=== PATIENT | male | born 1950 | race Caucasian/White ===

== ENCOUNTER 2016-12-26 19:09 | Emergency (ER) | payer MEDICARE, MEDICAID ==
[2016-12-26 19:59] LABS: ABSOLUTE BASOPHILS # (AUTO) 0.1 10^3/uL (0.0-0.2); ABSOLUTE EOSINOPHILS # (AUTO) 0.1 10^3/uL (0.0-0.6); ABSOLUTE LYMPHOCYTES (AUTO) 1.3 10^3/uL (0.5-4.7); ABSOLUTE MONOCYTES (AUTO) 1.1 10^3/uL (0.1-1.4); ABSOLUTE NEUT (AUTO) 14.9 10^3/uL (1.7-8.2); BASOPHILS % (AUTO) 0.5 % (0-2); EOSINOPHILS % (AUTO) 0.3 % (0-6); HEMATOCRIT 42.9 % (37.9-51.0); HGB HCT DIFFERENCE -0.9; LYMPHOCYTES % (AUTO) 7.4 % (13-45); MEAN CORPUSCULAR HEMOGLOBIN 29.1 pg (27.0-33.4); MEAN CORPUSCULAR HGB CONC 32.8 g/dL (32.0-36.0); MEAN CORPUSCULAR VOLUME 89 fl (80-97); MONOCYTES % (AUTO) 6.2 % (3-13); RED BLOOD COUNT 4.83 10^6/uL (4.35-5.55); RED CELL DISTRIBUTION WIDTH 13.3 % (11.5-14.0); SEGMENTED NEUTROPHILS % (AUTO) 85.6 % (42-78); WHITE BLOOD COUNT 17.4 10^3/uL (4.0-10.5)
[2016-12-26 20:03] LABS: VENOUS BLOOD BASE EXCESS 1.6 mmol/L; VENOUS BLOOD HCO3 24.6 mmol/L (20-32); VENOUS BLOOD PCO2 33.9 mmHg (35-63); VENOUS BLOOD PH 7.48 (7.30-7.42)
--- NOTE | 2016-12-26 20:05 | ER Document Report ---
ED Respiratory Problem - General Chief Complaint: Shortness Of Breath Stated Complaint: SHORTNESS OF BREATH Time Seen by Provider: 12/26/16 19:19 Notes: The patient is a 66-year-old male, past medical history COPD, current smoker, presents with 2 days of increasing shortness of breath and cough. He was also found to have a fever of 101.5 when EMS arrived. He was provided 1 DuoNeb, 975 mg Tylenol and 125 mg IV Solu-Medrol by EMS prior to arrival. He is feeling better and feels like his shortness of breath has improved. He denies nausea, vomiting, chest pain, leg swelling, fevers, abdominal pain, rash or back pain. TRAVEL OUTSIDE OF THE [place] IN LAST 30 DAYS: No - Related Data Allergies/Adverse Reactions: No Known Allergies Allergy (Verified 12/26/16 19:21) Past Medical History - General Information source: Patient - Social History Smoking Status: Current Every Day Smoker Chew tobacco use (# tins/day): No Frequency of alcohol use: Social Drug Abuse: None Family History: Reviewed & Not Pertinent Patient has suicidal ideation: No Patient has homicidal ideation: No - Past Medical History Cardiac Medical History: Reports: Hx Hypertension Denies: Hx Coronary Artery Disease, Hx Heart Attack Pulmonary Medical History: Reports: Hx Asthma, Hx COPD, Hx Pneumonia - 6 yrs ago Denies: Hx Bronchitis Neurological Medical History: Denies: Hx Cerebrovascular Accident, Hx Seizures Renal/ Medical History: Denies: Hx Peritoneal Dialysis Musculoskeltal Medical History: Reports Hx Arthritis - back and shoulder Psychiatric Medical History: Reports: Hx Depression Past Surgical History: Reports: Hx Orthopedic Surgery - 3 discectomy. plates and screws in back. Denies: Hx Pacemaker - Immunizations Hx Diphtheria, Pertussis, Tetanus Vaccination: No Hx Pneumococcal Vaccination: 05/17/12 Review of Systems - Review of Systems Notes: REVIEW OF SYSTEMS: CONSTITUTIONAL: +fevers, +chills EENT: -eye pain, -difficulty swallowing, -nasal congestion CARDIOVASCULAR:-chest pain, -syncope. RESPIRATORY: +cough, +SOB GASTROINTESTINAL: -abdominal pain, - nausea, -vomiting, -diarrhea GENITOURINARY: -dysuria, -hematuria MUSCULOSKELETAL: -back pain, -neck pain SKIN: -rash or skin lesions. HEMATOLOGIC: -easy bruising or bleeding. LYMPHATIC: -swollen, enlarged glands. NEUROLOGICAL: -altered mental status or loss of consciousness, -headache, - neurologic symptoms PSYCHIATRIC: -anxiety, -depression. ALL OTHER SYSTEMS REVIEWED AND NEGATIVE. Physical Exam - Vital signs Vitals: Temp Pulse Resp BP Pulse Ox 99.4 F 103 H 24 H 135/69 H 89 L 12/26/16 19:10 12/26/16 19:10 12/26/16 19:10 12/26/16 19:10 12/26/16 19:10 - Notes Notes: PHYSICAL EXAMINATION: GENERAL: Well-appearing, well-nourished and in no acute distress. HEAD: Atraumatic, normocephalic. EYES: Pupils equal round and reactive to light, extraocular movements intact, sclera anicteric, conjunctiva are normal. ENT: nares patent, oropharynx clear without exudates. Moist mucous membranes. NECK: Normal range of motion, supple without lymphadenopathy LUNGS: Crackles in right middle lung field. No wheezing. No respiratory distress. HEART: Tachycardia, regular rhythm ABDOMEN: Soft, nontender, normoactive bowel sounds. No guarding, no rebound. No masses appreciated. EXTREMITIES: Normal range of motion, no pitting or edema. No cyanosis. NEUROLOGICAL: Cranial nerves grossly intact. Normal speech, normal gait. Normal sensory and motor exams. PSYCH: Normal mood, normal affect. SKIN: Warm, Dry, normal turgor, no rashes or lesions noted. Course - Re-evaluation Re-evalutation: Patient has evidence of right middle lobe pneumonia on chest x-ray. He has not had any recent hospitalizations, so will begin antibiotics for CAP. After DuoNebs, steroids and antibiotics, he feels much better. His CURB-65 score is 1 , so he is safe for outpatient management with strict return precautions. Pt comfortable with plan. - Vital Signs Vital signs: Temp Pulse Resp BP Pulse Ox 99.4 F 103 H 38 H 123/71 91 L 12/26/16 19:25 12/26/16 19:10 12/26/16 19:33 12/26/16 19:33 12/26/16 19:33 - Laboratory Result Diagrams: 12/26/16 19:40 12/26/16 19:40 Laboratory results interpreted by me: 12/26/16 12/26/16 12/26/16 19:40 19:40 19:40 WBC 17.4 H Seg Neutrophils % 85.6 H Lymphocytes % 7.4 L Absolute Neutrophils 14.9 H VBG pH 7.48 H VBG pCO2 33.9 L Sodium 135.9 L Carbon Dioxide 21 L Glucose 175 H AST 16 L - Diagnostic Test Radiology reviewed: Image reviewed, Reports reviewed Radiology results interpreted by me: CXR: RML pneumonia - EKG Interpretation by Me EKG shows normal: Sinus rhythm, Morse, Intervals, QRS Complexes Rate: Tachycardia When compared to previous EKG there are: Changes noted Additional EKG results interpreted by me: ST Depressions in lateral leads, sinus tachycardia Discharge - Discharge Clinical Impression: COPD exacerbation Pneumonia Qualifiers: Pneumonia type: due to unspecified organism Laterality: right Lung location: middle lobe of lung Qualified Code(s): J18.1 - Lobar pneumonia, unspecified organism Condition: Stable Additional Instructions: PNEUMONIA: Your examination indicates that you have pneumonia. This is an infection of the lung tissue, usually caused by bacteria or a virus. Symptoms include cough, fever, shaking chills, chest pain, shortness of breath, and coughing up bloody sputum. Treatment for bacterial pneumonia includes rest, antibiotics for 10 to 14 days, increasing your clear liquid intake, a cool mist humidifier at your bedside, and fever medication. Often, a repeat chest X-ray is performed in a few weeks--even if you feel better--to ascertain whether the infection has completely resolved and no underlying lung problem is present. You should call the physician if you develop persistent vomiting, high fever that does not respond to fever medication, increasing shortness of breath , confusion, or lethargy. Also, failure to improve within two to three days is an indication for re-examination. ANTIBIOTIC INJECTION: You have been given an antibiotic injection. Sometimes the injection must be combined with antibiotic pills. For some infections, the shot provides all the antibiotic that's needed. Common side effects of antibiotics include nausea, intestinal cramping, or diarrhea. These are very unusual following a shot. Women may develop vaginal yeast infections, and babies can get yeast ( thrush) in the mouth following the use of antibiotics. Contact your physician if you develop significant side effects from this medication. Allergy to this antibiotic can result in hives, wheezing, faintness, or itching. If symptoms of allergy occur, call the doctor at once. ROCEPHIN: You have been given an injection of an antibiotic called Rocephin ( ceftriaxone). Sometimes the injection must be combined with antibiotic pills. For some infections, such as an uncomplicated ear infection, Rocephin provides all the antibiotic that's needed. The antibiotic will be in your body for about two days. For serious infections, we usually repeat doses of Rocephin daily. Side effects are very unusual following a shot. Women may develop vaginal yeast infections, and babies can get yeast (thrush) in the mouth following the use of antibiotics. Contact your physician if you have symptoms with this medication. Allergy to this antibiotic can result in hives, wheezing, faintness, or itching. If symptoms of allergy occur, call the doctor at once. ANTIBIOTIC THERAPY: You have been given an antibiotic prescription. It's important that you take all the medication, unless instructed otherwise by your physician. Failure to complete the entire course can result in relapse of your condition. Common side effects of antibiotics include nausea, intestinal cramping, or diarrhea. Women may develop vaginal yeast infections, and babies can get yeast (thrush) in the mouth following the use of antibiotics. Contact your physician if you develop significant side effects from this medication. Allergy to this antibiotic can result in hives, wheezing, faintness, or itching. If symptoms of allergy occur, stop the medication and call the doctor. DOXYCYCLINE: Doxycycline (Vibramycin, Doryx) is an antibiotic of the tetracycline family. This type of drug is useful for infections of the respiratory tract and genital tract, and is sometimes used for intestinal infections. Unlike most tetracyclines, doxycycline can be taken with food. It is longer acting, and (usually) less prone to side effects than regular tetracycline. Tetracycline antibiotics can stain immature teeth and SHOULD NOT BE TAKEN BY CHILDREN, NURSING MOTHERS, OR WOMEN. Tetracyclines can make you more prone to sunburn. Abdominal cramping, nausea, and diarrhea are occasional side effects. Women may experience vaginal yeast infections. Call the doctor at once if you develop hives, itching, shortness of breath , or lightheadedness. USE OF ACETAMINOPHEN (Tylenol): Acetaminophen may be taken for pain relief or fever control. It's much safer than aspirin, offering a wider range of "safe" dosages. It is safe during . Some brand names are Tylenol, Panadol, Datril, Anacin 3, Tempra, and Liquiprin. Acetaminophen can be repeated every four hours. The following are maximum recommended dosages: WEIGHT Dose Drops Elixir Chewable( 80mg) (LBS.) drprs=droppers tsp=teaspoon 6 40 mg 0.4 ml (1/2) 6-11 80 mg 0.8 ml (full) tsp 1 tab 12-16 120 mg 1 1/2 drprs 3/4 tsp 1 1/2 tabs 17-23 160 mg 2 drprs 1 tsp 2 tabs 24-30 240 mg 3 drprs 1 1/2 tsp 3 tabs 30-35 320 mg 2 tsp 4 tabs 36-41 360 mg 2 1/4 tsp 4 1/2 tabs 42-47 400 mg 2 1/2 tsp 5 tabs 48-53 480 mg 3 tsp 6 tabs 54-59 520 mg 3 1/4 tsp 6 1/2 tabs 60-64 560 mg 3 1/2 tsp 7 tabs 65-70 600 mg 3 3/4 tsp 7 1/2 tabs 71-76 640 mg 4 tsp 8 tabs 77-82 720 mg 4 1/2 tsp 9 tabs 83-88 800 mg 5 tsp 10 tabs >89 pounds or adults 650 mg to 900 mg Acetaminophen can be repeated every four hours. Maximum dose not to exceed 4000 mg a day. These maximum recommended dosages are slightly higher than the dosages written on the product container, but these dosages are very safe and below the toxic dosage for acetaminophen. FOLLOW-UP CARE: If you have been referred to a physician for follow-up care, call the physician s office for an appointment as you were instructed or within the next two days. If you experience worsening or a significant change in your symptoms, notify the physician immediately or return to the Emergency Department at any time for re-evaluation. BRONCHOSPASM: You have tightness in the bronchial tubes, called bronchospasm. This often occurs with bronchial infections. Allergies, inhaled chemicals, and polluted or cold air can also provoke bronchospasm. It's more likely in patients with asthma in the family. Emergency treatment of bronchospasm may include adrenaline shots or bronchodilator aerosol. You may feel lightheaded and have a rapid pulse for an hour or two. Rest and get plenty of fluids. At home, we'll treat you with a bronchodilator inhaler. Antibiotics and corticosteroids may be required for some patients. Until you recover, avoid chemical fumes, dusts, pollens, and exercising in very cold or dry air. If you smoke, stop now!! If you develop a fever, increased wheezing, chest pain, or severe shortness of breath, you should contact the doctor immediately. INHALED BRONCHODILATORS: You have received a treatment of and/or prescription for an inhaled bronchodilator -- a medication which stimulates the airways in the lung to dilate. This improves the flow of air in asthma, bronchitis, and emphysema. These medicines have some similarity to adrenaline, and can cause similar side effects: shakiness, racing heart, and a sense of nervousness. These side effects decrease with time. Contact your doctor if these side effects are severe. Do not over-use the medicine. Too-frequent use of the inhaler may make it ineffective. Call your doctor if the inhaler is not controlling your symptoms at the prescribed doses. STEROID MEDICATION: You have been given an injection of or oral medicine of the cortisone/ steroid class. This medication is used to control inflammation or allergy. Mike t is usually only given for a short period of time, until the acute process subsides. There are usually no side effects from short-term use of cortisone-like medications. Some persons feel an increased sense of well-being and are not sleepy at bedtime. Long-term use of cortisone medications is best avoided, unless required for a severe condition. If your condition does not remit, or relapses after the course of corticosteroid medication, you should consult your physician. SMOKING: If you smoke, you should stop smoking. The tar and chemicals in cigarette smoke are harmful. Smoking has been shown to cause: emphysema chronic bronchitis lung cancer mouth and throat cancer stomach and pancreas cancer premature aging defects In addition, smoking increases ear and lung infections in children of smokers. FOLLOW-UP CARE: If you have been referred to a physician for follow-up care, call the physician s office for an appointment as you were instructed or within the next two days. If you experience worsening or a significant change in your symptoms, notify the physician immediately or return to the Emergency Department at any time for re-evaluation. Prescriptions: Albuterol Sulfate [Proair HFA Inhalation Aerosol 8.5 gm MDI] 2 puff IH Q4H PRN # 1 mdi PRN Reason: Doxycycline Hyclate 100 mg PO BID #14 capsule Prednisone [Deltasone 20 mg Tablet] 3 tab PO DAILY 5 Days
[2016-12-26] MEDS ORDERED: CEFTRIAXONE 1 GM/D5W RTU 50 ML IV ONE (20:07)
--- NOTE | 2016-12-26 20:07 | RADIOLOGY REPORT (SQ) ---
EXAM DESCRIPTION: CHEST PA/LAT COMPLETED DATE/TIME: 12/26/2016 7:57 pm REASON FOR STUDY: SOB, fever COMPARISON: 02/11/2014 EXAM PARAMETERS: NUMBER OF VIEWS: two views TECHNIQUE: Digital Frontal and Lateral radiographic views of the chest acquired. RADIATION DOSE: NA LIMITATIONS: none FINDINGS: LUNGS AND PLEURA: Right middle lobe airspace opacities. No pleural effusion. No pneumoth orax. MEDIASTINUM AND HILAR STRUCTURES: No masses or contour abnormalities. HEART AND VASCULAR STRUCTURES: Heart normal size. No evidence for failure. BONES: No acute findings. HARDWARE: None in the chest. OTHER: No other significant finding. IMPRESSION: Right middle lobe pneumonia. TECHNICAL DOCUMENTATION: JOB ID: [id number] [employer]- All Rights Reserved
[2016-12-26] MEDS ORDERED: AZITHROMYCIN INJ 500 MG VIAL IV ONE (20:08)
[2016-12-26 20:17] LABS: ALANINE AMINOTRANSFERASE 23 U/L (21-72); ALBUMIN 3.6 g/dL (3.5-5.0); ALKALINE PHOSPHATASE 85 U/L (38-126); ANION GAP 12 (5-19); ASPARTATE AMINO TRANSFERASE 16 U/L (17-59); BILIRUBIN,DIRECT 0.4 mg/dL (0.0-0.4); BILIRUBIN,TOTAL 1.3 mg/dL (0.2-1.3); BLOOD UREA NITROGEN 14 mg/dL (7-20); CARBON DIOXIDE 21 mmol/L (22-30); CHLORIDE 103 mmol/L (98-107); CREATINE KINASE 57 U/L (55-170); CREATININE RESULT 0.71 mg/dL (0.52-1.25); GLUCOSE 175 mg/dL (75-110); POTASSIUM 3.8 mmol/L (3.6-5.0); SODIUM 135.9 mmol/L (137-145); TOTAL PROTEIN 6.4 g/dL (6.3-8.2)
[2016-12-26 20:30] LABS: TROPONIN I < 0.012 ng/mL
[2016-12-26 22:32] VITALS: BP 126/72
--- NOTE | 2016-12-26 23:54 | EKG REPORT ---
SEVERITY:- OTHERWISE NORMAL ECG - SINUS TACHYCARDIA MINIMAL ST DEPRESSION, ANTEROLATERAL LEADS : Confirmed by: Ree Guthrie 26-Dec-2016 23:54:00
== END 2016-12-26 22:35 | disposition home or self-care (01) ==
LOC: ER 19:09
DX: J44.1 Chronic obstructive pulmonary disease with (acute) exacerbation (principal); J18.1 Lobar pneumonia, unspecified organism; R50.9 Fever, unspecified; F17.200 Nicotine dependence, unspecified, uncomplicated; I10 Essential (primary) hypertension
CPT/HCPCS: 93005; 99285; 96375; 96365; 36415; 87040; 82550; 85025; 80053; 83605; 84484; 82803; 83880; 71020; 93010; J0456; J0696

== ENCOUNTER 2017-08-02 22:49 | Inpatient (IN) | payer MEDICARE, MEDICAID ==
[2017-08-02] MEDS ORDERED: IPRATROPIUM/ALBUTEROL 0.5-2.5 MG/3 ML AMPUL NEB ONE (23:26)
[2017-08-02] MEDS ORDERED: METHYLPREDNISOLONE INJ 125 MG/2 ML SDV IV ONE (23:26)
--- NOTE | 2017-08-02 23:29 | ER Document Report ---
ED Respiratory Problem - General Chief Complaint: Breathing Difficulty Stated Complaint: DIFFICULTY BREATHING Time Seen by Provider: 08/02/17 23:11 Notes: Patient is a 66-year-old male who presents emergency department with a chief complaint of shortness of breath. Patient states that he woke up this morning with shortness of breath and is been doing his home nebulizer treatments. Patient states that he was discharged from [facility] yesterday after approximately 3 day admission for same symptoms. He was sent home on prednisone , Levaquin as well as Flonase and Advair. 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 He denies any chest pain, nausea or vomiting. Denies any fevers or chills, productive cough. TRAVEL OUTSIDE OF THE [place] IN LAST 30 DAYS: No - Related Data Allergies/Adverse Reactions: No Known Allergies Allergy (Verified 12/26/16 19:21) Past Medical History - Social History Smoking Status: Unknown if Ever Smoked Chew tobacco use (# tins/day): No Frequency of alcohol use: None Drug Abuse: None Family History: Reviewed & Not Pertinent Patient has suicidal ideation: No Patient has homicidal ideation: No - Past Medical History Cardiac Medical History: Reports: Hx Hypertension Denies: Hx Coronary Artery Disease, Hx Heart Attack Pulmonary Medical History: Reports: Hx Asthma, Hx COPD, Hx Pneumonia - 6 yrs ago Denies: Hx Bronchitis Neurological Medical History: Denies: Hx Cerebrovascular Accident, Hx Seizures Renal/ Medical History: Denies: Hx Peritoneal Dialysis Musculoskeltal Medical History: Reports Hx Arthritis - back and shoulder Psychiatric Medical History: Reports: Hx Depression Past Surgical History: Reports: Hx Orthopedic Surgery - 3 discectomy. plates and screws in back. Denies: Hx Pacemaker - Immunizations Hx Diphtheria, Pertussis, Tetanus Vaccination: No Hx Pneumococcal Vaccination: 05/17/12 Review of Systems - Review of Systems Constitutional: No symptoms reported. denies: Chills, Fever, Weight gain, Weight loss EENT: No symptoms reported Cardiovascular: No symptoms reported. denies: Chest pain, Palpitations, Orthopnea, Syncope, Dizziness Respiratory: See HPI, Cough, Short of breath, Wheezing Gastrointestinal: No symptoms reported. denies: Abdominal pain, Nausea, Vomiting Neurological/Psychological: No symptoms reported, Confusion -: Yes All other systems reviewed and negative Physical Exam - Vital signs Vitals: Resp Pulse Ox 25 H 96 08/02/17 22:58 08/02/17 22:58 - Notes Notes: PHYSICAL EXAM GENERAL: Alert, interacts well. HEAD: Normocephalic, atraumatic. EYES: Pupils equal, round, and reactive to light. Extraocular movements intact. ENT: Oral mucosa moist, tongue midline. NECK: Full range of motion. Supple. Trachea midline. LUNGS: Coarse rhonchi noted throughout all lung pool it was so bad. No respiratory distress. HEART: chest nontender Regular rate and rhythm. No murmurs, gallops, or rubs. ABDOMEN: Soft, nondistended, nontender. No guarding, rebound, or rigidity.. Bowel sounds present in all 4 quadrants. EXTREMITIES: Moves all 4 extremities spontaneously. No edema, radial and dorsalis pedis pulses 2/4 bilaterally. No cyanosis. NEUROLOGICAL: Alert and oriented x4. Normal speech. PSYCH: Normal affect, normal mood. SKIN: Warm, dry, normal turgor. No rashes or lesions noted. Course - Re-evaluation Re-evalutation: Patient is a 66-year-old male who presents emergency department with symptoms consistent with acute on chronic COPD exacerbation. Patient does not wear nasal cannula at home but is requiring at least 2-4 L nasal cannula here to maintain his sats in the mid 90s. Patient received Solu-Medrol multiple breathing treatments via EMS and while in the department. Patient was ambulated and dropped down to 84% with tachypnea and tachycardia. Patient will be admitted for acute on chronic COPD exacerbation to Dr. Juárez under telemetry - Vital Signs Vital signs: Temp Pulse Resp BP Pulse Ox 98.0 F 79 18 151/80 H 94 08/03/17 07:54 08/03/17 08:17 08/03/17 08:17 08/03/17 07:54 08/03/17 08:17 - Laboratory Result Diagrams: 08/02/17 23:05 08/02/17 23:05 Laboratory results interpreted by me: 08/02/17 08/02/17 08/03/17 23:05 23:05 00:05 WBC 11.3 H Band Neutrophils % 2 L Metamyelocytes % 2 H Immature Leukocytes % 2 H ABG pH 7.47 H ABG pO2 60.3 L ABG Total CO2 27.1 H ABG O2 Saturation 92.6 L Total Protein 5.8 L - Diagnostic Test Radiology reviewed: Image reviewed, Reports reviewed - EKG Interpretation by Me EKG shows normal: Sinus rhythm Rate: Normal Rhythm: NSR When compared to previous EKG there are: No significant change Discharge - Discharge Clinical Impression: COPD exacerbation Condition: Stable Disposition: ADMITTED OBSERVATION Admitting Provider: Hospitalist Unit Admitted: Telemetry
--- NOTE | 2017-08-03 00:04 | RADIOLOGY REPORT (SQ) ---
EXAM DESCRIPTION: CHEST SINGLE VIEW COMPLETED DATE/TIME: 08/02/2017 11:40 pm REASON FOR STUDY: shortness of breath, pneumonia COMPARISON: 12/26/2016 EXAM PARAMETERS: NUMBER OF VIEWS: One view. TECHNIQUE: Single frontal radiographic view of the chest acquired. RADIATION DOSE: NA LIMITATIONS: None. FINDINGS: LUNGS AND PLEURA: No consolidation, masses or pneumothorax. No pleural effusion. MEDIASTINUM AND HILAR STRUCTURES: Stable. HEART AND VASCULAR STRUCTURES: Heart normal in size. Normal vasculature. BONES: No acute findings. HARDWARE: None in the chest. OTHER: No other significant finding. IMPRESSION: NO ACUTE RADIOGRAPHIC FINDING IN THE CHEST. TECHNICAL DOCUMENTATION: JOB ID: [id number] [employer]- All Rights Reserved Reading location - IP/workstation name: [email or web address]
[2017-08-03] MEDS: ALBUTEROL SULFATE 0.083% NEB 2.5 MG/3 ML AMPUL NEB SCH ×2 (00:10→00:14)
[2017-08-03 00:22] LABS: HEMATOCRIT 42.3 % (37.9-51.0); HEMOGLOBIN 13.9 g/dL (13.5-17.0); MEAN CORPUSCULAR HEMOGLOBIN 27.8 pg (27.0-33.4); MEAN CORPUSCULAR HGB CONC 32.8 g/dL (32.0-36.0); MEAN CORPUSCULAR VOLUME 85 fl (80-97); PLATELET COUNT 256 10^3/uL (150-450); RED BLOOD COUNT 5.01 10^6/uL (4.35-5.55); RED CELL DISTRIBUTION WIDTH 13.8 % (11.5-14.0); WHITE BLOOD COUNT 11.3 10^3/uL (4.0-10.5)
[2017-08-03 00:22] LABS: ARTERIAL BLOOD BASE EXCESS 2.5 mmol/L; ARTERIAL BLOOD H2CO3 1.11 mmol/L (1.05-1.35); ARTERIAL BLOOD O2 SATURATION 92.6 % (94-98); ARTERIAL BLOOD PCO2 36.9 mmHg (35-45); ARTERIAL BLOOD PH 7.47 (7.35-7.45); ARTERIAL BLOOD PO2 60.3 mmHg (80-100); ARTERIAL BLOOD TOTAL CO2 27.1 mmol/L (23-27)
[2017-08-03 00:31] LABS: ARTERIAL BLOOD FIO2 ROOM AIR
[2017-08-03 00:33] LABS: ALANINE AMINOTRANSFERASE 39 U/L (21-72); ALBUMIN 3.5 g/dL (3.5-5.0); ALKALINE PHOSPHATASE 65 U/L (38-126); ANION GAP 12 (5-19); ASPARTATE AMINO TRANSFERASE 27 U/L (17-59); BILIRUBIN,DIRECT 0.2 mg/dL (0.0-0.4); BILIRUBIN,TOTAL 0.5 mg/dL (0.2-1.3); BLOOD UREA NITROGEN 15 mg/dL (7-20); CALCIUM 9.1 mg/dL (8.4-10.2); CARBON DIOXIDE 27 mmol/L (22-30); CHLORIDE 102 mmol/L (98-107); CREATINE KINASE 74 U/L (55-170); GLUCOSE 98 mg/dL (75-110); POTASSIUM 4.2 mmol/L (3.6-5.0); SODIUM 140.6 mmol/L (137-145); TOTAL PROTEIN 5.8 g/dL (6.3-8.2)
[2017-08-03 00:42] LABS: ABSOLUTE LYMPHOCYTES# (MANUAL) 4.1 10^3/uL (0.5-4.7); ABSOLUTE MONOCYTES # (MANUAL) 0.5 10^3/uL (0.1-1.4); ABSOLUTE NEUTROPHILS# (MANUAL) 6.6 10^3/uL (1.7-8.2); BAND NEUTROPHILS % (MANUAL) 2 % (3-5); BASOPHILS % (MANUAL) 0 % (0-2); EOSINOPHILS % (MANUAL) 0 % (0-6); LYMPHOCYTES % (MANUAL) 29 % (13-45); METAMYELOCYTES % (MANUAL) 2 % (0); MONOCYTES % (MANUAL) 4 % (3-13); SEGMENTED NEUTROPHILS % (MAN) 54 % (42-78); TOTAL CELLS COUNTED 100
[2017-08-03 00:45] LABS: CREATINE KINASE MB 2.97 ng/mL (<4.55)
[2017-08-03 00:48] LABS: TROPONIN I 0.04 ng/mL
[2017-08-03 00:49] LABS: PLATELET LARGE PRESENT; RBC MORPHOLOGY COMMENT NORMO-CYTIC/CHROMIC
[2017-08-03 00:50] LABS: IMMATURE MONONUCLEAR% (MANUAL) 2 % (0); PLATELET COMMENT ADEQUATE
[2017-08-03] MEDS ORDERED: ACETAMINOPHEN 325 MG TABLET PO PRN (02:09)
[2017-08-03] MEDS ORDERED: IPRATROPIUM/ALBUTEROL 0.5-2.5 MG/3 ML AMPUL NEB PRN (02:09)
[2017-08-03] MEDS ORDERED: CHLORPHENIRAMINE MALEATE 4 MG TABLET PO ONE (02:09)
[2017-08-03] MEDS ORDERED: GUAIFENESIN SYRP 200 MG/10 ML UDC PO PRN (02:09)
[2017-08-03] MEDS ORDERED: HYDRALAZINE HCL INJ/PF 20 MG/1 ML SDV IV PRN (02:09)
[2017-08-03] MEDS: FLUTICASONE NASAL SPRAY 50 MCG/SPRY 120 SPRAY/16 GM NASL SCH ×3 (02:30→21:12)
[2017-08-03] MEDS ORDERED: FLUTICASONE NASAL SPRAY 50 MCG/SPRY 120 SPRAY/16 GM NASL ONE (02:30)
[2017-08-03] MEDS: HEPARIN SOD (PORCINE) 5,000 UNIT/ML 1 ML SYRINGE SUBCUT SCH ×3 (05:08→21:13)
[2017-08-03] MEDS ORDERED: NICOTINE 7 MG/24 HR PATCH.TD24 TD ONE (06:00)
--- NOTE | 2017-08-03 06:01 | PDOC H&P ---
History of Present Illness Admission Date/PCP: 08/03/17 02:30 Patient complains of: Shortness of breath and cough History of Present Illness: MEKA ATWOOD JR is a 66 year old male with a past medical history of COPD, chronic bronchitis, Tobacco Dependence and hypertension. He presents with 1 week of exceptional sinus congestion, postnasal drip and shortness of breath prompting him to seek evaluation at the emergency room at [facility] where he was observed and discharged on p.o. antibiotics but has subsequently had a return of symptoms. In the emergency room is found to be tachypneic with wheezing. He receives albuterol and Atrovent and referred to the hospitalist for evaluation. Patient denies chest pain nausea vomiting or diaphoresis Past Medical History Cardiac Medical History: Reports: Hypertension Denies: Coronary Artery Disease, Myocardial Infarction Pulmonary Medical History: Reports: Asthma, Chronic Obstructive Pulmonary Disease (COPD), Pneumonia - 6 yrs ago Denies: Bronchitis Neurological Medical History: Denies: Seizures Musculoskeltal Medical History: Reports: Arthritis - back and shoulder Psychiatric Medical History: Reports: Depression Hematology: Denies: Anemia Past Surgical History Past Surgical History: Reports: Orthopedic Surgery - 3 discectomy. plates and screws in back Denies: Pacemaker Social History Information Source: Patient Smoking Status: Current Every Day Smoker Frequency of Alcohol Use: Social Hx Recreational Drug Use: No Drugs: None Hx Prescription Drug Abuse: No - Advance Directive Resuscitation Status: Full Code Family History Family History: COPD, Malignancy - Throat cancer Parental Family History Reviewed: Yes Children Family History Reviewed: Yes Sibling(s) Family History Reviewed.: Yes Medication/Allergy Home Medications: Albuterol Sulfate [Proair Hfa Inhalation Aerosol 8.5 gm Mdi] 2 puff IH Q4 PRN Amlodipine Besylate 10 mg PO DAILY 08/03/17 Fluticasone Propionate [Flonase Nasal [place] 50 Mcg/[place] 16 gm] 1 spray NASL Q12 08/03/17 Fluticasone/Salmeterol [Advair 100-50 Diskus 28 Dose] 1 inh IH Q12H 08/03/17 Guaifenesin [Mucinex] 1,200 mg PO BID 08/03/17 Hydrocodone/Chlorphen P-Stirex [Tussionex Pennkinetic Susp] 5 ml PO QHS Levofloxacin [Levaquin 750 mg Tablet] 750 mg PO DAILY 08/03/17 Prednisone 20 mg PO DAILY 08/03/17 Tiotropium Adams [Spiriva Handihaler 18 mcg/dose (30 Dose)] 1 cap IH DAILY Allergies/Adverse Reactions: No Known Allergies Allergy (Verified 12/26/16 19:21) Review of Systems Constitutional: ABSENT: chills, fever(s), headache(s), weight gain, weight loss Eyes: ABSENT: visual disturbances Ears: ABSENT: hearing changes Cardiovascular: ABSENT: chest pain, dyspnea on exertion, edema, orthropnea, palpitations Respiratory: ABSENT: cough, hemoptysis Gastrointestinal: ABSENT: abdominal pain, constipation, diarrhea, hematemesis, hematochezia, nausea, vomiting Genitourinary: ABSENT: dysuria, hematuria Musculoskeletal: ABSENT: joint swelling Integumentary: ABSENT: rash, wounds Neurological: ABSENT: abnormal gait, abnormal speech, confusion, dizziness, focal weakness, syncope Psychiatric: ABSENT: anxiety, depression, homidical ideation, suicidal ideation Endocrine: ABSENT: cold intolerance, heat intolerance, polydipsia, polyuria Hematologic/Lymphatic: ABSENT: easy bleeding, easy bruising Physical Exam Vital Signs: Temp Pulse Resp BP Pulse Ox 97.7 F 78 24 H 182/84 H 95 08/03/17 03:52 08/03/17 04:17 08/03/17 03:52 08/03/17 03:52 08/03/17 04:00 Pulse Oximeter Continuous Start: 08/03/17 02: 09 Freq: RTQ4 Status: Active Document 08/03/17 04:00 CMI (Rec: 08/03/17 04:27 CMI [email or web address]) Pulse Oximetry Assessment Oxygen Saturation (92-100) 95 Oxygen Flow Rate (L/min) 3 Oxygen Delivery Method Nasal Cannula Fraction of Inspired Oxygen (FIO2) 32 Equipment Usage Initial Set Up Continuous Pulse Oximeter 24 Hour Charge Charge Now Continuous SpO2 Machine # 8 Intake & Output 08/01/17 08/02/17 08/03/17 11:59 11:59 11:59 Weight 71.5 kg General appearance: PRESENT: cooperative, mild distress. ABSENT: no acute distress, disheveled, hard of hearing, obese, severe distress Head exam: PRESENT: atraumatic, normocephalic Eye exam: PRESENT: conjunctiva pink, EOMI, PERRLA. ABSENT: scleral icterus Ear exam: PRESENT: normal external ear exam Mouth exam: PRESENT: moist, tongue midline Neck exam: ABSENT: carotid bruit, JVD, lymphadenopathy, thyromegaly Respiratory exam: PRESENT: accessory muscle use, rales, retraction, symmetrical , tachypnea, wheezes. ABSENT: chest wall tenderness, clear to auscultation uriel , rhonchi Cardiovascular exam: PRESENT: RRR. ABSENT: diastolic murmur, rubs, systolic murmur Pulses: PRESENT: normal dorsalis pedis pul Vascular exam: PRESENT: normal capillary refill GI/Abdominal exam: PRESENT: normal bowel sounds, soft. ABSENT: distended, guarding, mass, organolmegaly, rebound, tenderness Rectal exam: PRESENT: deferred Extremities exam: PRESENT: full ROM. ABSENT: calf tenderness, clubbing, pedal edema Neurological exam: PRESENT: alert, awake, oriented to person, oriented to place , oriented to time, oriented to situation, CN II-XII grossly intact. ABSENT: motor sensory deficit Psychiatric exam: PRESENT: appropriate affect, normal mood. ABSENT: homicidal ideation, suicidal ideation Skin exam: PRESENT: dry, intact, warm. ABSENT: cyanosis, rash Results Laboratory Results: 08/03/17 03:30 Troponin I 0.024 Impressions: Chest X-Ray 08/02/17 23:27 IMPRESSION: NO ACUTE RADIOGRAPHIC FINDING IN THE CHEST. Assessment & Plan - Diagnosis (1) Allergic sinusitis Is this a current diagnosis for this admission?: Yes Plan: Chlorpheniramine, Flonase. (2) COPD exacerbation Is this a current diagnosis for this admission?: Yes Plan: Albuterol and Atrovent, flutter valve incentive spirometry (3) HTN (hypertension) Is this a current diagnosis for this admission?: Yes Plan: Home regiment with as needed hydralazine (4) Tobacco abuse Is this a current diagnosis for this admission?: Yes Plan: Tobacco Dependence patient received tobacco cessation counseling and offered nicotine replacement options - Time Time Spent: 30 to 50 Minutes - Inpatient Certification Medical Necessity: Need Close Monitoring Due to Risk of Patient Decompensation
[2017-08-03] MEDS: IPRATROPIUM/ALBUTEROL 0.5-2.5 MG/3 ML AMPUL NEB SCH ×3 (08:14→20:06)
--- NOTE | 2017-08-03 09:33 | EKG REPORT ---
SEVERITY:- NORMAL ECG - SINUS RHYTHM : Confirmed by: Ree Guthrie 03-Aug-2017 09:32:08
--- NOTE | 2017-08-03 09:37 | Physician Advisory Note ---
Physician Advisor ProgressNote .: Pursuant to the plan for Clarisa Abraham, I have reviewed the medical record for this patient. Physician Advisor Statement: Please consider documenting, if you agree: 1. "Acute Hypoxemic Respiratory Failure" - H&P already documents tachypnea, accessory muscle use, etc - & both H&P and ED note document hypoxemia, need for O2. 2. "Suspect acute bronchitis" (or what is reason for abx, since COPD exacerbations don't always need abx) 3. Principal Dx: Please document as Dx #1 in each note the principal reason the patient needed to stay in hospital (whether it was the Acute Resp Failure or the COPD exacerbation). 4. Medical Necessity: if this Medicare pt cannot be safely d/c'd tonight, after 1 [place] hospital care beginning in ED, please document reason(s) & consider changing to Inpatient status. - Ex: "Pt still requiring O2 to maintain sats in 90s", "resp status not yet back to baseline - still using accessory muscles to breathe/...", "I AM CONCERNED about ..." Thanks! CK
[2017-08-03] MEDS ORDERED: PREDNISONE 20 MG TABLET PO SCH (10:00)
[2017-08-03] MEDS ORDERED: AZITHROMYCIN 500 MG in DEXTROSE 5%-WATER 250 ML IV SCH (10:00)
[2017-08-03] MEDS ORDERED: FLUTICASONE NASAL SPRAY 50 MCG/SPRY 120 SPRAY/16 GM NASL PRN (14:42)
--- NOTE | 2017-08-03 15:19 | PDOC PROGRESS REPORT ---
Subjective Progress Note for:: 08/03/17 Subjective:: Patient complains of feeling short of breath and his chest being tight Review of system All organ systems evaluated and negative except as in subjective All laboratories and significant diagnostics have been reviewed Reason For Visit: COPD EXACERBATION ACUTE ON CHRONIC BRONCHITIS Physical Exam Vital Signs: Temp Pulse Resp BP Pulse Ox 97.7 F 61 24 H 182/84 H 95 08/03/17 03:52 08/03/17 07:00 08/03/17 03:52 08/03/17 03:52 08/03/17 04:00 Pulse Oximeter Continuous Start: 08/03/17 02: 09 Freq: RTQ4 Status: Active Document 08/03/17 04:00 CMI (Rec: 08/03/17 04:27 CMI [email or web address]) Pulse Oximetry Assessment Oxygen Saturation (92-100) 95 Oxygen Flow Rate (L/min) 3 Oxygen Delivery Method Nasal Cannula Fraction of Inspired Oxygen (FIO2) 32 Equipment Usage Initial Set Up Continuous Pulse Oximeter 24 Hour Charge Charge Now Continuous SpO2 Machine # 8 Intake & Output 08/02/17 08/03/17 08/04/17 06:59 06:59 06:59 Intake Total 100 Balance 100 Weight 71.5 kg General appearance: PRESENT: cooperative, well-developed, well-nourished Head exam: PRESENT: atraumatic, normocephalic Eye exam: PRESENT: conjunctiva pink, EOMI, PERRLA Ear exam: PRESENT: normal external ear exam Mouth exam: PRESENT: moist Neck exam: PRESENT: full ROM. ABSENT: JVD, lymphadenopathy, tenderness Respiratory exam: PRESENT: crackles, decreased breath sounds, wheezes Cardiovascular exam: PRESENT: RRR. ABSENT: diastolic murmur, systolic murmur Vascular exam: PRESENT: normal capillary refill GI/Abdominal exam: PRESENT: normal bowel sounds, soft. ABSENT: tenderness Extremities exam: PRESENT: full ROM. ABSENT: tenderness Musculoskeletal exam: PRESENT: ambulatory Neurological exam: PRESENT: alert, awake, oriented to person, oriented to place , oriented to time, oriented to situation Skin exam: PRESENT: normal color Results Laboratory Results: 08/03/17 03:30 Troponin I 0.024 Impressions: Chest X-Ray 08/02/17 23:27 IMPRESSION: NO ACUTE RADIOGRAPHIC FINDING IN THE CHEST. Assessment & Plan - Diagnosis (1) CHF (congestive heart failure) Qualifiers: Heart failure type: unspecified Heart failure chronicity: acute Qualified Code(s): I50.9 - Heart failure, unspecified Is this a current diagnosis for this admission?: Yes Plan: To place patient on IV Lasix, control blood pressure and order echocardiogram (2) Acute respiratory failure with hypoxia Is this a current diagnosis for this admission?: Yes Plan: Continue oxygen supplementation and wean off as tolerated (3) COPD exacerbation Is this a current diagnosis for this admission?: Yes Plan: To place on IV steroids, continue duo nebs and change Zithromax IV to p.o. (4) HTN (hypertension) Qualifiers: Hypertension type: essential hypertension Qualified Code(s): I10 - Essential (primary) hypertension Is this a current diagnosis for this admission?: Yes Plan: Continue Norvasc as outpatient and add lisinopril. (5) Tobacco abuse Is this a current diagnosis for this admission?: Yes Plan: Continue nicotine patch - Time Time Spent with patient: 15-24 minutes Medications reviewed and adjusted accordingly: Yes Anticipated discharge: Home Within: within 48 hours - Inpatient Certification Based on my medical assessment, after consideration of the patient's comorbidities, presenting symptoms, or acuity I expect that the services needed warrant INPATIENT care.: Yes I certify that my determination is in accordance with my understanding of Medicare's requirements for reasonable and necessary INPATIENT services [42 CFR 412.3e].: Yes Medical Necessity: Need Close Monitoring Due to Risk of Patient Decompensation, Need for Nebulizer Therapy and Monitoring of Response
[2017-08-03] MEDS: AMLODIPINE BESYLATE 10 MG TABLET PO SCH (17:15)
[2017-08-03] MEDS: FUROSEMIDE INJ/PF 20 MG/2 ML SDV IV SCH (17:15)
[2017-08-03] MEDS: METHYLPREDNISOLONE INJ 40 MG/1 ML SDV IV SCH (21:11)
[2017-08-04] MEDS: IPRATROPIUM/ALBUTEROL 0.5-2.5 MG/3 ML AMPUL NEB PRN (03:37)
[2017-08-04] MEDS: METHYLPREDNISOLONE INJ 40 MG/1 ML SDV IV SCH ×3 (05:20→21:18)
[2017-08-04] MEDS: FUROSEMIDE INJ/PF 20 MG/2 ML SDV IV SCH ×2 (05:21→17:52)
[2017-08-04] MEDS: HEPARIN SOD (PORCINE) 5,000 UNIT/ML 1 ML SYRINGE SUBCUT SCH ×3 (05:22→21:18)
[2017-08-04 05:44] LABS: HEMATOCRIT 44.7 % (37.9-51.0); HEMOGLOBIN 14.7 g/dL (13.5-17.0); MEAN CORPUSCULAR HEMOGLOBIN 27.8 pg (27.0-33.4); MEAN CORPUSCULAR VOLUME 84 fl (80-97); PLATELET COUNT 287 10^3/uL (150-450); RED CELL DISTRIBUTION WIDTH 14.2 % (11.5-14.0); WHITE BLOOD COUNT 15.9 10^3/uL (4.0-10.5)
[2017-08-04 06:01] LABS: ANION GAP 14 (5-19); BLOOD UREA NITROGEN 21 mg/dL (7-20); CALCIUM 9.4 mg/dL (8.4-10.2); CARBON DIOXIDE 25 mmol/L (22-30); CHLORIDE 101 mmol/L (98-107); GLUCOSE 125 mg/dL (75-110); POTASSIUM 4.6 mmol/L (3.6-5.0); SODIUM 139.9 mmol/L (137-145)
[2017-08-04 06:33] LABS: ABSOLUTE LYMPHOCYTES# (MANUAL) 1.4 10^3/uL (0.5-4.7); ABSOLUTE MONOCYTES # (MANUAL) 0.2 10^3/uL (0.1-1.4); ABSOLUTE NEUTROPHILS# (MANUAL) 14.2 10^3/uL (1.7-8.2); BAND NEUTROPHILS % (MANUAL) 2 % (3-5); BASOPHILS % (MANUAL) 0 % (0-2); EOSINOPHILS % (MANUAL) 0 % (0-6); IMMATURE MONONUCLEAR% (MANUAL) 1 % (0); LYMPHOCYTES % (MANUAL) 9 % (13-45); MONOCYTES % (MANUAL) 1 % (3-13); SEGMENTED NEUTROPHILS % (MAN) 87 % (42-78); TOTAL CELLS COUNTED 100
[2017-08-04 06:36] LABS: OVALOCYTES SLIGHT; TOXIC GRANULATION SLIGHT
[2017-08-04 06:37] LABS: ANISOCYTOSIS SLIGHT; PLATELET COMMENT ADEQUATE; PLATELET LARGE PRESENT; POIKILOCYTOSIS SLIGHT
[2017-08-04] MEDS: NICOTINE 7 MG/24 HR PATCH.TD24 TD SCH (07:38)
[2017-08-04] MEDS: IPRATROPIUM/ALBUTEROL 0.5-2.5 MG/3 ML AMPUL NEB SCH ×3 (08:10→20:27)
[2017-08-04] MEDS: FLUTICASONE NASAL SPRAY 50 MCG/SPRY 120 SPRAY/16 GM NASL SCH ×2 (09:56→21:20)
[2017-08-04] MEDS: AZITHROMYCIN 250 MG TABLET PO SCH (09:56)
[2017-08-04] MEDS: LISINOPRIL 10 MG TABLET PO SCH (09:56)
--- NOTE | 2017-08-04 10:50 | PDOC PROGRESS REPORT ---
Subjective Progress Note for:: 08/04/17 Subjective:: Patient complains of feeling short of breath but admits that feels better when compared to admission Review of system All organ systems evaluated and negative except as in subjective All laboratories and significant diagnostics have been reviewed Reason For Visit: ACUTE RESPIRATORY FAILURE/CHF Physical Exam Vital Signs: Temp Pulse Resp BP Pulse Ox 97.7 F 90 17 130/77 H 94 08/04/17 03:17 08/04/17 03:37 08/04/17 03:37 08/04/17 03:17 08/04/17 03:37 Pulse Oximeter Continuous Start: 08/03/17 02: 09 Freq: RTQ4 Status: Active Document 08/04/17 03:37 EAL (Rec: 08/04/17 03:43 EAL [email or web address]) Pulse Oximetry Assessment Oxygen Saturation (92-100) 94 Oxygen Flow Rate (L/min) 3 Oxygen Delivery Method Nasal Cannula Fraction of Inspired Oxygen (FIO2) 32 Equipment Usage Equipment in Use Continuous SpO2 Machine # 8 Additional RT Notes Other PRN treatment given. Patient complaing of shortness of breath. Intake & Output 08/02/17 08/03/17 08/04/17 06:59 06:59 06:59 Intake Total 1643 Output Total 1200 Balance 443 Weight 73.1 kg General appearance: PRESENT: cooperative Head exam: PRESENT: atraumatic, normocephalic Eye exam: PRESENT: conjunctiva pink, EOMI, PERRLA Ear exam: PRESENT: normal external ear exam Mouth exam: PRESENT: moist Neck exam: PRESENT: full ROM. ABSENT: JVD, lymphadenopathy, tenderness Respiratory exam: PRESENT: other - Better movement of air with scattered wheezes Cardiovascular exam: PRESENT: RRR. ABSENT: diastolic murmur, systolic murmur Vascular exam: PRESENT: normal capillary refill GI/Abdominal exam: PRESENT: normal bowel sounds, soft. ABSENT: tenderness Extremities exam: PRESENT: full ROM. ABSENT: pedal edema Musculoskeletal exam: PRESENT: ambulatory Neurological exam: PRESENT: alert, awake, oriented to person, oriented to place , oriented to time, oriented to situation, CN II-XII grossly intact Psychiatric exam: PRESENT: appropriate affect, normal mood Skin exam: PRESENT: intact, normal color Results Laboratory Results: 08/04/17 04:55 08/04/17 04:55 08/04/17 08/04/17 04:55 04:55 WBC 15.9 H RBC 5.30 Hgb 14.7 Hct 44.7 MCV 84 MCH 27.8 MCHC 33.0 RDW 14.2 H Plt Count 287 Seg Neutrophils % Not Reportable Lymphocytes % Not Reportable Monocytes % Not Reportable Eosinophils % Not Reportable Basophils % Not Reportable Absolute Neutrophils Not Reportable Absolute Lymphocytes Not Reportable Absolute Monocytes Not Reportable Absolute Eosinophils Not Reportable Absolute Basophils Not Reportable Sodium 139.9 Potassium 4.6 Chloride 101 Carbon Dioxide 25 Anion Gap 14 BUN 21 H Creatinine 0.60 Est GFR ( Amer) > 60 Est GFR (Non-Af Amer) > 60 Glucose 125 H Calcium 9.4 Impressions: Chest X-Ray 08/02/17 23:27 IMPRESSION: NO ACUTE RADIOGRAPHIC FINDING IN THE CHEST. Assessment & Plan - Diagnosis (1) CHF (congestive heart failure) Qualifiers: Heart failure type: unspecified Heart failure chronicity: acute Qualified Code(s): I50.9 - Heart failure, unspecified Is this a current diagnosis for this admission?: Yes Plan: Continue Lasix IV and blood pressure control. Echocardiogram pending (2) Acute respiratory failure with hypoxia Is this a current diagnosis for this admission?: Yes Plan: Continue oxygen supplementation and wean off as tolerated. Respiratory therapy aware (3) COPD exacerbation Is this a current diagnosis for this admission?: Yes Plan: Continue IV steroids and nebulizer treatments. (4) HTN (hypertension) Qualifiers: Hypertension type: essential hypertension Qualified Code(s): I10 - Essential (primary) hypertension Is this a current diagnosis for this admission?: Yes Plan: Continue Norvasc as outpatient and lisinopril. (5) Tobacco abuse Is this a current diagnosis for this admission?: Yes Plan: Continue nicotine patch - Time Time Spent with patient: 15-24 minutes Medications reviewed and adjusted accordingly: Yes Anticipated discharge: Home Within: within 72 hours - Inpatient Certification Based on my medical assessment, after consideration of the patient's comorbidities, presenting symptoms, or acuity I expect that the services needed warrant INPATIENT care.: Yes I certify that my determination is in accordance with my understanding of Medicare's requirements for reasonable and necessary INPATIENT services [42 CFR 412.3e].: Yes Medical Necessity: Need Close Monitoring Due to Risk of Patient Decompensation, Need for Nebulizer Therapy and Monitoring of Response
[2017-08-04] MEDS: AMLODIPINE BESYLATE 10 MG TABLET PO SCH (17:52)
[2017-08-05] MEDS: METHYLPREDNISOLONE INJ 40 MG/1 ML SDV IV SCH ×3 (05:19→21:24)
[2017-08-05] MEDS: FUROSEMIDE INJ/PF 20 MG/2 ML SDV IV SCH ×2 (05:20→17:42)
[2017-08-05] MEDS: HEPARIN SOD (PORCINE) 5,000 UNIT/ML 1 ML SYRINGE SUBCUT SCH ×3 (05:21→21:25)
[2017-08-05] MEDS: IPRATROPIUM/ALBUTEROL 0.5-2.5 MG/3 ML AMPUL NEB SCH ×3 (08:11→20:15)
[2017-08-05] MEDS: NICOTINE 7 MG/24 HR PATCH.TD24 TD SCH (08:13)
[2017-08-05] MEDS: FLUTICASONE NASAL SPRAY 50 MCG/SPRY 120 SPRAY/16 GM NASL SCH ×2 (09:09→21:24)
[2017-08-05] MEDS: LISINOPRIL 10 MG TABLET PO SCH (09:09)
[2017-08-05] MEDS: AZITHROMYCIN 250 MG TABLET PO SCH (09:09)
--- NOTE | 2017-08-05 12:34 | Physician Advisory Note ---
Physician Advisor ProgressNote .: Pursuant to the plan for [facility], I have reviewed the medical record for this patient. Physician Advisor Statement: Nice documentation overall. I know you'll be stating type acute CHF once ECHO is back. Please don't forget to give dx for which abx are being given, since COPD exacerbations don't need abx unless a superimposed infxn such as Acute Bronchitis is suspected. Thanks, & hope the rest of your week goes well! CK
--- NOTE | 2017-08-05 12:51 | PDOC PROGRESS REPORT ---
Subjective Progress Note for:: 08/05/17 Subjective:: Patient refers that shortness of breath is worse today. He states that he has been passing urine quite freely. Review of system All organ systems evaluated and negative except as in subjective All laboratories and significant diagnostics have been reviewed Reason For Visit: ACUTE RESPIRATORY FAILURE/CHF Physical Exam Vital Signs: Temp Pulse Resp BP Pulse Ox 97.6 F 70 20 100/54 L 93 08/05/17 03:06 08/05/17 03:06 08/05/17 03:06 08/05/17 03:06 08/05/17 04:00 Pulse Oximeter Continuous Start: 08/03/17 02: 09 Freq: RTQ4 Status: Active Document 08/05/17 04:00 SFL (Rec: 08/05/17 05:46 SFL [email or web address]) Pulse Oximetry Assessment Oxygen Saturation (92-100) 93 Oxygen Flow Rate (L/min) 3 Oxygen Delivery Method Nasal Cannula Equipment Usage Equipment in Use Continuous SpO2 Machine # 8 Intake & Output 08/04/17 08/05/17 08/06/17 06:59 06:59 06:59 Intake Total 1643 1418 Output Total 1200 800 Balance 443 618 Weight 73.1 kg 72.6 kg General appearance: PRESENT: cooperative, mild distress, well-developed, well- nourished Head exam: PRESENT: atraumatic, normocephalic Eye exam: PRESENT: conjunctiva pink, EOMI, PERRLA Ear exam: PRESENT: normal external ear exam Mouth exam: PRESENT: moist Neck exam: PRESENT: full ROM. ABSENT: JVD, lymphadenopathy, tenderness Respiratory exam: PRESENT: decreased breath sounds, tachypnea, wheezes Cardiovascular exam: PRESENT: RRR. ABSENT: diastolic murmur, systolic murmur Vascular exam: PRESENT: normal capillary refill GI/Abdominal exam: PRESENT: normal bowel sounds, soft. ABSENT: tenderness Extremities exam: PRESENT: full ROM. ABSENT: pedal edema, tenderness Musculoskeletal exam: PRESENT: ambulatory Neurological exam: PRESENT: alert, awake, oriented to person, oriented to place , oriented to time, oriented to situation, CN II-XII grossly intact Psychiatric exam: PRESENT: appropriate affect, normal mood Skin exam: PRESENT: normal color Results Laboratory Results: 08/04/17 04:55 08/04/17 04:55 Impressions: Chest X-Ray 08/02/17 23:27 IMPRESSION: NO ACUTE RADIOGRAPHIC FINDING IN THE CHEST. Assessment & Plan - Diagnosis (1) CHF (congestive heart failure) Qualifiers: Heart failure type: unspecified Heart failure chronicity: acute Qualified Code(s): I50.9 - Heart failure, unspecified Is this a current diagnosis for this admission?: Yes Plan: Continue Lasix IV and blood pressure control. Echocardiogram pending. Will order nuclear stress test (2) Acute respiratory failure with hypoxia Is this a current diagnosis for this admission?: Yes Plan: Continue oxygen supplementation and wean off as tolerated. Patient still requiring oxygen supplementation. Patient states that gets short of breath when walking inside his room (3) COPD exacerbation Is this a current diagnosis for this admission?: Yes Plan: Continue IV steroids and nebulizer treatments.There is bronchitis component (4) HTN (hypertension) Qualifiers: Hypertension type: essential hypertension Qualified Code(s): I10 - Essential (primary) hypertension Is this a current diagnosis for this admission?: Yes Plan: Continue Norvasc as outpatient and lisinopril. (5) Tobacco abuse Is this a current diagnosis for this admission?: Yes Plan: Continue nicotine patch. Patient relates that he quit smoking however his smokes inside the house and he inhales (6) Acute bronchitis Qualifiers: Bronchitis organism: unspecified organism Qualified Code(s): J20.9 - Acute bronchitis, unspecified Is this a current diagnosis for this admission?: Yes Plan: And to order CT of the chest. For now continue Zithromax - Time Time Spent with patient: 15-24 minutes Medications reviewed and adjusted accordingly: Yes Anticipated discharge: Home Within: within 72 hours - Inpatient Certification Based on my medical assessment, after consideration of the patient's comorbidities, presenting symptoms, or acuity I expect that the services needed warrant INPATIENT care.: Yes I certify that my determination is in accordance with my understanding of Medicare's requirements for reasonable and necessary INPATIENT services [42 CFR 412.3e].: Yes Medical Necessity: Need Close Monitoring Due to Risk of Patient Decompensation, Need For Continuous Telemetry Monitoring, Need for Nebulizer Therapy and Monitoring of Response
--- NOTE | 2017-08-05 15:33 | RADIOLOGY REPORT (SQ) ---
EXAM DESCRIPTION: CTA CHEST COMPLETED DATE/TIME: 08/05/2017 3:05 pm REASON FOR STUDY: dyspnea COMPARISON: 03/11/2012 TECHNIQUE: CT scan of the chest performed using helical scanning technique with dynamic intravenous contrast injection. Images reviewed with lung, soft tissue and bone windows. Reconstructed coronal and sagittal MPR images reviewed. Additional 3 dimensional post-processing performed to develop Maximal Intensity Projection images (CT P). All images stored on PACS. All CT scanners at this facility use dose modulation, iterative reconstruction, and/or weight based d osing when appropriate to reduce radiation dose to as low as reasonably achievable (ALARA). [facility]: Dose Right [facility]: CareDose [facility]: Dose Right [facility]: Teradose 4D [facility]: Mortar Data CONTRAST TYPE AND DOSE: contrast/concentration: Isovue 370.00 mg/ml; Total Contrast Delivered: 63.0 ml; Total Saline Delivered: 108.0 ml Contrast bolus optimized for the pulmonary arteries. Not diagnostic for the aorta. RENAL FUNCTION: GFR > 60. RADIATION DOSE: CT Rad equipment meets quality standard of care and radiation dose reduction techniq ues were employed. CTDIvol: 10.4 - 13.2 mGy. DLP: 419 mGy-cm. . LIMITATIONS: None. FINDINGS: LUNGS AND PLEURA: COPD. No evidence of superimposed pneumonia or edema. Subsegmental par enchymal density dependent portion of the right lower lobe most consistent with atelectasis. AORTA AND GREAT VESSELS: No aneurysm. Contrast bolus not optimized for the aorta. HEART: No pericardial effusion. PULMONARY ARTERIES: No emboli visualized in the main pulmonary arteries or the segmental branches. HILAR AND MEDIASTINAL STRUCTURES: No identified masses or abnormal nodes. HARDWARE: None in the chest. UPPER ABDOMEN: No significant findings. Limited exam. THYROID AND OTHER SOFT TISSUES: No masses. No adenopathy. BONES: No acute or significant finding. 3D MIPS: Confirm above findings. OTHER: No other significant finding. IMPRESSION: No PE. COPD. No acute findings. COMMENT: Quality ID # [id number]: Final reports with documentation of one or more dose reduction techniques (e.g., Automated exposure control, adjustment of the mA and/or kV according to patient size, use of iterative reconstruction technique) TECHNICAL DOCUMENTATION: JOB ID: [id number] [employer]- All Rights Reserved Reading location - IP/workstation name: [email or web address]
[2017-08-05] MEDS: AMLODIPINE BESYLATE 10 MG TABLET PO SCH (17:39)
--- NOTE | 2017-08-05 19:49 | XCELERA REPORT ---
[address] [address] Transthoracic Echocardiogram Report Name: MEKA ATWOOD JR Age: 66 yrs Gender: Male : 1950 Patient Status: Inpatient Patient Location: [address] [place], [place] [address]A Study Date: 08/05/2017 02:25 PM Height: 68 in Weight: 160 lb BSA: 1.9 m2 Procedure: A complete two-dimensional transthoracic echocardiogram was performed (2D, M-mode, spectral and color flow Doppler). The study was technically difficult with many images being suboptimal in quality. Reason For Study: chf Ordering Physician: PERLA CARBAJAL Performed By: Denisa Funes Interpretation Summary The left ventricular ejection fraction is normal. There is mild concentric left ventricular hypertrophy. The left ventricle is grossly normal size. Doppler measurements suggest pseudonormalized left ventricular relaxation, which is associated with grade II/IV or mild to moderate diastolic dysfunction Not all wall segments were well visualized. There is normal right ventricular wall thickness. The right ventricular systolic function is normal. The left atrial size is normal. The right atrium is normal. There is a trace amount of mitral regurgitation There is no mitral valve stenosis. No aortic regurgitation is present. There is no aortic valve stenosis There is a mild amount of tricuspid regurgitation There is mild pulmonary hypertension by echo Right ventricular systolic pressure is estimated to be elevated at 30- 40mmHg. The aortic root is not well visualized but is probably normal size. The inferior vena cava was not visualized There is no pericardial effusion. MMode/2D Measurements & Calculations RVDd: 2.2 cm LVIDd: 4.7 cmFS: 31.8 % Ao root diam: 3.3 cm IVSd: 0.97 cm LVIDs: 3.2 cmEDV(Teich): 101.5 ml LVPWd: 1.0 cmESV(Teich): 40.7 ml Ao root area: 8.5 cm2 EF(Teich): 59.9 % LA dimension: 3.3 cm LVOT diam: 1.9 cm LVOT area: 2.9 cm2 Doppler Measurements & Calculations MV E max melvin: MV P1/2t max melvin: Ao V2 max: LV V1 max P.4 cm/sec 54.0 cm/sec 137.1 cm/sec 6.7 mmHg MV A max melvin: MV P1/2t: 68.1 msec Ao max PG: LV V1 max: 71.3 cm/sec MVA(P1/2t): 3.2 cm2 7.5 mmHg 129.3 cm/sec MV E/A: 0.74 MV dec slope: ASHLEY(V,D): 2.8 cm2 232.1 cm/sec2 PA V2 max: TR max melvin: 136.4 cm/sec 286.0 cm/sec PA max PG: TR max P.7 mmHg 7.4 mmHg Left Ventricle The left ventricle is grossly normal size. There is mild concentric left ventricular hypertrophy. The left ventricular ejection fraction is normal. Doppler measurements suggest pseudonormalized left ventricular relaxation, which is associated with grade II/IV or mild to moderate diastolic dysfunction. Not all wall segments were well visualized. Right Ventricle The right ventricle is grossly normal size. There is normal right ventricular wall thickness. The right ventricular systolic function is normal. Atria The right atrium is normal. The left atrial size is normal. Interarterial septum not well visualized and not well dopplered. Cannot comment on ASD/PFO presence. Mitral Valve The mitral valve is grossly normal. There is no mitral valve stenosis. There is a trace amount of mitral regurgitation. Aortic Valve The aortic valve is not well visualized secondary to technical limitations. There is no aortic valve stenosis. No aortic regurgitation is present. Tricuspid Valve The tricuspid valve is not well visualized, but is grossly normal. There is no tricuspid stenosis. There is a mild amount of tricuspid regurgitation. There is mild pulmonary hypertension by echo. Right ventricular systolic pressure is estimated to be elevated at 30-40mmHg. Pulmonic Valve The pulmonic valve is not well visualized. Great Vessels The aortic root is not well visualized but is probably normal size. The inferior vena cava was not visualized. Effusions There is no pericardial effusion. : PERLA CARBAJAL > Ree Guthrie
[2017-08-06] MEDS: IPRATROPIUM/ALBUTEROL 0.5-2.5 MG/3 ML AMPUL NEB PRN ×2 (03:23→18:27)
[2017-08-06] MEDS: METHYLPREDNISOLONE INJ 40 MG/1 ML SDV IV SCH ×3 (05:10→21:19)
[2017-08-06] MEDS: HEPARIN SOD (PORCINE) 5,000 UNIT/ML 1 ML SYRINGE SUBCUT SCH ×3 (05:10→21:18)
[2017-08-06] MEDS: FUROSEMIDE INJ/PF 20 MG/2 ML SDV IV SCH (05:11)
[2017-08-06] MEDS: NICOTINE 7 MG/24 HR PATCH.TD24 TD SCH (08:00)
[2017-08-06] MEDS: IPRATROPIUM/ALBUTEROL 0.5-2.5 MG/3 ML AMPUL NEB SCH ×3 (09:06→20:32)
[2017-08-06] MEDS: LISINOPRIL 10 MG TABLET PO SCH (09:54)
[2017-08-06] MEDS: AZITHROMYCIN 250 MG TABLET PO SCH (09:55)
[2017-08-06] MEDS: FLUTICASONE NASAL SPRAY 50 MCG/SPRY 120 SPRAY/16 GM NASL SCH ×2 (09:55→21:19)
[2017-08-06] MEDS: ALPRAZOLAM 0.5 MG TABLET PO PRN ×2 (10:46→18:20)
--- NOTE | 2017-08-06 15:24 | PDOC PROGRESS REPORT ---
Subjective Progress Note for:: 08/06/17 Subjective:: Patient states he had went to have the test done but got more short of breath. Review of system All organ systems evaluated and negative except as in subjective All laboratories and significant diagnostics have been reviewed Reason For Visit: ACUTE RESPIRATORY FAILURE/CHF Physical Exam Vital Signs: Temp Pulse Resp BP Pulse Ox 97.4 F 84 16 109/55 L 92 08/06/17 04:03 08/06/17 04:03 08/06/17 04:03 08/06/17 04:03 08/06/17 04:03 Pulse Oximeter Continuous Start: 08/03/17 02: 09 Freq: RTQ4 Status: Active Document 08/06/17 03:29 STI (Rec: 08/06/17 03:30 STI [id number]) Pulse Oximetry Assessment Oxygen Saturation (92-100) 87 Oxygen Flow Rate (L/min) 2.0 Oxygen Delivery Method Nasal Cannula Fraction of Inspired Oxygen (FIO2) 28 Equipment Usage Equipment in Use Continuous SpO2 Machine # [id number] Intake & Output 08/05/17 08/06/17 08/07/17 06:59 06:59 06:59 Intake Total 1418 2404 Output Total 800 1650 Balance 618 754 Weight 72.6 kg 71.5 kg General appearance: PRESENT: cooperative, mild distress Head exam: PRESENT: atraumatic, normocephalic Eye exam: PRESENT: conjunctiva pink, EOMI, PERRLA Ear exam: PRESENT: normal external ear exam Neck exam: PRESENT: JVD Respiratory exam: PRESENT: decreased breath sounds, wheezes Cardiovascular exam: PRESENT: RRR. ABSENT: diastolic murmur, systolic murmur GI/Abdominal exam: PRESENT: normal bowel sounds, soft. ABSENT: tenderness Extremities exam: PRESENT: full ROM. ABSENT: tenderness Musculoskeletal exam: PRESENT: ambulatory Neurological exam: PRESENT: alert, awake, oriented to person, oriented to place , oriented to time, oriented to situation, CN II-XII grossly intact Psychiatric exam: PRESENT: appropriate affect Skin exam: PRESENT: intact, normal color Results Laboratory Results: 08/04/17 04:55 08/04/17 04:55 08/05/17 08/05/17 08/06/17 12:19 18:35 00:11 Troponin I < 0.012 < 0.012 < 0.012 Impressions: Chest X-Ray 08/02/17 23:27 IMPRESSION: NO ACUTE RADIOGRAPHIC FINDING IN THE CHEST. Chest/Abdomen CTA 08/05/17 00:00 IMPRESSION: No PE. COPD. No acute findings. Assessment & Plan - Diagnosis (1) CHF (congestive heart failure) Qualifiers: Heart failure type: unspecified Heart failure chronicity: acute Qualified Code(s): I50.9 - Heart failure, unspecified Is this a current diagnosis for this admission?: Yes Plan: Diastolic. Discontinue IV Lasix. Continue antihypertensive therapy. Will then add Xanax as needed and hopefully he will be able to go for nuclear stress test in a.m. (2) Acute respiratory failure with hypoxia Is this a current diagnosis for this admission?: Yes Plan: Continue oxygen supplementation and wean off as tolerated. Patient still requiring oxygen supplementation. Patient states that gets short of breath when walking inside his room (3) COPD exacerbation Is this a current diagnosis for this admission?: Yes Plan: Continue IV steroids and nebulizer treatments.There is bronchitis component. Patient states that he would like to bring up the phlegm but unable. Will add Mucomyst (4) HTN (hypertension) Qualifiers: Hypertension type: essential hypertension Qualified Code(s): I10 - Essential (primary) hypertension Is this a current diagnosis for this admission?: Yes Plan: Continue Norvasc as outpatient and lisinopril. (5) Tobacco abuse Is this a current diagnosis for this admission?: Yes Plan: Continue nicotine patch. Patient relates that he quit smoking however his smokes inside the house and he inhales (6) Acute bronchitis Qualifiers: Bronchitis organism: unspecified organism Qualified Code(s): J20.9 - Acute bronchitis, unspecified Is this a current diagnosis for this admission?: Yes Plan: And to order CT of the chest. For now continue Zithromax - Time Time Spent with patient: 15-24 minutes Medications reviewed and adjusted accordingly: Yes Anticipated discharge: Home Within: within 48 hours - Inpatient Certification Based on my medical assessment, after consideration of the patient's comorbidities, presenting symptoms, or acuity I expect that the services needed warrant INPATIENT care.: Yes I certify that my determination is in accordance with my understanding of Medicare's requirements for reasonable and necessary INPATIENT services [42 CFR 412.3e].: Yes Medical Necessity: Need Close Monitoring Due to Risk of Patient Decompensation, Need For Continuous Telemetry Monitoring
[2017-08-06] MEDS: AMLODIPINE BESYLATE 10 MG TABLET PO SCH (18:13)
[2017-08-06] MEDS: MONTELUKAST SODIUM 10 MG TABLET PO SCH (21:19)
[2017-08-07] MEDS: IPRATROPIUM/ALBUTEROL 0.5-2.5 MG/3 ML AMPUL NEB PRN (03:39)
[2017-08-07] MEDS: HEPARIN SOD (PORCINE) 5,000 UNIT/ML 1 ML SYRINGE SUBCUT SCH ×3 (05:53→21:04)
[2017-08-07] MEDS: METHYLPREDNISOLONE INJ 40 MG/1 ML SDV IV SCH ×4 (05:53→21:04)
[2017-08-07] MEDS: IPRATROPIUM/ALBUTEROL 0.5-2.5 MG/3 ML AMPUL NEB SCH ×3 (08:17→20:01)
[2017-08-07] MEDS: AZITHROMYCIN 250 MG TABLET PO SCH (10:04)
[2017-08-07] MEDS: LISINOPRIL 10 MG TABLET PO SCH (10:04)
[2017-08-07] MEDS: NICOTINE 7 MG/24 HR PATCH.TD24 TD SCH (10:04)
[2017-08-07] MEDS: FLUTICASONE NASAL SPRAY 50 MCG/SPRY 120 SPRAY/16 GM NASL SCH ×2 (10:05→21:04)
[2017-08-07] MEDS: ALPRAZOLAM 0.5 MG TABLET PO PRN ×2 (13:40→21:52)
[2017-08-07 13:49] LABS: ARTERIAL BLOOD BASE EXCESS 3.3 mmol/L; ARTERIAL BLOOD HCO3 26.6 mmol/L (20-26); ARTERIAL BLOOD O2 SATURATION 94.6 % (94-98); ARTERIAL BLOOD PCO2 36.4 mmHg (35-45); ARTERIAL BLOOD PH 7.48 (7.35-7.45); ARTERIAL BLOOD PO2 66.7 mmHg (80-100); ARTERIAL BLOOD TOTAL CO2 27.7 mmol/L (23-27)
[2017-08-07 13:50] LABS: ARTERIAL BLOOD FIO2 6 L
--- NOTE | 2017-08-07 14:27 | PDOC PROGRESS REPORT ---
Subjective Progress Note for:: 08/07/17 Subjective:: Patient refers that he continues short of breath and can hardly walk to the bathroom without getting short of breath and wheezy. Review of system All organ systems evaluated and negative except as in subjective All laboratories and significant diagnostics have been reviewed Reason For Visit: ACUTE RESPIRATORY FAILURE/CHF Physical Exam Vital Signs: Temp Pulse Resp BP Pulse Ox 97.7 F 79 20 113/56 L 93 08/07/17 04:54 08/07/17 04:54 08/07/17 04:54 08/07/17 04:54 08/07/17 04:54 Pulse Oximeter Continuous Start: 08/03/17 02: 09 Freq: RTQ4 Status: Active Document 08/07/17 03:39 CMI (Rec: 08/07/17 04:15 CMI [email or web address]) Pulse Oximetry Assessment Oxygen Saturation (92-100) 92 Oxygen Flow Rate (L/min) 5 Oxygen Delivery Method Nasal Cannula Fraction of Inspired Oxygen (FIO2) 40 Equipment Usage Equipment in Use Continuous SpO2 Machine # 8 Intake & Output 08/06/17 08/07/17 08/08/17 06:59 06:59 06:59 Intake Total 2404 741 Output Total 1650 550 Balance 754 191 Weight 71.5 kg 70.8 kg General appearance: PRESENT: cooperative, mild distress Head exam: PRESENT: atraumatic, normocephalic Eye exam: PRESENT: conjunctiva pink, EOMI, PERRLA Ear exam: PRESENT: normal external ear exam Mouth exam: PRESENT: moist Neck exam: PRESENT: full ROM. ABSENT: JVD, lymphadenopathy, tenderness Respiratory exam: PRESENT: crackles, decreased breath sounds, wheezes Cardiovascular exam: PRESENT: RRR. ABSENT: diastolic murmur, systolic murmur GI/Abdominal exam: PRESENT: normal bowel sounds, soft. ABSENT: tenderness Extremities exam: PRESENT: full ROM. ABSENT: pedal edema Musculoskeletal exam: PRESENT: ambulatory Neurological exam: PRESENT: alert, awake, oriented to person, oriented to place , oriented to time, oriented to situation Psychiatric exam: PRESENT: appropriate affect, normal mood Skin exam: PRESENT: intact, normal color Results Laboratory Results: 08/04/17 04:55 08/04/17 04:55 08/05/17 08/05/17 08/06/17 12:19 18:35 00:11 Troponin I < 0.012 < 0.012 < 0.012 Impressions: Chest X-Ray 08/02/17 23:27 IMPRESSION: NO ACUTE RADIOGRAPHIC FINDING IN THE CHEST. Chest/Abdomen CTA 08/05/17 00:00 IMPRESSION: No PE. COPD. No acute findings. Assessment & Plan - Diagnosis (1) CHF (congestive heart failure) Qualifiers: Heart failure type: unspecified Heart failure chronicity: acute Qualified Code(s): I50.9 - Heart failure, unspecified Is this a current diagnosis for this admission?: Yes Plan: Diastolic. Of Lasix. Will continue blood pressure management. Patient continues bronchospastic (2) Acute respiratory failure with hypoxia Is this a current diagnosis for this admission?: Yes Plan: Continues needing oxygen supplementation. Will order and ABG. Will place patient on BiPAP to see if any improvement of his breathing. To consult Dr. Porter (3) COPD exacerbation Is this a current diagnosis for this admission?: Yes Plan: Increase IV steroids and nebulizer treatments.There is bronchitis component. Patient stated that he would like to bring up the phlegm but unable. Continue Mucomyst, zithromax and add rocephin. (4) HTN (hypertension) Qualifiers: Hypertension type: essential hypertension Qualified Code(s): I10 - Essential (primary) hypertension Is this a current diagnosis for this admission?: Yes Plan: Continue Norvasc as outpatient and lisinopril. (5) Tobacco abuse Is this a current diagnosis for this admission?: Yes Plan: Continue nicotine patch. Patient relates that he quit smoking however his smokes inside the house and he inhales (6) Acute bronchitis Qualifiers: Bronchitis organism: unspecified organism Qualified Code(s): J20.9 - Acute bronchitis, unspecified Is this a current diagnosis for this admission?: Yes Plan: And to order CT of the chest. Continue Zithromax and add rocephin - Time Time Spent with patient: 15-24 minutes Medications reviewed and adjusted accordingly: Yes Anticipated discharge: Home Within: within 72 hours - Inpatient Certification Based on my medical assessment, after consideration of the patient's comorbidities, presenting symptoms, or acuity I expect that the services needed warrant INPATIENT care.: Yes I certify that my determination is in accordance with my understanding of Medicare's requirements for reasonable and necessary INPATIENT services [42 CFR 412.3e].: Yes Medical Necessity: Need Close Monitoring Due to Risk of Patient Decompensation, Need For Continuous Telemetry Monitoring, Need for Nebulizer Therapy and Monitoring of Response, Need for IV Antibiotics
[2017-08-07] MEDS ORDERED: CEFTRIAXONE SODIUM 1,000 MG in NORMAL SALINE 100 ML IV SCH (16:00)
[2017-08-07] MEDS: AMLODIPINE BESYLATE 10 MG TABLET PO SCH (17:40)
[2017-08-07] MEDS: ROFLUMILAST 500 MCG TABLET PO SCH (17:41)
[2017-08-07] MEDS: MONTELUKAST SODIUM 10 MG TABLET PO SCH (21:04)
[2017-08-08] MEDS: METHYLPREDNISOLONE INJ 40 MG/1 ML SDV IV SCH ×4 (03:46→21:42)
[2017-08-08] MEDS: HEPARIN SOD (PORCINE) 5,000 UNIT/ML 1 ML SYRINGE SUBCUT SCH ×3 (05:53→21:42)
[2017-08-08 06:22] LABS: HEMATOCRIT 42.6 % (37.9-51.0); HEMOGLOBIN 13.9 g/dL (13.5-17.0); MEAN CORPUSCULAR HEMOGLOBIN 27.7 pg (27.0-33.4); MEAN CORPUSCULAR HGB CONC 32.7 g/dL (32.0-36.0); MEAN CORPUSCULAR VOLUME 85 fl (80-97); PLATELET COUNT 293 10^3/uL (150-450); RED BLOOD COUNT 5.04 10^6/uL (4.35-5.55); RED CELL DISTRIBUTION WIDTH 14.6 % (11.5-14.0); WHITE BLOOD COUNT 24.3 10^3/uL (4.0-10.5)
[2017-08-08 06:47] LABS: ANION GAP 6 (5-19); BLOOD UREA NITROGEN 49 mg/dL (7-20); CALCIUM 9.1 mg/dL (8.4-10.2); CARBON DIOXIDE 29 mmol/L (22-30); CHLORIDE 106 mmol/L (98-107); GLUCOSE 106 mg/dL (75-110); POTASSIUM 4.8 mmol/L (3.6-5.0); SODIUM 140.5 mmol/L (137-145)
[2017-08-08 07:02] LABS: ABSOLUTE LYMPHOCYTES# (MANUAL) 1.2 10^3/uL (0.5-4.7); ABSOLUTE NEUTROPHILS# (MANUAL) 22.1 10^3/uL (1.7-8.2); BASOPHILS % (MANUAL) 0 % (0-2); EOSINOPHILS % (MANUAL) 0 % (0-6); LYMPHOCYTES % (MANUAL) 3 % (13-45); METAMYELOCYTES % (MANUAL) 1 % (0); MONOCYTES % (MANUAL) 4 % (3-13); SEGMENTED NEUTROPHILS % (MAN) 90 % (42-78); TOTAL CELLS COUNTED 100
[2017-08-08 07:04] LABS: ANISOCYTOSIS SLIGHT; PLATELET COMMENT ADEQUATE; TOXIC GRANULATION 1+; TOXIC VACUOLATION PRESENT
[2017-08-08] MEDS: IPRATROPIUM/ALBUTEROL 0.5-2.5 MG/3 ML AMPUL NEB SCH ×3 (07:48→19:50)
[2017-08-08] MEDS ORDERED: CEFTRIAXONE 1 GM/D5W RTU 1 GM/50 ML RTUPB IV SCH (10:00)
[2017-08-08] MEDS: NICOTINE 7 MG/24 HR PATCH.TD24 TD SCH (10:21)
[2017-08-08] MEDS: CEFTRIAXONE SODIUM 1,000 MG in NORMAL SALINE 100 ML IV SCH (10:21)
[2017-08-08] MEDS: AZITHROMYCIN 250 MG TABLET PO SCH (10:21)
[2017-08-08] MEDS: LISINOPRIL 10 MG TABLET PO SCH (10:22)
[2017-08-08] MEDS: FLUTICASONE NASAL SPRAY 50 MCG/SPRY 120 SPRAY/16 GM NASL SCH ×2 (10:22→21:42)
[2017-08-08] MEDS: ALPRAZOLAM 0.5 MG TABLET PO PRN ×2 (14:22→22:35)
--- NOTE | 2017-08-08 16:23 | PDOC PROGRESS REPORT ---
Subjective Progress Note for:: 08/08/17 Subjective:: Patient reports that shortness of breath and wheezing the better after using BiPAP. Patient states that he still feeling short of breath going to the bathroom Review of system All organ systems evaluated and negative except as in subjective All laboratories and significant diagnostics have been reviewed Reason For Visit: ACUTE RESPIRATORY FAILURE/CHF Physical Exam Vital Signs: Temp Pulse Resp BP Pulse Ox 98.0 F 68 17 116/61 98 08/08/17 05:01 08/08/17 05:01 08/08/17 05:01 08/08/17 05:01 08/08/17 05:01 Pulse Oximeter Continuous Start: 08/03/17 02: 09 Freq: RTQ4 Status: Active Document 08/08/17 04:00 LRO (Rec: 08/08/17 06:04 LRO [email or web address]) Pulse Oximetry Assessment Oxygen Saturation (92-100) 94 Oxygen Delivery Method Bi-pap Fraction of Inspired Oxygen (FIO2) 40 Equipment Usage Equipment in Use Continuous SpO2 Machine # 8 Intake & Output 08/07/17 08/08/17 08/09/17 06:59 06:59 06:59 Intake Total 741 1792 Output Total 550 300 Balance 191 1492 Weight 70.8 kg 71.8 kg General appearance: PRESENT: cooperative, mild distress, well-developed, well- nourished Head exam: PRESENT: atraumatic, normocephalic Eye exam: PRESENT: conjunctiva pink, EOMI, PERRLA Mouth exam: PRESENT: moist Neck exam: PRESENT: full ROM. ABSENT: JVD, lymphadenopathy, tenderness Respiratory exam: PRESENT: wheezes, other - Better movement of air with scattered wheezes. ABSENT: tachypnea, unlabored Cardiovascular exam: PRESENT: RRR. ABSENT: diastolic murmur, systolic murmur Vascular exam: PRESENT: normal capillary refill GI/Abdominal exam: PRESENT: normal bowel sounds, soft. ABSENT: tenderness Extremities exam: PRESENT: full ROM. ABSENT: pedal edema Musculoskeletal exam: PRESENT: ambulatory Neurological exam: PRESENT: alert, awake, oriented to person, oriented to place , oriented to time, oriented to situation, CN II-XII grossly intact Psychiatric exam: PRESENT: appropriate affect, normal mood Skin exam: PRESENT: intact, normal color Results Laboratory Results: 08/08/17 05:24 08/08/17 05:24 08/07/17 08/08/17 08/08/17 13:30 05:24 05:24 WBC 24.3 H RBC 5.04 Hgb 13.9 Hct 42.6 MCV 85 MCH 27.7 MCHC 32.7 RDW 14.6 H Plt Count 293 Seg Neutrophils % Not Reportable Lymphocytes % Not Reportable Monocytes % Not Reportable Eosinophils % Not Reportable Basophils % Not Reportable Absolute Neutrophils Not Reportable Absolute Lymphocytes Not Reportable Absolute Monocytes Not Reportable Absolute Eosinophils Not Reportable Absolute Basophils Not Reportable Carbonic Acid 1.10 HCO3/H2CO3 Ratio 24:1 ABG pH 7.48 H ABG pCO2 36.4 ABG pO2 66.7 L ABG HCO3 26.6 H ABG O2 Saturation 94.6 ABG Base Excess 3.3 FiO2 6 L Sodium 140.5 Potassium 4.8 Chloride 106 Carbon Dioxide 29 Anion Gap 6 BUN 49 H Creatinine 0.84 Est GFR ( Amer) > 60 Est GFR (Non-Af Amer) > 60 Glucose 106 Calcium 9.1 08/05/17 08/05/17 08/06/17 12:19 18:35 00:11 Troponin I < 0.012 < 0.012 < 0.012 Impressions: Chest X-Ray 08/02/17 23:27 IMPRESSION: NO ACUTE RADIOGRAPHIC FINDING IN THE CHEST. Chest/Abdomen CTA 08/05/17 00:00 IMPRESSION: No PE. COPD. No acute findings. Assessment & Plan - Diagnosis (1) CHF (congestive heart failure) Qualifiers: Heart failure type: unspecified Heart failure chronicity: acute Qualified Code(s): I50.9 - Heart failure, unspecified Is this a current diagnosis for this admission?: Yes Plan: Diastolic. Of Lasix. Resolved. Will continue blood pressure management. (2) Acute respiratory failure with hypoxia Is this a current diagnosis for this admission?: Yes Plan: Continues needing oxygen supplementation. ABG noted. Continue BiPAP since reports improvement. To consult Dr. Porter (3) COPD exacerbation Is this a current diagnosis for this admission?: Yes Plan: Continue present management (4) HTN (hypertension) Qualifiers: Hypertension type: essential hypertension Qualified Code(s): I10 - Essential (primary) hypertension Is this a current diagnosis for this admission?: Yes Plan: Continue Norvasc as outpatient and lisinopril. (5) Tobacco abuse Is this a current diagnosis for this admission?: Yes Plan: Continue nicotine patch. Patient relates that he quit smoking however his smokes inside the house and he inhales (6) Acute bronchitis Qualifiers: Bronchitis organism: unspecified organism Qualified Code(s): J20.9 - Acute bronchitis, unspecified Is this a current diagnosis for this admission?: Yes Plan: Continue present management - Time Time Spent with patient: 15-24 minutes Medications reviewed and adjusted accordingly: Yes Anticipated discharge: Home Within: within 48 hours - Inpatient Certification Based on my medical assessment, after consideration of the patient's comorbidities, presenting symptoms, or acuity I expect that the services needed warrant INPATIENT care.: Yes I certify that my determination is in accordance with my understanding of Medicare's requirements for reasonable and necessary INPATIENT services [42 CFR 412.3e].: Yes Medical Necessity: Need Close Monitoring Due to Risk of Patient Decompensation, Need For Continuous Telemetry Monitoring, Need for Nebulizer Therapy and Monitoring of Response, Need for IV Antibiotics
[2017-08-08] MEDS: ROFLUMILAST 500 MCG TABLET PO SCH (17:44)
[2017-08-08] MEDS: AMLODIPINE BESYLATE 10 MG TABLET PO SCH (17:45)
[2017-08-08] MEDS: MONTELUKAST SODIUM 10 MG TABLET PO SCH (21:42)
[2017-08-09] MEDS: METHYLPREDNISOLONE INJ 40 MG/1 ML SDV IV SCH ×4 (03:14→21:06)
[2017-08-09] MEDS: HEPARIN SOD (PORCINE) 5,000 UNIT/ML 1 ML SYRINGE SUBCUT SCH ×3 (05:31→21:04)
[2017-08-09] MEDS: IPRATROPIUM/ALBUTEROL 0.5-2.5 MG/3 ML AMPUL NEB SCH ×3 (08:13→20:29)
[2017-08-09] MEDS: NICOTINE 7 MG/24 HR PATCH.TD24 TD SCH (09:09)
[2017-08-09] MEDS: CEFTRIAXONE SODIUM 1,000 MG in NORMAL SALINE 100 ML IV SCH (09:10)
[2017-08-09] MEDS: LISINOPRIL 10 MG TABLET PO SCH (09:10)
[2017-08-09] MEDS: AZITHROMYCIN 250 MG TABLET PO SCH (09:10)
[2017-08-09] MEDS: FLUTICASONE NASAL SPRAY 50 MCG/SPRY 120 SPRAY/16 GM NASL SCH ×2 (09:11→21:10)
[2017-08-09] MEDS ORDERED: BENZONATATE 100 MG CAPSULE PO PRN (12:49)
[2017-08-09] MEDS ORDERED: GUAIFENESIN 600 MG TABLET.SA PO ONE (14:00)
--- NOTE | 2017-08-09 15:19 | RADIOLOGY REPORT (SQ) ---
EXAM DESCRIPTION: CHEST PA/LAT COMPLETED DATE/TIME: 08/09/2017 3:09 pm REASON FOR STUDY: Dyspnea, Recent CHF COMPARISON: 12/26/2016 NUMBER OF VIEWS: Two view. TECHNIQUE: Frontal and lateral radiographic views of the chest acquired. LIMITATIONS: None. FINDINGS: LUNGS AND PLEURA: Stable areas of scarring in the left base. No pleural effusion. Attenuat ed blood vessels and flattened kathleen-diaphragms. MEDIASTINUM AND HILAR STRUCTURES: No masses. No contour abnormalities. HEART AND VASCULAR STRUCTURES: Heart normal in size and contour. No evidence for failure. BONES: No acute findings. HARDWARE: None in the chest. OTHER: No other significant finding. IMPRESSION: COPD. NO ACUTE RADIOGRAPHIC FINDING IN THE CHEST. TECHNICAL DOCUMENTATION: JOB ID: [id number] [email or web address]- All Rights Reserved Reading location - IP/workstation name: [email or web address]
--- NOTE | 2017-08-09 16:29 | PROGRESS NOTE E ---
Progress Note NAME: MEKA ATWOOD : 1950 AGE: 66Y DATE: 08/09/2017 ROOM: 319 SUBJECTIVE: The patient is currently sitting up in bed. He is eating his lunch. The patient states he feels better than when he came in but is still quite short of breath. The patient has had difficulty completing sentences but has been able to eat. The patient states that he becomes extremely dyspneic even with ambulation to the bathroom. The patient denies any nausea, vomiting, diarrhea. He admits to a strong cough but has been unable to produce any sputum. The patient feels like he is congested but just cannot cough it up, and the patient does not voice any other concerns at this time. REVIEW OF SYSTEMS: Rest of the review of systems negative. MEDICATIONS: Medications have been reviewed. OBJECTIVE: GENERAL: The patient is a 66-year-old male who is awake and alert. He is oriented to person, place, time, and situation. He has verbal conversations and does not appear to be in any acute distress. VITAL SIGNS: Temperature 97.5, pulse 81, respirations 17, blood pressure 160/58, oxygen saturation is 93% on 3 L nasal cannula. HEENT: Pupils equal, round, reactive to light and accommodation. Conjunctivae are pink. There is no evidence of JVP. CARDIOVASCULAR: Heart is regular. No rub. CHEST: Diminished with some expiratory wheezes noted throughout. Lung pool symmetrical, mildly labored. ABDOMEN: Soft, nontender, nondistended. BACK: There is no sacral edema. EXTREMITIES: No clubbing or cyanosis or edema. PSYCHIATRIC: Appropriate affect, pleasant mood. DIAGNOSTICS: Lab values are as follows: Hematology obtained on 08/08/2017: WBC are 24.3, hemoglobin 13.9, hematocrit 32.6, platelet count is 293,000. Chemistries done on 08/08/2017, sodium is 140, potassium 4.8, chloride 106, carbon dioxide 29, BUN 49, creatinine is 0.84. Glucose 106. Calcium is 9.1. IMPRESSION AND PLAN: 1. ACUTE ASTHMATIC BRONCHITIS. The patient feels he would benefit from an expectorant. We will add full-dose Mucinex as well as continue to encourage flutter valve. We will transition all antibiotics to p.o. and follow. Had elevation in WBCs but symptoms have improved will repeat in am. 2. CHRONIC OBSTRUCTIVE PULMONARY DISEASE EXACERBATION. We will resume the patient's home inhalers as well as nebulizers. Will obtain a magnesium level. 3. ACUTE ON CHRONIC DIASTOLIC CONGESTIVE HEART FAILURE. Patient is currently off of Lasix. Will continue to monitor the patient's blood pressures. However, we will repeat chest x-ray as he is not had one done in a couple of days to ensure stability. 4. HYPOTENSION. The patient typically is hypertensive; however, the patient feels quite well. Reluctant to hydrate the patient given that he has been over-resuscitated and required diuresis. We will obtain a chest x-ray and hold blood pressure medications for now. DISPOSITION: THE PATIENT IS A FULL CODE. Pending patient's symptomatology and diagnostic findings, we will reevaluate in the a.m. Time spent on this followup including assessment, plan, physical examination, patient education, and review of records is 25 minutes. DICTATING PHYSICIAN: BEBE SANTIAGO NP [id number] PHY#: [id number] ID: [id number] JOB#: [id number] ACCT: [id number] cc: > MTDD
[2017-08-09] MEDS: ROFLUMILAST 500 MCG TABLET PO SCH (17:02)
[2017-08-09] MEDS: GUAIFENESIN 600 MG TABLET.SA PO SCH (21:04)
[2017-08-09] MEDS: MONTELUKAST SODIUM 10 MG TABLET PO SCH (21:04)
[2017-08-09] MEDS: FLUTICASONE/SALMETEROL DISKUS 500-50 MCG/DOSE IH SCH (21:05)
[2017-08-10] MEDS: METHYLPREDNISOLONE INJ 40 MG/1 ML SDV IV SCH ×4 (03:37→20:39)
[2017-08-10] MEDS: HEPARIN SOD (PORCINE) 5,000 UNIT/ML 1 ML SYRINGE SUBCUT SCH ×3 (05:01→21:11)
[2017-08-10 05:35] LABS: HEMOGLOBIN 14.4 g/dL (13.5-17.0); MEAN CORPUSCULAR HEMOGLOBIN 27.9 pg (27.0-33.4); MEAN CORPUSCULAR HGB CONC 32.8 g/dL (32.0-36.0); MEAN CORPUSCULAR VOLUME 85 fl (80-97); PLATELET COUNT 280 10^3/uL (150-450); RED BLOOD COUNT 5.18 10^6/uL (4.35-5.55); RED CELL DISTRIBUTION WIDTH 14.3 % (11.5-14.0)
[2017-08-10 06:27] LABS: ANION GAP 7 (5-19); BLOOD UREA NITROGEN 40 mg/dL (7-20); CARBON DIOXIDE 25 mmol/L (22-30); CHLORIDE 103 mmol/L (98-107); GLUCOSE 107 mg/dL (75-110); SODIUM 135.2 mmol/L (137-145)
[2017-08-10 06:28] LABS: POTASSIUM 5.2 mmol/L (3.6-5.0)
[2017-08-10] MEDS: IPRATROPIUM/ALBUTEROL 0.5-2.5 MG/3 ML AMPUL NEB SCH ×3 (08:22→19:52)
[2017-08-10] MEDS: GUAIFENESIN 600 MG TABLET.SA PO SCH ×2 (09:20→21:11)
[2017-08-10] MEDS: CEFUROXIME 500 MG TABLET PO SCH ×2 (09:20→18:03)
[2017-08-10] MEDS: AZITHROMYCIN 250 MG TABLET PO SCH (09:20)
[2017-08-10] MEDS: FLUTICASONE/SALMETEROL DISKUS 500-50 MCG/DOSE IH SCH ×2 (09:20→21:08)
[2017-08-10] MEDS: TIOTROPIUM BROMIDE DPI 5 CAP/KIT (18 MCG/CAP) IH SCH (09:21)
[2017-08-10] MEDS: NICOTINE 7 MG/24 HR PATCH.TD24 TD SCH (09:21)
[2017-08-10] MEDS: FLUTICASONE NASAL SPRAY 50 MCG/SPRY 120 SPRAY/16 GM NASL SCH ×2 (09:21→21:07)
--- NOTE | 2017-08-10 16:38 | PDOC PROGRESS REPORT ---
Subjective Progress Note for:: 08/10/17 Subjective:: 66 yo Male presenting with acute on chronic respiratory failure with a hx of COPD/Asthma, diastolic HF exacerbation, and possible bronchitis picture. Slow recovery. Very SHARIF with little exertion. Continue aggressive Duoneb schedule, continue IV steroids. Resting on BIPAP overnight. Appreciate PT evaluating his mobility. Reason For Visit: ACUTE RESPIRATORY FAILURE/CHF Physical Exam Vital Signs: Temp Pulse Resp BP Pulse Ox 97.5 F 80 20 141/67 H 92 08/10/17 07:54 08/10/17 07:54 08/10/17 07:54 08/10/17 07:54 08/10/17 07:54 Pulse Oximeter Continuous Start: 08/03/17 02: 09 Freq: RTQ4 Status: Active Document 08/10/17 04:00 LRO (Rec: 08/10/17 06:25 LRO [email or web address]) Pulse Oximetry Assessment Oxygen Saturation (92-100) 94 Oxygen Flow Rate (L/min) 5 Oxygen Delivery Method Nasal Cannula Equipment Usage Equipment in Use Continuous SpO2 Machine # 8 Intake & Output 08/09/17 08/10/17 08/11/17 06:59 06:59 06:59 Intake Total 1679 1385 Output Total 600 2350 Balance 1079 -965 Weight 72.4 kg 73.1 kg General appearance: PRESENT: no acute distress, cooperative Head exam: PRESENT: atraumatic, normocephalic Eye exam: PRESENT: EOMI, PERRLA. ABSENT: periorbital swelling Ear exam: PRESENT: normal external ear exam. ABSENT: bleeding Mouth exam: PRESENT: moist, neck supple Neck exam: ABSENT: lymphadenopathy, tenderness Respiratory exam: PRESENT: wheezes - mild wheezing present. ABSENT: accessory muscle use, crackles, rales, rhonchi Cardiovascular exam: PRESENT: RRR, +S1, +S2 Vascular exam: PRESENT: normal capillary refill. ABSENT: pallor GI/Abdominal exam: PRESENT: normal bowel sounds, soft. ABSENT: firm, rebound, rigid Extremities exam: ABSENT: joint swelling, pedal edema Musculoskeletal exam: PRESENT: full ROM Neurological exam: PRESENT: awake, oriented to person, oriented to place, oriented to time, CN II-XII grossly intact Psychiatric exam: ABSENT: agitated, anxious, manic Focused psych exam: ABSENT: delusional, flight of ideas, paranoid Skin exam: PRESENT: normal color. ABSENT: abrasion Results Laboratory Results: 08/10/17 05:13 08/10/17 05:13 08/09/17 08/10/17 08/10/17 14:04 05:13 05:13 WBC 24.0 H RBC 5.18 Hgb 14.4 Hct 44.0 MCV 85 MCH 27.9 MCHC 32.8 RDW 14.3 H Plt Count 280 Sodium 135.2 L Potassium 5.2 H Chloride 103 Carbon Dioxide 25 Anion Gap 7 BUN 40 H Creatinine 0.76 Est GFR ( Amer) > 60 Est GFR (Non-Af Amer) > 60 Glucose 107 Calcium 9.0 Magnesium 2.7 H 2.9 H 08/05/17 08/05/17 08/06/17 12:19 18:35 00:11 Troponin I < 0.012 < 0.012 < 0.012 Impressions: Chest/Abdomen CTA 08/05/17 00:00 IMPRESSION: No PE. COPD. No acute findings. Chest X-Ray 08/09/17 00:00 IMPRESSION: COPD. NO ACUTE RADIOGRAPHIC FINDING IN THE CHEST. Assessment & Plan - Time Time Spent with patient: 15-24 minutes - Inpatient Certification I certify that my determination is in accordance with my understanding of Medicare's requirements for reasonable and necessary INPATIENT services [42 CFR 412.3e].: Yes Medical Necessity: Need Close Monitoring Due to Risk of Patient Decompensation, Need for Nebulizer Therapy and Monitoring of Response - Plan Summary Plan Summary: (1) CHF (congestive heart failure) Compensated Diastolic HF Off Lasix at present, Will continue blood pressure management. close monitoring. (2) Acute respiratory failure with hypoxia Continue BiPAP when resting continue aggressive duoneb schedule, IV steroids. Pulmonary medicine was consulted (3) COPD exacerbation describes a history of asthma in his youth continue present nebulized medications and IV steroids for asthma/copd exacerbation (4) HTN (hypertension) Continue Norvasc and lisinopril. (5) Tobacco abuse has a nicotine patch. describes 2nd hand smoke exposure (6) Acute bronchitis possible bronchitis component currently on Cefuroxime, Azithromycin clinically improving, continue current antibiotics leukocytosis likely secondary to IV steroids
[2017-08-10] MEDS: ROFLUMILAST 500 MCG TABLET PO SCH (18:03)
[2017-08-10] MEDS: MONTELUKAST SODIUM 10 MG TABLET PO SCH (21:10)
[2017-08-11] MEDS: METHYLPREDNISOLONE INJ 40 MG/1 ML SDV IV SCH ×4 (03:35→20:40)
[2017-08-11] MEDS: HEPARIN SOD (PORCINE) 5,000 UNIT/ML 1 ML SYRINGE SUBCUT SCH ×3 (05:03→21:22)
[2017-08-11 05:05] LABS: HEMATOCRIT 44.2 % (37.9-51.0); HEMOGLOBIN 14.4 g/dL (13.5-17.0); MEAN CORPUSCULAR HEMOGLOBIN 27.6 pg (27.0-33.4); MEAN CORPUSCULAR HGB CONC 32.7 g/dL (32.0-36.0); MEAN CORPUSCULAR VOLUME 85 fl (80-97); PLATELET COUNT 284 10^3/uL (150-450); RED BLOOD COUNT 5.23 10^6/uL (4.35-5.55); RED CELL DISTRIBUTION WIDTH 14.3 % (11.5-14.0); WHITE BLOOD COUNT 19.6 10^3/uL (4.0-10.5)
[2017-08-11 05:25] LABS: ALBUMIN 3.3 g/dL (3.5-5.0); ANION GAP 5 (5-19); BLOOD UREA NITROGEN 35 mg/dL (7-20); CALCIUM 9.1 mg/dL (8.4-10.2); CARBON DIOXIDE 26 mmol/L (22-30); CHLORIDE 104 mmol/L (98-107); GLUCOSE 104 mg/dL (75-110); PHOSPHORUS 3.6 mg/dL (2.5-4.5); POTASSIUM 5.3 mmol/L (3.6-5.0); SODIUM 135.2 mmol/L (137-145)
[2017-08-11] MEDS: IPRATROPIUM/ALBUTEROL 0.5-2.5 MG/3 ML AMPUL NEB SCH ×3 (07:44→19:55)
[2017-08-11] MEDS: NICOTINE 7 MG/24 HR PATCH.TD24 TD SCH (09:30)
[2017-08-11] MEDS: CEFUROXIME 500 MG TABLET PO SCH ×2 (09:30→17:31)
[2017-08-11] MEDS: GUAIFENESIN 600 MG TABLET.SA PO SCH ×2 (09:31→21:22)
[2017-08-11] MEDS: FLUTICASONE NASAL SPRAY 50 MCG/SPRY 120 SPRAY/16 GM NASL SCH ×2 (09:31→21:20)
[2017-08-11] MEDS: AZITHROMYCIN 250 MG TABLET PO SCH (09:31)
[2017-08-11] MEDS: FLUTICASONE/SALMETEROL DISKUS 500-50 MCG/DOSE IH SCH ×2 (09:31→21:23)
[2017-08-11] MEDS: TIOTROPIUM BROMIDE DPI 5 CAP/KIT (18 MCG/CAP) IH SCH (09:31)
[2017-08-11] MEDS ORDERED: FUROSEMIDE INJ/PF 20 MG/2 ML SDV IV ONE (14:00)
[2017-08-11] MEDS ORDERED: LIDOCAINE 5% (700 MG) TRANSDERMAL ADH..PATCH TP ONE (14:00)
[2017-08-11] MEDS: ROFLUMILAST 500 MCG TABLET PO SCH (17:31)
[2017-08-11] MEDS: FUROSEMIDE INJ/PF 20 MG/2 ML SDV IV SCH (18:28)
--- NOTE | 2017-08-11 21:16 | PDOC PROGRESS REPORT ---
Subjective Subjective:: Patient did well ambulating in the [place]itten with PT. Still significant dyspnea, likely secondary to diastolic HF and Pulmonary HTN. Restarting Lasix therapy, continue to wean down O2 supplement. Reason For Visit: ACUTE RESPIRATORY FAILURE/CHF Physical Exam Vital Signs: Temp Pulse Resp BP Pulse Ox 97.3 F 96 20 129/68 H 91 L 08/11/17 16:22 08/11/17 19:54 08/11/17 19:54 08/11/17 16:22 08/11/17 19:54 Pulse Oximeter Continuous Start: 08/03/17 02: 09 Freq: RTQ4 Status: Active Document 08/11/17 19:54 CMI (Rec: 08/11/17 19:58 CMI [email or web address]) Pulse Oximetry Assessment Oxygen Saturation (92-100) 91 Oxygen Flow Rate (L/min) 5 Oxygen Delivery Method Nasal Cannula Fraction of Inspired Oxygen (FIO2) 40 Equipment Usage Equipment in Use Continuous SpO2 Machine # 8 Intake & Output 08/10/17 08/11/17 08/12/17 06:59 06:59 06:59 Intake Total 1385 1880 715 Output Total 2350 1725 1650 Balance -965 155 -935 Weight 73.1 kg 74.2 kg General appearance: PRESENT: mild distress Head exam: PRESENT: atraumatic, normocephalic Eye exam: PRESENT: EOMI, PERRLA Ear exam: PRESENT: normal external ear exam. ABSENT: bleeding Mouth exam: PRESENT: moist, neck supple Neck exam: PRESENT: full ROM. ABSENT: carotid bruit, JVD Respiratory exam: ABSENT: accessory muscle use, crackles, rales, stridor, wheezes Cardiovascular exam: PRESENT: RRR, +S1, +S2 Pulses: PRESENT: normal radial pulses, normal dorsalis pedis pul Vascular exam: PRESENT: normal capillary refill. ABSENT: pallor GI/Abdominal exam: PRESENT: normal bowel sounds, soft. ABSENT: distended, rigid Extremities exam: ABSENT: calf tenderness, joint swelling Musculoskeletal exam: PRESENT: ambulatory, full ROM Neurological exam: PRESENT: alert, oriented to person, oriented to place, oriented to time, CN II-XII grossly intact Psychiatric exam: ABSENT: agitated, anxious Focused psych exam: ABSENT: delusional, paranoid Skin exam: ABSENT: abrasion, cyanosis, mottled Results Laboratory Results: 08/11/17 04:48 08/11/17 04:48 08/11/17 08/11/17 04:48 04:48 WBC 19.6 H RBC 5.23 Hgb 14.4 Hct 44.2 MCV 85 MCH 27.6 MCHC 32.7 RDW 14.3 H Plt Count 284 Sodium 135.2 L Potassium 5.3 H Chloride 104 Carbon Dioxide 26 Anion Gap 5 BUN 35 H Creatinine 0.74 Est GFR ( Amer) > 60 Est GFR (Non-Af Amer) > 60 Glucose 104 Calcium 9.1 Phosphorus 3.6 Albumin 3.3 L 08/05/17 08/05/17 08/06/17 12:19 18:35 00:11 Troponin I < 0.012 < 0.012 < 0.012 Impressions: Chest/Abdomen CTA 08/05/17 00:00 IMPRESSION: No PE. COPD. No acute findings. Chest X-Ray 08/09/17 00:00 IMPRESSION: COPD. NO ACUTE RADIOGRAPHIC FINDING IN THE CHEST. Assessment & Plan - Plan Summary Plan Summary: (1) CHF (congestive heart failure) Diastolic HF and Pulmonary HTN continued dyspnea on exertion. restarting Lasix 20mg IV q12h, continue to wean off O2 as tolerated. (2) Acute respiratory failure with hypoxia Continue BiPAP when resting continue aggressive duoneb schedule, IV steroids. Pulmonary medicine was consulted no significant wheezing on exam. (3) COPD exacerbation describes a history of asthma in his youth continue present nebulized medications and IV steroids for asthma/copd exacerbation (4) HTN (hypertension) Continue Norvasc and lisinopril. (5) Tobacco abuse has a nicotine patch. describes 2nd hand smoke exposure (6) Acute bronchitis possible bronchitis component currently on Cefuroxime, Azithromycin clinically improving, continue current antibiotics leukocytosis likely secondary to IV steroids
[2017-08-11] MEDS: MONTELUKAST SODIUM 10 MG TABLET PO SCH (21:22)
[2017-08-11] MEDS ORDERED: FUROSEMIDE INJ/PF 20 MG/2 ML SDV IV SCH (22:00)
[2017-08-12] MEDS: METHYLPREDNISOLONE INJ 40 MG/1 ML SDV IV SCH ×4 (02:55→21:26)
[2017-08-12] MEDS: HEPARIN SOD (PORCINE) 5,000 UNIT/ML 1 ML SYRINGE SUBCUT SCH ×3 (05:04→21:27)
[2017-08-12] MEDS: FUROSEMIDE INJ/PF 20 MG/2 ML SDV IV SCH ×2 (05:06→17:41)
[2017-08-12 05:13] LABS: HEMATOCRIT 47.1 % (37.9-51.0); HEMOGLOBIN 15.5 g/dL (13.5-17.0); MEAN CORPUSCULAR HEMOGLOBIN 27.8 pg (27.0-33.4); MEAN CORPUSCULAR HGB CONC 32.9 g/dL (32.0-36.0); MEAN CORPUSCULAR VOLUME 85 fl (80-97); PLATELET COUNT 244 10^3/uL (150-450); RED BLOOD COUNT 5.57 10^6/uL (4.35-5.55); RED CELL DISTRIBUTION WIDTH 14.3 % (11.5-14.0); WHITE BLOOD COUNT 19.5 10^3/uL (4.0-10.5)
[2017-08-12 05:41] LABS: ALBUMIN 3.7 g/dL (3.5-5.0); ANION GAP 10 (5-19); BLOOD UREA NITROGEN 41 mg/dL (7-20); CARBON DIOXIDE 22 mmol/L (22-30); CHLORIDE 103 mmol/L (98-107); GLUCOSE 145 mg/dL (75-110); PHOSPHORUS 3.9 mg/dL (2.5-4.5); POTASSIUM 4.5 mmol/L (3.6-5.0); SODIUM 134.6 mmol/L (137-145)
[2017-08-12] MEDS: IPRATROPIUM/ALBUTEROL 0.5-2.5 MG/3 ML AMPUL NEB SCH ×3 (07:51→20:02)
[2017-08-12] MEDS: GUAIFENESIN 600 MG TABLET.SA PO SCH ×2 (10:11→21:26)
[2017-08-12] MEDS: AZITHROMYCIN 250 MG TABLET PO SCH (10:11)
[2017-08-12] MEDS: NICOTINE 7 MG/24 HR PATCH.TD24 TD SCH (10:11)
[2017-08-12] MEDS: FLUTICASONE/SALMETEROL DISKUS 500-50 MCG/DOSE IH SCH ×2 (10:12→21:27)
[2017-08-12] MEDS: CEFUROXIME 500 MG TABLET PO SCH ×2 (10:12→17:41)
[2017-08-12] MEDS: FLUTICASONE NASAL SPRAY 50 MCG/SPRY 120 SPRAY/16 GM NASL SCH ×2 (10:12→21:24)
[2017-08-12] MEDS: LIDOCAINE 5% (700 MG) TRANSDERMAL ADH..PATCH TP SCH (10:12)
[2017-08-12] MEDS: TIOTROPIUM BROMIDE DPI 5 CAP/KIT (18 MCG/CAP) IH SCH (10:13)
[2017-08-12] MEDS: ROFLUMILAST 500 MCG TABLET PO SCH (17:41)
[2017-08-12] MEDS: FAMOTIDINE 20 MG TABLET PO SCH (18:22)
[2017-08-12] MEDS ORDERED: METOCLOPRAMIDE HCL ORAL SOLN 10 MG/10 ML UDCUP PO ONE (19:00)
[2017-08-12] MEDS ORDERED: LIDOCAINE 2% VISCOUS SOLN 20 ML UDCUP PO ONE (19:00)
[2017-08-12] MEDS ORDERED: MAG HYDROX/AL HYDROX/SIMETH SUSP 30 ML UDCUP PO ONE (19:00)
--- NOTE | 2017-08-12 20:25 | PDOC PROGRESS REPORT ---
Subjective Progress Note for:: 08/12/17 Subjective:: patient remains on 5L O2 NC support, and at home he typically dose not wear O2. Discussed case with pulmonary doctor. Patient has diastolic HF and moderate pulmonary HTN. He is being treated with lasix to optimize his volume status, and may benefit from a right heart cath in the future. Bedside spirometry will be performed today. Continue antibiotics for possible bronchitis. Good air movement on exam today. Will continue to wean his IV steroids to q8h. Reason For Visit: ACUTE RESPIRATORY FAILURE/CHF Physical Exam Vital Signs: Temp Pulse Resp BP Pulse Ox 97.5 F 104 H 18 139/75 H 92 08/12/17 15:18 08/12/17 19:28 08/12/17 15:18 08/12/17 15:18 08/12/17 15:18 Pulse Oximeter Continuous Start: 08/03/17 02: 09 Freq: RTQ4 Status: Active Document 08/12/17 11:59 TPO (Rec: 08/12/17 12:00 TPO [email or web address]) Pulse Oximetry Assessment Oxygen Saturation (92-100) 94 Oxygen Flow Rate (L/min) 5 Oxygen Delivery Method Nasal Cannula Fraction of Inspired Oxygen (FIO2) 40 Equipment Usage Equipment in Use Continuous SpO2 Machine # 8 Intake & Output 08/11/17 08/12/17 08/13/17 06:59 06:59 06:59 Intake Total 1880 1331 483 Output Total 1725 2700 600 Balance 155 -1369 -117 Weight 74.2 kg 74.3 kg General appearance: PRESENT: no acute distress, cooperative Head exam: PRESENT: atraumatic, normocephalic Eye exam: PRESENT: EOMI, PERRLA Ear exam: PRESENT: normal external ear exam. ABSENT: bleeding Mouth exam: PRESENT: moist, neck supple Neck exam: PRESENT: full ROM. ABSENT: JVD, tenderness, thyromegaly Respiratory exam: PRESENT: other. ABSENT: accessory muscle use, rales, rhonchi , wheezes Cardiovascular exam: PRESENT: RRR, +S1 Vascular exam: PRESENT: normal capillary refill. ABSENT: pallor GI/Abdominal exam: ABSENT: ascites, distended, rigid, tenderness Extremities exam: ABSENT: calf tenderness, joint swelling Musculoskeletal exam: PRESENT: ambulatory, full ROM Neurological exam: PRESENT: awake, oriented to person, oriented to place, oriented to time, oriented to situation, CN II-XII grossly intact Psychiatric exam: PRESENT: appropriate affect. ABSENT: anxious, manic Focused psych exam: ABSENT: delusional, paranoid Skin exam: ABSENT: abrasion, dry, rash Results Laboratory Results: 08/12/17 04:50 08/12/17 04:50 08/12/17 08/12/17 04:50 04:50 WBC 19.5 H RBC 5.57 H Hgb 15.5 Hct 47.1 MCV 85 MCH 27.8 MCHC 32.9 RDW 14.3 H Plt Count 244 Sodium 134.6 L Potassium 4.5 Chloride 103 Carbon Dioxide 22 Anion Gap 10 BUN 41 H Creatinine 0.77 Est GFR ( Amer) > 60 Est GFR (Non-Af Amer) > 60 Glucose 145 H Calcium 9.0 Phosphorus 3.9 Albumin 3.7 08/05/17 08/05/17 08/06/17 12:19 18:35 00:11 Troponin I < 0.012 < 0.012 < 0.012 Impressions: Chest/Abdomen CTA 08/05/17 00:00 IMPRESSION: No PE. COPD. No acute findings. Chest X-Ray 08/09/17 00:00 IMPRESSION: COPD. NO ACUTE RADIOGRAPHIC FINDING IN THE CHEST. Assessment & Plan - Plan Summary Plan Summary: (1) Acute on Chronic Diastolic HF (congestive heart failure) Diastolic HF and Moderate Pulmonary HTN continued dyspnea on exertion, but improving continue Lasix 20mg IV q12h, continue to wean off O2 as tolerated. may benefit from right heart catheterization (2) Moderate Pulmonary HTN may benefit from right heart cath after d/c (3) Acute respiratory failure with hypoxia Continue BiPAP when resting continue aggressive duoneb schedule, IV steroids: weaning steroids. Pulmonary medicine following no significant wheezing on exam. discussed case with Pulmonary Doctor, will have bedside spirometry today. (3) COPD exacerbation describes a history of asthma in his youth continue present nebulized medications for asthma/copd exacerbation weaning IV steroids. (4) HTN (hypertension) Continue Norvasc and lisinopril. (5) Tobacco abuse has a nicotine patch. describes 2nd hand smoke exposure (6) Acute bronchitis possible bronchitis component currently on Cefuroxime, Azithromycin clinically improving, continue current antibiotics leukocytosis likely secondary to IV steroids
[2017-08-12] MEDS: MONTELUKAST SODIUM 10 MG TABLET PO SCH (21:26)
[2017-08-13] MEDS: HEPARIN SOD (PORCINE) 5,000 UNIT/ML 1 ML SYRINGE SUBCUT SCH ×3 (05:15→21:00)
[2017-08-13] MEDS: FAMOTIDINE 20 MG TABLET PO SCH ×2 (05:16→17:37)
[2017-08-13] MEDS: METHYLPREDNISOLONE INJ 40 MG/1 ML SDV IV SCH ×3 (05:16→21:01)
[2017-08-13] MEDS: FUROSEMIDE INJ/PF 20 MG/2 ML SDV IV SCH ×2 (05:17→17:38)
[2017-08-13 05:37] LABS: HEMATOCRIT 47.3 % (37.9-51.0); HEMOGLOBIN 15.7 g/dL (13.5-17.0); MEAN CORPUSCULAR HEMOGLOBIN 27.9 pg (27.0-33.4); MEAN CORPUSCULAR HGB CONC 33.1 g/dL (32.0-36.0); MEAN CORPUSCULAR VOLUME 84 fl (80-97); PLATELET COUNT 266 10^3/uL (150-450); RED BLOOD COUNT 5.63 10^6/uL (4.35-5.55); RED CELL DISTRIBUTION WIDTH 14.2 % (11.5-14.0); WHITE BLOOD COUNT 16.4 10^3/uL (4.0-10.5)
[2017-08-13 06:05] LABS: ALBUMIN 3.7 g/dL (3.5-5.0); ANION GAP 10 (5-19); BLOOD UREA NITROGEN 44 mg/dL (7-20); CALCIUM 9.2 mg/dL (8.4-10.2); CARBON DIOXIDE 26 mmol/L (22-30); CHLORIDE 99 mmol/L (98-107); GLUCOSE 132 mg/dL (75-110); PHOSPHORUS 3.9 mg/dL (2.5-4.5); POTASSIUM 4.5 mmol/L (3.6-5.0); SODIUM 134.7 mmol/L (137-145)
[2017-08-13] MEDS: IPRATROPIUM/ALBUTEROL 0.5-2.5 MG/3 ML AMPUL NEB SCH ×3 (07:54→20:56)
[2017-08-13] MEDS: NICOTINE 7 MG/24 HR PATCH.TD24 TD SCH (09:12)
[2017-08-13] MEDS: LIDOCAINE 5% (700 MG) TRANSDERMAL ADH..PATCH TP SCH (09:13)
[2017-08-13] MEDS: FLUTICASONE/SALMETEROL DISKUS 500-50 MCG/DOSE IH SCH ×2 (09:14→21:01)
[2017-08-13] MEDS: TIOTROPIUM BROMIDE DPI 5 CAP/KIT (18 MCG/CAP) IH SCH (09:14)
[2017-08-13] MEDS: GUAIFENESIN 600 MG TABLET.SA PO SCH ×2 (09:14→21:01)
[2017-08-13] MEDS: AZITHROMYCIN 250 MG TABLET PO SCH (09:15)
[2017-08-13] MEDS: CEFUROXIME 500 MG TABLET PO SCH ×2 (09:15→17:36)
[2017-08-13] MEDS: FLUTICASONE NASAL SPRAY 50 MCG/SPRY 120 SPRAY/16 GM NASL SCH ×2 (09:15→21:04)
[2017-08-13] MEDS: ROFLUMILAST 500 MCG TABLET PO SCH (17:36)
[2017-08-13] MEDS: MONTELUKAST SODIUM 10 MG TABLET PO SCH (21:01)
[2017-08-14] MEDS: HEPARIN SOD (PORCINE) 5,000 UNIT/ML 1 ML SYRINGE SUBCUT SCH ×3 (05:00→23:36)
[2017-08-14] MEDS: FAMOTIDINE 20 MG TABLET PO SCH ×2 (05:00→17:11)
[2017-08-14] MEDS: FUROSEMIDE INJ/PF 20 MG/2 ML SDV IV SCH ×2 (05:01→17:11)
[2017-08-14 05:17] LABS: HEMOGLOBIN 15.3 g/dL (13.5-17.0); MEAN CORPUSCULAR HEMOGLOBIN 27.8 pg (27.0-33.4); MEAN CORPUSCULAR HGB CONC 33.2 g/dL (32.0-36.0); MEAN CORPUSCULAR VOLUME 84 fl (80-97); PLATELET COUNT 246 10^3/uL (150-450); RED BLOOD COUNT 5.48 10^6/uL (4.35-5.55); RED CELL DISTRIBUTION WIDTH 14.1 % (11.5-14.0); WHITE BLOOD COUNT 20.2 10^3/uL (4.0-10.5)
[2017-08-14 05:35] LABS: ALBUMIN 3.7 g/dL (3.5-5.0); ANION GAP 8 (5-19); BLOOD UREA NITROGEN 44 mg/dL (7-20); CALCIUM 9.1 mg/dL (8.4-10.2); CARBON DIOXIDE 26 mmol/L (22-30); CHLORIDE 98 mmol/L (98-107); GLUCOSE 124 mg/dL (75-110); PHOSPHORUS 4.2 mg/dL (2.5-4.5); POTASSIUM 4.9 mmol/L (3.6-5.0); SODIUM 131.9 mmol/L (137-145)
[2017-08-14] MEDS: IPRATROPIUM/ALBUTEROL 0.5-2.5 MG/3 ML AMPUL NEB SCH ×3 (08:16→20:14)
[2017-08-14] MEDS: AZITHROMYCIN 250 MG TABLET PO SCH (09:02)
[2017-08-14] MEDS: GUAIFENESIN 600 MG TABLET.SA PO SCH ×2 (09:02→23:38)
[2017-08-14] MEDS: TIOTROPIUM BROMIDE DPI 5 CAP/KIT (18 MCG/CAP) IH SCH (09:02)
[2017-08-14] MEDS: CEFUROXIME 500 MG TABLET PO SCH ×2 (09:02→17:11)
[2017-08-14] MEDS: NICOTINE 7 MG/24 HR PATCH.TD24 TD SCH (09:03)
[2017-08-14] MEDS: METHYLPREDNISOLONE INJ 40 MG/1 ML SDV IV SCH ×2 (09:03→22:10)
[2017-08-14] MEDS: LIDOCAINE 5% (700 MG) TRANSDERMAL ADH..PATCH TP SCH (09:03)
[2017-08-14] MEDS: FLUTICASONE/SALMETEROL DISKUS 500-50 MCG/DOSE IH SCH ×2 (09:04→23:37)
[2017-08-14] MEDS: FLUTICASONE NASAL SPRAY 50 MCG/SPRY 120 SPRAY/16 GM NASL SCH ×2 (09:42→23:38)
[2017-08-14] MEDS: ALBUTEROL SULFATE 0.083% NEB 2.5 MG/3 ML AMPUL NEB PRN ×2 (12:06→23:21)
--- NOTE | 2017-08-14 12:20 | PDOC PROGRESS REPORT ---
Subjective Progress Note for:: 08/13/17 Subjective:: Gradual weaning of patient's O2 supplemental support. Patient was transiently weaned down to approximately 2 L per nursing, now is back up to 4 L. Patient clinically appears to be improving and states that he feels better. Patient still gets dyspneic on exertion. Concerned the patient may have pulmonary hypertension that needs to be better characterized with a right heart cath after his discharge. Will make sure patient gets bedside spirometry today. Reason For Visit: ACUTE RESPIRATORY FAILURE/CHF Physical Exam Vital Signs: Temp Pulse Resp BP Pulse Ox 97.8 F 88 16 122/62 96 08/13/17 19:33 08/13/17 19:35 08/13/17 19:33 08/13/17 21:00 08/13/17 19:33 Pulse Oximeter Continuous Start: 08/03/17 02: 09 Freq: RTQ4 Status: Active Document 08/13/17 16:00 LDA (Rec: 08/13/17 17:17 LDA [email or web address]) Pulse Oximetry Assessment Oxygen Saturation (92-100) 93 Oxygen Flow Rate (L/min) 3 Oxygen Delivery Method Nasal Cannula Fraction of Inspired Oxygen (FIO2) 32 Equipment Usage Equipment in Use Continuous SpO2 Machine # n-8 Intake & Output 08/12/17 08/13/17 08/14/17 06:59 06:59 06:59 Intake Total 1331 1021 853 Output Total 2700 1400 775 Balance -7229 -379 78 Weight 74.3 kg 75.6 kg General appearance: PRESENT: no acute distress, well-developed, well-nourished Head exam: PRESENT: atraumatic, normocephalic Eye exam: PRESENT: conjunctiva pink, EOMI, PERRLA. ABSENT: scleral icterus Ear exam: PRESENT: normal external ear exam Mouth exam: PRESENT: moist, tongue midline Neck exam: ABSENT: carotid bruit, lymphadenopathy, thyromegaly Respiratory exam: ABSENT: rales, rhonchi, wheezes Cardiovascular exam: PRESENT: RRR. ABSENT: diastolic murmur, rubs, systolic murmur Pulses: PRESENT: normal radial pulses, normal dorsalis pedis pul Vascular exam: PRESENT: normal capillary refill. ABSENT: pallor GI/Abdominal exam: PRESENT: normal bowel sounds, soft. ABSENT: distended, guarding, mass, organolmegaly, rebound, tenderness Rectal exam: PRESENT: deferred Extremities exam: PRESENT: full ROM. ABSENT: calf tenderness, clubbing, pedal edema Neurological exam: PRESENT: alert, awake, oriented to person, oriented to place , oriented to time, oriented to situation, CN II-XII grossly intact. ABSENT: motor sensory deficit Psychiatric exam: PRESENT: appropriate affect, normal mood. ABSENT: homicidal ideation, suicidal ideation Skin exam: PRESENT: dry, intact, warm. ABSENT: cyanosis, rash Results Laboratory Results: 08/13/17 05:01 08/13/17 05:01 08/13/17 08/13/17 05:01 05:01 WBC 16.4 H RBC 5.63 H Hgb 15.7 Hct 47.3 MCV 84 MCH 27.9 MCHC 33.1 RDW 14.2 H Plt Count 266 Sodium 134.7 L Potassium 4.5 Chloride 99 Carbon Dioxide 26 Anion Gap 10 BUN 44 H Creatinine 0.81 Est GFR ( Amer) > 60 Est GFR (Non-Af Amer) > 60 Glucose 132 H Calcium 9.2 Phosphorus 3.9 Albumin 3.7 08/05/17 08/05/17 08/06/17 12:19 18:35 00:11 Troponin I < 0.012 < 0.012 < 0.012 Impressions: Chest/Abdomen CTA 08/05/17 00:00 IMPRESSION: No PE. COPD. No acute findings. Chest X-Ray 08/09/17 00:00 IMPRESSION: COPD. NO ACUTE RADIOGRAPHIC FINDING IN THE CHEST. Assessment & Plan - Plan Summary Plan Summary: (1) Acute on Chronic Diastolic HF (congestive heart failure) Diastolic HF and Moderate Pulmonary HTN continued dyspnea on exertion, but improving continue Lasix 20mg IV q12h, continue to wean off O2 as tolerated. may benefit from right heart catheterization after discharge (2) Moderate Pulmonary HTN may benefit from right heart cath after d/c (3) Acute respiratory failure with hypoxia Continue BiPAP when resting continue aggressive duoneb schedule, IV steroids: weaning steroids. Pulmonary medicine following no significant wheezing on exam. discussed case with Pulmonary Doctor, will have bedside spirometry (3) COPD exacerbation describes a history of asthma in his youth continue present nebulized medications for asthma/copd exacerbation weaning IV steroids. (4) HTN (hypertension) Continue Norvasc and lisinopril. (5) Tobacco abuse has a nicotine patch. describes 2nd hand smoke exposure (6) Acute bronchitis possible bronchitis component currently on Cefuroxime, Azithromycin clinically improving, continue current antibiotics
--- NOTE | 2017-08-14 12:59 | RADIOLOGY REPORT (SQ) ---
EXAM DESCRIPTION: CHEST SINGLE VIEW COMPLETED DATE/TIME: 08/14/2017 12:46 pm REASON FOR STUDY: pneumonia COMPARISON: 08/09/2017. EXAM PARAMETERS: NUMBER OF VIEWS: One view. TECHNIQUE: Single frontal radiographic view of the chest acquired. RADIATION DOSE: NA LIMITATIONS: None. FINDINGS: LUNGS AND PLEURA: There is marked hyperinflation the lungs consistent with COPD. Bibasila r pleural thickening. MEDIASTINUM AND HILAR STRUCTURES: No masses. Contour normal. HEART AND VASCULAR STRUCTURES: The heart is normal with normal pulmonary vasculature. BONES: Dorsal spondylosis noted. HARDWARE: None in the chest. OTHER: No other significant finding. IMPRESSION: COPD. Chronic bibasilar pleural thickening . TECHNICAL DOCUMENTATION: JOB ID: [id number] [employer]- All Rights Reserved Reading location - IP/workstation name: [email or web address]
[2017-08-14] MEDS ORDERED: QUETIAPINE FUMARATE 25 MG TABLET PO ONE (13:00)
[2017-08-14] MEDS: ROFLUMILAST 500 MCG TABLET PO SCH (17:11)
[2017-08-14] MEDS ORDERED: LEVOFLOXACIN 750 MG/D5W RTU 750 MG/150 ML RTUPB IV ONE (20:16)
--- NOTE | 2017-08-14 20:16 | PDOC CONSULTATION ---
Consultation Consult Date: 08/09/17 Attending physician:: PERLA CARBAJAL History of Present Illness Admission Date/PCP: 08/03/17 15:09 History of Present Illness: MEKA ATWOOD JR is a 66 year old male with a past medical history of COPD, chronic bronchitis, Tobacco Dependence and hypertension. He presents with 1 week of exceptional sinus congestion, postnasal drip and shortness of breath prompting him to seek evaluation at the emergency room at [facility] where he was observed and discharged on p.o. antibiotics but has subsequently had a return of symptoms. In the emergency room is found to be tachypneic with wheezing. He receives albuterol and Atrovent and referred to the hospitalist for evaluation. Patient denies chest pain nausea vomiting or diaphoresis Past Medical History Cardiac Medical History: Reports: Hypertension Denies: Coronary Artery Disease, Myocardial Infarction Pulmonary Medical History: Reports: Asthma, Chronic Obstructive Pulmonary Disease (COPD), Pneumonia - 6 yrs ago Denies: Bronchitis Neurological Medical History: Denies: Seizures Musculoskeltal Medical History: Reports: Arthritis - back and shoulder Psychiatric Medical History: Reports: Depression Hematology: Denies: Anemia Past Surgical History Past Surgical History: Reports: Orthopedic Surgery - 3 discectomy. plates and screws in back Denies: Pacemaker Social History Information Source: [facility] Records Smoking Status: Former Smoker Last Time Smoked: 07/16/17 Frequency of Alcohol Use: Occasional Hx Recreational Drug Use: No Drugs: None Hx Prescription Drug Abuse: No - Advance Directive Resuscitation Status: Full Code Family History Parental Family History Reviewed: No Children Family History Reviewed: No Sibling(s) Family History Reviewed.: No Medication/Allergy Home Medications: Albuterol Sulfate [Proair HFA Inhalation Aerosol 8.5 gm MDI] 1 puff IH Q4HP PRN 08/03/17 Amlodipine Besylate [Norvasc 10 mg Tablet] 10 mg PO DAILY 08/03/17 Fluticasone Propionate [Flonase Nasal Monon 50 Mcg/Monon 16 gm] 2 sprays NASL Q12HP PRN 08/03/17 Fluticasone/Salmeterol [Advair 500-50 Diskus 14 Dose/Diskus] 1 puff IH Q12 08/03 Tiotropium Lodi [Spiriva Handihaler 5 Cap/Kit (18 Mcg/Cap)] 1 puff IH DAILY 08/03/17 Allergies/Adverse Reactions: No Known Allergies Allergy (Verified 12/26/16 19:21) Review of Systems Constitutional: PRESENT: anorexia, chills, fatigue, fever(s), night sweats. ABSENT: headache(s), weakness Eyes: ABSENT: visual disturbances Ears: ABSENT: hearing changes Nose, Mouth, and Throat: ABSENT: sore throat Cardiovascular: ABSENT: palpitations Respiratory: PRESENT: hemoptysis Gastrointestinal: ABSENT: abdominal pain, bloating, coffee ground emesis, dysphagia, hematemesis, hematochezia, melena Genitourinary: ABSENT: dysuria, hematuria Musculoskeletal: ABSENT: deformity, joint swelling Integumentary: ABSENT: pruritus, rash Neurological: ABSENT: abnormal movements, abnormal speech, confusion, focal weakness, frequent falls, lack of coordination, memory loss Psychiatric: ABSENT: hallucinations, homidical ideation, suicidal ideation Endocrine: ABSENT: cold intolerance, heat intolerance, polydipsia, polyuria Hematologic/Lymphatic: PRESENT: easy bruising Physical Exam Vital Signs: Temp Pulse Resp BP Pulse Ox 97.4 F 89 22 H 135/81 H 94 08/14/17 15:13 08/14/17 19:00 08/14/17 15:13 08/14/17 15:13 08/14/17 16:06 Pulse Oximeter Continuous Start: 08/03/17 02: 09 Freq: RTQ4 Status: Active Document 08/14/17 16:06 [facility] (Rec: 08/14/17 16:08 TPO [email or web address]) Pulse Oximetry Assessment Oxygen Saturation (92-100) 94 Oxygen Flow Rate (L/min) 3 Oxygen Delivery Method Bi-pap Fraction of Inspired Oxygen (FIO2) 40 Equipment Usage Equipment in Use Continuous SpO2 Machine # 8 Intake & Output 08/13/17 08/14/17 08/15/17 06:59 06:59 06:59 Intake Total 1021 1337 889 Output Total 8300 301 9095 Balance -379 362 -311 Weight 75.6 kg 69.5 kg General appearance: PRESENT: no acute distress, cooperative, disheveled, thin Head exam: PRESENT: atraumatic, normocephalic Eye exam: PRESENT: conjunctiva pale, EOMI. ABSENT: nystagmus, periorbital swelling, scleral icterus Mouth exam: PRESENT: dry mucosa, neck supple, tongue midline Neck exam: ABSENT: carotid bruit, JVD, lymphadenopathy, thyromegaly, tracheal deviation, tracheostomy Respiratory exam: PRESENT: decreased breath sounds, prolonged expiratory phas, rales, rhonchi, symmetrical, unlabored, wheezes. ABSENT: retraction, stridor, tachypnea Cardiovascular exam: PRESENT: RRR, rubs, +S2, tachycardia Pulses: PRESENT: normal radial pulses GI/Abdominal exam: PRESENT: diminished bowel sounds, soft Extremities exam: ABSENT: calf tenderness, clubbing, joint swelling Musculoskeletal exam: ABSENT: deformity, dislocation Neurological exam: PRESENT: awake Skin exam: PRESENT: dry, warm Results Laboratory Results: 08/14/17 04:53 08/14/17 04:53 08/14/17 08/14/17 04:53 04:53 WBC 20.2 H RBC 5.48 Hgb 15.3 Hct 46.0 MCV 84 MCH 27.8 MCHC 33.2 RDW 14.1 H Plt Count 246 Sodium 131.9 L Potassium 4.9 Chloride 98 Carbon Dioxide 26 Anion Gap 8 BUN 44 H Creatinine 0.80 Est GFR ( Amer) > 60 Est GFR (Non-Af Amer) > 60 Glucose 124 H Calcium 9.1 Phosphorus 4.2 Albumin 3.7 08/05/17 08/05/17 08/06/17 12:19 18:35 00:11 Troponin I < 0.012 < 0.012 < 0.012 Impressions: Chest/Abdomen CTA 08/05/17 00:00 IMPRESSION: No PE. COPD. No acute findings. Chest X-Ray 08/14/17 00:00 IMPRESSION: COPD. Chronic bibasilar pleural thickening . Assessment & Plan - Diagnosis (1) Acute respiratory failure with hypoxia Is this a current diagnosis for this admission?: Yes Plan: multifactorial copd+chf+pna (2) CHF (congestive heart failure) Qualifiers: Heart failure type: unspecified Heart failure chronicity: acute Qualified Code(s): I50.9 - Heart failure, unspecified Is this a current diagnosis for this admission?: Yes Plan: gentle diuresis (3) COPD exacerbation Is this a current diagnosis for this admission?: Yes Plan: Generic Name Dose Route Start Last Admin Trade Name Freq PRN Reason Stop Dose Admin Albuterol 2.5 mg 08/09/17 12:42 08/14/17 12:06 Ventolin 0.083% Neb 2.5 Mg/3 Ml Ampul NEB 09/08/17 12:41 2.5 mg RTQ4HP PRN SHORTNESS OF BREATH Montelukast Sodium 10 mg 08/06/17 22:00 08/13/17 21:01 Singulair 10 Mg Tablet PO 09/05/17 21:59 10 mg QHS FELY Methylprednisolone Sodium Succinate 40 mg 08/14/17 08:00 08/14/17 09:03 Solu-Medrol Inj/Pf 40 Mg/1 Ml Sdv IV 09/13/17 07:59 40 mg Q12H FELY Tiotropium Lodi 1 cap 08/10/17 10:00 08/14/17 09:02 Spiriva Handihaler 5 Cap/Kit (18 Mcg/Cap) IH 09/09/17 09:59 1 cap DAILY FELY Benzonatate 100 mg 08/09/17 12:49 Tessalon Perles 100 Mg Capsule PO 09/08/17 12:48 Q8HP PRN COUGH Nicotine 1 each 08/04/17 08:00 08/14/17 09:03 Nicoderm 7 Mg/24 Hr Transdermal Patch TD 09/03/17 07:59 1 each QAM FELY Albuterol/Ipratropium 3 ml 08/03/17 20:00 08/14/17 13:42 Duoneb 3 Ml Ampul NEB 09/02/17 19:59 3 ml [id number] FELY Roflumilast 500 mcg 08/07/17 18:00 08/14/17 17:11 Daliresp 500 Mcg Tablet PO 09/06/17 17:59 500 mcg QPM FELY use 1 LAMA(ie stop Spireva) suggest dc singular (4) Tobacco abuse Is this a current diagnosis for this admission?: Yes Plan: trandermal nicotine as you have initiated
[2017-08-14] MEDS ORDERED: PIPERACILLIN/TAZOBACTAM 3.375 GM VIAL IV SCH (20:30)
--- NOTE | 2017-08-14 20:42 | PDOC PROGRESS REPORT ---
Subjective Progress Note for:: 08/14/17 Subjective:: 66 yo Male presenting with acute on chronic respiratory failure with a hx of COPD/Asthma, diastolic HF exacerbation, and possible bronchitis picture. Patient was subjectively short of breath today. O2 sat was 91%. Air movement on pulmonary exam was good. No significant wheezing. Continue to wean his IV steroids. Given his persistent leukocytosis despite weaning steroids, will change antibiotics to Levaquin and Zosyn. Checking blood cultures before antibiotic change. Bedside spirometry ordered. Remittent BiPAP support continued. Reason For Visit: ACUTE RESPIRATORY FAILURE/CHF Physical Exam Vital Signs: Temp Pulse Resp BP Pulse Ox 97.4 F 89 22 H 135/81 H 94 08/14/17 15:13 08/14/17 19:00 08/14/17 15:13 08/14/17 15:13 08/14/17 16:06 Pulse Oximeter Continuous Start: 08/03/17 02: 09 Freq: RTQ4 Status: Active Document 08/14/17 16:06 TPO (Rec: 08/14/17 16:08 TPO [email or web address]) Pulse Oximetry Assessment Oxygen Saturation (92-100) 94 Oxygen Flow Rate (L/min) 3 Oxygen Delivery Method Bi-pap Fraction of Inspired Oxygen (FIO2) 40 Equipment Usage Equipment in Use Continuous SpO2 Machine # 8 Intake & Output 08/13/17 08/14/17 08/15/17 06:59 06:59 06:59 Intake Total 1021 1337 889 Output Total 2961 069 7098 Balance -379 362 -311 Weight 75.6 kg 69.5 kg General appearance: PRESENT: no acute distress, well-developed, well-nourished Head exam: PRESENT: atraumatic, normocephalic Eye exam: PRESENT: conjunctiva pink, EOMI, PERRLA. ABSENT: scleral icterus Ear exam: PRESENT: normal external ear exam Mouth exam: PRESENT: moist, tongue midline Neck exam: ABSENT: carotid bruit, lymphadenopathy, thyromegaly Respiratory exam: ABSENT: rales, rhonchi, wheezes, appears SOB on exam but O2 sat is 91% Cardiovascular exam: PRESENT: RRR. ABSENT: diastolic murmur, rubs, systolic murmur Pulses: PRESENT: normal radial pulses, normal dorsalis pedis pul Vascular exam: PRESENT: normal capillary refill. ABSENT: pallor GI/Abdominal exam: PRESENT: normal bowel sounds, soft. ABSENT: distended, guarding, mass, organolmegaly, rebound, tenderness Rectal exam: PRESENT: deferred Extremities exam: PRESENT: full ROM. ABSENT: calf tenderness, clubbing, pedal edema Neurological exam: PRESENT: alert, awake, oriented to person, oriented to place , oriented to time, oriented to situation, CN II-XII grossly intact. ABSENT: motor sensory deficit Psychiatric exam: PRESENT: appropriate affect, normal mood. ABSENT: homicidal ideation, suicidal ideation Skin exam: PRESENT: dry, intact, warm. ABSENT: cyanosis, rash Results Laboratory Results: 08/14/17 04:53 08/14/17 04:53 08/14/17 08/14/17 04:53 04:53 WBC 20.2 H RBC 5.48 Hgb 15.3 Hct 46.0 MCV 84 MCH 27.8 MCHC 33.2 RDW 14.1 H Plt Count 246 Sodium 131.9 L Potassium 4.9 Chloride 98 Carbon Dioxide 26 Anion Gap 8 BUN 44 H Creatinine 0.80 Est GFR ( Amer) > 60 Est GFR (Non-Af Amer) > 60 Glucose 124 H Calcium 9.1 Phosphorus 4.2 Albumin 3.7 08/05/17 08/05/17 08/06/17 12:19 18:35 00:11 Troponin I < 0.012 < 0.012 < 0.012 Impressions: Chest/Abdomen CTA 08/05/17 00:00 IMPRESSION: No PE. COPD. No acute findings. Chest X-Ray 08/14/17 00:00 IMPRESSION: COPD. Chronic bibasilar pleural thickening . Assessment & Plan - Plan Summary Plan Summary: (1) Acute on Chronic Diastolic HF (congestive heart failure) Diastolic HF and Moderate Pulmonary HTN on TTE continued dyspnea on exertion, was dyspnic in bed today, with some anxiety: starting Seroquel Good O2 sat, to 91% today. continue Lasix 20mg IV q12h, continue to wean off O2 as tolerated. may benefit from right heart catheterization after discharge CXR today without new process. continue intermittant Bipap (2) Moderate Pulmonary HTN may benefit from right heart cath after d/c (3) Acute respiratory failure with hypoxia Continue BiPAP when resting continue aggressive duoneb schedule, IV steroids: weaning steroids. Pulmonary medicine following no significant wheezing on exam. ordered bedside spirometry (4) COPD exacerbation describes a history of asthma in his youth continue present nebulized medications for asthma/copd exacerbation weaning IV steroids gradually, currently solumedrol 40mg IV q12h (5) Leukocytosis persistent, weaning steroids CXR without PNA today. blood cultures x2 taken d/c current antibiotics, start levaquin/zosyn coverage (6) HTN (hypertension) Continue Norvasc and lisinopril. (7) Tobacco abuse has a nicotine patch. describes 2nd hand smoke exposure (8) Acute bronchitis possible bronchitis component blood culture x2, and antibiotic change as stated above
[2017-08-14] MEDS ORDERED: PIPERACILLIN/TAZOBACTAM 3.375 GM VIAL IV PRN (20:44)
[2017-08-14] MEDS ORDERED: PIPERACILLIN/TAZOBACTAM 3.375 GM VIAL IV ONE (22:09)
[2017-08-14] MEDS: PIPERACILLIN SODIUM/TAZOBACTAM 3.375 GM in NORMAL SALINE 100 ML IV SCH (23:37)
[2017-08-14] MEDS: QUETIAPINE FUMARATE 25 MG TABLET PO SCH (23:38)
[2017-08-14] MEDS: MONTELUKAST SODIUM 10 MG TABLET PO SCH (23:38)
[2017-08-15] MEDS ORDERED: PIPERACILLIN/TAZOBACTAM 3.375 GM VIAL IV ONE (05:15)
[2017-08-15] MEDS: PIPERACILLIN SODIUM/TAZOBACTAM 3.375 GM in NORMAL SALINE 100 ML IV SCH ×2 (05:38→09:16)
[2017-08-15] MEDS: HEPARIN SOD (PORCINE) 5,000 UNIT/ML 1 ML SYRINGE SUBCUT SCH ×3 (06:31→21:48)
[2017-08-15] MEDS: FAMOTIDINE 20 MG TABLET PO SCH ×2 (06:31→17:33)
[2017-08-15] MEDS: FUROSEMIDE INJ/PF 20 MG/2 ML SDV IV SCH (06:31)
[2017-08-15 07:31] LABS: HEMOGLOBIN 16.1 g/dL (13.5-17.0)
[2017-08-15 07:49] LABS: HEMATOCRIT 48.9 % (37.9-51.0); MEAN CORPUSCULAR HEMOGLOBIN 27.9 pg (27.0-33.4); MEAN CORPUSCULAR VOLUME 85 fl (80-97); PLATELET COUNT 236 10^3/uL (150-450); RED BLOOD COUNT 5.78 10^6/uL (4.35-5.55); RED CELL DISTRIBUTION WIDTH 14.1 % (11.5-14.0); WHITE BLOOD COUNT 18.2 10^3/uL (4.0-10.5)
[2017-08-15 08:19] LABS: ALBUMIN 4.2 g/dL (3.5-5.0); ANION GAP 11 (5-19); BLOOD UREA NITROGEN 42 mg/dL (7-20); CALCIUM 9.5 mg/dL (8.4-10.2); CARBON DIOXIDE 29 mmol/L (22-30); CHLORIDE 94 mmol/L (98-107); GLUCOSE 122 mg/dL (75-110); PHOSPHORUS 5.2 mg/dL (2.5-4.5); POTASSIUM 5.6 mmol/L (3.6-5.0); SODIUM 134.2 mmol/L (137-145)
[2017-08-15 08:27] LABS: ABSOLUTE LYMPHOCYTES# (MANUAL) 0.9 10^3/uL (0.5-4.7); ABSOLUTE MONOCYTES # (MANUAL) 1.3 10^3/uL (0.1-1.4); BASOPHILS % (MANUAL) 0 % (0-2); EOSINOPHILS % (MANUAL) 0 % (0-6); LYMPHOCYTES % (MANUAL) 5 % (13-45); MONOCYTES % (MANUAL) 7 % (3-13); SEGMENTED NEUTROPHILS % (MAN) 88 % (42-78); TOTAL CELLS COUNTED 100
[2017-08-15 08:28] LABS: PLATELET COMMENT ADEQUATE
[2017-08-15 08:29] LABS: BURR CELLS SLIGHT; OVALOCYTES SLIGHT; POIKILOCYTOSIS SLIGHT; TEAR DROP CELLS SLIGHT
[2017-08-15] MEDS: IPRATROPIUM/ALBUTEROL 0.5-2.5 MG/3 ML AMPUL NEB SCH ×3 (08:34→19:55)
[2017-08-15] MEDS: QUETIAPINE FUMARATE 25 MG TABLET PO SCH ×2 (09:15→22:13)
[2017-08-15] MEDS: FLUTICASONE/SALMETEROL DISKUS 500-50 MCG/DOSE IH SCH ×2 (09:15→22:11)
[2017-08-15] MEDS: NICOTINE 7 MG/24 HR PATCH.TD24 TD SCH (09:15)
[2017-08-15] MEDS: FLUTICASONE NASAL SPRAY 50 MCG/SPRY 120 SPRAY/16 GM NASL SCH ×2 (09:15→22:10)
[2017-08-15] MEDS: METHYLPREDNISOLONE INJ 40 MG/1 ML SDV IV SCH (09:15)
[2017-08-15] MEDS: LIDOCAINE 5% (700 MG) TRANSDERMAL ADH..PATCH TP SCH (09:15)
[2017-08-15] MEDS: GUAIFENESIN 600 MG TABLET.SA PO SCH ×2 (09:15→22:04)
--- NOTE | 2017-08-15 14:02 | PDOC PROGRESS REPORT ---
Subjective Progress Note for:: 08/15/17 Subjective:: Feeling better today. O2 requirement decreased from 4L to 1L at time of exam. Patient is committed to not smoking. However smokes at home. States that he worked with Physical therapy and was able to ambulate the halls with support. Denies fevers, chills, CP, abdominal pain, NV. Reason For Visit: ACUTE RESPIRATORY FAILURE/CHF Physical Exam Vital Signs: Temp Pulse Resp BP Pulse Ox 97.5 F 86 17 123/70 94 08/15/17 11:40 08/15/17 11:40 08/15/17 11:40 08/15/17 11:40 08/15/17 11:40 Pulse Oximeter Continuous Start: 08/03/17 02: 09 Freq: RTQ4 Status: Active Document 08/15/17 08:36 TPO (Rec: 08/15/17 09:04 TPO [email or web address]) Pulse Oximetry Assessment Oxygen Saturation (92-100) 95 Oxygen Flow Rate (L/min) 3 Oxygen Delivery Method Nasal Cannula Fraction of Inspired Oxygen (FIO2) 32 Equipment Usage Equipment in Use Continuous SpO2 Machine # N-[id number] Intake & Output 08/14/17 08/15/17 08/16/17 06:59 06:59 06:59 Intake Total 1337 1611 237 Output Total 975 1500 600 Balance 362 111 -363 Weight 69.5 kg 69.6 kg General appearance: PRESENT: no acute distress, well-developed, well-nourished Mouth exam: PRESENT: moist Respiratory exam: PRESENT: decreased breath sounds, unlabored, wheezes - Occassional expiratory wheeze Cardiovascular exam: PRESENT: RRR GI/Abdominal exam: PRESENT: soft. ABSENT: tenderness Musculoskeletal exam: PRESENT: full ROM Neurological exam: PRESENT: alert, awake, CN II-XII grossly intact Psychiatric exam: PRESENT: normal mood Results Laboratory Results: 08/15/17 07:14 08/15/17 07:14 08/15/17 08/15/17 07:14 07:14 WBC 18.2 H RBC 5.78 H Hgb 16.1 Hct 48.9 MCV 85 MCH 27.9 MCHC 33.0 RDW 14.1 H Plt Count 236 Seg Neutrophils % Not Reportable Lymphocytes % Not Reportable Monocytes % Not Reportable Eosinophils % Not Reportable Basophils % Not Reportable Absolute Neutrophils Not Reportable Absolute Lymphocytes Not Reportable Absolute Monocytes Not Reportable Absolute Eosinophils Not Reportable Absolute Basophils Not Reportable Sodium 134.2 L Potassium 5.6 H Chloride 94 L Carbon Dioxide 29 Anion Gap 11 BUN 42 H Creatinine 0.92 Est GFR ( Amer) > 60 Est GFR (Non-Af Amer) > 60 Glucose 122 H Calcium 9.5 Phosphorus 5.2 H Albumin 4.2 08/05/17 08/05/17 08/06/17 12:19 18:35 00:11 Troponin I < 0.012 < 0.012 < 0.012 Impressions: Chest/Abdomen CTA 08/05/17 00:00 IMPRESSION: No PE. COPD. No acute findings. Chest X-Ray 08/14/17 00:00 IMPRESSION: COPD. Chronic bibasilar pleural thickening . Assessment & Plan - Diagnosis (1) CHF (congestive heart failure) Qualifiers: Heart failure type: diastolic Heart failure chronicity: acute on chronic Qualified Code(s): I50.33 - Acute on chronic diastolic (congestive) heart failure Is this a current diagnosis for this admission?: Yes Plan: TTE consistent with HFpEF and moderate Pulmonary HTN - Decreased SHARIF and O2 requirement - Changed Lasix 20mg IV BID to Lasix 40mg daily in anticipation of upcoming d/c - O2 goals: sats >88%, continue BiPAP at night - Would benefit from outpatient right heart catheterization (2) COPD exacerbation Is this a current diagnosis for this admission?: Yes Plan: Long standing smoking history, now with exacerbation - Improving, has been in IV steroids since admission, will transition to PO Prednisone 40mg daily * 3 additional days - Reviewed home COPD regimen and appropriate (3) HTN (hypertension) Qualifiers: Hypertension type: essential hypertension Qualified Code(s): I10 - Essential (primary) hypertension Is this a current diagnosis for this admission?: Yes (4) Tobacco abuse Is this a current diagnosis for this admission?: Yes Plan: Recently quit, currently on nicotene patch, motivated to not re-start - Smoking counseling provided (5) Leukocytosis Is this a current diagnosis for this admission?: Yes Plan: Likely secondary to steroids - Currently on antibiotics (Zosyn) however does not appear to have active infection - Blood culture from 08/14 pending - Will discontinue Zosyn; if new fevers or c/f infection, would be OK to re- start - Time Time Spent with patient: 15-24 minutes Smoking Cessation Education: 3 to 10 minutes Medications reviewed and adjusted accordingly: Yes Anticipated discharge: Home, Home with Homehealth Within: within 24 hours
[2017-08-15] MEDS: ROFLUMILAST 500 MCG TABLET PO SCH (17:33)
[2017-08-15] MEDS: MONTELUKAST SODIUM 10 MG TABLET PO SCH (22:04)
[2017-08-16] MEDS: HEPARIN SOD (PORCINE) 5,000 UNIT/ML 1 ML SYRINGE SUBCUT SCH (05:14)
[2017-08-16] MEDS: FAMOTIDINE 20 MG TABLET PO SCH (05:14)
[2017-08-16 05:17] LABS: HEMATOCRIT 42.6 % (37.9-51.0); HEMOGLOBIN 14.3 g/dL (13.5-17.0); MEAN CORPUSCULAR HEMOGLOBIN 28.2 pg (27.0-33.4); MEAN CORPUSCULAR HGB CONC 33.6 g/dL (32.0-36.0); MEAN CORPUSCULAR VOLUME 84 fl (80-97); PLATELET COUNT 191 10^3/uL (150-450); RED BLOOD COUNT 5.08 10^6/uL (4.35-5.55); WHITE BLOOD COUNT 19.7 10^3/uL (4.0-10.5)
[2017-08-16 05:54] LABS: ANION GAP 6 (5-19); BLOOD UREA NITROGEN 43 mg/dL (7-20); CALCIUM 9.2 mg/dL (8.4-10.2); CARBON DIOXIDE 26 mmol/L (22-30); CHLORIDE 99 mmol/L (98-107); GLUCOSE 82 mg/dL (75-110); POTASSIUM 4.7 mmol/L (3.6-5.0); SODIUM 130.6 mmol/L (137-145)
[2017-08-16] MEDS: IPRATROPIUM/ALBUTEROL 0.5-2.5 MG/3 ML AMPUL NEB SCH (08:33)
[2017-08-16] MEDS: QUETIAPINE FUMARATE 25 MG TABLET PO SCH (09:24)
[2017-08-16] MEDS: NICOTINE 7 MG/24 HR PATCH.TD24 TD SCH (09:24)
[2017-08-16] MEDS: GUAIFENESIN 600 MG TABLET.SA PO SCH (09:25)
[2017-08-16] MEDS: LIDOCAINE 5% (700 MG) TRANSDERMAL ADH..PATCH TP SCH (09:25)
[2017-08-16] MEDS: FLUTICASONE NASAL SPRAY 50 MCG/SPRY 120 SPRAY/16 GM NASL SCH (09:26)
[2017-08-16] MEDS: FLUTICASONE/SALMETEROL DISKUS 500-50 MCG/DOSE IH SCH (09:26)
[2017-08-16] MEDS ORDERED: FUROSEMIDE 40 MG TABLET PO SCH (10:00)
[2017-08-16] MEDS ORDERED: PREDNISONE 20 MG TABLET PO SCH (10:00)
[2017-08-16 11:40] VITALS: BP 182/84
[2017-08-17] MEDS ORDERED: PREDNISONE 20 MG TABLET PO SCH (10:00)
--- NOTE | 2017-08-17 15:32 | Pulmonary Function Test ---
Pulmonary Function Test Date of Procedure:: 08/13/17 INDICATION:: Dyspnea Referring Provider: Dr. Tenzin Juárez - Report Spirometry: FVC 2.17 L 58% FEV1 1.14 L 38% FEV1/FVC % 53 predicted 80 FEF 25-75% 0.82 L 27% Impression: Severe obstructive ventilatory defect if clinically indicated further evaluation by way of complete pulmonary function test would be useful
--- NOTE | 2017-08-17 15:45 | PDOC PROGRESS REPORT ---
Subjective Progress Note for:: 08/10/17 Subjective:: Unchanged Reason For Visit: ACUTE RESPIRATORY FAILURE/CHF Physical Exam Vital Signs: Temp Pulse Resp BP Pulse Ox 97.4 F 89 22 H 135/81 H 94 08/14/17 15:13 08/14/17 19:00 08/14/17 15:13 08/14/17 15:13 08/14/17 16:06 Pulse Oximeter Continuous Start: 08/03/17 02: 09 Freq: RTQ4 Status: Active Document 08/14/17 16:06 TPO (Rec: 08/14/17 16:08 TPO [email or web address]) Pulse Oximetry Assessment Oxygen Saturation (92-100) 94 Oxygen Flow Rate (L/min) 3 Oxygen Delivery Method Bi-pap Fraction of Inspired Oxygen (FIO2) 40 Equipment Usage Equipment in Use Continuous SpO2 Machine # 8 Intake & Output 08/13/17 08/14/17 08/15/17 06:59 06:59 06:59 Intake Total 1021 1337 889 Output Total 6306 396 0683 Balance -379 362 -311 Weight 75.6 kg 69.5 kg General appearance: PRESENT: cooperative, disheveled, mild distress Head exam: PRESENT: atraumatic, normocephalic Eye exam: PRESENT: conjunctiva pale, EOMI. ABSENT: nystagmus, periorbital swelling, scleral icterus Mouth exam: PRESENT: dry mucosa, neck supple, tongue midline Neck exam: ABSENT: carotid bruit, JVD, lymphadenopathy, thyromegaly, tracheal deviation, tracheostomy Respiratory exam: PRESENT: decreased breath sounds, prolonged expiratory phas, rales, rhonchi, symmetrical, unlabored. ABSENT: retraction, stridor, tachypnea Cardiovascular exam: PRESENT: RRR, +S1, +S2 Pulses: PRESENT: normal radial pulses GI/Abdominal exam: PRESENT: diminished bowel sounds, soft Extremities exam: ABSENT: clubbing, joint swelling, pedal edema Musculoskeletal exam: PRESENT: deformity, dislocation. ABSENT: ambulatory Neurological exam: PRESENT: alert, awake Psychiatric exam: PRESENT: flat affect Skin exam: PRESENT: dry, warm Results Laboratory Results: 08/14/17 04:53 08/14/17 04:53 08/14/17 08/14/17 04:53 04:53 WBC 20.2 H RBC 5.48 Hgb 15.3 Hct 46.0 MCV 84 MCH 27.8 MCHC 33.2 RDW 14.1 H Plt Count 246 Sodium 131.9 L Potassium 4.9 Chloride 98 Carbon Dioxide 26 Anion Gap 8 BUN 44 H Creatinine 0.80 Est GFR ( Amer) > 60 Est GFR (Non-Af Amer) > 60 Glucose 124 H Calcium 9.1 Phosphorus 4.2 Albumin 3.7 08/05/17 08/05/17 08/06/17 12:19 18:35 00:11 Troponin I < 0.012 < 0.012 < 0.012 Impressions: Chest/Abdomen CTA 08/05/17 00:00 IMPRESSION: No PE. COPD. No acute findings. Chest X-Ray 08/14/17 00:00 IMPRESSION: COPD. Chronic bibasilar pleural thickening . Assessment & Plan - Diagnosis (1) Acute respiratory failure with hypoxia Is this a current diagnosis for this admission?: Yes Plan: multifactorial copd+chf+pna Little to no improvement (2) CHF (congestive heart failure) Qualifiers: Heart failure type: diastolic Heart failure chronicity: acute on chronic Qualified Code(s): I50.33 - Acute on chronic diastolic (congestive) heart failure Is this a current diagnosis for this admission?: Yes Plan: gentle diuresis (3) COPD exacerbation Is this a current diagnosis for this admission?: Yes Plan: Generic Name Dose Route Start Last Admin Trade Name Freq PRN Reason Stop Dose Admin Albuterol 2.5 mg 08/09/17 12:42 08/14/17 12:06 Ventolin 0.083% Neb 2.5 Mg/3 Ml Ampul NEB 09/08/17 12:41 2.5 mg RTQ4HP PRN SHORTNESS OF BREATH Montelukast Sodium 10 mg 08/06/17 22:00 08/13/17 21:01 Singulair 10 Mg Tablet PO 09/05/17 21:59 10 mg QHS FELY Methylprednisolone Sodium Succinate 40 mg 08/14/17 08:00 08/14/17 09:03 Solu-Medrol Inj/Pf 40 Mg/1 Ml Sdv IV 09/13/17 07:59 40 mg Q12H FELY Tiotropium [place] 1 cap 08/10/17 10:00 08/14/17 09:02 Spiriva Handihaler 5 Cap/Kit (18 Mcg/Cap) IH 09/09/17 09:59 1 cap DAILY FELY Benzonatate 100 mg 08/09/17 12:49 Tessalon Perles 100 Mg Capsule PO 09/08/17 12:48 Q8HP PRN COUGH Nicotine 1 each 08/04/17 08:00 08/14/17 09:03 Nicoderm 7 Mg/24 Hr Transdermal Patch TD 09/03/17 07:59 1 each QAM FELY Albuterol/Ipratropium 3 ml 08/03/17 20:00 08/14/17 13:42 Duoneb 3 Ml Ampul NEB 09/02/17 19:59 3 ml [id number] FELY Roflumilast 500 mcg 08/07/17 18:00 08/14/17 17:11 Daliresp 500 Mcg Tablet PO 09/06/17 17:59 500 mcg QPM FELY use 1 LAMA(ie stop Spireva) suggest dc singular (4) Tobacco abuse Is this a current diagnosis for this admission?: Yes Plan: trandermal nicotine as you have initiated
--- NOTE | 2017-08-17 15:46 | PDOC PROGRESS REPORT ---
Subjective Progress Note for:: 08/11/17 Subjective:: Unchanged Reason For Visit: ACUTE RESPIRATORY FAILURE/CHF Physical Exam Vital Signs: Temp Pulse Resp BP Pulse Ox 97.4 F 89 22 H 135/81 H 94 08/14/17 15:13 08/14/17 19:00 08/14/17 15:13 08/14/17 15:13 08/14/17 16:06 Pulse Oximeter Continuous Start: 08/03/17 02: 09 Freq: RTQ4 Status: Active Document 08/14/17 16:06 TPO (Rec: 08/14/17 16:08 TPO [email or web address]) Pulse Oximetry Assessment Oxygen Saturation (92-100) 94 Oxygen Flow Rate (L/min) 3 Oxygen Delivery Method Bi-pap Fraction of Inspired Oxygen (FIO2) 40 Equipment Usage Equipment in Use Continuous SpO2 Machine # 8 Intake & Output 08/13/17 08/14/17 08/15/17 06:59 06:59 06:59 Intake Total 1021 1337 889 Output Total 8222 583 7971 Balance -379 362 -311 Weight 75.6 kg 69.5 kg General appearance: PRESENT: no acute distress, cooperative, disheveled Head exam: PRESENT: atraumatic, normocephalic Eye exam: PRESENT: conjunctiva pale, EOMI. ABSENT: nystagmus, periorbital swelling, scleral icterus Mouth exam: PRESENT: dry mucosa, neck supple, tongue midline Neck exam: ABSENT: carotid bruit, JVD, lymphadenopathy, thyromegaly, tracheal deviation, tracheostomy Respiratory exam: PRESENT: crackles, decreased breath sounds, prolonged expiratory phas, rhonchi, symmetrical, unlabored, wheezes. ABSENT: rales, retraction, stridor, tachypnea Cardiovascular exam: PRESENT: RRR, +S1, +S2, tachycardia Pulses: PRESENT: normal radial pulses GI/Abdominal exam: PRESENT: diminished bowel sounds, soft Extremities exam: ABSENT: calf tenderness, clubbing, full ROM, joint swelling Musculoskeletal exam: ABSENT: deformity, dislocation Neurological exam: PRESENT: alert, awake Psychiatric exam: PRESENT: flat affect Skin exam: PRESENT: dry, warm Results Laboratory Results: 08/14/17 04:53 08/14/17 04:53 08/14/17 08/14/17 04:53 04:53 WBC 20.2 H RBC 5.48 Hgb 15.3 Hct 46.0 MCV 84 MCH 27.8 MCHC 33.2 RDW 14.1 H Plt Count 246 Sodium 131.9 L Potassium 4.9 Chloride 98 Carbon Dioxide 26 Anion Gap 8 BUN 44 H Creatinine 0.80 Est GFR ( Amer) > 60 Est GFR (Non-Af Amer) > 60 Glucose 124 H Calcium 9.1 Phosphorus 4.2 Albumin 3.7 08/05/17 08/05/17 08/06/17 12:19 18:35 00:11 Troponin I < 0.012 < 0.012 < 0.012 Impressions: Chest/Abdomen CTA 08/05/17 00:00 IMPRESSION: No PE. COPD. No acute findings. Chest X-Ray 08/14/17 00:00 IMPRESSION: COPD. Chronic bibasilar pleural thickening . Assessment & Plan - Diagnosis (1) Acute respiratory failure with hypoxia Is this a current diagnosis for this admission?: Yes Plan: multifactorial copd+chf+pna Little to no improvement (2) CHF (congestive heart failure) Qualifiers: Heart failure type: diastolic Heart failure chronicity: acute on chronic Qualified Code(s): I50.33 - Acute on chronic diastolic (congestive) heart failure Is this a current diagnosis for this admission?: Yes Plan: gentle diuresis (3) COPD exacerbation Is this a current diagnosis for this admission?: Yes Plan: Generic Name Dose Route Start Last Admin Trade Name Freq PRN Reason Stop Dose Admin Albuterol 2.5 mg 08/09/17 12:42 08/14/17 12:06 Ventolin 0.083% Neb 2.5 Mg/3 Ml Ampul NEB 09/08/17 12:41 2.5 mg RTQ4HP PRN SHORTNESS OF BREATH Montelukast Sodium 10 mg 08/06/17 22:00 08/13/17 21:01 Singulair 10 Mg Tablet PO 09/05/17 21:59 10 mg QHS FELY Methylprednisolone Sodium Succinate 40 mg 08/14/17 08:00 08/14/17 09:03 Solu-Medrol Inj/Pf 40 Mg/1 Ml Sdv IV 09/13/17 07:59 40 mg Q12H FELY Tiotropium [place] 1 cap 08/10/17 10:00 08/14/17 09:02 Spiriva Handihaler 5 Cap/Kit (18 Mcg/Cap) IH 09/09/17 09:59 1 cap DAILY FELY Benzonatate 100 mg 08/09/17 12:49 Tessalon Perles 100 Mg Capsule PO 09/08/17 12:48 Q8HP PRN COUGH Nicotine 1 each 08/04/17 08:00 08/14/17 09:03 Nicoderm 7 Mg/24 Hr Transdermal Patch TD 09/03/17 07:59 1 each QAM FELY Albuterol/Ipratropium 3 ml 08/03/17 20:00 08/14/17 13:42 Duoneb 3 Ml Ampul NEB 09/02/17 19:59 3 ml [id number] FELY Roflumilast 500 mcg 08/07/17 18:00 08/14/17 17:11 Daliresp 500 Mcg Tablet PO 09/06/17 17:59 500 mcg QPM FELY use 1 LAMA(ie stop Spireva) suggest dc singular (4) Tobacco abuse Is this a current diagnosis for this admission?: Yes Plan: trandermal nicotine as you have initiated
--- NOTE | 2017-08-17 15:48 | PDOC PROGRESS REPORT ---
Subjective Progress Note for:: 08/12/17 Subjective:: Unchanged Reason For Visit: ACUTE RESPIRATORY FAILURE/CHF Physical Exam Vital Signs: Temp Pulse Resp BP Pulse Ox 97.4 F 89 22 H 135/81 H 94 08/14/17 15:13 08/14/17 19:00 08/14/17 15:13 08/14/17 15:13 08/14/17 16:06 Pulse Oximeter Continuous Start: 08/03/17 02: 09 Freq: RTQ4 Status: Active Document 08/14/17 16:06 TPO (Rec: 08/14/17 16:08 TPO [email or web address]) Pulse Oximetry Assessment Oxygen Saturation (92-100) 94 Oxygen Flow Rate (L/min) 3 Oxygen Delivery Method Bi-pap Fraction of Inspired Oxygen (FIO2) 40 Equipment Usage Equipment in Use Continuous SpO2 Machine # 8 Intake & Output 08/13/17 08/14/17 08/15/17 06:59 06:59 06:59 Intake Total 1021 1337 889 Output Total 2024 029 8824 Balance -379 362 -311 Weight 75.6 kg 69.5 kg General appearance: PRESENT: no acute distress, cooperative, disheveled Head exam: PRESENT: atraumatic, normocephalic Eye exam: PRESENT: conjunctiva pale, EOMI. ABSENT: nystagmus, periorbital swelling, scleral icterus Mouth exam: PRESENT: dry mucosa, neck supple, tongue midline Neck exam: ABSENT: carotid bruit, JVD, lymphadenopathy, thyromegaly, tracheal deviation, tracheostomy Respiratory exam: PRESENT: crackles, decreased breath sounds, prolonged expiratory phas, rhonchi, symmetrical, unlabored, wheezes. ABSENT: rales, retraction, stridor, tachypnea Cardiovascular exam: PRESENT: RRR, +S1, +S2 Pulses: PRESENT: normal radial pulses GI/Abdominal exam: PRESENT: diminished bowel sounds, soft Extremities exam: ABSENT: clubbing, joint swelling Musculoskeletal exam: ABSENT: deformity, dislocation Neurological exam: PRESENT: alert, awake Psychiatric exam: PRESENT: normal mood Skin exam: PRESENT: dry, warm Results Laboratory Results: 08/14/17 04:53 08/14/17 04:53 08/14/17 08/14/17 04:53 04:53 WBC 20.2 H RBC 5.48 Hgb 15.3 Hct 46.0 MCV 84 MCH 27.8 MCHC 33.2 RDW 14.1 H Plt Count 246 Sodium 131.9 L Potassium 4.9 Chloride 98 Carbon Dioxide 26 Anion Gap 8 BUN 44 H Creatinine 0.80 Est GFR ( Amer) > 60 Est GFR (Non-Af Amer) > 60 Glucose 124 H Calcium 9.1 Phosphorus 4.2 Albumin 3.7 08/05/17 08/05/17 08/06/17 12:19 18:35 00:11 Troponin I < 0.012 < 0.012 < 0.012 Impressions: Chest/Abdomen CTA 08/05/17 00:00 IMPRESSION: No PE. COPD. No acute findings. Chest X-Ray 08/14/17 00:00 IMPRESSION: COPD. Chronic bibasilar pleural thickening . Assessment & Plan - Diagnosis (1) Acute respiratory failure with hypoxia Is this a current diagnosis for this admission?: Yes Plan: multifactorial copd+chf+pna Little to no improvement (2) CHF (congestive heart failure) Qualifiers: Heart failure type: diastolic Heart failure chronicity: acute on chronic Qualified Code(s): I50.33 - Acute on chronic diastolic (congestive) heart failure Is this a current diagnosis for this admission?: Yes Plan: gentle diuresis (3) COPD exacerbation Is this a current diagnosis for this admission?: Yes Plan: Generic Name Dose Route Start Last Admin Trade Name Freq PRN Reason Stop Dose Admin Albuterol 2.5 mg 08/09/17 12:42 08/14/17 12:06 Ventolin 0.083% Neb 2.5 Mg/3 Ml Ampul NEB 09/08/17 12:41 2.5 mg RTQ4HP PRN SHORTNESS OF BREATH Montelukast Sodium 10 mg 08/06/17 22:00 08/13/17 21:01 Singulair 10 Mg Tablet PO 09/05/17 21:59 10 mg QHS FELY Methylprednisolone Sodium Succinate 40 mg 08/14/17 08:00 08/14/17 09:03 Solu-Medrol Inj/Pf 40 Mg/1 Ml Sdv IV 09/13/17 07:59 40 mg Q12H FELY Tiotropium [place] 1 cap 08/10/17 10:00 08/14/17 09:02 Spiriva Handihaler 5 Cap/Kit (18 Mcg/Cap) IH 09/09/17 09:59 1 cap DAILY FELY Benzonatate 100 mg 08/09/17 12:49 Tessalon Perles 100 Mg Capsule PO 09/08/17 12:48 Q8HP PRN COUGH Nicotine 1 each 08/04/17 08:00 08/14/17 09:03 Nicoderm 7 Mg/24 Hr Transdermal Patch TD 09/03/17 07:59 1 each QAM FELY Albuterol/Ipratropium 3 ml 08/03/17 20:00 08/14/17 13:42 Duoneb 3 Ml Ampul NEB 09/02/17 19:59 3 ml [id number] FELY Roflumilast 500 mcg 08/07/17 18:00 08/14/17 17:11 Daliresp 500 Mcg Tablet PO 09/06/17 17:59 500 mcg QPM FELY use 1 LAMA(ie stop Spireva) suggest dc singular (4) Tobacco abuse Is this a current diagnosis for this admission?: Yes Plan: trandermal nicotine as you have initiated
--- NOTE | 2017-08-17 15:51 | PDOC PROGRESS REPORT ---
Subjective Progress Note for:: 08/13/17 Subjective:: improved Reason For Visit: ACUTE RESPIRATORY FAILURE/CHF Physical Exam Vital Signs: Temp Pulse Resp BP Pulse Ox 97.4 F 89 22 H 135/81 H 94 08/14/17 15:13 08/14/17 19:00 08/14/17 15:13 08/14/17 15:13 08/14/17 16:06 Pulse Oximeter Continuous Start: 08/03/17 02: 09 Freq: RTQ4 Status: Active Document 08/14/17 16:06 TPO (Rec: 08/14/17 16:08 TPO [email or web address]) Pulse Oximetry Assessment Oxygen Saturation (92-100) 94 Oxygen Flow Rate (L/min) 3 Oxygen Delivery Method Bi-pap Fraction of Inspired Oxygen (FIO2) 40 Equipment Usage Equipment in Use Continuous SpO2 Machine # 8 Intake & Output 08/13/17 08/14/17 08/15/17 06:59 06:59 06:59 Intake Total 1021 1337 889 Output Total 7081 797 1837 Balance -379 362 -311 Weight 75.6 kg 69.5 kg General appearance: PRESENT: no acute distress, cooperative, disheveled Head exam: PRESENT: atraumatic, normocephalic Eye exam: PRESENT: conjunctiva pale, EOMI. ABSENT: nystagmus, periorbital swelling, scleral icterus Mouth exam: PRESENT: dry mucosa, neck supple, tongue midline Neck exam: ABSENT: carotid bruit, JVD, lymphadenopathy, thyromegaly, tracheal deviation, tracheostomy Respiratory exam: PRESENT: decreased breath sounds, prolonged expiratory phas, rhonchi, symmetrical, unlabored. ABSENT: rales, retraction, stridor, tachypnea Cardiovascular exam: PRESENT: RRR, +S1, +S2 Pulses: PRESENT: normal radial pulses GI/Abdominal exam: PRESENT: diminished bowel sounds, soft Extremities exam: ABSENT: calf tenderness, clubbing, joint swelling Musculoskeletal exam: ABSENT: deformity, dislocation Neurological exam: PRESENT: alert, awake Psychiatric exam: PRESENT: normal mood Skin exam: PRESENT: dry, warm Results Laboratory Results: 08/14/17 04:53 08/14/17 04:53 08/14/17 08/14/17 04:53 04:53 WBC 20.2 H RBC 5.48 Hgb 15.3 Hct 46.0 MCV 84 MCH 27.8 MCHC 33.2 RDW 14.1 H Plt Count 246 Sodium 131.9 L Potassium 4.9 Chloride 98 Carbon Dioxide 26 Anion Gap 8 BUN 44 H Creatinine 0.80 Est GFR ( Amer) > 60 Est GFR (Non-Af Amer) > 60 Glucose 124 H Calcium 9.1 Phosphorus 4.2 Albumin 3.7 08/05/17 08/05/17 08/06/17 12:19 18:35 00:11 Troponin I < 0.012 < 0.012 < 0.012 Impressions: Chest/Abdomen CTA 08/05/17 00:00 IMPRESSION: No PE. COPD. No acute findings. Chest X-Ray 08/14/17 00:00 IMPRESSION: COPD. Chronic bibasilar pleural thickening . Assessment & Plan - Diagnosis (1) Acute respiratory failure with hypoxia Is this a current diagnosis for this admission?: Yes Plan: multifactorial copd+chf+pna Little to no improvement (2) CHF (congestive heart failure) Qualifiers: Heart failure type: diastolic Heart failure chronicity: acute on chronic Qualified Code(s): I50.33 - Acute on chronic diastolic (congestive) heart failure Is this a current diagnosis for this admission?: Yes Plan: gentle diuresis (3) COPD exacerbation Is this a current diagnosis for this admission?: Yes Plan: Generic Name Dose Route Start Last Admin Trade Name Freq PRN Reason Stop Dose Admin Albuterol 2.5 mg 08/09/17 12:42 08/14/17 12:06 Ventolin 0.083% Neb 2.5 Mg/3 Ml Ampul NEB 09/08/17 12:41 2.5 mg RTQ4HP PRN SHORTNESS OF BREATH Montelukast Sodium 10 mg 08/06/17 22:00 08/13/17 21:01 Singulair 10 Mg Tablet PO 09/05/17 21:59 10 mg QHS FELY Methylprednisolone Sodium Succinate 40 mg 08/14/17 08:00 08/14/17 09:03 Solu-Medrol Inj/Pf 40 Mg/1 Ml Sdv IV 09/13/17 07:59 40 mg Q12H FELY Tiotropium [place] 1 cap 08/10/17 10:00 08/14/17 09:02 Spiriva Handihaler 5 Cap/Kit (18 Mcg/Cap) IH 09/09/17 09:59 1 cap DAILY FELY Benzonatate 100 mg 08/09/17 12:49 Tessalon Perles 100 Mg Capsule PO 09/08/17 12:48 Q8HP PRN COUGH Nicotine 1 each 08/04/17 08:00 08/14/17 09:03 Nicoderm 7 Mg/24 Hr Transdermal Patch TD 09/03/17 07:59 1 each QAM FELY Albuterol/Ipratropium 3 ml 08/03/17 20:00 08/14/17 13:42 Duoneb 3 Ml Ampul NEB 09/02/17 19:59 3 ml [id number] FEYL Roflumilast 500 mcg 08/07/17 18:00 08/14/17 17:11 Daliresp 500 Mcg Tablet PO 09/06/17 17:59 500 mcg QPM FELY use 1 LAMA(ie stop Spireva) suggest dc singular (4) Tobacco abuse Is this a current diagnosis for this admission?: Yes Plan: trandermal nicotine as you have initiated
--- NOTE | 2017-08-17 15:53 | PDOC PROGRESS REPORT ---
Subjective Progress Note for:: 08/12/17 Subjective:: improved Reason For Visit: ACUTE RESPIRATORY FAILURE/CHF Physical Exam Vital Signs: Temp Pulse Resp BP Pulse Ox 97.4 F 89 22 H 135/81 H 94 08/14/17 15:13 08/14/17 19:00 08/14/17 15:13 08/14/17 15:13 08/14/17 16:06 Pulse Oximeter Continuous Start: 08/03/17 02: 09 Freq: RTQ4 Status: Active Document 08/14/17 16:06 TPO (Rec: 08/14/17 16:08 TPO [email or web address]) Pulse Oximetry Assessment Oxygen Saturation (92-100) 94 Oxygen Flow Rate (L/min) 3 Oxygen Delivery Method Bi-pap Fraction of Inspired Oxygen (FIO2) 40 Equipment Usage Equipment in Use Continuous SpO2 Machine # 8 Intake & Output 08/13/17 08/14/17 08/15/17 06:59 06:59 06:59 Intake Total 1021 1337 889 Output Total 0827 608 2985 Balance -379 362 -311 Weight 75.6 kg 69.5 kg General appearance: PRESENT: no acute distress, cooperative, disheveled Head exam: PRESENT: atraumatic, normocephalic Eye exam: PRESENT: conjunctiva pale, EOMI. ABSENT: nystagmus, periorbital swelling, scleral icterus Mouth exam: PRESENT: dry mucosa, neck supple, tongue midline Neck exam: ABSENT: carotid bruit, JVD, lymphadenopathy, thyromegaly, tracheal deviation, tracheostomy Respiratory exam: PRESENT: decreased breath sounds, prolonged expiratory phas, rales, rhonchi, symmetrical, wheezes. ABSENT: retraction, stridor, tachypnea Cardiovascular exam: PRESENT: RRR, +S1, +S2, tachycardia Pulses: PRESENT: normal radial pulses GI/Abdominal exam: PRESENT: diminished bowel sounds, soft Extremities exam: ABSENT: calf tenderness, clubbing, joint swelling Musculoskeletal exam: PRESENT: deformity, dislocation Neurological exam: PRESENT: alert, awake Psychiatric exam: PRESENT: normal mood Skin exam: PRESENT: dry, warm Results Laboratory Results: 08/14/17 04:53 08/14/17 04:53 08/14/17 08/14/17 04:53 04:53 WBC 20.2 H RBC 5.48 Hgb 15.3 Hct 46.0 MCV 84 MCH 27.8 MCHC 33.2 RDW 14.1 H Plt Count 246 Sodium 131.9 L Potassium 4.9 Chloride 98 Carbon Dioxide 26 Anion Gap 8 BUN 44 H Creatinine 0.80 Est GFR ( Amer) > 60 Est GFR (Non-Af Amer) > 60 Glucose 124 H Calcium 9.1 Phosphorus 4.2 Albumin 3.7 08/05/17 08/05/17 08/06/17 12:19 18:35 00:11 Troponin I < 0.012 < 0.012 < 0.012 Impressions: Chest/Abdomen CTA 08/05/17 00:00 IMPRESSION: No PE. COPD. No acute findings. Chest X-Ray 08/14/17 00:00 IMPRESSION: COPD. Chronic bibasilar pleural thickening . Assessment & Plan - Diagnosis (1) Acute respiratory failure with hypoxia Is this a current diagnosis for this admission?: Yes Plan: multifactorial copd+chf+pna Little to no improvement (2) CHF (congestive heart failure) Qualifiers: Heart failure type: diastolic Heart failure chronicity: acute on chronic Qualified Code(s): I50.33 - Acute on chronic diastolic (congestive) heart failure Is this a current diagnosis for this admission?: Yes Plan: gentle diuresis (3) COPD exacerbation Is this a current diagnosis for this admission?: Yes Plan: Generic Name Dose Route Start Last Admin Trade Name Freq PRN Reason Stop Dose Admin Albuterol 2.5 mg 08/09/17 12:42 08/14/17 12:06 Ventolin 0.083% Neb 2.5 Mg/3 Ml Ampul NEB 09/08/17 12:41 2.5 mg RTQ4HP PRN SHORTNESS OF BREATH Montelukast Sodium 10 mg 08/06/17 22:00 08/13/17 21:01 Singulair 10 Mg Tablet PO 09/05/17 21:59 10 mg QHS FELY Methylprednisolone Sodium Succinate 40 mg 08/14/17 08:00 08/14/17 09:03 Solu-Medrol Inj/Pf 40 Mg/1 Ml Sdv IV 09/13/17 07:59 40 mg Q12H FELY Tiotropium [place] 1 cap 08/10/17 10:00 08/14/17 09:02 Spiriva Handihaler 5 Cap/Kit (18 Mcg/Cap) IH 04/26/18 09:59 1 cap DAILY FELY Benzonatate 100 mg 08/09/17 12:49 Tessalon Perles 100 Mg Capsule PO 09/08/17 12:48 Q8HP PRN COUGH Nicotine 1 each 08/04/17 08:00 08/14/17 09:03 Nicoderm 7 Mg/24 Hr Transdermal Patch TD 09/03/17 07:59 1 each QAM FELY Albuterol/Ipratropium 3 ml 08/03/17 20:00 08/14/17 13:42 Duoneb 3 Ml Ampul NEB 09/02/17 19:59 3 ml [id number] FELY Roflumilast 500 mcg 08/07/17 18:00 08/14/17 17:11 Daliresp 500 Mcg Tablet PO 09/06/17 17:59 500 mcg QPM FELY use 1 LAMA(ie stop Spireva) suggest dc singular (4) Tobacco abuse Is this a current diagnosis for this admission?: Yes Plan: trandermal nicotine as you have initiated
--- NOTE | 2017-08-19 05:48 | PDOC DISCHARGE SUMMARY ---
General - Admit/Disc Date/PCP Admission Date/Primary Care Provider: 08/03/17 15:09 Discharge Date: 08/16/17 - Discharge Diagnosis (1) CHF (congestive heart failure) Is this a current diagnosis for this admission?: Yes (2) Acute respiratory failure with hypoxia Is this a current diagnosis for this admission?: Yes (3) COPD exacerbation Is this a current diagnosis for this admission?: Yes (4) HTN (hypertension) Is this a current diagnosis for this admission?: Yes (5) Tobacco abuse Is this a current diagnosis for this admission?: Yes (6) Acute bronchitis Is this a current diagnosis for this admission?: Yes - Additional Information Resuscitation Status: Full Code Discharge Diet: Cardiac Discharge Activity: Activity As Tolerated Prescriptions: Furosemide [Lasix 40 mg Tablet] 40 mg PO DAILY #30 tablet Lisinopril [Prinivil 10 mg Tablet] 10 mg PO DAILY #30 tablet Montelukast Sodium [Singulair 10 mg Tablet] 10 mg PO QHS #30 tablet Prednisone [Deltasone 20 mg Tablet] 20 mg PO DAILY #5 tablet Quetiapine Fumarate [Seroquel 25 mg Tablet] 25 mg PO Q12 #60 tablet Home Medications: Albuterol Sulfate [Proair HFA Inhalation Aerosol 8.5 gm MDI] 1 puff IH Q4HP PRN 08/03/17 Fluticasone Propionate [Flonase Nasal [place] 50 Mcg/[place] 16 gm] 2 sprays NASL Q12HP PRN 08/03/17 Fluticasone/Salmeterol [Advair 500-50 Diskus 14 Dose/Diskus] 1 puff IH Q12 08/03 Tiotropium [place] [Spiriva Handihaler 5 Cap/Kit (18 Mcg/Cap)] 1 puff IH DAILY 08/03/17 Amlodipine Besylate [Norvasc 10 mg Tablet] 5 mg PO DAILY #30 08/16/17 Furosemide [Lasix 40 mg Tablet] 40 mg PO DAILY #30 tablet 08/16/17 Lisinopril [Prinivil 10 mg Tablet] 10 mg PO DAILY #30 tablet 08/16/17 Montelukast Sodium [Singulair 10 mg Tablet] 10 mg PO QHS #30 tablet 08/16/17 Prednisone [Deltasone 20 mg Tablet] 20 mg PO DAILY #5 tablet 08/16/17 Quetiapine Fumarate [Seroquel 25 mg Tablet] 25 mg PO Q12 #60 tablet 08/16/17 History of Present Illness History of Present Illness: MEKA ATWOOD JR is a 66 year old male with a past medical history of COPD, chronic bronchitis, tobacco Dependence and hypertension. He presented with 1 week of exceptional sinus congestion, postnasal drip and shortness of breath prompting him to seek evaluation at the emergency room at [facility] where he was observed and discharged on p.o. antibiotics but has subsequently had a return of symptoms. In the emergency room is found to be tachypneic with wheezing. He receives albuterol and Atrovent and referred to the hospitalist for evaluation. Patient also was hypoxic. Patient denied chest pain nausea vomiting or diaphoresis. Patient was admitted under the hospitalist service Hospital Course Hospital Course: Patient presented with acute hypoxic respiratory failure which required oxygen supplementation. Patient reported that it was basically difficult for him to ambulate without getting shortness of breath. He remained with significant wheezing and tachypnea towards the earlier part of his hospitalization. Patient required assistance with BiPAP. Echocardiogram demonstrated diastolic dysfunction and patient was treated for an acute bout of diastolic congestive heart failure. Patient was diuresis and blood pressure was controlled. Despite this intervention there was not much improvement. Patient was placed on IV steroids, Mucinex, IV antibiotic and BiPaP. As his condition improved, patient was weaned off oxygen and at the time of discharge he was oxygenated laying 96% on room air. He did not require a prescription for BiPAP on discharge. Of concern is that patient had quitted smoking however his continues smoking inside the house. We also observed that patient does have a significant anxiety component and he required to be placed on Seroquel and was discharged on this medication. We consulted Dr. Porter due to his slow recovery and assisted managing his medical condition. A pulmonary function test was done which demonstrated significant obstructive pattern and he will have to evaluated further as outpatient. Since patient he was able to ambulate without the need of oxygen and was basically back to baseline patient was then discharged with a strong encouragement not to return back to smoking and to follow-up with his primary care provider and Dr. Porter Physical Exam Vital Signs: Temp Pulse Resp BP Pulse Ox 97.4 F 92 22 H 141/83 H 95 08/16/17 08:01 08/16/17 08:33 08/16/17 08:33 08/16/17 08:01 08/16/17 08:33 Pulse Oximeter Continuous Start: 08/03/17 02: 09 Freq: RTQ4 Status: Active Document 08/16/17 08:33 TPO (Rec: 08/16/17 08:41 TPO [email or web address]) Pulse Oximetry Assessment Oxygen Saturation (92-100) 95 Oxygen Delivery Method Room Air Fraction of Inspired Oxygen (FIO2) 21 Equipment Usage Equipment in Use Continuous SpO2 Machine # [id number] Intake & Output 08/15/17 08/16/17 08/17/17 06:59 06:59 06:59 Intake Total 1611 1364 Output Total 1500 2200 Balance 111 -836 Weight 69.6 kg 69.9 kg General appearance: PRESENT: no acute distress, cooperative, well-developed, well-nourished Head exam: PRESENT: atraumatic, normocephalic Eye exam: PRESENT: conjunctiva pink, EOMI, PERRLA Ear exam: PRESENT: normal external ear exam Mouth exam: PRESENT: moist Neck exam: PRESENT: full ROM. ABSENT: JVD, lymphadenopathy, tenderness Respiratory exam: PRESENT: clear to auscultation uriel Cardiovascular exam: PRESENT: RRR. ABSENT: diastolic murmur, systolic murmur Vascular exam: PRESENT: normal capillary refill GI/Abdominal exam: PRESENT: normal bowel sounds, soft. ABSENT: tenderness Extremities exam: PRESENT: full ROM. ABSENT: pedal edema Musculoskeletal exam: PRESENT: ambulatory Neurological exam: PRESENT: alert, awake, oriented to person, oriented to place , oriented to time, oriented to situation, CN II-XII grossly intact Psychiatric exam: PRESENT: appropriate affect, normal mood Skin exam: PRESENT: intact, normal color Results Laboratory Results: 08/16/17 04:51 08/16/17 04:51 08/16/17 08/16/17 04:51 04:51 WBC 19.7 H RBC 5.08 Hgb 14.3 Hct 42.6 MCV 84 MCH 28.2 MCHC 33.6 RDW 14.0 Plt Count 191 Sodium 130.6 L Potassium 4.7 Chloride 99 Carbon Dioxide 26 Anion Gap 6 BUN 43 H Creatinine 0.85 Est GFR ( Amer) > 60 Est GFR (Non-Af Amer) > 60 Glucose 82 Calcium 9.2 08/05/17 08/05/17 08/06/17 12:19 18:35 00:11 Troponin I < 0.012 < 0.012 < 0.012 Impressions: Chest/Abdomen CTA 08/05/17 00:00 IMPRESSION: No PE. COPD. No acute findings. Chest X-Ray 08/14/17 00:00 IMPRESSION: COPD. Chronic bibasilar pleural thickening . Qualifiers - * PATEINT BEING DISCHARGED WITH ANY OF THE FOLLOWING DIAGNOSIS?: No Plan Discharge Plan: Discharge home with follow up with PCP Time Spent: Less than 30 Minutes
--- NOTE | 2017-08-20 10:59 | DRAGON STRESS TEST REPORT ---
REST ONLY SINGLE PHOTON EMMISION COMPUTERIZED TOMOGRAPHIC. DATE OF PROCEDURE: August 06, 2017, INDICATION : Shortness of breath PROCEDURE: Patient had rest only imaging performed after being injected with rest dose of technetium sestamibi compound. Patient was noted to be short of breath therefore could not have stress imaging performed because of active wheezing. Rest imaging was performed along with EKG gated imaging. 1. No definitive areas of rest perfusion defect noted. 2. EKG gated imaging shows left ventricular ejection fraction of approx. 67 %. IMPRESSION: No rest perfusion defect noted which means no definitive areas of prior myocardial infarction noted. Stress imaging was not performed. RECOMMENDATIONS: Schedule stress imaging at a later date when patient is more stable. MTDD
== END 2017-08-16 13:21 | disposition home or self-care (01) | DRG 189 ==
LOC: ER 22:49 → EH 08-03 02:30 → 3W 08-03 03:48 → OBSVTOIN 08-03 15:09
PROVIDERS: ADMIT Internal Medicine; ATTEND Internal Medicine
PROC: 3E0F73Z Introduction of Anti-inflammatory into Respiratory Tract, Via Natural or Artificial Opening (ICD-10-PCS; principal; 2017-08-03)
PROC: 5A09557 Assistance with Respiratory Ventilation, Greater than 96 Consecutive Hours, Continuous Positive Airway Pressure (ICD-10-PCS; 2017-08-07)
DX: J96.01 Acute respiratory failure with hypoxia (principal); I50.33 Acute on chronic diastolic (congestive) heart failure; J44.0 Chronic obstructive pulmonary disease with (acute) lower respiratory infection; J44.1 Chronic obstructive pulmonary disease with (acute) exacerbation; J20.9 Acute bronchitis, unspecified; J30.9 Allergic rhinitis, unspecified; I11.0 Hypertensive heart disease with heart failure; I27.20 Pulmonary hypertension, unspecified; D72.819 Decreased white blood cell count, unspecified; Z87.891 Personal history of nicotine dependence
CPT/HCPCS: 36415; 36600; 71045; 71046; 71275; 78451; 80048; 80053; 80069; 82550; 82553; 82803; 83735; 83880; 84484; 85025; 85027; 87040; 93005; 93010; 93306; 94010; 94640; 94660; 94667; 94668; 94762; 94799; 96374; 99285; A9500; G0378; G8978-GP; G8979-GP; J0456; J0696; J1644; J1940; J1956; J2543; J2920; J2930; J3490; J7060; J7512; J7620; Q9969

== ENCOUNTER 2018-04-01 10:26 | Inpatient (IN) | payer MEDICARE, MEDICAID ==
[2018-04-01] MEDS ORDERED: IPRATROPIUM/ALBUTEROL 0.5-2.5 MG/3 ML AMPUL NEB ONE (10:35)
--- NOTE | 2018-04-01 10:44 | ER Document Report ---
ED Respiratory Problem - General Stated Complaint: SHORTNESS OF BREATH Time Seen by Provider: 04/01/18 10:30 Mode of Arrival: Ambulatory Information source: Patient Notes: Chief complaint: Shortness of breath History of complain: 67 years old male with a history of COPD, still smoking, on albuterol and Advair. Presents today with 3-day history of progressive increasing shortness of breath, to the point today could not tolerated therefore present to the ED. Coughing up white sputum. Denies any chest pain, palpitation or diaphoresis. Onset: As above gradual Duration: Last 3 days Severity: Moderate to severe Quality: Shortness of breath Context: COPD, smoking Exacerbating factor and relieving factors: Exertion REVIEW OF SYSTEMS: CONSTITUTIONAL : Denies fever, chills, or sweats. Denies recent illness. EENT: Denies eye, ear, throat, or mouth pain or symptoms. Denies nasal or sinus congestion or discharge. Denies throat, tongue, or mouth swelling or difficulty swallowing. CARDIOVASCULAR: Denies chest pain. Denies palpitations or racing or irregular heart beat. Denies ankle edema. RESPIRATORY: GASTROINTESTINAL: Denies abdominal pain or distention. Denies nausea, vomiting , or diarrhea. Denies blood in vomitus, stools, or per rectum. Denies black, tarry stools. Denies constipation. GENITOURINARY: Denies difficulty urinating, painful urination, burning, frequency, blood in urine, or discharge. MUSCULOSKELETAL: Denies back or neck pain or stiffness. Denies joint pain or swelling. SKIN: Denies rash, lesions or sores. HEMATOLOGIC : Denies easy bruising or bleeding. LYMPHATIC: Denies swollen, enlarged glands. NEUROLOGICAL: Denies confusion or altered mental status. Denies passing out or loss of consciousness. Denies dizziness or lightheadedness. Denies headache. Denies weakness or paralysis or loss of use of either side. Denies problems with gait or speech. Denies sensory loss, numbness, or tingling. Denies seizures. PSYCHIATRIC: Denies anxiety or stress. Denies depression, suicidal ideation, or homicidal ideation. ALL OTHER SYSTEMS REVIEWED AND NEGATIVE. Dictation was performed using [employer] voice recognition software PHYSICAL EXAMINATION: GENERAL: well-nourished and in moderate respiratory acute distress. HEAD: Atraumatic, normocephalic. EYES: Pupils equal round and reactive to light, extraocular movements intact, sclera anicteric, conjunctiva are normal. ENT: Nares patent, oropharynx clear without exudates. Moist mucous membranes. NECK: Normal range of motion, supple without lymphadenopathy LUNGS: Breath sounds .... Bilaterally decreased breath sounds with diffuse expiratory wheezing throughout the lung field HEART: Regular rate and rhythm without murmurs ABDOMEN: Soft, nontender, nondistended abdomen. No guarding, no rebound. No masses appreciated. Musculoskeletal: Normal range of motion, no pitting or edema. No cyanosis. NEUROLOGICAL: Cranial nerves grossly intact. Normal speech, normal gait. Normal sensory, motor exams PSYCH: Normal mood, normal affect. SKIN: Warm, Dry, normal turgor, no rashes or lesions noted. TRAVEL OUTSIDE OF THE [place] IN LAST 30 DAYS: No - HPI Notes: Dictated - Related Data Allergies/Adverse Reactions: No Known Allergies Allergy (Verified 12/26/16 19:21) Past Medical History - Social History Smoking Status: Current Every Day Smoker Frequency of alcohol use: Rare Drug Abuse: None Lives with: Family Family History: Reviewed & Not Pertinent - Past Medical History Cardiac Medical History: Reports: Hx Hypertension Denies: Hx Coronary Artery Disease, Hx Heart Attack Pulmonary Medical History: Reports: Hx Asthma, Hx COPD, Hx Pneumonia - 6 yrs ago Denies: Hx Bronchitis Neurological Medical History: Denies: Hx Cerebrovascular Accident, Hx Seizures Renal/ Medical History: Denies: Hx Peritoneal Dialysis Musculoskeletal Medical History: Reports Hx Arthritis - back and shoulder Psychiatric Medical History: Reports: Hx Depression Past Surgical History: Reports: Hx Orthopedic Surgery - 3 discectomy. plates and screws in back. Denies: Hx Pacemaker - Immunizations Hx Diphtheria, Pertussis, Tetanus Vaccination: No Hx Pneumococcal Vaccination: 05/17/12 Review of Systems - Review of Systems Notes: Dictated Physical Exam - Vital signs Vitals: Resp Pulse Ox 23 H 97 04/01/18 10:44 04/01/18 10:44 Course - Vital Signs Vital signs: Temp Pulse Resp BP Pulse Ox 98 21 H 139/76 H 95 04/01/18 10:50 04/01/18 13:01 04/01/18 13:01 04/01/18 13:01 Case was discussed with hospitalist service and currently being admitted - Laboratory Result Diagrams: 04/01/18 10:45 04/01/18 10:45 Laboratory results interpreted by me: 04/01/18 04/01/18 10:45 10:45 MCH 26.6 L RDW 18.2 H Direct Bilirubin 0.5 H ALT 19 L - Diagnostic Test Radiology reviewed: Reports reviewed - X-ray reported by radiologist as COPD with emphysematous pattern. - EKG Interpretation by Me EKG shows normal: Sinus rhythm - EKG shows sinus rhythm at the rate of 87 bpm normal axis no acute ST elevation ST depression T wave inversion. Discharge - Discharge Clinical Impression: COPD with acute exacerbation Condition: Stable Disposition: ADMITTED INPATIENT Admitting Provider: Hospitalist Unit Admitted: Telemetry
--- NOTE | 2018-04-01 11:08 | RADIOLOGY REPORT (SQ) ---
EXAM DESCRIPTION: CHEST SINGLE VIEW COMPLETED DATE/TIME: 04/01/2018 10:55 am REASON FOR STUDY: copd/sob COMPARISON: 08/09/2017 EXAM PARAMETERS: NUMBER OF VIEWS: One view. TECHNIQUE: Single frontal radiographic view of the chest acquired. RADIATION DOSE: NA LIMITATIONS: None. FINDINGS: LUNGS AND PLEURA: No opacities, masses or pneumothorax. No pleural effusion. Pulmonary hy perinflation and emphysema. MEDIASTINUM AND HILAR STRUCTURES: No masses. Contour normal. HEART AND VASCULAR STRUCTURES: Heart normal in size. Normal vasculature. BONES: No acute findings. HARDWARE: None in the chest. OTHER: No other significant finding. IMPRESSION: Pulmonary hyperinflation and emphysema without acute abnormality of the lungs in frontal projection. No focal airspace opacity. TECHNICAL DOCUMENTATION: JOB ID: [id number] [employer]- All Rights Reserved Reading location - IP/workstation name: [email or web address]
[2018-04-01] MEDS: MAGNESIUM SULFATE/D5W 1 GM/100 ML RTUPB IV SCH ×2 (11:20→12:33)
[2018-04-01 11:41] LABS: CREATINE KINASE MB 1.61 ng/mL (<4.55)
[2018-04-01 11:43] LABS: TROPONIN I < 0.012 ng/mL
[2018-04-01] MEDS: ALBUTEROL SULFATE 0.083% NEB 2.5 MG/3 ML AMPUL NEB SCH ×2 (11:46→12:34)
[2018-04-01 13:26] LABS: ABSOLUTE BASOPHILS # (AUTO) 0.1 10^3/uL (0.0-0.2); ABSOLUTE LYMPHOCYTES (AUTO) 1.4 10^3/uL (0.5-4.7); ABSOLUTE MONOCYTES (AUTO) 1.2 10^3/uL (0.1-1.4); ABSOLUTE NEUT (AUTO) 7.2 10^3/uL (1.7-8.2); BASOPHILS % (AUTO) 0.8 % (0-2); EOSINOPHILS % (AUTO) 0.5 % (0-6); HEMATOCRIT 43.8 % (37.9-51.0); HEMOGLOBIN 14.5 g/dL (13.5-17.0); LYMPHOCYTES % (AUTO) 13.8 % (13-45); MEAN CORPUSCULAR HEMOGLOBIN 26.6 pg (27.0-33.4); MEAN CORPUSCULAR HGB CONC 33.1 g/dL (32.0-36.0); MEAN CORPUSCULAR VOLUME 80 fl (80-97); MONOCYTES % (AUTO) 11.8 % (3-13); PLATELET COUNT 229 10^3/uL (150-450); RED BLOOD COUNT 5.44 10^6/uL (4.35-5.55); RED CELL DISTRIBUTION WIDTH 18.2 % (11.5-14.0); SEGMENTED NEUTROPHILS % (AUTO) 73.1 % (42-78); TOTAL CELLS COUNTED % (AUTO) 100 %; WHITE BLOOD COUNT 9.9 10^3/uL (4.0-10.5)
[2018-04-01 13:34] LABS: ALANINE AMINOTRANSFERASE 19 U/L (21-72); ALBUMIN 3.9 g/dL (3.5-5.0); ALKALINE PHOSPHATASE 90 U/L (38-126); ANION GAP 13 (5-19); ASPARTATE AMINO TRANSFERASE 20 U/L (17-59); BILIRUBIN,DIRECT 0.5 mg/dL (0.0-0.4); BLOOD UREA NITROGEN 12 mg/dL (7-20); CALCIUM 9.3 mg/dL (8.4-10.2); CARBON DIOXIDE 26 mmol/L (22-30); CHLORIDE 103 mmol/L (98-107); GLUCOSE 108 mg/dL (75-110); POTASSIUM 4.5 mmol/L (3.6-5.0); SODIUM 141.5 mmol/L (137-145); TOTAL PROTEIN 7.2 g/dL (6.3-8.2)
[2018-04-01] MEDS ORDERED: ACETAMINOPHEN 325 MG TABLET PO PRN (15:47)
[2018-04-01] MEDS ORDERED: METHYLPREDNISOLONE INJ 40 MG/1 ML SDV IV SCH (16:00)
--- NOTE | 2018-04-01 16:01 | PDOC H&P ---
History of Present Illness Admission Date/PCP: 04/01/18 15:08 Patient complains of: Shortness of breath History of Present Illness: MEKA ATWOOD JR is a 67 year old male who is current everyday smoker and has history of COPD not on home oxygen. Patient presents emergency room due to acute onset shortness of breath as he was wheezing and dry cough started about 3 days ago and has been progressive in nature. X-ray did not show any infiltrates in the emergency room. Past Medical History Cardiac Medical History: Reports: Hypertension Denies: Coronary Artery Disease, Myocardial Infarction Pulmonary Medical History: Reports: Asthma, Chronic Obstructive Pulmonary Disease (COPD), Pneumonia - 6 yrs ago Denies: Bronchitis Neurological Medical History: Denies: Seizures Musculoskeltal Medical History: Reports: Arthritis - back and shoulder Psychiatric Medical History: Reports: Depression Hematology: Denies: Anemia Past Surgical History Past Surgical History: Reports: Orthopedic Surgery - 3 discectomy. plates and screws in back Denies: Pacemaker Social History Lives with: Family Smoking Status: Current Every Day Smoker Frequency of Alcohol Use: Occasional Hx Recreational Drug Use: No Drugs: None Hx Prescription Drug Abuse: No Family History Family History: Reviewed & Not Pertinent Parental Family History Reviewed: Yes Children Family History Reviewed: Yes Sibling(s) Family History Reviewed.: Yes Medication/Allergy Home Medications: Albuterol Sulfate [Proair HFA Inhalation Aerosol 8.5 gm MDI] 1 puff IH Q4HP PRN 08/03/17 Fluticasone Propionate [Flonase Nasal [place] 50 Mcg/[place] 16 gm] 2 sprays NASL Q12HP PRN 08/03/17 Fluticasone/Salmeterol [Advair 500-50 Diskus 14 Dose/Diskus] 1 puff IH Q12 08/03 Tiotropium [place] [Spiriva Handihaler 5 Cap/Kit (18 Mcg/Cap)] 1 puff IH DAILY 08/03/17 Amlodipine Besylate [Norvasc 10 mg Tablet] 5 mg PO DAILY #30 08/16/17 Furosemide [Lasix 40 mg Tablet] 40 mg PO DAILY #30 tablet 08/16/17 Lisinopril [Prinivil 10 mg Tablet] 10 mg PO DAILY #30 tablet 08/16/17 Montelukast Sodium [Singulair 10 mg Tablet] 10 mg PO QHS #30 tablet 08/16/17 Prednisone [Deltasone 20 mg Tablet] 20 mg PO DAILY #5 tablet 08/16/17 Quetiapine Fumarate [Seroquel 25 mg Tablet] 25 mg PO Q12 #60 tablet 08/16/17 Allergies/Adverse Reactions: No Known Allergies Allergy (Verified 12/26/16 19:21) Review of Systems All systems: reviewed and no additional remarkable complaints except as stated Physical Exam Vital Signs: Temp Pulse Resp BP Pulse Ox 98 21 H 139/76 H 95 04/01/18 10:50 04/01/18 13:01 04/01/18 13:01 04/01/18 13:01 General appearance: PRESENT: cooperative, mild distress Head exam: PRESENT: atraumatic, normocephalic Eye exam: PRESENT: EOMI, PERRLA. ABSENT: conjunctival injection Ear exam: ABSENT: bleeding, drainage Mouth exam: PRESENT: neck supple, tongue midline Neck exam: ABSENT: meningismus, tenderness, tracheostomy Respiratory exam: PRESENT: prolonged expiratory phas, wheezes. ABSENT: accessory muscle use Cardiovascular exam: PRESENT: RRR. ABSENT: diastolic murmur, systolic murmur Pulses: PRESENT: normal radial pulses GI/Abdominal exam: PRESENT: normal bowel sounds, soft. ABSENT: ascites, tenderness Rectal exam: PRESENT: deferred Extremities exam: ABSENT: joint swelling, pedal edema Musculoskeletal exam: PRESENT: normal inspection. ABSENT: tenderness Neurological exam: PRESENT: alert, altered, awake, oriented to person, oriented to place, oriented to time, oriented to situation. ABSENT: aphasic Psychiatric exam: PRESENT: appropriate affect. ABSENT: agitated, anxious, homicidal ideation, suicidal ideation Skin exam: PRESENT: dry, normal color Results Impressions: Chest X-Ray 04/01/18 10:35 IMPRESSION: Pulmonary hyperinflation and emphysema without acute abnormality of the lungs in frontal projection. No focal airspace opacity. Assessment & Plan - Diagnosis (1) COPD with acute exacerbation Is this a current diagnosis for this admission?: Yes Plan: Admit the patient to the medical floor Provide oxygen as needed and wean as tolerated start IV Solu-Medrol 60 mg every 8 hours Start DuoNeb scheduled every 6 hours and albuterol as needed Start oral empiric azithromycin Check ABG (2) HTN (hypertension) Qualifiers: Hypertension type: essential hypertension Is this a current diagnosis for this admission?: Yes Plan: Continue home medications and monitor blood pressure (3) Tobacco abuse Is this a current diagnosis for this admission?: Yes Plan: Patient was counseled about smoking cessation and offered nicotine patch
[2018-04-01] MEDS ORDERED: AZITHROMYCIN 250 MG TABLET PO ONE (16:30)
[2018-04-01] MEDS: FAMOTIDINE 20 MG TABLET PO SCH ×2 (16:51→21:07)
[2018-04-01] MEDS: METHYLPREDNISOLONE INJ 125 MG/2 ML SDV IV SCH ×2 (16:51→21:06)
[2018-04-01] MEDS ORDERED: LEVALBUTEROL HCL NEB 0.63 MG/3 ML AMPUL NEB SCH (17:00)
[2018-04-01 17:26] LABS: ARTERIAL BLOOD H2CO3 1.15 mmol/L (1.05-1.35); ARTERIAL BLOOD HCO3 24.2 mmol/L (20-24); ARTERIAL BLOOD PCO2 38.2 mmHg (35-45); ARTERIAL BLOOD PH 7.42 (7.35-7.45); ARTERIAL BLOOD TOTAL CO2 25.4 mmol/L (23-27)
[2018-04-01 17:27] LABS: ARTERIAL BLOOD FIO2 2L; ARTERIAL BLOOD O2 SATURATION 95.4 % (94-98)
[2018-04-01] MEDS: IPRATROPIUM/ALBUTEROL 0.5-2.5 MG/3 ML AMPUL NEB SCH (19:51)
[2018-04-01] MEDS: NICOTINE 21 MG/24 HR PATCH.TD24 TD SCH (21:06)
--- NOTE | 2018-04-02 00:15 | EKG REPORT ---
SEVERITY:- NORMAL ECG - SINUS RHYTHM : Confirmed by: Ree Guthrie 02-Apr-2018 00:15:00
[2018-04-02] MEDS: METHYLPREDNISOLONE INJ 125 MG/2 ML SDV IV SCH ×3 (05:12→21:17)
[2018-04-02 06:44] LABS: HEMATOCRIT 42.8 % (37.9-51.0); HEMOGLOBIN 14.1 g/dL (13.5-17.0); MEAN CORPUSCULAR HEMOGLOBIN 26.3 pg (27.0-33.4); MEAN CORPUSCULAR HGB CONC 32.9 g/dL (32.0-36.0); MEAN CORPUSCULAR VOLUME 80 fl (80-97); PLATELET COUNT 236 10^3/uL (150-450); RED BLOOD COUNT 5.36 10^6/uL (4.35-5.55); RED CELL DISTRIBUTION WIDTH 18.1 % (11.5-14.0); WHITE BLOOD COUNT 11.4 10^3/uL (4.0-10.5)
[2018-04-02 07:07] LABS: ANION GAP 12 (5-19); BLOOD UREA NITROGEN 18 mg/dL (7-20); CALCIUM 9.5 mg/dL (8.4-10.2); CARBON DIOXIDE 26 mmol/L (22-30); CHLORIDE 104 mmol/L (98-107); GLUCOSE 127 mg/dL (75-110); SODIUM 141.8 mmol/L (137-145)
[2018-04-02] MEDS: IPRATROPIUM/ALBUTEROL 0.5-2.5 MG/3 ML AMPUL NEB SCH ×4 (08:30→20:09)
--- NOTE | 2018-04-02 08:56 | PDOC PROGRESS REPORT ---
Subjective Progress Note for:: 04/02/18 Subjective:: Patient still receiving oxygen via nasal cannula. He is requiring inhaled treatment more often than every 6 hours. He is doing well at rest but complains of significant dyspnea with minimal exercise. He still wheezing. Reason For Visit: COPD Physical Exam Vital Signs: Temp Pulse Resp BP Pulse Ox 97.7 F 79 16 123/63 95 04/01/18 23:19 04/01/18 23:19 04/01/18 23:19 04/01/18 23:19 04/02/18 02:44 Intake & Output 04/01/18 04/02/18 04/03/18 06:59 06:59 06:59 Intake Total 666 Output Total 450 Balance 216 Weight 165 lb 5.547 oz General appearance: PRESENT: no acute distress, cooperative, thin Head exam: PRESENT: atraumatic Eye exam: PRESENT: EOMI, PERRLA Mouth exam: PRESENT: neck supple, tongue midline Neck exam: ABSENT: meningismus, tenderness, tracheostomy Respiratory exam: PRESENT: prolonged expiratory phas, wheezes. ABSENT: accessory muscle use Cardiovascular exam: PRESENT: RRR. ABSENT: diastolic murmur, systolic murmur Pulses: PRESENT: normal radial pulses GI/Abdominal exam: PRESENT: normal bowel sounds, soft. ABSENT: ascites, tenderness Rectal exam: PRESENT: deferred Extremities exam: ABSENT: pedal edema Neurological exam: PRESENT: alert, altered, awake, oriented to person, oriented to place, oriented to time, oriented to situation Psychiatric exam: ABSENT: agitated, anxious, homicidal ideation, suicidal ideation Results Laboratory Results: 04/02/18 05:09 04/02/18 05:09 04/01/18 04/02/18 04/02/18 16:48 05:09 05:09 WBC 11.4 H RBC 5.36 Hgb 14.1 Hct 42.8 MCV 80 MCH 26.3 L MCHC 32.9 RDW 18.1 H Plt Count 236 Carbonic Acid 1.15 HCO3/H2CO3 Ratio 21:1 ABG pH 7.42 ABG pCO2 38.2 ABG pO2 75.0 L ABG HCO3 24.2 H ABG O2 Saturation 95.4 ABG Base Excess 0.0 FiO2 2L Sodium 141.8 Potassium 5.0 Chloride 104 Carbon Dioxide 26 Anion Gap 12 BUN 18 Creatinine 0.70 Est GFR ( Amer) > 60 Est GFR (Non-Af Amer) > 60 Glucose 127 H Calcium 9.5 Impressions: Chest X-Ray 04/01/18 10:35 IMPRESSION: Pulmonary hyperinflation and emphysema without acute abnormality of the lungs in frontal projection. No focal airspace opacity. Assessment & Plan - Diagnosis (1) COPD with acute exacerbation Is this a current diagnosis for this admission?: Yes Plan: Continue oxygen as needed and wean as tolerated Continue IV Solu-Medrol 60 mg every 8 hours Increase DuoNeb scheduled every 4 hours and albuterol as needed Continue oral empiric azithromycin Reviewed ABG (2) HTN (hypertension) Qualifiers: Hypertension type: essential hypertension Is this a current diagnosis for this admission?: Yes Plan: Continue home medications and monitor blood pressure (3) Tobacco abuse Is this a current diagnosis for this admission?: Yes Plan: Patient was counseled about smoking cessation and offered nicotine patch
[2018-04-02] MEDS: ASPIRIN 81 MG TABLET, ENT COATED PO SCH (09:53)
[2018-04-02] MEDS: LISINOPRIL 10 MG TABLET PO SCH (09:53)
[2018-04-02] MEDS: FAMOTIDINE 20 MG TABLET PO SCH ×2 (09:53→21:17)
[2018-04-02] MEDS: AZITHROMYCIN 250 MG TABLET PO SCH (09:53)
[2018-04-02] MEDS: FUROSEMIDE 40 MG TABLET PO SCH (09:53)
[2018-04-02] MEDS: ENOXAPARIN SODIUM INJ 40 MG/0.4 ML DISP.SYRIN SUBCUT SCH (09:54)
[2018-04-02] MEDS: AMLODIPINE BESYLATE 5 MG TABLET PO SCH (09:54)
[2018-04-02] MEDS: NICOTINE 21 MG/24 HR PATCH.TD24 TD SCH (09:54)
[2018-04-02] MEDS ORDERED: AMLODIPINE BESYLATE 10 MG TABLET PO SCH (10:00)
[2018-04-02] MEDS: FLUTICASONE/SALMETEROL DISKUS 500-50 MCG/DOSE IH SCH ×2 (12:44→21:16)
[2018-04-02] MEDS: FLUTICASONE NASAL SPRAY 50 MCG/SPRY 120 SPRAY/16 GM NASL SCH (12:44)
[2018-04-02] MEDS: HYDROCODONE/ACETAMINOPHEN 7.5-325 MG TABLET PO SCH ×2 (13:51→21:17)
[2018-04-02] MEDS: MONTELUKAST SODIUM 10 MG TABLET PO SCH (21:17)
[2018-04-02] MEDS: QUETIAPINE FUMARATE 25 MG TABLET PO SCH (21:17)
[2018-04-03] MEDS: ALBUTEROL SULFATE 0.083% NEB 2.5 MG/3 ML AMPUL NEB PRN (05:01)
[2018-04-03] MEDS: HYDROCODONE/ACETAMINOPHEN 7.5-325 MG TABLET PO SCH ×2 (05:17→13:44)
[2018-04-03] MEDS: METHYLPREDNISOLONE INJ 125 MG/2 ML SDV IV SCH (05:17)
[2018-04-03] MEDS: IPRATROPIUM/ALBUTEROL 0.5-2.5 MG/3 ML AMPUL NEB SCH ×4 (08:14→19:50)
[2018-04-03] MEDS: FLUTICASONE NASAL SPRAY 50 MCG/SPRY 120 SPRAY/16 GM NASL SCH (10:11)
[2018-04-03] MEDS: FLUTICASONE/SALMETEROL DISKUS 500-50 MCG/DOSE IH SCH ×2 (10:11→21:18)
[2018-04-03] MEDS: NICOTINE 21 MG/24 HR PATCH.TD24 TD SCH (10:11)
[2018-04-03] MEDS: ASPIRIN 81 MG TABLET, ENT COATED PO SCH (10:12)
[2018-04-03] MEDS: FAMOTIDINE 20 MG TABLET PO SCH ×2 (10:12→21:18)
[2018-04-03] MEDS: ENOXAPARIN SODIUM INJ 40 MG/0.4 ML DISP.SYRIN SUBCUT SCH (10:12)
[2018-04-03] MEDS: FUROSEMIDE 40 MG TABLET PO SCH ×2 (10:12→10:28)
[2018-04-03 10:13] LABS: HEMATOCRIT 40.4 % (37.9-51.0); HEMOGLOBIN 13.2 g/dL (13.5-17.0); MEAN CORPUSCULAR HEMOGLOBIN 26.3 pg (27.0-33.4); MEAN CORPUSCULAR HGB CONC 32.7 g/dL (32.0-36.0); MEAN CORPUSCULAR VOLUME 81 fl (80-97); PLATELET COUNT 267 10^3/uL (150-450); RED BLOOD COUNT 5.01 10^6/uL (4.35-5.55); RED CELL DISTRIBUTION WIDTH 18.2 % (11.5-14.0); WHITE BLOOD COUNT 19.5 10^3/uL (4.0-10.5)
[2018-04-03] MEDS: LISINOPRIL 10 MG TABLET PO SCH ×2 (10:13→10:27)
[2018-04-03] MEDS: AZITHROMYCIN 250 MG TABLET PO SCH (10:13)
[2018-04-03] MEDS: AMLODIPINE BESYLATE 5 MG TABLET PO SCH ×2 (10:13→10:26)
[2018-04-03 10:26] LABS: ANION GAP 12 (5-19); BLOOD UREA NITROGEN 34 mg/dL (7-20); CALCIUM 9.5 mg/dL (8.4-10.2); CARBON DIOXIDE 28 mmol/L (22-30); CHLORIDE 101 mmol/L (98-107); GLUCOSE 162 mg/dL (75-110); POTASSIUM 4.3 mmol/L (3.6-5.0); SODIUM 141.4 mmol/L (137-145)
[2018-04-03] MEDS ORDERED: AMPICILLIN SOD/SULBACTAM 1.5 GM VIAL IV SCH (11:15)
--- NOTE | 2018-04-03 11:21 | PDOC PROGRESS REPORT ---
Subjective Progress Note for:: 04/03/18 Subjective:: Patient still receiving oxygen via nasal cannula. He is doing well at rest but still complains of significant dyspnea with minimal exercise. He still wheezing. Reason For Visit: COPD Physical Exam Vital Signs: Temp Pulse Resp BP Pulse Ox 97.5 F 58 L 18 111/58 L 98 04/03/18 07:37 04/03/18 07:37 04/03/18 07:37 04/03/18 07:37 04/03/18 07:37 Intake & Output 04/02/18 04/03/18 04/04/18 06:59 06:59 06:59 Intake Total 666 1450 Output Total 450 1425 Balance 216 25 Weight 165 lb 5.547 oz 170 lb 10.205 oz General appearance: PRESENT: no acute distress, cooperative Head exam: PRESENT: atraumatic, normocephalic Eye exam: PRESENT: EOMI, PERRLA Mouth exam: PRESENT: neck supple, tongue midline Neck exam: ABSENT: meningismus, tracheostomy Respiratory exam: PRESENT: prolonged expiratory phas, wheezes. ABSENT: accessory muscle use Cardiovascular exam: PRESENT: RRR. ABSENT: diastolic murmur, systolic murmur Pulses: PRESENT: normal radial pulses GI/Abdominal exam: PRESENT: normal bowel sounds, soft. ABSENT: ascites, mass, tenderness Rectal exam: PRESENT: deferred Neurological exam: PRESENT: alert, altered, awake, oriented to person, oriented to place, oriented to time, oriented to situation Results Laboratory Results: 04/03/18 09:56 04/03/18 09:56 04/03/18 04/03/18 09:56 09:56 WBC 19.5 H RBC 5.01 Hgb 13.2 L Hct 40.4 MCV 81 MCH 26.3 L MCHC 32.7 RDW 18.2 H Plt Count 267 Sodium 141.4 Potassium 4.3 Chloride 101 Carbon Dioxide 28 Anion Gap 12 BUN 34 H Creatinine 0.74 Est GFR ( Amer) > 60 Est GFR (Non-Af Amer) > 60 Glucose 162 H Calcium 9.5 Impressions: Chest X-Ray 04/01/18 10:35 IMPRESSION: Pulmonary hyperinflation and emphysema without acute abnormality of the lungs in frontal projection. No focal airspace opacity. Assessment & Plan - Diagnosis (1) COPD with acute exacerbation Is this a current diagnosis for this admission?: Yes Plan: Continue oxygen as needed and wean as tolerated Decrease IV Solu-Medrol to 40 mg every 8 hours Continue DuoNeb scheduled every 4 hours and albuterol as needed Continue oral empiric azithromycin Consult physical therapy May benefit from pulmonary rehabilitation Not at baseline yet (2) HTN (hypertension) Qualifiers: Hypertension type: essential hypertension Is this a current diagnosis for this admission?: Yes Plan: Continue home medications and monitor blood pressure (3) Tobacco abuse Is this a current diagnosis for this admission?: Yes Plan: Patient was counseled about smoking cessation and offered nicotine patch
[2018-04-03] MEDS ORDERED: METHYLPREDNISOLONE INJ 125 MG/2 ML SDV IV SCH (11:30)
[2018-04-03] MEDS: METHYLPREDNISOLONE INJ 40 MG/1 ML SDV IV SCH ×2 (13:43→21:18)
[2018-04-03] MEDS ORDERED: HYDROCODONE/ACETAMINOPHEN 7.5-325 MG TABLET PO PRN (19:57)
[2018-04-03] MEDS ORDERED: ACETAMINOPHEN 325 MG TABLET PO PRN (20:00)
[2018-04-03] MEDS: MONTELUKAST SODIUM 10 MG TABLET PO SCH (21:18)
[2018-04-03] MEDS: QUETIAPINE FUMARATE 25 MG TABLET PO SCH (21:18)
[2018-04-03] MEDS: HYDROCODONE/ACETAMINOPHEN 7.5-325 MG TABLET PO PRN (21:19)
[2018-04-04] MEDS: METHYLPREDNISOLONE INJ 40 MG/1 ML SDV IV SCH ×3 (05:26→22:53)
[2018-04-04] MEDS: IPRATROPIUM/ALBUTEROL 0.5-2.5 MG/3 ML AMPUL NEB SCH ×4 (08:07→19:42)
--- NOTE | 2018-04-04 09:22 | PDOC PROGRESS REPORT ---
Subjective Progress Note for:: 04/04/18 Subjective:: She tells me that when he woke up this morning, he is nasal cannula was not on and he was in distress and short of breath. He also tells me that he was admitted for COPD exacerbation last year and stayed in hospital for several month. Patient still receiving oxygen via nasal cannula. He is doing well at rest but still complains of significant dyspnea with minimal exercise. He still wheezing. Reason For Visit: COPD Physical Exam Vital Signs: Temp Pulse Resp BP Pulse Ox 97.8 F 77 17 146/69 H 93 04/04/18 07:31 04/04/18 08:07 04/04/18 08:07 04/04/18 07:31 04/04/18 08:07 Intake & Output 04/03/18 04/04/18 04/05/18 06:59 06:59 06:59 Intake Total 1450 1401 Output Total 1425 1300 Balance 25 101 Weight 170 lb 10.205 oz 170 lb 10.205 oz General appearance: PRESENT: no acute distress, cooperative Head exam: PRESENT: atraumatic, normocephalic Eye exam: PRESENT: EOMI, PERRLA Ear exam: ABSENT: bleeding, drainage Mouth exam: PRESENT: neck supple, tongue midline Neck exam: ABSENT: meningismus, tracheostomy Respiratory exam: PRESENT: prolonged expiratory phas, wheezes. ABSENT: accessory muscle use Cardiovascular exam: PRESENT: RRR. ABSENT: diastolic murmur, systolic murmur Pulses: PRESENT: normal radial pulses GI/Abdominal exam: PRESENT: normal bowel sounds, soft. ABSENT: ascites, tenderness Rectal exam: PRESENT: deferred Neurological exam: PRESENT: alert, altered, awake, oriented to person, oriented to place, oriented to time, oriented to situation Psychiatric exam: ABSENT: agitated, anxious, homicidal ideation, suicidal ideation Results Laboratory Results: 04/03/18 09:56 04/03/18 09:56 04/03/18 04/03/18 09:56 09:56 WBC 19.5 H RBC 5.01 Hgb 13.2 L Hct 40.4 MCV 81 MCH 26.3 L MCHC 32.7 RDW 18.2 H Plt Count 267 Sodium 141.4 Potassium 4.3 Chloride 101 Carbon Dioxide 28 Anion Gap 12 BUN 34 H Creatinine 0.74 Est GFR ( Amer) > 60 Est GFR (Non-Af Amer) > 60 Glucose 162 H Calcium 9.5 Impressions: Chest X-Ray 04/01/18 10:35 IMPRESSION: Pulmonary hyperinflation and emphysema without acute abnormality of the lungs in frontal projection. No focal airspace opacity. Assessment & Plan - Diagnosis (1) COPD with acute exacerbation Is this a current diagnosis for this admission?: Yes Plan: Continue oxygen as needed and wean as tolerated Continue IV Solu-Medrol to 40 mg every 8 hours Continue DuoNeb scheduled every 4 hours and albuterol as needed Continue azithromycin, add Mucinex Ambulate physical therapy May benefit from pulmonary rehabilitation Not at baseline yet We will consult pulmonology (2) HTN (hypertension) Qualifiers: Hypertension type: essential hypertension Is this a current diagnosis for this admission?: Yes Plan: Continue home medications and monitor blood pressure (3) Tobacco abuse Is this a current diagnosis for this admission?: Yes Plan: Patient was counseled about smoking cessation and offered nicotine patch
[2018-04-04] MEDS: FLUTICASONE/SALMETEROL DISKUS 500-50 MCG/DOSE IH SCH ×2 (10:38→22:54)
[2018-04-04] MEDS: ASPIRIN 81 MG TABLET, ENT COATED PO SCH (10:39)
[2018-04-04] MEDS: FUROSEMIDE 40 MG TABLET PO SCH (10:39)
[2018-04-04] MEDS: ENOXAPARIN SODIUM INJ 40 MG/0.4 ML DISP.SYRIN SUBCUT SCH (10:39)
[2018-04-04] MEDS: FLUTICASONE NASAL SPRAY 50 MCG/SPRY 120 SPRAY/16 GM NASL SCH (10:39)
[2018-04-04] MEDS: NICOTINE 21 MG/24 HR PATCH.TD24 TD SCH (10:40)
[2018-04-04] MEDS: AMLODIPINE BESYLATE 5 MG TABLET PO SCH (10:40)
[2018-04-04] MEDS: LISINOPRIL 10 MG TABLET PO SCH (10:40)
[2018-04-04] MEDS: FAMOTIDINE 20 MG TABLET PO SCH ×2 (10:40→23:00)
[2018-04-04] MEDS: GUAIFENESIN 600 MG TABLET.SA PO SCH ×2 (10:40→22:54)
[2018-04-04] MEDS: AZITHROMYCIN 250 MG TABLET PO SCH (10:41)
[2018-04-04] MEDS: HYDROCODONE/ACETAMINOPHEN 7.5-325 MG TABLET PO PRN (11:08)
[2018-04-04] MEDS: QUETIAPINE FUMARATE 25 MG TABLET PO SCH (22:53)
[2018-04-04] MEDS: PREGABALIN 50 MG CAPSULE PO SCH (22:54)
[2018-04-04] MEDS: MONTELUKAST SODIUM 10 MG TABLET PO SCH (22:54)
[2018-04-05] MEDS: METHYLPREDNISOLONE INJ 40 MG/1 ML SDV IV SCH ×3 (05:47→21:58)
[2018-04-05 06:40] LABS: HEMATOCRIT 40.9 % (37.9-51.0); HEMOGLOBIN 13.3 g/dL (13.5-17.0); MEAN CORPUSCULAR HEMOGLOBIN 26.3 pg (27.0-33.4); MEAN CORPUSCULAR HGB CONC 32.6 g/dL (32.0-36.0); MEAN CORPUSCULAR VOLUME 81 fl (80-97); PLATELET COUNT 240 10^3/uL (150-450); RED BLOOD COUNT 5.06 10^6/uL (4.35-5.55); RED CELL DISTRIBUTION WIDTH 18.1 % (11.5-14.0); WHITE BLOOD COUNT 13.5 10^3/uL (4.0-10.5)
[2018-04-05 07:05] LABS: ANION GAP 10 (5-19); BLOOD UREA NITROGEN 26 mg/dL (7-20); CALCIUM 9.3 mg/dL (8.4-10.2); CARBON DIOXIDE 29 mmol/L (22-30); CHLORIDE 104 mmol/L (98-107); GLUCOSE 101 mg/dL (75-110); POTASSIUM 5.3 mmol/L (3.6-5.0); SODIUM 143.1 mmol/L (137-145)
[2018-04-05] MEDS: IPRATROPIUM/ALBUTEROL 0.5-2.5 MG/3 ML AMPUL NEB SCH ×4 (07:58→19:59)
[2018-04-05] MEDS ORDERED: LACTULOSE SYRUP 20 GM/30 ML UDCUP PO ONE ×2 (09:00→11:45)
[2018-04-05] MEDS: NICOTINE 21 MG/24 HR PATCH.TD24 TD SCH (11:16)
[2018-04-05] MEDS: GUAIFENESIN 600 MG TABLET.SA PO SCH ×2 (11:16→21:58)
[2018-04-05] MEDS: ASPIRIN 81 MG TABLET, ENT COATED PO SCH (11:17)
[2018-04-05] MEDS: FLUTICASONE/SALMETEROL DISKUS 500-50 MCG/DOSE IH SCH ×2 (11:17→21:58)
[2018-04-05] MEDS: ENOXAPARIN SODIUM INJ 40 MG/0.4 ML DISP.SYRIN SUBCUT SCH (11:18)
[2018-04-05] MEDS: FLUTICASONE NASAL SPRAY 50 MCG/SPRY 120 SPRAY/16 GM NASL SCH (11:18)
[2018-04-05] MEDS: AMLODIPINE BESYLATE 5 MG TABLET PO SCH (11:20)
[2018-04-05] MEDS: FUROSEMIDE 40 MG TABLET PO SCH (11:20)
[2018-04-05] MEDS: LISINOPRIL 10 MG TABLET PO SCH (11:20)
[2018-04-05] MEDS: AZITHROMYCIN 250 MG TABLET PO SCH (11:20)
[2018-04-05] MEDS: FAMOTIDINE 20 MG TABLET PO SCH ×2 (11:21→21:58)
--- NOTE | 2018-04-05 16:44 | PDOC PROGRESS REPORT ---
Subjective Progress Note for:: 04/05/18 Subjective:: The patient is a 67-year-old male with a past medical history of COPD, asthma, hypertension, arthritis, depression, tobacco dependence with continuous use who was admitted on 04/01/2018 for COPD exacerbation. The patient was seen on morning rounds. He was found resting in bed comfortably on room air; his nasal cannula was just discontinued by respiratory therapy following a treatment and attempts to wean oxygen. Patient reports that he feels overall improvement as compared to his time of admission, however , does continue to have shortness of breath with minimal activity. At his baseline he is fully ambulatory and conversational; capable of completing his own grocery shopping without difficulty. Currently, he becomes short of breath after returning from the restroom. He denies fever, chills, headache, chest pain, palpitations, orthopnea, abdominal pain, nausea and vomiting. He has no questions or concerns at this time. No concerns per nursing. Reason For Visit: COPD Physical Exam Vital Signs: Temp Pulse Resp BP Pulse Ox 97.8 F 89 18 130/64 H 91 L 04/05/18 15:14 04/05/18 15:14 04/05/18 15:14 04/05/18 15:14 04/05/18 15:14 Intake & Output 04/04/18 04/05/18 04/06/18 06:59 06:59 06:59 Intake Total 1401 1175 1087 Output Total 1300 600 Balance 888 245 9010 Weight 77.4 kg 77.4 kg General appearance: PRESENT: no acute distress, well-developed, well-nourished Head exam: PRESENT: atraumatic, normocephalic Eye exam: PRESENT: conjunctiva pink, EOMI, PERRLA. ABSENT: scleral icterus Ear exam: PRESENT: normal external ear exam Mouth exam: PRESENT: moist, tongue midline Neck exam: ABSENT: carotid bruit, JVD, lymphadenopathy, thyromegaly Respiratory exam: PRESENT: prolonged expiratory phas, rhonchi, symmetrical, unlabored, wheezes - Occasional expiratory wheezing. ABSENT: rales Cardiovascular exam: PRESENT: RRR. ABSENT: diastolic murmur, rubs, systolic murmur Pulses: PRESENT: normal dorsalis pedis pul Vascular exam: PRESENT: normal capillary refill GI/Abdominal exam: PRESENT: normal bowel sounds, soft. ABSENT: distended, guarding, mass, organolmegaly, rebound, tenderness Rectal exam: PRESENT: deferred Extremities exam: PRESENT: full ROM. ABSENT: calf tenderness, clubbing, pedal edema Neurological exam: PRESENT: alert, awake, oriented to person, oriented to place , oriented to time, oriented to situation, CN II-XII grossly intact. ABSENT: motor sensory deficit Psychiatric exam: PRESENT: appropriate affect, normal mood. ABSENT: homicidal ideation, suicidal ideation Skin exam: PRESENT: dry, intact, warm. ABSENT: cyanosis, rash Results Laboratory Results: 04/05/18 05:20 04/05/18 05:20 04/05/18 04/05/18 05:20 05:20 WBC 13.5 H RBC 5.06 Hgb 13.3 L Hct 40.9 MCV 81 MCH 26.3 L MCHC 32.6 RDW 18.1 H Plt Count 240 Sodium 143.1 Potassium 5.3 H Chloride 104 Carbon Dioxide 29 Anion Gap 10 BUN 26 H Creatinine 0.65 Est GFR ( Amer) > 60 Est GFR (Non-Af Amer) > 60 Glucose 101 Calcium 9.3 Impressions: Chest X-Ray 04/01/18 10:35 IMPRESSION: Pulmonary hyperinflation and emphysema without acute abnormality of the lungs in frontal projection. No focal airspace opacity. Assessment & Plan - Diagnosis (1) COPD with acute exacerbation Is this a current diagnosis for this admission?: Yes Plan: The patient is admitted to the medical floor. He is provided supplemental oxygen as needed to maintain oxygen saturations greater than 89%; nursing and respiratory therapy are currently attempting to wean oxygen and the patient appears to be stable on room air while awake and at rest. We will begin weaning IV Solu-Medrol. Continue scheduled and as needed nebulizer treatments. Patient has been empirically placed on azithromycin for bronchitis secondary to productive cough; day #4 of therapy. Anticipate discontinuing following his dose tomorrow. Continue Flonase and Singulair daily. Continue Mucinex twice daily. Incentive spirometer and flutter valve to bedside. Encourage ambulation. Pulmonology has been consulted; appreciate Dr. Porter's recommendations. (2) HTN (hypertension) Qualifiers: Hypertension type: essential hypertension Is this a current diagnosis for this admission?: Yes Plan: Cardiac diet. The patient's home dose amlodipine, lisinopril, furosemide are continued. Daily aspirin therapy. (3) Tobacco abuse Is this a current diagnosis for this admission?: Yes Plan: Smoking cessation is encouraged; nicotine replacement therapies are provided. (4) CHF (congestive heart failure) Qualifiers: Heart failure type: diastolic Heart failure chronicity: chronic Qualified Code(s): I50.32 - Chronic diastolic (congestive) heart failure Is this a current diagnosis for this admission?: Yes Plan: Stable and without exacerbation at this time. Patient is placed on a cardiac diet with daily weights. His home medication medication regiment of amlodipine, lisinopril, furosemide, and daily aspirin therapy is continued. (5) Chronic pain Is this a current diagnosis for this admission?: Yes Plan: The patient's home dose [place] 7.5/325 3 times daily as needed is continued. Continue Lyrica 50 mg nightly. Tylenol as needed. Encourage nonpharmacological interventions. - Time Time Spent with patient: 15-24 minutes Smoking Cessation Education: 3 to 10 minutes Medications reviewed and adjusted accordingly: Yes Anticipated discharge: Home Within: within 48 hours
[2018-04-05] MEDS: PREGABALIN 50 MG CAPSULE PO SCH (21:58)
[2018-04-05] MEDS: QUETIAPINE FUMARATE 25 MG TABLET PO SCH (21:58)
[2018-04-05] MEDS: MONTELUKAST SODIUM 10 MG TABLET PO SCH (21:58)
[2018-04-06] MEDS: METHYLPREDNISOLONE INJ 40 MG/1 ML SDV IV SCH ×3 (05:49→19:05)
[2018-04-06 07:13] LABS: HEMATOCRIT 41.9 % (37.9-51.0); HEMOGLOBIN 13.6 g/dL (13.5-17.0); MEAN CORPUSCULAR HEMOGLOBIN 25.9 pg (27.0-33.4); MEAN CORPUSCULAR HGB CONC 32.4 g/dL (32.0-36.0); MEAN CORPUSCULAR VOLUME 80 fl (80-97); PLATELET COUNT 255 10^3/uL (150-450); RED BLOOD COUNT 5.25 10^6/uL (4.35-5.55); RED CELL DISTRIBUTION WIDTH 18.2 % (11.5-14.0); WHITE BLOOD COUNT 12.9 10^3/uL (4.0-10.5)
[2018-04-06 07:35] LABS: ANION GAP 12 (5-19); BLOOD UREA NITROGEN 29 mg/dL (7-20); CALCIUM 9.4 mg/dL (8.4-10.2); CARBON DIOXIDE 27 mmol/L (22-30); CHLORIDE 103 mmol/L (98-107); GLUCOSE 106 mg/dL (75-110); SODIUM 142.2 mmol/L (137-145)
[2018-04-06 07:39] LABS: POTASSIUM 5.1 mmol/L (3.6-5.0)
[2018-04-06] MEDS: IPRATROPIUM/ALBUTEROL 0.5-2.5 MG/3 ML AMPUL NEB SCH ×5 (08:04→23:57)
[2018-04-06] MEDS: FAMOTIDINE 20 MG TABLET PO SCH ×2 (09:23→22:58)
[2018-04-06] MEDS: AMLODIPINE BESYLATE 5 MG TABLET PO SCH (09:23)
[2018-04-06] MEDS: ENOXAPARIN SODIUM INJ 40 MG/0.4 ML DISP.SYRIN SUBCUT SCH (09:24)
[2018-04-06] MEDS: AZITHROMYCIN 250 MG TABLET PO SCH (09:24)
[2018-04-06] MEDS: FUROSEMIDE 40 MG TABLET PO SCH (09:24)
[2018-04-06] MEDS: ASPIRIN 81 MG TABLET, ENT COATED PO SCH (09:24)
[2018-04-06] MEDS: LISINOPRIL 10 MG TABLET PO SCH (09:24)
[2018-04-06] MEDS: FLUTICASONE NASAL SPRAY 50 MCG/SPRY 120 SPRAY/16 GM NASL SCH (09:26)
[2018-04-06] MEDS: FLUTICASONE/SALMETEROL DISKUS 500-50 MCG/DOSE IH SCH ×2 (09:26→22:58)
[2018-04-06] MEDS: NICOTINE 21 MG/24 HR PATCH.TD24 TD SCH (09:27)
[2018-04-06] MEDS: GUAIFENESIN 600 MG TABLET.SA PO SCH ×2 (09:41→22:58)
--- NOTE | 2018-04-06 17:50 | PDOC PROGRESS REPORT ---
Subjective Progress Note for:: 04/06/18 Subjective:: The patient is a 67-year-old male with a past medical history of COPD, asthma, hypertension, arthritis, depression, tobacco dependence with continuous use who was admitted on 04/01/2018 for COPD exacerbation. The patient was seen on morning rounds. He was found resting in bed comfortably on room air. Patient reports that he is gradually imnproving, though continues to have dyspnea and wheezing with exertion. He denies fever, chills, headache, chest pain, palpitations, orthopnea, abdominal pain, nausea and vomiting. He has no questions or concerns at this time. No concerns per nursing. Reason For Visit: COPD Physical Exam Vital Signs: Temp Pulse Resp BP Pulse Ox 98.0 F 90 16 121/64 95 04/06/18 16:08 04/06/18 16:19 04/06/18 16:19 04/06/18 16:08 04/06/18 16:19 Intake & Output 04/05/18 04/06/18 04/07/18 06:59 06:59 06:59 Intake Total 1175 1353 860 Output Total 600 Balance 575 1353 860 Weight 77.4 kg 78.3 kg General appearance: PRESENT: no acute distress, cooperative, well-developed, well-nourished Head exam: PRESENT: atraumatic, normocephalic Eye exam: PRESENT: conjunctiva pink, EOMI, PERRLA. ABSENT: scleral icterus Ear exam: PRESENT: normal external ear exam Mouth exam: PRESENT: moist, tongue midline Neck exam: ABSENT: carotid bruit, JVD, lymphadenopathy, thyromegaly Respiratory exam: PRESENT: prolonged expiratory phas, symmetrical, unlabored, wheezes. ABSENT: rales, rhonchi Cardiovascular exam: PRESENT: RRR, +S1, +S2. ABSENT: diastolic murmur, rubs, systolic murmur Pulses: PRESENT: normal dorsalis pedis pul Vascular exam: PRESENT: normal capillary refill GI/Abdominal exam: PRESENT: normal bowel sounds, soft. ABSENT: distended, guarding, mass, organolmegaly, rebound, tenderness Rectal exam: PRESENT: deferred Extremities exam: PRESENT: full ROM. ABSENT: calf tenderness, clubbing, pedal edema Neurological exam: PRESENT: alert, awake, oriented to person, oriented to place , oriented to time, oriented to situation, CN II-XII grossly intact. ABSENT: motor sensory deficit Psychiatric exam: PRESENT: appropriate affect, normal mood. ABSENT: homicidal ideation, suicidal ideation Skin exam: PRESENT: dry, intact, warm. ABSENT: cyanosis, rash Results Laboratory Results: 04/06/18 06:41 04/06/18 06:41 04/06/18 04/06/18 06:41 06:41 WBC 12.9 H RBC 5.25 Hgb 13.6 Hct 41.9 MCV 80 MCH 25.9 L MCHC 32.4 RDW 18.2 H Plt Count 255 Sodium 142.2 Potassium 5.1 H Chloride 103 Carbon Dioxide 27 Anion Gap 12 BUN 29 H Creatinine 0.74 Est GFR ( Amer) > 60 Est GFR (Non-Af Amer) > 60 Glucose 106 Calcium 9.4 Impressions: Chest X-Ray 04/01/18 10:35 IMPRESSION: Pulmonary hyperinflation and emphysema without acute abnormality of the lungs in frontal projection. No focal airspace opacity. Assessment & Plan - Diagnosis (1) COPD with acute exacerbation Is this a current diagnosis for this admission?: Yes Plan: Continues to improve. The patient is admitted to the medical floor. He is provided supplemental oxygen as needed to maintain oxygen saturations greater than 89%; now maintaining oxygen saturations on room air. Continue weaning IV Solu-Medrol. Continue scheduled and as needed nebulizer treatments; begin weaning scheduled nebulizer treatments. Patient has been empirically placed on azithromycin for bronchitis secondary to productive cough; received a complete 5-day course of therapy. Continue Flonase and Singulair daily. Continue Mucinex twice daily. Incentive spirometer and flutter valve to bedside. Encourage ambulation. Pulmonology has been consulted; appreciate Dr. Porter's recommendations. (2) HTN (hypertension) Qualifiers: Hypertension type: essential hypertension Is this a current diagnosis for this admission?: Yes Plan: Cardiac diet. The patient's home dose amlodipine, lisinopril, furosemide are continued. Daily aspirin therapy. (3) Tobacco abuse Is this a current diagnosis for this admission?: Yes Plan: Smoking cessation is encouraged; nicotine replacement therapies are provided. (4) CHF (congestive heart failure) Qualifiers: Heart failure type: diastolic Heart failure chronicity: chronic Qualified Code(s): I50.32 - Chronic diastolic (congestive) heart failure Is this a current diagnosis for this admission?: Yes Plan: Stable and without exacerbation at this time. Patient is placed on a cardiac diet with daily weights. His home medication medication regiment of amlodipine, lisinopril, furosemide, and daily aspirin therapy is continued. (5) Chronic pain Is this a current diagnosis for this admission?: Yes Plan: The patient's home dose [place] 7.5/325 3 times daily as needed is continued. Continue Lyrica 50 mg nightly. Tylenol as needed. Encourage nonpharmacological interventions. - Time Time Spent with patient: 15-24 minutes Medications reviewed and adjusted accordingly: Yes Anticipated discharge: Home Within: within 24 hours
[2018-04-06] MEDS: ALBUTEROL SULFATE 0.083% NEB 2.5 MG/3 ML AMPUL NEB PRN (20:12)
[2018-04-06] MEDS: MONTELUKAST SODIUM 10 MG TABLET PO SCH (22:58)
[2018-04-06] MEDS: PREGABALIN 50 MG CAPSULE PO SCH (22:58)
[2018-04-06] MEDS: QUETIAPINE FUMARATE 25 MG TABLET PO SCH (22:58)
[2018-04-07] MEDS: METHYLPREDNISOLONE INJ 40 MG/1 ML SDV IV SCH (05:09)
[2018-04-07 05:40] LABS: ANION GAP 7 (5-19); BLOOD UREA NITROGEN 33 mg/dL (7-20); CARBON DIOXIDE 29 mmol/L (22-30); CHLORIDE 103 mmol/L (98-107); GLUCOSE 109 mg/dL (75-110); POTASSIUM 4.5 mmol/L (3.6-5.0)
[2018-04-07] MEDS: IPRATROPIUM/ALBUTEROL 0.5-2.5 MG/3 ML AMPUL NEB SCH (07:56)
[2018-04-07 08:19] VITALS: BP 129/67
[2018-04-07] MEDS: NICOTINE 21 MG/24 HR PATCH.TD24 TD SCH (10:23)
[2018-04-07] MEDS: AMLODIPINE BESYLATE 5 MG TABLET PO SCH (10:24)
[2018-04-07] MEDS: FAMOTIDINE 20 MG TABLET PO SCH (10:24)
[2018-04-07] MEDS: LISINOPRIL 10 MG TABLET PO SCH (10:24)
[2018-04-07] MEDS: FUROSEMIDE 40 MG TABLET PO SCH (10:24)
[2018-04-07] MEDS: GUAIFENESIN 600 MG TABLET.SA PO SCH (10:25)
[2018-04-07] MEDS: ENOXAPARIN SODIUM INJ 40 MG/0.4 ML DISP.SYRIN SUBCUT SCH (10:25)
[2018-04-07] MEDS: FLUTICASONE/SALMETEROL DISKUS 500-50 MCG/DOSE IH SCH (10:26)
[2018-04-07] MEDS: ASPIRIN 81 MG TABLET, ENT COATED PO SCH (10:27)
[2018-04-07] MEDS: FLUTICASONE NASAL SPRAY 50 MCG/SPRY 120 SPRAY/16 GM NASL SCH (10:27)
--- NOTE | 2018-04-08 16:46 | PDOC DISCHARGE SUMMARY ---
General - Admit/Disc Date/PCP Admission Date/Primary Care Provider: 04/01/18 15:08 Discharge Date: 04/07/18 - Discharge Diagnosis (1) COPD with acute exacerbation Is this a current diagnosis for this admission?: Yes Summary: Acute exacerbation has now resolved. The patient was admitted to the medical floor. He was provided supplemental oxygen as needed to maintain oxygen saturations greater than 89%; now maintaining oxygen saturations on room air while ambulatory. He was supported with IV Solu-Medrol., scheduled scheduled and as needed nebulizer treatments, Flonase and Singulair daily, and Mucinex twice daily. He recieved a full course of azithromycin for treatment of bronchitis. The patient is discharged home in stable condition, maintaining oxygen saturations on room air while ambulatory, and asymptomatic. He is encouraged to follow-up with his primary care provider within 1 week. He is advised of the importance of smoking cessation and provided prescriptions for Nicoderm patches. (2) HTN (hypertension) Is this a current diagnosis for this admission?: Yes Summary: Acceptable blood pressures on patient's home medication regimen. He is encouraged to continue a cardiac diet daily aspirin at discharge. (3) Tobacco abuse Is this a current diagnosis for this admission?: Yes Summary: Smoking cessation is encouraged; nicotine replacement therapies were provided while inpatient. At discharge, he is provided a prescription for NicoDerm patches. (4) CHF (congestive heart failure) Is this a current diagnosis for this admission?: Yes Summary: Stable and without exacerbation. His home medication regiment was continued. (5) Chronic pain Is this a current diagnosis for this admission?: Yes Summary: The patient's home medication regiment was continued with adequate pain relief. - Additional Information Resuscitation Status: Full Code Discharge Diet: As Tolerated Discharge Activity: Activity As Tolerated, Balance Activity w/Rest, Slowly Increase Activity Prescriptions: Guaifenesin [Mucinex Sr 600 mg Tablet.sa] 600 mg PO Q12 #28 tablet.sa Ipratropium/Albuterol Sulfate [Duoneb 3 ml Ampul] 3 ml NEB RTQ8HP PRN #90 vial.neb PRN Reason: Shortness Of Breath Nicotine [Nicoderm 21 mg/24 Hr Transderm Patch] 1 each TD DAILY #30 patch.td24 Pregabalin [Lyrica 50 mg Capsule] 50 mg PO QHS #7 capsule Home Medications: Albuterol Sulfate [Proair HFA Inhalation Aerosol 8.5 gm MDI] 2 puff IH Q4HP PRN 08/03/17 Fluticasone Propionate [Flonase Nasal [place] 50 Mcg/[place] 16 gm] 2 sprays NASL DAILY 08/03/17 Fluticasone/Salmeterol [Advair 500-50 Diskus 14 Dose/Diskus] 1 puff IH Q12 08/03 Tiotropium Pace [Spiriva Handihaler 5 Cap/Kit (18 Mcg/Cap)] 1 puff IH DAILY 08/03/17 Amlodipine Besylate [Norvasc 10 mg Tablet] 5 mg PO DAILY #30 08/16/17 Furosemide [Lasix 40 mg Tablet] 40 mg PO DAILY #30 tablet 08/16/17 Lisinopril [Prinivil 10 mg Tablet] 10 mg PO DAILY #30 tablet 08/16/17 Montelukast Sodium [Singulair 10 mg Tablet] 10 mg PO QHS #30 tablet 08/16/17 Aspirin [Ecotrin] 81 mg PO DAILY 04/01/18 Hydrocodone/Acetaminophen [[place] 7.5-325 mg Tablet] 1 tab PO TID 04/01/18 Quetiapine Fumarate [Seroquel 25 mg Tablet] 25 mg PO QHS 04/01/18 Acetaminophen [Tylenol 325 mg Tablet] 650 mg PO Q4HP PRN tablet 04/07/18 Guaifenesin [Mucinex Sr 600 mg Tablet.sa] 600 mg PO Q12 #28 tablet.sa 04/07/18 Ipratropium/Albuterol Sulfate [Duoneb 3 ml Ampul] 3 ml NEB RTQ8HP PRN #90 vial.neb 04/07/18 Nicotine [Nicoderm 21 mg/24 Hr Transderm Patch] 1 each TD DAILY #30 patch.td24 04/07/18 Pregabalin [Lyrica 50 mg Capsule] 50 mg PO QHS #7 capsule 04/07/18 History of Present Illness History of Present Illness: Per H&P by Dr. Richardson: MEKA ATWOOD JR is a 67 year old male who is current everyday smoker and has history of COPD not on home oxygen. Patient presents emergency room due to acute onset shortness of breath as he was wheezing and dry cough started about 3 days ago and has been progressive in nature. X-ray did not show any infiltrates in the emergency room. Physical Exam Vital Signs: Temp Pulse Resp BP Pulse Ox 97.9 F 86 17 129/67 H 96 04/07/18 07:54 04/07/18 07:56 04/07/18 07:56 04/07/18 07:54 04/07/18 07:54 Intake & Output 04/07/18 04/08/18 04/09/18 06:59 06:59 06:59 Intake Total 1496 Balance 1496 Weight 80.1 kg General appearance: PRESENT: no acute distress, well-developed, well-nourished Head exam: PRESENT: atraumatic, normocephalic Eye exam: PRESENT: conjunctiva pink, EOMI, PERRLA. ABSENT: scleral icterus Ear exam: PRESENT: normal external ear exam Mouth exam: PRESENT: moist, tongue midline Neck exam: ABSENT: carotid bruit, JVD, lymphadenopathy, thyromegaly Respiratory exam: PRESENT: clear to auscultation uriel, prolonged expiratory phas , symmetrical, unlabored. ABSENT: rales, rhonchi, wheezes Cardiovascular exam: PRESENT: RRR. ABSENT: diastolic murmur, rubs, systolic murmur Pulses: PRESENT: normal dorsalis pedis pul Vascular exam: PRESENT: normal capillary refill GI/Abdominal exam: PRESENT: normal bowel sounds, soft. ABSENT: distended, guarding, mass, organolmegaly, rebound, tenderness Rectal exam: PRESENT: deferred Extremities exam: PRESENT: full ROM. ABSENT: calf tenderness, clubbing, pedal edema Neurological exam: PRESENT: alert, awake, oriented to person, oriented to place , oriented to time, oriented to situation, CN II-XII grossly intact. ABSENT: motor sensory deficit Psychiatric exam: PRESENT: appropriate affect, normal mood. ABSENT: homicidal ideation, suicidal ideation Skin exam: PRESENT: dry, intact, warm. ABSENT: cyanosis, rash Results Laboratory Results: 04/06/18 06:41 04/07/18 04:15 Impressions: Chest X-Ray 04/01/18 10:35 IMPRESSION: Pulmonary hyperinflation and emphysema without acute abnormality of the lungs in frontal projection. No focal airspace opacity. Qualifiers - * PATIENT BEING DISCHARGED WITH ANY OF THE FOLLOWING DIAGNOSIS: No Plan Discharge Plan: Follow up with primary care provider within 1 week. Time Spent: Less than 30 Minutes
--- NOTE | 2018-04-11 14:07 | PDOC CONSULTATION ---
Consultation Consult Date: 04/04/18 Attending physician:: ABIGAIL LOO Consult reason:: Dyspnea History of Present Illness Admission Date/PCP: 04/01/18 15:08 History of Present Illness: MEKA ATWOOD JR is a 67 year old male, seen at the ED increasing shortness of breath and a cough that is nonproductive he denies hemoptysis PPD status is unknown no history of chronic lung disease as a child or adolescent. He admits to exposure to large amounts of passive smoke as a child as well as an adult he himself is smoke pack per day for 47 years and continues to smoke at this time. 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 Chest pain sleeps on 2 pillows no PND no nocturnal cough no edema. Admits to snoring restless sleep nocturia to 3 times per night unestful sleep and excessive daytime somnolence Past Medical History Cardiac Medical History: Reports: Hypertension Denies: Coronary Artery Disease, Myocardial Infarction Pulmonary Medical History: Reports: Asthma, Chronic Obstructive Pulmonary Disease (COPD), Pneumonia - 6 yrs ago Denies: Bronchitis EENT Medical History: Denies: Ears, Throat Neurological Medical History: Denies: Multiple Sclerosis, Seizures Endocrine Medical History: Denies: Obesity GI Medical History: Denies: Cirrhosis, Crohn's Disease, Ulcerative Colitis Musculoskeltal Medical History: Reports: Arthritis - back and shoulder Denies: Fibromyalgia Skin Medical History: Denies: Psoriasis Psychiatric Medical History: Reports: Depression, Tobacco Dependency Traumatic Medical History: Denies: Traumatic Brain Injury Hematology: Denies: Anemia, Sickle Cell Disease Infectious Medical History: Denies: Hepatitis B, Hepatitis C, HIV, Methicillin-Resistant Staph Aureus Past Surgical History Past Surgical History: Reports: Orthopedic Surgery - 3 discectomy. 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 Lives with: Family Smoking Status: Current Every Day Smoker Cigarettes Packs Per Day: 1 Number of Years Smokin Last Time Smoked: 03/29/2018 Frequency of Alcohol Use: None Hx Recreational Drug Use: No Drugs: None Hx Prescription Drug Abuse: No Do you have pets?: Yes Have you had any respiratory illnesses as a child?: No Have you been exposed to any sick contacts recently?: No Have you had any recent respiratory illnesses?: No Have you travelled outside of [place] in the past 12 months?: No - Advance Directive Resuscitation Status: Full Code Family History Family History: Hypertension Parental Family History Reviewed: Yes Children Family History Reviewed: Yes Sibling(s) Family History Reviewed.: Yes Medication/Allergy Home Medications: Albuterol Sulfate [Proair HFA Inhalation Aerosol 8.5 gm MDI] 2 puff IH Q4HP PRN 08/03/17 Fluticasone Propionate [Flonase Nasal [place] 50 Mcg/[place] 16 gm] 2 sprays NASL DAILY 08/03/17 Fluticasone/Salmeterol [Advair 500-50 Diskus 14 Dose/Diskus] 1 puff IH Q12 08/03 Tiotropium [place] [Spiriva Handihaler 5 Cap/Kit (18 Mcg/Cap)] 1 puff IH DAILY 08/03/17 Amlodipine Besylate [Norvasc 10 mg Tablet] 5 mg PO DAILY #30 08/16/17 Furosemide [Lasix 40 mg Tablet] 40 mg PO DAILY #30 tablet 08/16/17 Lisinopril [Prinivil 10 mg Tablet] 10 mg PO DAILY #30 tablet 08/16/17 Montelukast Sodium [Singulair 10 mg Tablet] 10 mg PO QHS #30 tablet 08/16/17 Aspirin [Ecotrin] 81 mg PO DAILY 04/01/18 Hydrocodone/Acetaminophen [[place] 7.5-325 mg Tablet] 1 tab PO TID 04/01/18 Quetiapine Fumarate [Seroquel 25 mg Tablet] 25 mg PO QHS 04/01/18 Acetaminophen [Tylenol 325 mg Tablet] 650 mg PO Q4HP PRN tablet 04/07/18 Guaifenesin [Mucinex Sr 600 mg Tablet.sa] 600 mg PO Q12 #28 tablet.sa 04/07/18 Ipratropium/Albuterol Sulfate [Duoneb 3 ml Ampul] 3 ml NEB RTQ8HP PRN #90 vial.neb 04/07/18 Nicotine [Nicoderm 21 mg/24 Hr Transderm Patch] 1 each TD DAILY #30 patch.td24 04/07/18 Pregabalin [Lyrica 50 mg Capsule] 50 mg PO QHS #7 capsule 04/07/18 Allergies/Adverse Reactions: No Known Allergies Allergy (Verified 12/26/16 19:21) Review of Systems Constitutional: PRESENT: chills, fatigue. ABSENT: headache(s), night sweats Eyes: ABSENT: visual disturbances Ears: ABSENT: hearing changes Nose, Mouth, and Throat: ABSENT: sore throat Cardiovascular: PRESENT: dyspnea on exertion. ABSENT: palpitations Respiratory: PRESENT: cough, dyspnea, sputum. ABSENT: hemoptysis Gastrointestinal: ABSENT: abdominal pain, coffee ground emesis, dysphagia, hematemesis, hematochezia, melena Genitourinary: ABSENT: dysuria, hematuria Musculoskeletal: ABSENT: deformity, joint swelling Integumentary: ABSENT: lesions, pruritus, rash Neurological: ABSENT: abnormal gait, abnormal movements, abnormal speech, focal weakness, lack of coordination, memory loss Psychiatric: ABSENT: hallucinations, homidical ideation, suicidal ideation Endocrine: ABSENT: cold intolerance, heat intolerance, polydipsia, polyphagia Hematologic/Lymphatic: ABSENT: easy bleeding Allergic/Immunologic: ABSENT: seasonal rhinorrhea Physical Exam Vital Signs: Temp Pulse Resp BP Pulse Ox 98.3 F 79 18 134/68 H 95 04/06/18 07:13 04/06/18 07:13 04/06/18 07:13 04/06/18 07:13 04/06/18 07:13 Intake & Output 04/05/18 04/06/18 04/07/18 06:59 06:59 06:59 Intake Total 1175 1353 Output Total 600 Balance 575 1353 Weight 77.4 kg 78.3 kg General appearance: PRESENT: no acute distress, cooperative, disheveled, well- developed, well-nourished Head exam: PRESENT: atraumatic, normocephalic Eye exam: PRESENT: conjunctiva pale, EOMI. ABSENT: nystagmus, periorbital swelling, scleral icterus Mouth exam: PRESENT: dry mucosa, neck supple, tongue midline Neck exam: ABSENT: carotid bruit, JVD, lymphadenopathy, thyromegaly, tracheal deviation, tracheostomy Respiratory exam: PRESENT: decreased breath sounds, prolonged expiratory phas, rales, rhonchi, symmetrical, unlabored, wheezes. ABSENT: retraction, stridor, tachypnea Cardiovascular exam: PRESENT: RRR, +S1, +S2 Pulses: PRESENT: normal radial pulses GI/Abdominal exam: PRESENT: soft. ABSENT: tenderness Extremities exam: ABSENT: calf tenderness, clubbing, joint swelling, pedal edema Musculoskeletal exam: ABSENT: deformity, dislocation Neurological exam: PRESENT: alert, awake Skin exam: PRESENT: dry, warm Results Laboratory Results: 04/06/18 06:41 04/06/18 06:41 04/06/18 04/06/18 06:41 06:41 WBC 12.9 H RBC 5.25 Hgb 13.6 Hct 41.9 MCV 80 MCH 25.9 L MCHC 32.4 RDW 18.2 H Plt Count 255 Sodium 142.2 Potassium 5.1 H Chloride 103 Carbon Dioxide 27 Anion Gap 12 BUN 29 H Creatinine 0.74 Est GFR ( Amer) > 60 Est GFR (Non-Af Amer) > 60 Glucose 106 Calcium 9.4 Impressions: Chest X-Ray 04/01/18 10:35 IMPRESSION: Pulmonary hyperinflation and emphysema without acute abnormality of the lungs in frontal projection. No focal airspace opacity. Assessment & Plan - Diagnosis (1) Acute respiratory failure with hypoxia Is this a current diagnosis for this admission?: Yes Plan: Acute on chronic respiratory failure continue BiPAP with supplemental oxygen judiciously to prevent any hypercapnia (2) COPD exacerbation Is this a current diagnosis for this admission?: Yes Plan: Continue current bronchodilator therapy (3) Tobacco abuse Is this a current diagnosis for this admission?: Yes Plan: Stop smoking we discussed at length risk and dangers associated with continued tobacco use - Plan Summary Plan Summary: Thank you very much for allowing me to see Mr. Lyons and help participate in his care.
--- NOTE | 2018-04-11 14:10 | PDOC PROGRESS REPORT ---
Subjective Progress Note for:: 04/05/18 Subjective:: Slightly improved Reason For Visit: COPD Physical Exam Vital Signs: Temp Pulse Resp BP Pulse Ox 98.3 F 79 18 134/68 H 95 04/06/18 07:13 04/06/18 07:13 04/06/18 07:13 04/06/18 07:13 04/06/18 07:13 Intake & Output 04/05/18 04/06/18 04/07/18 06:59 06:59 06:59 Intake Total 1175 1353 Output Total 600 Balance 575 1353 Weight 77.4 kg 78.3 kg General appearance: PRESENT: no acute distress, cooperative, disheveled, well- developed, well-nourished Head exam: PRESENT: atraumatic, normocephalic Eye exam: PRESENT: conjunctiva pale, EOMI. ABSENT: nystagmus, periorbital swelling, scleral icterus Mouth exam: PRESENT: dry mucosa, neck supple, tongue midline Neck exam: ABSENT: carotid bruit, JVD, lymphadenopathy, thyromegaly, tracheal deviation, tracheostomy Respiratory exam: PRESENT: decreased breath sounds, prolonged expiratory phas, rales, rhonchi, symmetrical, unlabored. ABSENT: stridor, tachypnea Cardiovascular exam: PRESENT: RRR, +S1, +S2 Pulses: PRESENT: normal radial pulses GI/Abdominal exam: PRESENT: soft. ABSENT: tenderness Gentrourinary exam: PRESENT: indwelling catheter Extremities exam: ABSENT: calf tenderness, clubbing, joint swelling, pedal edema Musculoskeletal exam: ABSENT: deformity, dislocation Neurological exam: PRESENT: alert, awake Psychiatric exam: PRESENT: normal mood Skin exam: PRESENT: dry, warm Results Laboratory Results: 04/06/18 06:41 04/06/18 06:41 04/06/18 04/06/18 06:41 06:41 WBC 12.9 H RBC 5.25 Hgb 13.6 Hct 41.9 MCV 80 MCH 25.9 L MCHC 32.4 RDW 18.2 H Plt Count 255 Sodium 142.2 Potassium 5.1 H Chloride 103 Carbon Dioxide 27 Anion Gap 12 BUN 29 H Creatinine 0.74 Est GFR ( Amer) > 60 Est GFR (Non-Af Amer) > 60 Glucose 106 Calcium 9.4 Impressions: Chest X-Ray 04/01/18 10:35 IMPRESSION: Pulmonary hyperinflation and emphysema without acute abnormality of the lungs in frontal projection. No focal airspace opacity. Assessment & Plan - Diagnosis (1) Acute respiratory failure with hypoxia Is this a current diagnosis for this admission?: Yes Plan: Acute on chronic respiratory failure continue BiPAP with supplemental oxygen judiciously to prevent any hypercapnia (2) COPD exacerbation Is this a current diagnosis for this admission?: Yes Plan: Continue current bronchodilator therapy (3) Tobacco abuse Is this a current diagnosis for this admission?: Yes Plan: Stop smoking we discussed at length risk and dangers associated with continued tobacco use
--- NOTE | 2018-04-11 14:13 | PDOC PROGRESS REPORT ---
Subjective Progress Note for:: 04/06/18 Subjective:: improved Reason For Visit: COPD Physical Exam Vital Signs: Temp Pulse Resp BP Pulse Ox 98.3 F 79 18 134/68 H 95 04/06/18 07:13 04/06/18 07:13 04/06/18 07:13 04/06/18 07:13 04/06/18 07:13 Intake & Output 04/05/18 04/06/18 04/07/18 06:59 06:59 06:59 Intake Total 1175 1353 Output Total 600 Balance 575 1353 Weight 77.4 kg 78.3 kg General appearance: PRESENT: no acute distress, cooperative, disheveled, well- developed, well-nourished Head exam: PRESENT: atraumatic, normocephalic Eye exam: PRESENT: conjunctiva pale, EOMI. ABSENT: nystagmus, periorbital swelling, scleral icterus Mouth exam: PRESENT: dry mucosa, neck supple, tongue midline Neck exam: ABSENT: carotid bruit, JVD, lymphadenopathy, thyromegaly, tracheal deviation, tracheostomy Respiratory exam: PRESENT: decreased breath sounds, prolonged expiratory phas, rhonchi, unlabored. ABSENT: retraction, stridor, tachypnea Cardiovascular exam: PRESENT: RRR, +S1, +S2 Pulses: PRESENT: normal radial pulses GI/Abdominal exam: PRESENT: soft. ABSENT: tenderness Gentrourinary exam: PRESENT: indwelling catheter Extremities exam: ABSENT: calf tenderness, clubbing, joint swelling, pedal edema Musculoskeletal exam: ABSENT: deformity, dislocation Neurological exam: PRESENT: alert, awake Psychiatric exam: PRESENT: normal mood Skin exam: PRESENT: dry, warm Results Laboratory Results: 04/06/18 06:41 04/06/18 06:41 04/06/18 04/06/18 06:41 06:41 WBC 12.9 H RBC 5.25 Hgb 13.6 Hct 41.9 MCV 80 MCH 25.9 L MCHC 32.4 RDW 18.2 H Plt Count 255 Sodium 142.2 Potassium 5.1 H Chloride 103 Carbon Dioxide 27 Anion Gap 12 BUN 29 H Creatinine 0.74 Est GFR ( Amer) > 60 Est GFR (Non-Af Amer) > 60 Glucose 106 Calcium 9.4 Impressions: Chest X-Ray 04/01/18 10:35 IMPRESSION: Pulmonary hyperinflation and emphysema without acute abnormality of the lungs in frontal projection. No focal airspace opacity. Assessment & Plan - Diagnosis (1) Acute respiratory failure with hypoxia Is this a current diagnosis for this admission?: Yes Plan: Acute on chronic respiratory failure continue BiPAP with supplemental oxygen judiciously to prevent any hypercapnia (2) Tobacco abuse Is this a current diagnosis for this admission?: Yes Plan: Stop smoking we discussed at length risk and dangers associated with continued tobacco use
== END 2018-04-07 12:28 | disposition home or self-care (01) | DRG 191 ==
LOC: ER 10:26 → UNDOADMIN 15:08 → EH 15:08 → 4S 16:18 → 4N 04-02 22:17
PROVIDERS: ADMIT Hospitalist; ATTEND Hospitalist
PROC: 3E0F73Z Introduction of Anti-inflammatory into Respiratory Tract, Via Natural or Artificial Opening (ICD-10-PCS; principal; 2018-04-01)
DX: J44.1 Chronic obstructive pulmonary disease with (acute) exacerbation (principal); I50.32 Chronic diastolic (congestive) heart failure; I11.0 Hypertensive heart disease with heart failure; F17.210 Nicotine dependence, cigarettes, uncomplicated; M19.90 Unspecified osteoarthritis, unspecified site; F32.9 Major depressive disorder, single episode, unspecified; G89.29 Other chronic pain; Z79.899 Other long term (current) drug therapy; Z82.49 Family history of ischemic heart disease and other diseases of the circulatory system
CPT/HCPCS: 36415; 36600; 71045; 80048; 80053; 82550; 82553; 82803; 83880; 84484; 85025; 85027; 93005; 93010; 94640; 94667; 94761; 94799; 96365; 96366; 99285; G8978-GP; G8979-GP; J1650; J2920; J2930; J3475; J3490; J7620

== ENCOUNTER → 2018-07-05 | Day surgery (SDC) | payer MEDICARE, MEDICAID ==
[~2018-07-05] MED LIST: BUPIVACAINE HCL 0.5 % INJ/PF 30 ML SDV ONE; LIDOCAINE 1% INJ-PF (10 MG/ML) 30 ML SDV ONE; LIDOCAINE 2% INJ (20 MG/ML) 20 ML MDV ONE; METHYLPREDNISOLONE ACETATE INJ 40 MG/1 ML ML ONE
--- NOTE | 2018-07-05 15:23 | Operative Report ---
PREOPERATIVE DIAGNOSIS: Lumbar Spondylosis POSTOPERATIVE DIAGNOSIS: Lumbar Spondylosis PROCEDURE: Radiofrequency Ablation of medial branches - RT L3 L4 dorsal primary ramus of L5. LT L3 L4 Dorsal primary ramus of L5. DATE OF PROCEDURE: July 05, 2018 ANESTHESIA: Local COMPLICATIONS: None CONSENT: A full description of the procedure was provided including benefits as well as possible complications. All questions were answered and informed consent was given and signed. ASA guidelines for fasting were verified prior to sedation. PROCEDURE IN DETAIL The patient was brought into the fluoroscopy suite and positioned into the prone position on the fluoroscopy table and allowed to adjust to a position of comfort. A grounding pad was placed on the right thigh. The lumbar region was widely prepped with a chloraprep solution, allowed to air dry and draped in standard sterile surgical fashion. Local anesthesia was provided by 1 mL of 1 % lidocaine delivered with a 25 g needle. A 17g 100mm radiofrequency introducer needle was placed to the planned anatomic targets guided with intermittent fluoroscopy with a perpendicular approach to terminally place at the junction of the superior articular process and the transverse process of the right L4 L5 and the base of the sacral ala on the right for the L5 medial branch nerve. The stylets were removed and radiofrequency probes with a 4mm active tip were then inserted. Needle tip position of the probes was verified in the AP, oblique, and lateral views. At each site, the medial branch nerve was stimulated at 2 Hz to a maximum 1-2 volts determined to finalize safe needle and electrode placement. The patient was awake and responsive during this portion of the procedure. Each target was anesthetized with 1-2 mL of 2 % lidocaine for anesthesia for lesioning and then each target was lesioned at 80 degrees Celsius for 2 minutes and 30 seconds. Tissue impedences were noted to be between 250 and 500 Ohms. Electrodes were rem dennis and each site was infiltrated with 1mL of a mixture of 0.25% bupivacaine with 40mg depomedrol. Then, needles were removed. Attention was then turned to the opposite side where the procedure was performed in identical fashion. A total of 40mg depomedrol was infiltrated. Bureau were removed and bandages placed over the needle placement sites, the patient then returned to the supine position on a stretcher and transported to the recovery room without hemodynamic, neurologic, or allergic reactions. Fluoroscopic images were printed for hard copy recording and digitally archived. POST PROCEDURE EVALUATION: The patient was comfortable in the recovery room. The patient is aware that pain may worsen before remitting and 4 - 6 weeks may be required prior to the onset of pain relief. IMPRESSION: 1. Technically successful bilateral L3 L4 L5 medial branch radiofrequency neurotomy without complication. 2. RTC in 2 weeks. 3. Estimated Blood Loss: minimal
== END ==
LOC: RAD 14:06
PROVIDERS: ATTEND Pain Medicine Interventional Pain Medicine
DX: M47.817 Spondylosis without myelopathy or radiculopathy, lumbosacral region (principal)
CPT/HCPCS: 64635; 64636; J3490 ×3; J1020

== ENCOUNTER 2018-10-04 06:05 | Day surgery (SDC) | payer MEDICARE, MEDICAID ==
[2018-09-28 09:11] LABS: INTERNATIONAL RATION (INR) 0.92; PROTHROMBIN TIME 12.8 SEC (11.4-15.4)
[2018-09-28 09:11] LABS: APPEARANCE,URINE CLEAR; BILIRUBIN,URINE NEGATIVE (NEGATIVE); COLOR,URINE YELLOW; GLUCOSE, URINE NEGATIVE (NEGATIVE); KETONES,URINE NEGATIVE (NEGATIVE); LEUKOCYTE ESTERASE,URINE NEGATIVE (NEGATIVE); NITRITE,URINE NEGATIVE (NEGATIVE); PROTEIN,URINE NEGATIVE (NEGATIVE); URINE SPECIFIC GRAVITY 1.004; UROBILINOGEN,URINE NEGATIVE mg/dL (<2.0)
[2018-09-28 09:12] LABS: PARTIAL THROMBOPLASTIN TIME 32.9 SEC (23.5-35.8)
[2018-09-28 09:25] LABS: ABSOLUTE BASOPHILS # (AUTO) 0.1 10^3/uL (0.0-0.2); ABSOLUTE EOSINOPHILS # (AUTO) 0.4 10^3/uL (0.0-0.6); ABSOLUTE LYMPHOCYTES (AUTO) 2.4 10^3/uL (0.5-4.7); ABSOLUTE MONOCYTES (AUTO) 0.9 10^3/uL (0.1-1.4); ABSOLUTE NEUT (AUTO) 6.6 10^3/uL (1.7-8.2); BASOPHILS % (AUTO) 0.7 % (0-2); EOSINOPHILS % (AUTO) 3.7 % (0-6); HEMATOCRIT 46.2 % (37.9-51.0); HEMOGLOBIN 15.6 g/dL (13.5-17.0); MEAN CORPUSCULAR HEMOGLOBIN 27.7 pg (27.0-33.4); MEAN CORPUSCULAR HGB CONC 33.7 g/dL (32.0-36.0); MEAN CORPUSCULAR VOLUME 82 fl (80-97); MONOCYTES % (AUTO) 8.7 % (3-13); PLATELET COUNT 256 10^3/uL (150-450); RED BLOOD COUNT 5.63 10^6/uL (4.35-5.55); RED CELL DISTRIBUTION WIDTH 14.7 % (11.5-14.0); SEGMENTED NEUTROPHILS % (AUTO) 63.9 % (42-78); TOTAL CELLS COUNTED % (AUTO) 100 %; WHITE BLOOD COUNT 10.3 10^3/uL (4.0-10.5)
[~2018-10-04 06:05] MED LIST changes: -BUPIVACAINE HCL 0.5 % INJ/PF 30 ML SDV ONE; +CEFAZOLIN 1 GM/D5W RTU 1 GM/50 ML RTUPB IV ONE; +CEFAZOLIN 1 GM/D5W RTU 1 GM/50 ML RTUPB IV PRN; +LACTATED RINGERS 1000 ML IV PRN; +LIDOCAINE 0.5% INJ-PF (5 MG/ML) 50 ML SDV SUBCUT PRN; -LIDOCAINE 1% INJ-PF (10 MG/ML) 30 ML SDV ONE; -LIDOCAINE 2% INJ (20 MG/ML) 20 ML MDV ONE; -METHYLPREDNISOLONE ACETATE INJ 40 MG/1 ML ML ONE
[2018-10-04] MEDS ORDERED: MIDAZOLAM 2 MG/2 ML INJ ONE (06:37)
[2018-10-04] MEDS ORDERED: ONDANSETRON HCL INJ/PF 4 MG/2 ML SDV ONE (06:37)
[2018-10-04] MEDS ORDERED: FENTANYL CITRATE INJ/PF 100 MCG/2 ML AMPUL ONE (06:37)
[2018-10-04] MEDS ORDERED: LIDOCAINE 2% INJ-PF (20 MG/ML) 10 ML AMPUL ONE (06:37)
[2018-10-04] MEDS ORDERED: PROPOFOL INJ 200 MG/20 ML VIAL IV ONE ×2 (06:38→07:06)
[2018-10-04] MEDS ORDERED: KETAMINE HCL INJ 500 MG/10 ML VIAL ONE (07:06)
[2018-10-04] MEDS ORDERED: ALBUTEROL SULFATE 0.083% NEB 2.5 MG/3 ML AMPUL NEB ONE (07:14)
[2018-10-04] MEDS ORDERED: LIDOCAINE 1% INJ-PF (10 MG/ML) 30 ML SDV ONE (07:38)
[2018-10-04] MEDS ORDERED: TRIAMCINOLONE ACETONIDE INJ 40 MG/1 ML VIAL ONE (07:38)
[2018-10-04] MEDS ORDERED: PROMETHAZINE HCL INJ 25 MG/1 ML VIAL IV PRN ×2 (08:24)
[2018-10-04] MEDS ORDERED: DIPHENHYDRAMINE HCL 50 MG/ML VIAL IV PRN (08:24)
[2018-10-04] MEDS ORDERED: FENTANYL CITRATE INJ/PF 100 MCG/2 ML AMPUL IV PRN ×3 (08:24)
[2018-10-04] MEDS ORDERED: MEPERIDINE HCL/PF INJ 25 MG/1 ML DISP.SYRIN IV PRN (08:24)
[2018-10-04 10:26] VITALS: BP 101/56
--- NOTE | 2018-10-04 13:19 | RADIOLOGY REPORT (SQ) ---
EXAM DESCRIPTION: NO CHG FLUORO; L SPINE 2 VIEWS COMPLETED DATE/TIME: 10/04/2018 11:26 am REASON FOR STUDY: MINIMALLY INVASIVE LUMBAR DISKECTOMY ASST WITH FLUORO IN [place] M48.062 SPINAL STENOS IS, LUMBAR REGION WITH NEUROGENIC PHILLY Z00.6 ENCNTR FOR EXAM FOR NRML CMPRSN AND CTRL IN CLNCL [facility] Z79.01 SKILLED NURSING (CURRENT) USE OF ANTICOAGULANTS COMPARISON: None. FLUOROSCOPY TIME: 5.5 minutes. 9 images saved to PACS. TECHNIQUE: Intra-operative images acquired during surgical procedure to evaluate progress. NUMBER OF IMAGES: 9 images. LIMITATIONS: None. FINDINGS: Images of the spine acquired during procedure. IMPRESSION: IMAGE(S) OBTAINED DURING PROCEDURE. COMMENT: Quality ID [id number]: Final reports for procedures using fluoroscopy that document radiation exp osure indices, or exposure time and number of fluorographic images (if radiation exposure indices are not available) Please consult full operative report of the attending physician for description of the procedure. TECHNICAL DOCUMENTATION: JOB ID: [id number] [employer]- All Rights Reserved Reading location - IP/workstation name: [email or web address]
--- NOTE | 2018-10-04 13:19 | RADIOLOGY REPORT (SQ) ---
EXAM DESCRIPTION: NO CHG FLUORO; L SPINE 2 VIEWS COMPLETED DATE/TIME: 10/04/2018 11:26 am REASON FOR STUDY: MINIMALLY INVASIVE LUMBAR DISKECTOMY ASST WITH FLUORO IN [place] M48.062 SPINAL STENOS IS, LUMBAR REGION WITH NEUROGENIC PHILLY Z00.6 ENCNTR FOR EXAM FOR NRML CMPRSN AND CTRL IN CLNCL [facility] Z79.01 [facility] (CURRENT) USE OF ANTICOAGULANTS COMPARISON: None. FLUOROSCOPY TIME: 5.5 minutes. 9 images saved to PACS. TECHNIQUE: Intra-operative images acquired during surgical procedure to evaluate progress. NUMBER OF IMAGES: 9 images. LIMITATIONS: None. FINDINGS: Images of the spine acquired during procedure. IMPRESSION: IMAGE(S) OBTAINED DURING PROCEDURE. COMMENT: Quality ID [id number]: Final reports for procedures using fluoroscopy that document radiation exp osure indices, or exposure time and number of fluorographic images (if radiation exposure indices are not available) Please consult full operative report of the attending physician for description of the procedure. TECHNICAL DOCUMENTATION: JOB ID: [id number] [employer]- All Rights Reserved Reading location - IP/workstation name: [email or web address]
--- NOTE | 2018-10-04 13:50 | [facility] OPERATIVE REPORT E ---
[facility] Operative Report NAME: MEKA ATWOOD JR AGE: 68Y DATE OF SURGERY: 10/04/2018 ROOM: PREOPERATIVE DIAGNOSIS: Lumbar spinal stenosis and neurogenic claudication. POSTOPERATIVE DIAGNOSIS: Lumbar spinal stenosis and neurogenic claudication. SURGEON: OH OSPINA M.D. PROCEDURE PERFORMED: Minimally invasive lumbar decompression at L3-L4. ANESTHESIA: Local with monitored anesthesia care and sedation. ANTIBIOTICS: Ancef 1 g given perioperatively. INTRAVENOUS (IV) FLUIDS: Balanced crystalloid solution 500 mL. ESTIMATED BLOOD LOSS: Minimal. SPECIMEN REMOVED: Small fragments of ligamentum flavum were removed and discarded. OPERATIVE INDICATIONS: The patient is a 68-year-old male with lumbar spinal stenosis, moderately severe at L3-4, and symptoms of neurogenic claudication. The risks and benefits of procedure were discussed with him in detail including but not limited to bleeding, bruising, infection, injury nerves or veins, loss of bowel or bladder function, paralysis, potentially even . The patient agreed to proceed. OPERATION IN DETAIL: The patient was accompanied by Anesthesia Staff to the operative suite where he was placed in prone position. All pressure points were checked and padded. The patient was prepped and draped in sterile fashion using chlorhexidine gluconate solution and draped with an Ioban drape. Fluoroscopy was also draped into the field and AP and oblique angle fluoroscopy were utilized to identify target for injection and minimally invasive lumbar decompression. The L3-L4 interspace was marked. After an appropriate timeout protocol as per [facility] standards the skin was anesthetized with 1% lidocaine using a 25 gauge 1-1/2 inch needle. A 17 gauge Tuohy was advanced under intermittent AP and oblique fluoroscopic guidance to the L3-L4 interspace and loss of resistance was obtained in the epidural space to normal saline. At this juncture Omnipaque 180 contrast was injected through the epidural needle, demonstrating a posterior epidurogram. The skin was marked in an additional site in the medial border of the L5 pedicle and the skin was anesthetized using 1% lidocaine and a 25 gauge 1 inch needle. Deeper tissues were infiltrated using a 3-1/2 inch 25 gauge spinal needle. Incision was made using a 15 blade scalpel. The trocar provided by the [employer] kit was advanced under intermittent AP and oblique angle fluoroscopic guidance to the L3-L4 interspace just posterior to the lamina. Once this was confirmed to be appropriate in medial, lateral positioning by AP fluoroscopic views a deep 45 contralateral oblique fluoroscopic view was obtained. The trocar was stabilized using the kit stabilizer and a depth gauge was placed at 15 mm. A bone rongeur was advanced through the trocar and portions of the superior lamina of L4 and inferior lamina of L3 were scraped and removed. After this a tissue sculptor was inserted through the trocar and further portions of ligamentum flavum were removed. Great care was taken to maintain the instrumentation posterior to the epidurogram. Following this, additional 2 mL of Omnipaque 180 contrast was injected showing improved flow of contrast in the posterior epidural space. Attention was then turned to the opposite pedicle where the procedure was performed in identical fashion. Once this was completed instrumentation was removed from the back. Kenalog 80 mg was injected through the Tuohy needle in the epidural space to complete the procedure and the Tuohy needle was removed. The skin was cleansed. Steri-Strips and bandages were applied. The patient was accompanied to the posterior anesthesia recovery unit in stable condition. He will be discharged to home and will have followup within 24 hours. DICTATING PHYSICIAN: OH OSPINA M.D. [id number] PHY#: [id number] ID: [id number] JOB#: [id number] ACCT: [id number] cc:OH OSPINA M.D. > MTDD
--- NOTE | 2018-10-05 10:32 | EKG REPORT ---
SEVERITY:- NORMAL ECG - SINUS RHYTHM : Confirmed by: Ree Guthrie 05-Oct-2018 10:32:05
== END 2018-10-04 10:20 | disposition home or self-care (01) ==
LOC: OROUT 06:05
PROVIDERS: ATTEND Pain Medicine Interventional Pain Medicine
DX: M48.062 Spinal stenosis, lumbar region with neurogenic claudication (principal); Z00.6 Encounter for examination for normal comparison and control in clinical research program; M47.816 Spondylosis without myelopathy or radiculopathy, lumbar region; M96.1 Postlaminectomy syndrome, not elsewhere classified; M54.5 Low back pain; M54.16 Radiculopathy, lumbar region; G89.4 Chronic pain syndrome; M47.896 Other spondylosis, lumbar region; M48.07 Spinal stenosis, lumbosacral region; J43.9 Emphysema, unspecified; J45.909 Unspecified asthma, uncomplicated; I10 Essential (primary) hypertension; Z79.01 Long term (current) use of anticoagulants; Z79.51 Long term (current) use of inhaled steroids; Z79.899 Other long term (current) drug therapy; Z87.891 Personal history of nicotine dependence; Z79.891 Long term (current) use of opiate analgesic
CPT/HCPCS: 36415 ×2; 84132; 85025; 85610; 85730; 81001; 72100; 93005; 93010; 0275T; C1889; Q9966; J2250; J0690; J3010; J3490 ×3; J2405; J3301; J2704; A9270

== ENCOUNTER 2019-03-30 09:31 | Inpatient (IN) | payer MEDICARE, MEDICAID ==
[2019-03-30 10:15] LABS: HEMATOCRIT 44.5 % (37.9-51.0); HEMOGLOBIN 14.7 g/dL (13.5-17.0); MEAN CORPUSCULAR HEMOGLOBIN 28.7 pg (27.0-33.4); MEAN CORPUSCULAR VOLUME 87 fl (80-97); PLATELET COUNT 217 10^3/uL (150-450); RED CELL DISTRIBUTION WIDTH 14.2 % (11.5-14.0); WHITE BLOOD COUNT 17.8 10^3/uL (4.0-10.5)
[2019-03-30 10:18] LABS: ALBUMIN 4.4 g/dL (3.5-5.0); ALKALINE PHOSPHATASE 80 U/L (38-126); ANION GAP 11 (5-19); ASPARTATE AMINO TRANSFERASE 38 U/L (17-59); BILIRUBIN,DIRECT 0.3 mg/dL (0.0-0.4); BILIRUBIN,TOTAL 0.9 mg/dL (0.2-1.3); BLOOD UREA NITROGEN 15 mg/dL (7-20); CALCIUM 9.5 mg/dL (8.4-10.2); CARBON DIOXIDE 27 mmol/L (22-30); CHLORIDE 106 mmol/L (98-107); GLUCOSE 131 mg/dL (75-110); POTASSIUM 4.8 mmol/L (3.6-5.0); TOTAL PROTEIN 7.4 g/dL (6.3-8.2)
--- NOTE | 2019-03-30 10:25 | RADIOLOGY REPORT (SQ) ---
EXAM DESCRIPTION: CHEST SINGLE VIEW COMPLETED DATE/TIME: 03/30/2019 10:13 am REASON FOR STUDY: sob COMPARISON: CT chest 08/05/2017 Two-view chest 08/09/2017, 04/01/2018 EXAM PARAMETERS: NUMBER OF VIEWS: One view. TECHNIQUE: Single frontal radiographic view of the chest acquired. RADIATION DOSE: NA LIMITATIONS: None. FINDINGS: LUNGS AND PLEURA: No opacities, masses or pneumothorax. No pleural effusion. MEDIASTINUM AND HILAR STRUCTURES: No masses. Contour normal. HEART AND VASCULAR STRUCTURES: Heart normal in size. Normal vasculature. BONES: No acute findings. HARDWARE: None in the chest. OTHER: No other significant finding. IMPRESSION: NO ACUTE RADIOGRAPHIC FINDING IN THE CHEST. TECHNICAL DOCUMENTATION: JOB ID: [id number] [employer]- All Rights Reserved Reading location - IP/workstation name: [email or web address]
[2019-03-30] MEDS ORDERED: IPRATROPIUM/ALBUTEROL 0.5-2.5 MG/3 ML AMPUL NEB ONE (10:34)
[2019-03-30] MEDS ORDERED: ALBUTEROL SULFATE 0.083% NEB 2.5 MG/3 ML AMPUL NEB ONE ×2 (10:34→11:58)
[2019-03-30 10:41] LABS: VENOUS BLOOD BASE EXCESS 1.1 mmol/L; VENOUS BLOOD HCO3 25.3 mmol/L (20-32); VENOUS BLOOD PCO2 38.9 mmHg (35-63); VENOUS BLOOD PH 7.43 (7.30-7.42)
[2019-03-30 10:43] LABS: ABSOLUTE LYMPHOCYTES# (MANUAL) 2.1 10^3/uL (0.5-4.7); ABSOLUTE MONOCYTES # (MANUAL) 1.1 10^3/uL (0.1-1.4); ANISOCYTOSIS SLIGHT; BAND NEUTROPHILS % (MANUAL) 1 % (3-5); BASOPHILS % (MANUAL) 0 % (0-2); EOSINOPHILS % (MANUAL) 0 % (0-6); LYMPHOCYTES % (MANUAL) 9 % (13-45); MONOCYTES % (MANUAL) 6 % (3-13); PLATELET COMMENT ADEQUATE; SEGMENTED NEUTROPHILS % (MAN) 81 % (42-78); TOTAL CELLS COUNTED 100
[2019-03-30] MEDS: MAGNESIUM SULFATE/D5W 1 GM/100 ML RTUPB IV SCH ×2 (10:45→11:46)
[2019-03-30 10:53] LABS: APPEARANCE,URINE CLEAR; BILIRUBIN,URINE NEGATIVE (NEGATIVE); COLOR,URINE YELLOW; GLUCOSE, URINE NEGATIVE (NEGATIVE); KETONES,URINE NEGATIVE (NEGATIVE); LEUKOCYTE ESTERASE,URINE NEGATIVE (NEGATIVE); NITRITE,URINE NEGATIVE (NEGATIVE); PROTEIN,URINE 100 mg/dL (NEGATIVE); URINE SPECIFIC GRAVITY 1.012; UROBILINOGEN,URINE NEGATIVE mg/dL (<2.0)
[2019-03-30] MEDS ORDERED: LEVOFLOXACIN 750 MG/D5W RTU 750 MG/150 ML RTUPB IV ONE (13:43)
[2019-03-30] MEDS ORDERED: ACETAMINOPHEN 325 MG TABLET PO PRN (14:45)
[2019-03-30] MEDS ORDERED: OXYCODONE-ACETAMINOPHEN 5-325 MG TABLET PO PRN (14:45)
[2019-03-30] MEDS ORDERED: PROMETHAZINE HCL INJ 25 MG/1 ML VIAL IV PRN (14:45)
[2019-03-30] MEDS ORDERED: MAG HYDROX/AL HYDROX/SIMETH SUSP 30 ML UDCUP PO PRN (14:45)
--- NOTE | 2019-03-30 14:58 | ER Document Report ---
Entered by BEBE VELAZQUEZ SCRIBE 03/30/19 1026 Acting as scribe for:HATTIE GUEVARA MD ED General - General Chief Complaint: Breathing Difficulty Stated Complaint: TROUBLE BREATHING Time Seen by Provider: 03/30/19 10:22 Information source: Patient Notes: Patient is a 68 year old male with a history of COPD who continues to smoke 1 ppd that presents today via EMS complaining of shortness of breath. EMS gave the patient 2 Duoneb treatments, 125 mg of Solumedrol, and 0.3mg of Epinephrine. EMS reported his Oxygen saturation at 90% initially while getting a breathing treatment. Patient denies having any recent fever. Patient denies being on home oxygen. TRAVEL OUTSIDE OF THE [place] IN LAST 30 DAYS: No - Related Data Allergies/Adverse Reactions: No Known Allergies Allergy (Verified 03/30/19 15:41) Home Medications: Pregabalin Cap. Quetiapine Fumarate. Prednisone. Meloxicam. Lisinopril. Furosemide. Montelukast SOD Past Medical History - General Information source: Patient - Social History Smoking Status: Current Every Day Smoker Cigarette use (# per day): Yes Chew tobacco use (# tins/day): No Frequency of alcohol use: Occasional Drug Abuse: None Family History: Hypertension Patient has suicidal ideation: No Patient has homicidal ideation: No - Past Medical History Cardiac Medical History: Reports: Hx Hypertension Pulmonary Medical History: Reports: Hx Asthma, Hx Bronchitis, Hx COPD, Hx Pneumonia - 08/01 Musculoskeletal Medical History: Reports Hx Arthritis - back and shoulder Psychiatric Medical History: Reports: Hx Depression Past Surgical History: Reports: Hx Orthopedic Surgery - 3 discectomy. plates and screws in back - Immunizations Hx Diphtheria, Pertussis, Tetanus Vaccination: No Hx Pneumococcal Vaccination: 05/17/12 Review of Systems - Review of Systems Constitutional: No symptoms reported. denies: Fever EENT: No symptoms reported Cardiovascular: No symptoms reported Respiratory: See HPI, Cough, Short of breath Gastrointestinal: No symptoms reported Genitourinary: No symptoms reported Male Genitourinary: No symptoms reported Musculoskeletal: No symptoms reported Skin: No symptoms reported Hematologic/Lymphatic: No symptoms reported Neurological/Psychological: No symptoms reported -: Yes All other systems reviewed and negative Physical Exam - Vital signs Vitals: Resp Pulse Ox 24 H 100 03/30/19 09:36 03/30/19 09:36 - Notes Notes: Physical Exam: General: Alert. HEENT: Normocephalic. Atraumatic. PERRL. Extraocular movements intact. Oropharynx clear. Neck: Supple. Non-tender. Respiratory: Mild respiratory distress. Diffuse wheezing bilaterally. Rhonchi with forced cough. Prolonged expiratory phase. Retractions. Speaking in 2-3 word sentences. Cardiovascular: Regular rate and rhythm. Abdominal: Normal Inspection. Non-tender. No distension. Normal Bowel Sounds. Back: No gross abnormalities. Extremities: Moves all four extremities. Upper extremities: Normal inspection. Normal ROM. Lower extremities: Normal inspection. No edema. Normal ROM. Neurological: Normal cognition. AAOx4. Normal speech. Psychological: Normal affect. Normal Mood. Skin: Warm. Dry. Normal color. Course - Re-evaluation Re-evalutation: 03/30/19 11:57 Patient states his breathing does feel much better. He does seem more comfortable this time, pulse ox 96% on 3 L nasal cannula. 03/30/19 13:22 O2 saturation 98% on 3 L. We will turn off oxygen and see how his saturations do. He still has diffuse rhonchi and wheezes, and very prolonged expiratory wheeze even after he seems to have stopped breathing out. 03/30/19 13:42 On room air the O2 sat is 94%. He does seem to be breathing a little bit faster, and continues to retract some. He still has the very prolonged expiratory phase of wheezes after he stops his expiration. He states that he has been coughing up mucus but had nowhere to put it so is been swallowing it. This is the first that I heard that he now has productive cough so I will order a sputum sample. - Vital Signs Vital signs: Temp Pulse Resp BP Pulse Ox 97.8 F 20 137/68 H 97 03/30/19 09:40 03/30/19 14:01 03/30/19 14:01 03/30/19 14:01 - Laboratory Result Diagrams: 03/30/19 09:39 03/30/19 09:39 Laboratory results interpreted by me: 03/30/19 03/30/19 03/30/19 09:39 09:39 10:24 WBC 17.8 H RDW 14.2 H Seg Neuts % (Manual) 81 H Band Neutrophils % 1 L Lymphocytes % (Manual) 9 L Abs Neuts (Manual) 14.6 H VBG pH 7.43 H Glucose 131 H Urine Protein 03/30/19 10:32 WBC RDW Seg Neuts % (Manual) Band Neutrophils % Lymphocytes % (Manual) Abs Neuts (Manual) VBG pH Glucose Urine Protein 100 H - Diagnostic Test Radiology reviewed: Image reviewed, Reports reviewed - Chest x-ray shows COPD without acute cardiopulmonary process. - EKG Interpretation by Me EKG shows normal: Sinus rhythm, Elizabeth, Intervals, QRS Complexes, ST-T Waves Rate: Tachycardia - 102 - Consults ROSSI Contreras Time consulted: 13:43 Consulted provider: will come to ER Critical Care Note - Critical Care Note Total time excluding time spent on procedures (mins): 35 Discharge - Discharge Clinical Impression: COPD with acute exacerbation Leukocytosis Qualifiers: Leukocytosis type: unspecified Qualified Code(s): D72.829 - Elevated white blood cell count, unspecified Condition: Stable Disposition: ADMITTED INPATIENT Admitting Provider: Otoniel (Hospitalist) Unit Admitted: Telemetry Scribe Attestation: 03/30/19 11:59 I personally performed the services described in the documentation, reviewed and edited the documentation which was dictated to the scribe in my presence, and it accurately records my words and actions. I personally performed the services described in the documentation, reviewed and edited the documentation which was dictated to the scribe in my presence, and it accurately records my words and actions.
[2019-03-30] MEDS: METHYLPREDNISOLONE INJ 40 MG/1 ML SDV IV SCH ×2 (15:51→22:30)
--- NOTE | 2019-03-30 16:23 | PDOC H&P ---
History of Present Illness Admission Date/PCP: 03/30/19 15:02 MATTHEW VANESSA MD History of Present Illness: MEKA ATWOOD JR is a 68 year old male seen in the emergency room with a 2 to 3- day history of increased shortness of breath. Patient has been diagnosed with COPD now several years. One year ago the patient was admitted to the hospital for approximately 10 or 11 days with the same sort of exacerbation. Patient currently smokes a half a pack of cigarettes per day and has been using Chantix for the last 2 weeks. Patient has had a nonproductive cough now for the last several days as well. Patient states when he walks around the house or outside he gets short of breath much quicker just in the last few days she does have a nebulizer machine at home that he has been using. Past Medical History Cardiac Medical History: Reports: Hypertension Denies: Coronary Artery Disease, Myocardial Infarction Pulmonary Medical History: Reports: Asthma, Bronchitis, Chronic Obstructive Pulmonary Disease (COPD), Pneumonia - 08/01 Neurological Medical History: Denies: Seizures GI Medical History: Denies: Cirrhosis, Crohn's Disease, Ulcerative Colitis Musculoskeltal Medical History: Reports: Arthritis - back and shoulder, Other - Back surgeries x3 Denies: Fibromyalgia Skin Medical History: Denies: Psoriasis Psychiatric Medical History: Reports: Depression Traumatic Medical History: Denies: Traumatic Brain Injury Hematology: Denies: Anemia, Sickle Cell Disease Infectious Medical History: Denies: HIV, Methicillin-Resistant Staph Aureus Past Surgical History Past Surgical History: Reports: Orthopedic Surgery - 3 discectomy. plates and screws in back Denies: Pacemaker Social History Smoking Status: Current Every Day Smoker Frequency of Alcohol Use: None Hx Recreational Drug Use: No Drugs: None Hx Prescription Drug Abuse: No - Advance Directive Resuscitation Status: Full Code Family History Family History: Hypertension Parental Family History Reviewed: No Children Family History Reviewed: No Sibling(s) Family History Reviewed.: No Medication/Allergy Home Medications: Albuterol Sulfate [Ventolin 0.083% Neb 2.5 mg/3 mL Ampul] 3 ml NEB Q6HP PRN 03/30/19 Albuterol Sulfate [Ventolin Hfa 8 gm Mdi (1 Mdi/ER Disp)] 2 puff IH Q6HP PRN 03/30/19 Amlodipine Besylate [Norvasc 10 mg Tablet] 10 mg PO DAILY 03/30/19 Budesonide/Formoterol Fumarate [Symbicort HFA 160-4.5 mcg Inhaler 6 gm] 2 puff IH Q12 03/30/19 Fluticasone Propionate [Flonase Nasal [place] 50 Mcg/[place] 16 gm] 2 sprays NASL DAILY 03/30/19 Furosemide [Lasix 40 mg Tablet] 40 mg PO DAILY 03/30/19 Lisinopril [Prinivil 10 mg Tablet] 10 mg PO DAILY 03/30/19 Meloxicam [Mobic] 7.5 mg PO DAILY 03/30/19 Montelukast Sodium [Singulair 10 mg Tablet] 10 mg PO QHS 03/30/19 Oxycodone HCl/Acetaminophen [Percocet 10-325 mg Tablet] 1 tab PO Q6HP PRN Pregabalin [Lyrica 50 mg Capsule] 50 mg PO HSP PRN 03/30/19 Quetiapine Fumarate [Seroquel 25 mg Tablet] 25 mg PO QHS 03/30/19 Umeclidinium [place] [Incruse 62.5 Mcg Ellipta 7 Dose/Dpi] 1 puff IH DAILY 03/30/19 Varenicline Tartrate [Chantix 0.5 mg Tablet] 0.56 mg PO BID 03/30/19 Allergies/Adverse Reactions: No Known Allergies Allergy (Verified 03/30/19 15:41) Review of Systems Constitutional: ABSENT: chills, fever(s), headache(s), weight gain, weight loss Cardiovascular: ABSENT: chest pain, dyspnea on exertion, edema, orthropnea, palpitations Respiratory: PRESENT: cough, dyspnea Neurological: ABSENT: abnormal gait, abnormal speech, confusion, dizziness, focal weakness, syncope Psychiatric: ABSENT: anxiety, depression, homidical ideation, suicidal ideation Physical Exam Vital Signs: Temp Pulse Resp BP Pulse Ox 97.8 F 20 137/68 H 97 03/30/19 09:40 03/30/19 14:01 03/30/19 14:01 03/30/19 14:01 Intake & Output 03/29/19 03/30/19 03/31/19 06:59 06:59 06:59 Intake Total 350 Balance 350 Weight 74.843 kg General appearance: PRESENT: mild distress, other - Respiratory Respiratory exam: PRESENT: rhonchi, tachypnea, wheezes Cardiovascular exam: PRESENT: RRR. ABSENT: diastolic murmur, rubs, systolic murmur Neurological exam: PRESENT: alert, awake, oriented to person, oriented to place, oriented to time, oriented to situation, CN II-XII grossly intact. ABSENT: motor sensory deficit Psychiatric exam: PRESENT: appropriate affect, normal mood. ABSENT: homicidal ideation, suicidal ideation Results Laboratory Results: 03/30/19 09:39 03/30/19 09:39 03/30/19 03/30/19 03/30/19 09:39 09:39 09:39 WBC 17.8 H RBC 5.10 Hgb 14.7 Hct 44.5 MCV 87 MCH 28.7 MCHC 33.0 RDW 14.2 H Plt Count 217 Seg Neutrophils % Not Reportable VBG pH Cancelled VBG pCO2 Cancelled VBG HCO3 Cancelled VBG Base Excess Cancelled Sodium 143.6 Potassium 4.8 Chloride 106 Carbon Dioxide 27 Anion Gap 11 BUN 15 Creatinine 0.68 Est GFR ( Amer) > 60 Glucose 131 H Calcium 9.5 Total Bilirubin 0.9 AST 38 Alkaline Phosphatase 80 Total Protein 7.4 Albumin 4.4 Urine Color Urine Appearance Urine pH Ur Specific [place] Urine Protein Urine Glucose (UA) Urine Ketones Urine Blood Urine Nitrite Ur Leukocyte Esterase Urine WBC (Auto) Urine RBC (Auto) 03/30/19 03/30/19 10:24 10:32 WBC RBC Hgb Hct MCV MCH MCHC RDW Plt Count Seg Neutrophils % VBG pH 7.43 H VBG pCO2 38.9 VBG HCO3 25.3 VBG Base Excess 1.1 Sodium Potassium Chloride Carbon Dioxide Anion Gap BUN Creatinine Est GFR ( Amer) Glucose Calcium Total Bilirubin AST Alkaline Phosphatase Total Protein Albumin Urine Color YELLOW Urine Appearance CLEAR Urine pH 7.0 Ur Specific [place] 1.012 Urine Protein 100 H Urine Glucose (UA) NEGATIVE Urine Ketones NEGATIVE Urine Blood NEGATIVE Urine Nitrite NEGATIVE Ur Leukocyte Esterase NEGATIVE Urine WBC (Auto) 1 Urine RBC (Auto) 1 Impressions: Chest X-Ray 03/30/19 09:37 IMPRESSION: NO ACUTE RADIOGRAPHIC FINDING IN THE CHEST. Assessment and Plan - Diagnosis (1) COPD with acute exacerbation Is this a current diagnosis for this admission?: Yes (2) Chronic pain Is this a current diagnosis for this admission?: Yes (3) HTN (hypertension) Qualifiers: Hypertension type: essential hypertension Is this a current diagnosis for this admission?: Yes (4) Tobacco abuse Is this a current diagnosis for this admission?: Yes - Plan Summary Summary: 03/30/2019 She is white count 17,800, electrolytes are grossly normal, x-ray shows no acute process We will place patient on IV antibiotics as well as IV steroids, proceed with pulmonary toiletry May be nothing more than a COPD exacerbation or may be bronchitis or even early pneumonia Patient does not appear to need BiPAP at the present time. Will be admitted for further treatment. - Time Time Spent with patient: 35 or more minutes
[2019-03-30] MEDS: IPRATROPIUM/ALBUTEROL 0.5-2.5 MG/3 ML AMPUL NEB PRN ×2 (18:27→23:55)
--- NOTE | 2019-03-30 20:15 | EKG REPORT ---
SEVERITY:- OTHERWISE NORMAL ECG - SINUS TACHYCARDIA : Confirmed by: Shelley Barksdale MD 30-Mar-2019 20:14:28
[2019-03-30] MEDS: NORMAL SALINE 1000 ML 1,000 ML IV PRN (20:23)
[2019-03-30] MEDS: FAMOTIDINE 20 MG TABLET PO SCH (22:30)
[2019-03-31] MEDS: METHYLPREDNISOLONE INJ 40 MG/1 ML SDV IV SCH ×3 (05:51→21:45)
[2019-03-31 06:28] LABS: ABSOLUTE MONOCYTES (AUTO) 0.9 10^3/uL (0.1-1.4); ABSOLUTE NEUT (AUTO) 14.1 10^3/uL (1.7-8.2); BASOPHILS % (AUTO) 0.1 % (0-2); HEMATOCRIT 41.6 % (37.9-51.0); HEMOGLOBIN 13.9 g/dL (13.5-17.0); LYMPHOCYTES % (AUTO) 6.5 % (13-45); MEAN CORPUSCULAR HEMOGLOBIN 28.9 pg (27.0-33.4); MEAN CORPUSCULAR HGB CONC 33.4 g/dL (32.0-36.0); MEAN CORPUSCULAR VOLUME 87 fl (80-97); MONOCYTES % (AUTO) 5.9 % (3-13); PLATELET COUNT 206 10^3/uL (150-450); RED BLOOD COUNT 4.81 10^6/uL (4.35-5.55); RED CELL DISTRIBUTION WIDTH 14.2 % (11.5-14.0); SEGMENTED NEUTROPHILS % (AUTO) 87.5 % (42-78); TOTAL CELLS COUNTED % (AUTO) 100 %; WHITE BLOOD COUNT 16.1 10^3/uL (4.0-10.5)
[2019-03-31 06:52] LABS: ANION GAP 6 (5-19); BLOOD UREA NITROGEN 20 mg/dL (7-20); CARBON DIOXIDE 29 mmol/L (22-30); CHLORIDE 105 mmol/L (98-107); GLUCOSE 112 mg/dL (75-110); POTASSIUM 4.6 mmol/L (3.6-5.0)
[2019-03-31] MEDS: IPRATROPIUM/ALBUTEROL 0.5-2.5 MG/3 ML AMPUL NEB PRN (08:02)
[2019-03-31] MEDS: IPRATROPIUM/ALBUTEROL 0.5-2.5 MG/3 ML AMPUL NEB SCH ×4 (09:35→20:39)
[2019-03-31] MEDS: FAMOTIDINE 20 MG TABLET PO SCH ×2 (10:27→21:45)
[2019-03-31] MEDS: DOCUSATE SODIUM 100 MG CAPSULE PO SCH (10:27)
[2019-03-31] MEDS: ENOXAPARIN SODIUM INJ 40 MG/0.4 ML DISP.SYRIN SUBCUT SCH (10:27)
--- NOTE | 2019-03-31 12:10 | PDOC PROGRESS REPORT ---
Subjective Progress Note for:: 03/31/19 Reason For Visit: COPD EXACERBATION, TOBACCO ABUSE,HYPERTENSION 03/31/2019 COPD exacerbation. Patient still short of breath. Not received any nebulizer treatments last night. I have changed this to every 4 hours standing order Physical Exam Vital Signs: Temp Pulse Resp BP Pulse Ox 98 F 85 18 156/72 H 94 03/31/19 05:29 03/31/19 11:47 03/31/19 11:47 03/31/19 05:29 03/31/19 11:47 Intake & Output 03/30/19 03/31/19 04/01/19 06:59 06:59 06:59 Intake Total 560 Output Total 525 Balance 35 Weight 76.4 kg General appearance: PRESENT: mild distress, other Respiratory exam: PRESENT: rhonchi, tachypnea, wheezes Cardiovascular exam: PRESENT: RRR. ABSENT: diastolic murmur, rubs, systolic [place] Neurological exam: PRESENT: alert, awake, oriented to person, oriented to place, oriented to time, oriented to situation, CN II-XII grossly intact. ABSENT: motor sensory deficit Psychiatric exam: PRESENT: appropriate affect, normal mood. ABSENT: homicidal ideation, suicidal ideation Results Laboratory Results: 03/31/19 05:36 03/31/19 05:36 03/31/19 03/31/19 05:36 05:36 WBC 16.1 H RBC 4.81 Hgb 13.9 Hct 41.6 MCV 87 MCH 28.9 MCHC 33.4 RDW 14.2 H Plt Count 206 Seg Neutrophils % 87.5 H Sodium 140.2 Potassium 4.6 Chloride 105 Carbon Dioxide 29 Anion Gap 6 BUN 20 Creatinine 0.65 Est GFR ( Amer) > 60 Glucose 112 H Calcium 9.0 Magnesium 2.6 H Impressions: Chest X-Ray 03/30/19 09:37 IMPRESSION: NO ACUTE RADIOGRAPHIC FINDING IN THE CHEST. Assessment and Plan - Diagnosis (1) COPD with acute exacerbation Is this a current diagnosis for this admission?: Yes (2) Chronic pain Is this a current diagnosis for this admission?: Yes (3) HTN (hypertension) Qualifiers: Hypertension type: essential hypertension Is this a current diagnosis for this admission?: Yes (4) Tobacco abuse Is this a current diagnosis for this admission?: Yes - Plan Summary Summary: 03/30/2019 Patient's white count 17,800, electrolytes are grossly normal, x-ray shows no acute process We will place patient on IV antibiotics as well as IV steroids, proceed with pulmonary toiletry May be nothing more than a COPD exacerbation or may be bronchitis or even early pneumonia Patient does not appear to need BiPAP at the present time. Will be admitted for further treatment. 03/31/2019 Needs to receive his nebulizer treatments every 4 hours until better. Last night his oxygen saturation was 97% on 3 L nasal cannula Blood pressure is 156/72 Patient is taking Solu-Medrol 40 mg IV every 8 hours, and Levaquin IV White count is stable 16,000 We will continue treatment as above - Time Time Spent with patient: 15-24 minutes
[2019-03-31] MEDS: LEVOFLOXACIN 750 MG/D5W RTU 750 MG/150 ML RTUPB IV SCH (14:33)
[2019-04-01] MEDS: IPRATROPIUM/ALBUTEROL 0.5-2.5 MG/3 ML AMPUL NEB SCH ×6 (00:05→19:44)
[2019-04-01] MEDS: METHYLPREDNISOLONE INJ 40 MG/1 ML SDV IV SCH ×3 (05:45→21:30)
[2019-04-01] MEDS: FAMOTIDINE 20 MG TABLET PO SCH ×2 (09:51→21:30)
[2019-04-01] MEDS: DOCUSATE SODIUM 100 MG CAPSULE PO SCH (09:51)
[2019-04-01] MEDS: ENOXAPARIN SODIUM INJ 40 MG/0.4 ML DISP.SYRIN SUBCUT SCH (09:51)
[2019-04-01] MEDS: NORMAL SALINE 1000 ML 1,000 ML IV PRN (09:51)
[2019-04-01] MEDS ORDERED: PREGABALIN 50 MG CAPSULE PO PRN (09:58)
[2019-04-01] MEDS ORDERED: ALBUTEROL SULFATE HFA (90 MCG/PUFF) 8 GM MDI (1 MDI/ER DISP) IH PRN (09:58)
[2019-04-01] MEDS: UMECLIDINIUM BROMIDE 62.5 MCG/DOSE IH SCH (10:00)
[2019-04-01] MEDS: FLUTICASONE/VILANTEROL 200-25 MCG/DOSE IH SCH (11:00)
[2019-04-01] MEDS: FLUTICASONE NASAL SPRAY 50 MCG/SPRY 120 SPRAY/16 GM NASL SCH (11:00)
--- NOTE | 2019-04-01 11:07 | PDOC PROGRESS REPORT ---
Subjective Progress Note for:: 04/01/19 Reason For Visit: COPD EXACERBATION, TOBACCO ABUSE,HYPERTENSION 04/01/2019 Patient states he is feeling some better but clinically does not look any better. Still significantly short of breath Physical Exam Vital Signs: Temp Pulse Resp BP Pulse Ox 97.7 F 91 20 149/63 H 97 04/01/19 08:13 04/01/19 08:13 04/01/19 08:13 04/01/19 08:13 04/01/19 08:13 Intake & Output 03/31/19 04/01/19 04/02/19 06:59 06:59 06:59 Intake Total 560 2170 Output Total 525 1775 Balance 35 395 Weight 76.4 kg 76.1 kg General appearance: PRESENT: mild distress Respiratory exam: PRESENT: accessory muscle use, decreased breath sounds, wheezes Cardiovascular exam: PRESENT: RRR. ABSENT: diastolic murmur, rubs, systolic murmur Neurological exam: PRESENT: alert, awake, oriented to person, oriented to place, oriented to time, oriented to situation, CN II-XII grossly intact. ABSENT: motor sensory deficit Psychiatric exam: PRESENT: appropriate affect, normal mood, other - Patient does not seem anxious. ABSENT: homicidal ideation, suicidal ideation Results Laboratory Results: 03/31/19 05:36 03/31/19 05:36 Impressions: Chest X-Ray 03/30/19 09:37 IMPRESSION: NO ACUTE RADIOGRAPHIC FINDING IN THE CHEST. Assessment and Plan - Diagnosis (1) COPD with acute exacerbation Is this a current diagnosis for this admission?: Yes (2) Chronic pain Is this a current diagnosis for this admission?: Yes (3) HTN (hypertension) Qualifiers: Hypertension type: essential hypertension Is this a current diagnosis for this admission?: Yes (4) Tobacco abuse Is this a current diagnosis for this admission?: Yes - Plan Summary Summary: 03/30/2019 Patient's white count 17,800, electrolytes are grossly normal, x-ray shows no acute process We will place patient on IV antibiotics as well as IV steroids, proceed with pulmonary toiletry May be nothing more than a COPD exacerbation or may be bronchitis or even early pneumonia Patient does not appear to need BiPAP at the present time. Will be admitted for further treatment. 03/31/2019 Needs to receive his nebulizer treatments every 4 hours until better. Last night his oxygen saturation was 97% on 3 L nasal cannula Blood pressure is 156/72 Patient is taking Solu-Medrol 40 mg IV every 8 hours, and Levaquin IV White count is stable 16,000 We will continue treatment as above 04/01/2019 Complained of not sleeping well last night and his medications were reordered. States he was using 4 different inhalers at home well is taking a sleeping pill Patient's temperature is 98 pulse between 80 and 90 blood pressure 152/73 down to 120/70 O2 sat 93 to 97% on 3 L nasal cannula Day #3 of IV Levaquin Day #3 of IV Solu-Medrol 40 mg every 8 hours Blood culture no growth in 24 hours Gram stain and sputum culture are both preliminary reports - Time Time Spent with patient: 25-34 minutes
[2019-04-01] MEDS: FUROSEMIDE 40 MG TABLET PO SCH (12:00)
[2019-04-01] MEDS: AMLODIPINE BESYLATE 10 MG TABLET PO SCH (12:00)
[2019-04-01] MEDS: LISINOPRIL 10 MG TABLET PO SCH (12:00)
[2019-04-01] MEDS: LEVOFLOXACIN 750 MG/D5W RTU 750 MG/150 ML RTUPB IV SCH (13:46)
[2019-04-01] MEDS: VARENICLINE TARTRATE 0.5 MG TABLET PO SCH (17:47)
[2019-04-01] MEDS: QUETIAPINE FUMARATE 25 MG TABLET PO SCH (21:30)
[2019-04-01] MEDS: MONTELUKAST SODIUM 10 MG TABLET PO SCH (21:30)
[2019-04-02] MEDS: IPRATROPIUM/ALBUTEROL 0.5-2.5 MG/3 ML AMPUL NEB SCH ×6 (00:11→19:49)
[2019-04-02] MEDS: METHYLPREDNISOLONE INJ 40 MG/1 ML SDV IV SCH ×3 (05:32→21:35)
[2019-04-02] MEDS: NORMAL SALINE 1000 ML 1,000 ML IV PRN ×2 (05:32→21:36)
[2019-04-02 09:01] LABS: HEMATOCRIT 43.8 % (37.9-51.0); HEMOGLOBIN 14.3 g/dL (13.5-17.0); MEAN CORPUSCULAR HEMOGLOBIN 28.6 pg (27.0-33.4); MEAN CORPUSCULAR HGB CONC 32.7 g/dL (32.0-36.0); MEAN CORPUSCULAR VOLUME 88 fl (80-97); PLATELET COUNT 223 10^3/uL (150-450); RED BLOOD COUNT 5.01 10^6/uL (4.35-5.55); RED CELL DISTRIBUTION WIDTH 14.1 % (11.5-14.0); WHITE BLOOD COUNT 14.3 10^3/uL (4.0-10.5)
[2019-04-02 09:13] LABS: ANION GAP 11 (5-19); BLOOD UREA NITROGEN 23 mg/dL (7-20); CALCIUM 9.3 mg/dL (8.4-10.2); CARBON DIOXIDE 27 mmol/L (22-30); CHLORIDE 104 mmol/L (98-107); GLUCOSE 213 mg/dL (75-110); POTASSIUM 4.3 mmol/L (3.6-5.0)
[2019-04-02 09:40] LABS: ABSOLUTE LYMPHOCYTES# (MANUAL) 0.4 10^3/uL (0.5-4.7); ABSOLUTE MONOCYTES # (MANUAL) 0.4 10^3/uL (0.1-1.4); BASOPHILS % (MANUAL) 0 % (0-2); EOSINOPHILS % (MANUAL) 0 % (0-6); LYMPHOCYTES % (MANUAL) 3 % (13-45); MONOCYTES % (MANUAL) 3 % (3-13); SEGMENTED NEUTROPHILS % (MAN) 94 % (42-78); TOTAL CELLS COUNTED 100
[2019-04-02 09:41] LABS: ANISOCYTOSIS SLIGHT; PLATELET COMMENT ADEQUATE
[2019-04-02] MEDS: FUROSEMIDE 40 MG TABLET PO SCH (09:59)
[2019-04-02] MEDS: AMLODIPINE BESYLATE 10 MG TABLET PO SCH (09:59)
[2019-04-02] MEDS: LISINOPRIL 10 MG TABLET PO SCH (09:59)
[2019-04-02] MEDS: FLUTICASONE NASAL SPRAY 50 MCG/SPRY 120 SPRAY/16 GM NASL SCH (09:59)
[2019-04-02] MEDS: VARENICLINE TARTRATE 0.5 MG TABLET PO SCH ×2 (09:59→17:33)
[2019-04-02] MEDS: FLUTICASONE/VILANTEROL 200-25 MCG/DOSE IH SCH (10:00)
[2019-04-02] MEDS: DOCUSATE SODIUM 100 MG CAPSULE PO SCH (10:00)
[2019-04-02] MEDS: ENOXAPARIN SODIUM INJ 40 MG/0.4 ML DISP.SYRIN SUBCUT SCH (10:00)
[2019-04-02] MEDS: UMECLIDINIUM BROMIDE 62.5 MCG/DOSE IH SCH (10:00)
[2019-04-02] MEDS: FAMOTIDINE 20 MG TABLET PO SCH ×2 (10:00→21:35)
--- NOTE | 2019-04-02 11:41 | PDOC PROGRESS REPORT ---
Subjective Progress Note for:: 04/02/19 Reason For Visit: COPD EXACERBATION, TOBACCO ABUSE,HYPERTENSION 04/02/2019 Patient states he feels better today, but probably still 2 to 3 days from discharge Physical Exam Vital Signs: Temp Pulse Resp BP Pulse Ox 97.6 F 78 19 128/64 H 99 04/02/19 07:32 04/02/19 07:32 04/02/19 07:32 04/02/19 07:32 04/02/19 07:32 Intake & Output 04/01/19 04/02/19 04/03/19 06:59 06:59 06:59 Intake Total 2170 2289 Output Total 1775 2900 Balance 395 -611 Weight 76.1 kg 76.1 kg General appearance: PRESENT: no acute distress Respiratory exam: PRESENT: wheezes - Expiratory, moving more air today Less accessory muscles, other - Talking better less shortness of breath Cardiovascular exam: PRESENT: RRR. ABSENT: diastolic murmur, rubs, systolic murmur Neurological exam: PRESENT: alert, awake, oriented to person, oriented to place, oriented to time, oriented to situation, CN II-XII grossly intact. ABSENT: motor sensory deficit Psychiatric exam: PRESENT: appropriate affect, normal mood. ABSENT: homicidal ideation, suicidal ideation Results Laboratory Results: 04/02/19 08:30 04/02/19 08:33 04/02/19 04/02/19 08:30 08:33 WBC 14.3 H RBC 5.01 Hgb 14.3 Hct 43.8 MCV 88 MCH 28.6 MCHC 32.7 RDW 14.1 H Plt Count 223 Seg Neutrophils % Not Reportable Sodium 141.5 Potassium 4.3 Chloride 104 Carbon Dioxide 27 Anion Gap 11 BUN 23 H Creatinine 0.68 Est GFR ( Amer) > 60 Glucose 213 H Calcium 9.3 03/30/19 18:36 Sputum Gram Stain - Final 03/30/19 18:36 Sputum Sputum Culture - Final NORMAL GAEL Impressions: Chest X-Ray 03/30/19 09:37 IMPRESSION: NO ACUTE RADIOGRAPHIC FINDING IN THE CHEST. Assessment and Plan - Diagnosis (1) COPD with acute exacerbation Is this a current diagnosis for this admission?: Yes (2) Chronic pain Is this a current diagnosis for this admission?: Yes (3) HTN (hypertension) Qualifiers: Hypertension type: essential hypertension Is this a current diagnosis for this admission?: Yes (4) Tobacco abuse Is this a current diagnosis for this admission?: Yes - Plan Summary Summary: 03/30/2019 Patient's white count 17,800, electrolytes are grossly normal, x-ray shows no acute process We will place patient on IV antibiotics as well as IV steroids, proceed with pulmonary toiletry May be nothing more than a COPD exacerbation or may be bronchitis or even early pneumonia Patient does not appear to need BiPAP at the present time. Will be admitted for further treatment. 03/31/2019 Needs to receive his nebulizer treatments every 4 hours until better. Last night his oxygen saturation was 97% on 3 L nasal cannula Blood pressure is 156/72 Patient is taking Solu-Medrol 40 mg IV every 8 hours, and Levaquin IV White count is stable 16,000 We will continue treatment as above 04/01/2019 Complained of not sleeping well last night and his medications were reordered. States he was using 4 different inhalers at home well is taking a sleeping pill Patient's temperature is 98 pulse between 80 and 90 blood pressure 152/73 down to 120/70 O2 sat 93 to 97% on 3 L nasal cannula Day #3 of IV Levaquin Day #3 of IV Solu-Medrol 40 mg every 8 hours Blood culture no growth in 24 hours Gram stain and sputum culture are both preliminary reports 04/02/2019 Patient feeling much better had a better night sleep, vital signs ,pulse of 80 , O2 sat 97% on 3 L , patient does use oxygen at home , blood cultures are negative, sputum cultures negative Will give patient another day of q8h steroids, start to taper tomorrow. Patient clinically appears in less respiratory distress. I discussed case with respiratory therapist. - Time Time Spent with patient: 25-34 minutes
[2019-04-02] MEDS: LEVOFLOXACIN 750 MG/D5W RTU 750 MG/150 ML RTUPB IV SCH (13:40)
[2019-04-02] MEDS ORDERED: LORAZEPAM 1 MG TABLET PO PRN (18:57)
[2019-04-02] MEDS: QUETIAPINE FUMARATE 25 MG TABLET PO SCH (21:34)
[2019-04-02] MEDS: MONTELUKAST SODIUM 10 MG TABLET PO SCH (21:35)
[2019-04-03] MEDS: IPRATROPIUM/ALBUTEROL 0.5-2.5 MG/3 ML AMPUL NEB SCH ×6 (00:54→21:11)
[2019-04-03] MEDS: METHYLPREDNISOLONE INJ 40 MG/1 ML SDV IV SCH ×3 (06:15→22:03)
--- NOTE | 2019-04-03 09:10 | RADIOLOGY REPORT (SQ) ---
EXAM DESCRIPTION: CHEST 2 VIEWS COMPLETED DATE/TIME: 04/03/2019 8:50 am REASON FOR STUDY: copd COMPARISON: 03/30/2019. NUMBER OF VIEWS: Two view. TECHNIQUE: Frontal and lateral radiographic views of the chest acquired. LIMITATIONS: None. FINDINGS: LUNGS AND PLEURA: No opacities, masses or pneumothorax. No pleural effusion. Attenuated bl ood vessels and flattened kathleen-diaphragms. MEDIASTINUM AND HILAR STRUCTURES: No masses. No contour abnormalities. HEART AND VASCULAR STRUCTURES: Heart normal in size and contour. No evidence for failure. BONES: No acute findings. HARDWARE: None in the chest. OTHER: No other significant finding. IMPRESSION: COPD. NO ACUTE RADIOGRAPHIC FINDING IN THE CHEST. TECHNICAL DOCUMENTATION: JOB ID: [id number] [employer]- All Rights Reserved Reading location - IP/workstation name: [email or web address]
[2019-04-03] MEDS: LISINOPRIL 10 MG TABLET PO SCH (11:33)
[2019-04-03] MEDS: FAMOTIDINE 20 MG TABLET PO SCH ×2 (11:33→22:03)
[2019-04-03] MEDS: FUROSEMIDE 40 MG TABLET PO SCH (11:33)
[2019-04-03] MEDS: DOCUSATE SODIUM 100 MG CAPSULE PO SCH (11:33)
[2019-04-03] MEDS: AMLODIPINE BESYLATE 10 MG TABLET PO SCH (11:34)
[2019-04-03] MEDS: ENOXAPARIN SODIUM INJ 40 MG/0.4 ML DISP.SYRIN SUBCUT SCH (11:34)
[2019-04-03] MEDS: FLUTICASONE/VILANTEROL 200-25 MCG/DOSE IH SCH (11:35)
[2019-04-03] MEDS: UMECLIDINIUM BROMIDE 62.5 MCG/DOSE IH SCH (11:35)
[2019-04-03] MEDS: FLUTICASONE NASAL SPRAY 50 MCG/SPRY 120 SPRAY/16 GM NASL SCH (11:35)
[2019-04-03] MEDS: VARENICLINE TARTRATE 0.5 MG TABLET PO SCH ×2 (11:35→18:12)
[2019-04-03] MEDS: LEVOFLOXACIN 750 MG/D5W RTU 750 MG/150 ML RTUPB IV SCH (13:57)
--- NOTE | 2019-04-03 15:00 | PDOC PROGRESS REPORT ---
Subjective Progress Note for:: 04/03/19 Reason For Visit: COPD EXACERBATION, TOBACCO ABUSE,HYPERTENSION 04/03/2019 Feels like he is improving from his COPD exacerbation Chest x-ray today shows no acute cardiopulmonary disease, only COPD Physical Exam Vital Signs: Temp Pulse Resp BP Pulse Ox 98.0 F 70 16 110/67 97 04/03/19 11:54 04/03/19 12:55 04/03/19 12:55 04/03/19 11:54 04/03/19 12:55 Intake & Output 04/02/19 04/03/19 04/04/19 06:59 06:59 06:59 Intake Total 2289 2468 956 Output Total 2900 2250 825 Balance -611 218 131 Weight 76.1 kg 77.4 kg General appearance: PRESENT: mild distress Respiratory exam: PRESENT: rhonchi, other - Patient is much more comfortable today talking in complete sentences Cardiovascular exam: PRESENT: RRR. ABSENT: diastolic murmur, rubs, systolic murmur Neurological exam: PRESENT: alert, awake, oriented to person, oriented to place, oriented to time, oriented to situation, CN II-XII grossly intact. ABSENT: motor sensory deficit Psychiatric exam: PRESENT: appropriate affect, normal mood. ABSENT: homicidal ideation, suicidal ideation Results Laboratory Results: 04/02/19 08:30 04/02/19 08:33 03/30/19 18:36 Sputum Gram Stain - Final 03/30/19 18:36 Sputum Sputum Culture - Final NORMAL GAEL Impressions: Chest X-Ray 04/03/19 07:00 IMPRESSION: COPD. NO ACUTE RADIOGRAPHIC FINDING IN THE CHEST. Assessment and Plan - Diagnosis (1) COPD with acute exacerbation Is this a current diagnosis for this admission?: Yes (2) Chronic pain Is this a current diagnosis for this admission?: Yes (3) HTN (hypertension) Qualifiers: Hypertension type: essential hypertension Is this a current diagnosis for this admission?: Yes (4) Tobacco abuse Is this a current diagnosis for this admission?: Yes - Plan Summary Summary: 03/30/2019 Patient's white count 17,800, electrolytes are grossly normal, x-ray shows no acute process We will place patient on IV antibiotics as well as IV steroids, proceed with pulmonary toiletry May be nothing more than a COPD exacerbation or may be bronchitis or even early pneumonia Patient does not appear to need BiPAP at the present time. Will be admitted for further treatment. 03/31/2019 Needs to receive his nebulizer treatments every 4 hours until better. Last night his oxygen saturation was 97% on 3 L nasal cannula Blood pressure is 156/72 Patient is taking Solu-Medrol 40 mg IV every 8 hours, and Levaquin IV White count is stable 16,000 We will continue treatment as above 04/01/2019 Complained of not sleeping well last night and his medications were reordered. States he was using 4 different inhalers at home well is taking a sleeping pill Patient's temperature is 98 pulse between 80 and 90 blood pressure 152/73 down to 120/70 O2 sat 93 to 97% on 3 L nasal cannula Day #3 of IV Levaquin Day #3 of IV Solu-Medrol 40 mg every 8 hours Blood culture no growth in 24 hours Gram stain and sputum culture are both preliminary reports 04/02/2019 Patient feeling much better had a better night sleep, vital signs ,pulse of 80 , O2 sat 97% on 3 L , patient does use oxygen at home , blood cultures are negative, sputum cultures negative Will give patient another day of q8h steroids, start to taper tomorrow. Patient clinically appears in less respiratory distress. I discussed case with respiratory therapist. 04/03/2019 Patient is improving. Will not start tapering steroids today. Possibly tomorrow We will continue IV Levaquin, day 4, on the chance that this is a bronchitis Patient is satisfied with this plan Possibly DC in 24-48 hrs. - Time Time Spent with patient: 25-34 minutes
[2019-04-03] MEDS: MONTELUKAST SODIUM 10 MG TABLET PO SCH (22:03)
[2019-04-03] MEDS: QUETIAPINE FUMARATE 25 MG TABLET PO SCH (22:03)
[2019-04-04] MEDS: IPRATROPIUM/ALBUTEROL 0.5-2.5 MG/3 ML AMPUL NEB SCH ×4 (00:52→12:14)
[2019-04-04] MEDS: METHYLPREDNISOLONE INJ 40 MG/1 ML SDV IV SCH (05:41)
[2019-04-04] MEDS: UMECLIDINIUM BROMIDE 62.5 MCG/DOSE IH SCH (09:30)
[2019-04-04] MEDS: DOCUSATE SODIUM 100 MG CAPSULE PO SCH (09:31)
[2019-04-04] MEDS: AMLODIPINE BESYLATE 10 MG TABLET PO SCH (09:31)
[2019-04-04] MEDS: NORMAL SALINE 1000 ML 1,000 ML IV PRN (09:31)
[2019-04-04] MEDS: FLUTICASONE NASAL SPRAY 50 MCG/SPRY 120 SPRAY/16 GM NASL SCH (09:32)
[2019-04-04] MEDS: FUROSEMIDE 40 MG TABLET PO SCH (09:32)
[2019-04-04] MEDS: FLUTICASONE/VILANTEROL 200-25 MCG/DOSE IH SCH (09:32)
[2019-04-04] MEDS: ENOXAPARIN SODIUM INJ 40 MG/0.4 ML DISP.SYRIN SUBCUT SCH (09:32)
[2019-04-04] MEDS: FAMOTIDINE 20 MG TABLET PO SCH (09:32)
[2019-04-04] MEDS: LISINOPRIL 10 MG TABLET PO SCH (09:32)
[2019-04-04] MEDS: VARENICLINE TARTRATE 0.5 MG TABLET PO SCH (09:32)
[2019-04-04 13:30] VITALS: BP 105/52
[2019-04-04] MEDS ORDERED: METHYLPREDNISOLONE INJ 40 MG/1 ML SDV IV SCH (14:00)
== END 2019-04-04 14:00 | disposition home or self-care (01) | DRG 192 ==
LOC: ER 09:31 → EH 15:02 → 4W 21:57
PROVIDERS: ADMIT Internal Medicine; ATTEND Internal Medicine
DX: J44.1 Chronic obstructive pulmonary disease with (acute) exacerbation (principal); G89.29 Other chronic pain; I10 Essential (primary) hypertension; F17.210 Nicotine dependence, cigarettes, uncomplicated; Z79.891 Long term (current) use of opiate analgesic; Z79.51 Long term (current) use of inhaled steroids; Z79.899 Other long term (current) drug therapy
CPT/HCPCS: 36415; 71045; 71046; 80048; 80053; 81001; 82803; 83735; 85025; 87040; 87070; 87205; 93005; 93010; 94640; 94799; 96365; 96366; 96367; 99291; J1650; J1956; J2920; J3475; J3490; J7030; J7620

== ENCOUNTER 2019-04-11 12:59 | Inpatient (IN) | payer MEDICARE, MEDICAID ==
[2019-04-11] MEDS ORDERED: ALBUTEROL SULFATE 0.083% NEB 2.5 MG/3 ML AMPUL NEB ONE (13:25)
[2019-04-11 13:35] LABS: HEMATOCRIT 46.1 % (37.9-51.0); HEMOGLOBIN 15.5 g/dL (13.5-17.0); MEAN CORPUSCULAR HEMOGLOBIN 28.9 pg (27.0-33.4); MEAN CORPUSCULAR HGB CONC 33.6 g/dL (32.0-36.0); MEAN CORPUSCULAR VOLUME 86 fl (80-97); PLATELET COUNT 181 10^3/uL (150-450); RED BLOOD COUNT 5.35 10^6/uL (4.35-5.55); RED CELL DISTRIBUTION WIDTH 14.1 % (11.5-14.0); WHITE BLOOD COUNT 17.6 10^3/uL (4.0-10.5)
[2019-04-11] MEDS ORDERED: BENZONATATE 100 MG CAPSULE PO ONE (13:54)
--- NOTE | 2019-04-11 13:54 | ER Document Report ---
ED General - General Chief Complaint: Shortness Of Breath Stated Complaint: WEAKNESS Time Seen by Provider: 04/11/19 13:11 Primary Care Provider: MATTHEW VANESSA MD [Primary Care Provider] - Follow up as needed Notes: 68-year-old male with past medical history of COPD presents with shortness of breath and generalized weakness that started yesterday. Patient has associated cough with phlegm. Patient states he was walking back from the bathroom last night and the next thing he knows he was on the floor. Patient does not remember if he felt dizzy prior to falling. Patient does not think he passed out. Patient thinks he may have hit his head. Patient was given 2 duo nebs and Solu-Medrol 125 mg by EMS. Patient was 97% on the nebulizer treatment. In ER patient O2 sats in the 90s and was placed on 2 L of O2 by nurse with improvement to 93%. Patient states he is never on home oxygen. Patient was recently discharged on Wednesday from [facility] for acute bronchitis. Patient states he was feeling better after and was placed on long acting inhalers and prednisone. Patient denies fever, chest pain, nausea/vomiting, abdominal pain. TRAVEL OUTSIDE OF THE [place] IN LAST 30 DAYS: No - Related Data Allergies/Adverse Reactions: No Known Allergies Allergy (Verified 03/30/19 15:41) Past Medical History - Social History Smoking Status: Current Every Day Smoker Family History: Hypertension - Past Medical History Cardiac Medical History: Reports: Hx Hypertension Denies: Hx Coronary Artery Disease, Hx Heart Attack Pulmonary Medical History: Reports: Hx Asthma, Hx Bronchitis, Hx COPD, Hx Pneumonia - 08/01 Neurological Medical History: Denies: Hx Cerebrovascular Accident, Hx Seizures Renal/ Medical History: Denies: Hx Peritoneal Dialysis GI Medical History: Denies: Hx Cirrhosis, Hx Crohn's Disease, Hx Ulcerative Colitis Musculoskeletal Medical History: Reports Hx Arthritis - back and shoulder, Denies Hx Fibromyalgia Skin Medical History: Denies Hx Psoriasis Psychiatric Medical History: Reports: Hx Depression Traumatic Medical History: Denies: Hx Traumatic Brain Injury Infectious Medical History: Denies: Hx HIV, Hx MRSA Past Surgical History: Reports: Hx Orthopedic Surgery - 3 discectomy. plates and screws in back. Denies: Hx Pacemaker - Immunizations Hx Diphtheria, Pertussis, Tetanus Vaccination: No Hx Pneumococcal Vaccination: 05/17/12 Review of Systems - Review of Systems Notes: Constitutional: Negative for fever. HENT: Negative for sore throat. Eyes: Negative for visual changes. Cardiovascular: Negative for chest pain. Respiratory: Positive for shortness of breath and cough. Gastrointestinal: Negative for abdominal pain, vomiting or diarrhea. Genitourinary: Negative for dysuria. Musculoskeletal: Negative for back pain. Skin: Negative for rash. Neurological: Positive for generalized weakness. Negative for headaches or numbness. 10 point ROS negative except as marked above and in HPI. Physical Exam - Vital signs Vitals: Temp Pulse Resp BP Pulse Ox 98.2 F 92 30 H 108/55 L 91 L 04/11/19 13:17 04/11/19 13:17 04/11/19 13:17 04/11/19 13:17 04/11/19 13:17 - Notes Notes: GENERAL: Well-appearing, well-nourished and mild respiratory acute distress. HEAD: Atraumatic, normocephalic. EYES: Extraocular movements intact, sclera anicteric, conjunctiva are normal. NECK: Normal range of motion, supple without lymphadenopathy or JVD. LUNGS: Tachypneic. Decreased breath sounds with mild wheezing at the lung bases. No tripoding. No accessory muscle use. Dry coughing noted. HEART: Regular rate and rhythm without murmurs, rubs or gallops. ABDOMEN: Soft, nontender, normoactive bowel sounds. No guarding, no rebound. No masses appreciated. EXTREMITIES: Normal range of motion, no pitting or edema. No clubbing or cyanosis. NEUROLOGICAL: Cranial nerves II through XII grossly intact. Normal speech, normal gait. PSYCH: Normal mood, normal affect. SKIN: Warm, Dry, normal turgor, no rashes or lesions noted. Course - Re-evaluation Re-evalutation: 04/11/19 68-year-old male presents with shortness of breath and and generalized weakness. Patient has a history of COPD. Patient was given 2 duo nebs and Solu-Medrol 125 by EMS with improvement in symptoms. Decreased breath sounds with wheezing in lung bases. Patient was initially 90% on room air and was placed on 2 L of O2 with improvement to 93%. Hour-long breathing treatments ordered. Cardiac work-up ordered. CT head ordered due to fall and head injury. 04/11/19 14:[address] Arias who states pt will go to [facility]. 04/11/19 14:42 Discussed pt with [facility] who states pt can go to [facility]. Also requested Vancomycin and Cefepime. - Vital Signs Vital signs: Temp Pulse Resp BP Pulse Ox 98.2 F 92 30 H 108/55 L 91 L 04/11/19 13:17 04/11/19 13:17 04/11/19 13:17 04/11/19 13:17 04/11/19 13:17 - Laboratory Result Diagrams: 04/11/19 12:25 04/11/19 12:25 Laboratory results interpreted by me: 04/11/19 04/11/19 12:25 12:25 WBC 17.6 H RDW 14.1 H Band Neutrophils % 1 L Lymphocytes % (Manual) 12 L Abs Neuts (Manual) 13.9 H Sodium 132.7 L Chloride 94 L Calcium 8.2 L Magnesium 2.6 H Total Protein 6.2 L Discharge - Discharge Clinical Impression: Pneumonia Qualifiers: Pneumonia type: due to unspecified organism Laterality: right Lung location: lower lobe of lung Qualified Code(s): J18.9 - Pneumonia, unspecified organism Dyspnea Qualifiers: Dyspnea type: shortness of breath Qualified Code(s): R06.02 - Shortness of breath; R06.00 - Dyspnea, unspecified; R06.01 - Orthopnea Condition: Stable Disposition: ADMITTED INPATIENT Admitting Provider: Hugo (Hospitalist) - [facility] Unit Admitted: [facility] Referrals: MATTHEW VANESSA MD [Primary Care Provider] - Follow up as needed
--- NOTE | 2019-04-11 14:09 | RADIOLOGY REPORT (SQ) ---
EXAM DESCRIPTION: CHEST SINGLE VIEW COMPLETED DATE/TIME: 04/11/2019 1:58 pm REASON FOR STUDY: weakness COMPARISON: 04/03/2019 EXAM PARAMETERS: NUMBER OF VIEWS: One view. TECHNIQUE: Single frontal radiographic view of the chest acquired. RADIATION DOSE: NA LIMITATIONS: None. FINDINGS: LUNGS AND PLEURA: Patchy right basilar opacities suspicious for pneumonia. No large effus ion. No pneumothorax. Chronic emphysematous and interstitial change, stable. MEDIASTINUM AND HILAR STRUCTURES: No masses. Contour normal. HEART AND VASCULAR STRUCTURES: Heart normal in size. Normal vasculature. BONES: No acute findings. HARDWARE: None in the chest. OTHER: No other significant finding. IMPRESSION: New right basilar airspace disease most compatible with pneumonia. No significant effus ion. TECHNICAL DOCUMENTATION: JOB ID: [id number] [employer]- All Rights Reserved Reading location - IP/workstation name: [email or web address]
[2019-04-11 14:10] LABS: ALBUMIN 3.7 g/dL (3.5-5.0); ALKALINE PHOSPHATASE 73 U/L (38-126); ANION GAP 10 (5-19); ASPARTATE AMINO TRANSFERASE 40 U/L (17-59); BILIRUBIN,DIRECT 0.1 mg/dL (0.0-0.4); BILIRUBIN,TOTAL 1.3 mg/dL (0.2-1.3); BLOOD UREA NITROGEN 17 mg/dL (7-20); CALCIUM 8.2 mg/dL (8.4-10.2); CARBON DIOXIDE 29 mmol/L (22-30); CHLORIDE 94 mmol/L (98-107); GLUCOSE 75 mg/dL (75-110); TOTAL PROTEIN 6.2 g/dL (6.3-8.2)
--- NOTE | 2019-04-11 14:12 | RADIOLOGY REPORT (SQ) ---
EXAM DESCRIPTION: CT HEAD WITHOUT COMPLETED DATE/TIME: 04/11/2019 1:58 pm REASON FOR STUDY: fall, head injury COMPARISON: None. TECHNIQUE: Axial images acquired through the brain without intravenous contrast. Images reviewed wi th bone, brain and subdural windows. Additional sagittal and coronal reconstructions were generated. Images stored on PACS. All CT scanners at this facility use dose modulation, iterative reconstruction, and/or weight based d osing when appropriate to reduce radiation dose to as low as reasonably achievable (ALARA). [facility]: Dose Right [facility]: CareDose [facility]: Dose Right [facility]: Teradose 4D [facility]: RoomiePics RADIATION DOSE: CT Rad equipment meets quality standard of care and radiation dose reduction techniq ues were employed. CTDIvol: 53.2 mGy. DLP: 1070 mGy-cm. mGy. LIMITATIONS: None. FINDINGS: VENTRICLES: Appropriate for patient age. CEREBRUM: No masses. No hemorrhage. No midline shift. Mild areas of low density in the white matte r most likely due to chronic micro-vascular ischemic change. No evidence for acute infarction. CEREBELLUM: No masses. No hemorrhage. No alteration of density. No evidence for acute infarction. EXTRAAXIAL SPACES: Mild age-related involutional change. No fluid collections. No masses. ORBITS AND GLOBE: No intra- or extraconal masses. Normal contour of globe without masses. CALVARIUM: No fracture. PARANASAL SINUSES: Mucosal thickening and frothy fluid within the bilateral maxillary sinuses and sph enoid sinus. SOFT TISSUES: No mass or hematoma. OTHER: No other significant finding. IMPRESSION: 1. MILD CHRONIC CHANGES OF ATROPHY AND MICROVASCULAR ISCHEMIA. NO EVIDENCE OF ACUTE IN TRACRANIAL PROCESS. 2. MUCOSAL THICKENING AND FROTHY MATERIAL WITHIN THE BILATERAL MAXILLARY AND SPHENOID SINUSES COMPAT IBLE WITH ACUTE SINUS DISEASE. EVIDENCE OF ACUTE STROKE: NO. TECHNICAL DOCUMENTATION: JOB ID: [id number] Quality ID # [id number]: Final reports with documentation of one or more dose reduction techniques (e.g., Au tomated exposure control, adjustment of the mA and/or kV according to patient size, use of iterative reconstruction technique) 2010 [employer]- All Rights Reserved Reading location - IP/workstation name: [email or web address]
[2019-04-11 14:14] LABS: ABSOLUTE LYMPHOCYTES# (MANUAL) 2.5 10^3/uL (0.5-4.7); ABSOLUTE MONOCYTES # (MANUAL) 1.2 10^3/uL (0.1-1.4); BAND NEUTROPHILS % (MANUAL) 1 % (3-5); BASOPHILS % (MANUAL) 0 % (0-2); EOSINOPHILS % (MANUAL) 0 % (0-6); LYMPHOCYTES % (MANUAL) 12 % (13-45); MONOCYTES % (MANUAL) 7 % (3-13); SEGMENTED NEUTROPHILS % (MAN) 78 % (42-78); TOTAL CELLS COUNTED 100
[2019-04-11 14:17] LABS: RBC MORPHOLOGY COMMENT NORMO-CYTIC/CHROMIC
[2019-04-11 14:18] LABS: PLATELET COMMENT ADEQUATE
[2019-04-11] MEDS ORDERED: VANCOMYCIN HCL INJ 1000 MG VIAL IV ONE (14:38)
[2019-04-11] MEDS ORDERED: CEFEPIME 2 GM/D5W RTU 2 GM/50 ML RTUPB IV ONE (15:00)
[2019-04-11] MEDS ORDERED: ACETAMINOPHEN 325 MG TABLET PO PRN (15:07)
[2019-04-11 15:15] LABS: ARTERIAL BLOOD BASE EXCESS 0.7 mmol/L; ARTERIAL BLOOD H2CO3 1.01 mmol/L (1.05-1.35); ARTERIAL BLOOD HCO3 23.7 mmol/L (20-24); ARTERIAL BLOOD O2 SATURATION 91.9 % (94-98); ARTERIAL BLOOD PCO2 33.5 mmHg (35-45); ARTERIAL BLOOD PH 7.47 (7.35-7.45); ARTERIAL BLOOD PO2 57.8 mmHg (80-100); ARTERIAL BLOOD TOTAL CO2 24.8 mmol/L (23-27)
[2019-04-11] MEDS ORDERED: GENTAMICIN SULFATE 0 MG in DEXTROSE 5%-WATER 100 ML IV NR ×2 (15:15→15:45)
[2019-04-11 15:16] LABS: ARTERIAL BLOOD FIO2 30%
[2019-04-11 15:34] LABS: APPEARANCE,URINE CLEAR; BILIRUBIN,URINE NEGATIVE (NEGATIVE); COLOR,URINE YELLOW; GLUCOSE, URINE NEGATIVE (NEGATIVE); KETONES,URINE TRACE mg/dL (NEGATIVE); PROTEIN,URINE NEGATIVE (NEGATIVE); URINE SPECIFIC GRAVITY 1.009; UROBILINOGEN,URINE NEGATIVE mg/dL (<2.0)
[2019-04-11] MEDS: IPRATROPIUM/ALBUTEROL 0.5-2.5 MG/3 ML AMPUL NEB SCH ×2 (16:37→20:14)
[2019-04-11] MEDS: GENTAMICIN SULFATE 160 MG in DEXTROSE 5%-WATER 100 ML IV SCH (17:57)
--- NOTE | 2019-04-11 18:09 | PDOC H&P ---
History of Present Illness Admission Date/PCP: 04/11/19 14:55 MATTHEW VANESSA MD History of Present Illness: MEKA ATWOOD JR is a 68 year old male was just discharged home from the hospital 1 week ago for COPD exacerbation, pneumonia. He was actually discharged home on p.o. antibiotics and took those medications as well as p.o. steroids. She states he felt good for about 2 or 3 days and then yesterday started feeling short of breath again point where he was unable to get around the house without having to sit down and use his nebulizer machine all the time. He is also had a cough nonproductive for the last several days Chest x-ray in the ER shows a possible new infiltrate the right lower lobe. Recent is going to be admitted for IV antibiotics and pulmonary toiletry. Patient may need a CT of the chest Past Medical History Cardiac Medical History: Reports: Hypertension Denies: Coronary Artery Disease, Myocardial Infarction Pulmonary Medical History: Reports: Asthma, Bronchitis, Chronic Obstructive Pulmonary Disease (COPD), Pneumonia - 08/01 Neurological Medical History: Denies: Seizures GI Medical History: Denies: Cirrhosis, Crohn's Disease, Ulcerative Colitis Musculoskeltal Medical History: Reports: Arthritis - back and shoulder Denies: Fibromyalgia Skin Medical History: Denies: Psoriasis Psychiatric Medical History: Denies: Depression Traumatic Medical History: Denies: Traumatic Brain Injury Hematology: Denies: Anemia, Sickle Cell Disease Infectious Medical History: Denies: HIV, Methicillin-Resistant Staph Aureus Past Surgical History Past Surgical History: Reports: Orthopedic Surgery - 3 discectomy. plates and screws in back Denies: Pacemaker Social History Smoking Status: Current Some Day Smoker Electronic Cigarette use?: No Frequency of Alcohol Use: None Hx Recreational Drug Use: No Drugs: None Hx Prescription Drug Abuse: No - Advance Directive Resuscitation Status: Full Code Family History Family History: Hypertension Parental Family History Reviewed: No Children Family History Reviewed: No Sibling(s) Family History Reviewed.: No Medication/Allergy Home Medications: Albuterol Sulfate [Ventolin 0.083% Neb 2.5 mg/3 mL Ampul] 3 ml NEB Q6HP PRN 03/30/19 Albuterol Sulfate [Ventolin Hfa 8 gm Mdi (1 Mdi/ER Disp)] 2 puff IH Q6HP PRN 03/30/19 Amlodipine Besylate [Norvasc 10 mg Tablet] 10 mg PO DAILY 03/30/19 Budesonide/Formoterol Fumarate [Symbicort HFA 160-4.5 mcg Inhaler 6 gm] 2 puff IH Q12 03/30/19 Fluticasone Propionate [Flonase Nasal [place] 50 Mcg/[place] 16 gm] 2 sprays NASL DAILY 03/30/19 Furosemide [Lasix 40 mg Tablet] 40 mg PO DAILY 03/30/19 Lisinopril [Prinivil 10 mg Tablet] 10 mg PO DAILY 03/30/19 Meloxicam [Mobic] 7.5 mg PO DAILY 03/30/19 Montelukast Sodium [Singulair 10 mg Tablet] 10 mg PO QHS 03/30/19 Oxycodone HCl/Acetaminophen [Percocet 10-325 mg Tablet] 1 tab PO Q6HP PRN 03/30/19 Pregabalin [Lyrica 50 mg Capsule] 50 mg PO HSP PRN 03/30/19 Quetiapine Fumarate [Seroquel 25 mg Tablet] 25 mg PO QHS 03/30/19 Umeclidinium [place] [Incruse 62.5 Mcg Ellipta 7 Dose/Dpi] 1 puff IH DAILY 03/30/19 Varenicline Tartrate [Chantix 0.5 mg Tablet] 0.56 mg PO BID 03/30/19 Acetaminophen [Tylenol 325 mg Tablet] 650 mg PO Q4HP PRN tablet 04/04/19 Docusate Sodium [Colace 100 mg Capsule] 100 mg PO DAILY capsule 04/04/19 Guaifenesin [Mucinex] 600 mg PO BID #28 tablet.sa 04/04/19 Levofloxacin [Levaquin 750 mg Tablet] 750 mg PO DAILY #3 tab 04/04/19 Oxycodone HCl/Acetaminophen [Percocet 5-325 mg Tablet] 1 tab PO Q4HP PRN tablet 04/04/19 Prednisone [Deltasone 20 mg Tablet] 60 mg PO DAILY #12 tablet 04/04/19 Allergies/Adverse Reactions: No Known Allergies Allergy (Verified 04/11/19 15:20) Review of Systems Constitutional: PRESENT: weakness Respiratory: PRESENT: cough, dyspnea Gastrointestinal: ABSENT: abdominal pain, constipation, diarrhea, hematemesis, hematochezia, nausea, vomiting Neurological: ABSENT: abnormal gait, abnormal speech, confusion, dizziness, focal weakness, syncope Psychiatric: ABSENT: anxiety, depression, homidical ideation, suicidal ideation Physical Exam Vital Signs: Temp Pulse Resp BP Pulse Ox 97.4 F 95 18 105/51 L 94 04/11/19 16:29 04/11/19 16:37 04/11/19 16:37 04/11/19 16:29 04/11/19 16:37 Intake & Output 04/10/19 04/11/19 04/12/19 06:59 06:59 06:59 Intake Total 50 Balance 50 Weight 71.7 kg General appearance: PRESENT: mild distress, other - Patient has had breathing treatments as well as medications by EMS as well as the emergency room. States he is feeling better following these treatments Respiratory exam: PRESENT: decreased breath sounds, rhonchi, wheezes, other - Patient is able to talk to me in short sentences Cardiovascular exam: PRESENT: RRR. ABSENT: diastolic murmur, rubs, systolic murmur Neurological exam: PRESENT: alert, awake, oriented to person, oriented to place, oriented to time, oriented to situation, CN II-XII grossly intact. ABSENT: motor sensory deficit Psychiatric exam: PRESENT: appropriate affect, normal mood. ABSENT: homicidal ideation, suicidal ideation Results Laboratory Results: 04/11/19 12:25 04/11/19 12:25 04/11/19 04/11/19 04/11/19 12:25 12:25 14:50 WBC 17.6 H RBC 5.35 Hgb 15.5 Hct 46.1 MCV 86 MCH 28.9 MCHC 33.6 RDW 14.1 H Plt Count 181 Seg Neutrophils % Not Reportable Carbonic Acid 1.01 L HCO3/H2CO3 Ratio 23:1 ABG pH 7.47 H ABG pCO2 33.5 L ABG pO2 57.8 L ABG HCO3 23.7 ABG O2 Saturation 91.9 L ABG Base Excess 0.7 FiO2 30% Sodium 132.7 L Potassium 4.0 Chloride 94 L Carbon Dioxide 29 Anion Gap 10 BUN 17 Creatinine 0.85 Est GFR ( Amer) > 60 Glucose 75 Calcium 8.2 L Magnesium 2.6 H Total Bilirubin 1.3 AST 40 Alkaline Phosphatase 73 Total Protein 6.2 L Albumin 3.7 Urine Color Urine Appearance Urine pH Ur Specific [place] Urine Protein Urine Glucose (UA) Urine Ketones Urine Blood Urine RBC (Auto) 04/11/19 15:08 WBC RBC Hgb Hct MCV MCH MCHC RDW Plt Count Seg Neutrophils % Carbonic Acid HCO3/H2CO3 Ratio ABG pH ABG pCO2 ABG pO2 ABG HCO3 ABG O2 Saturation ABG Base Excess FiO2 Sodium Potassium Chloride Carbon Dioxide Anion Gap BUN Creatinine Est GFR ( Amer) Glucose Calcium Magnesium Total Bilirubin AST Alkaline Phosphatase Total Protein Albumin Urine Color YELLOW Urine Appearance CLEAR Urine pH 7.0 Ur Specific [place] 1.009 Urine Protein NEGATIVE Urine Glucose (UA) NEGATIVE Urine Ketones TRACE H Urine Blood NEGATIVE Urine RBC (Auto) 1 04/11/19 12:25 Troponin I 0.727 Impressions: Chest X-Ray 04/11/19 13:17 IMPRESSION: New right basilar airspace disease most compatible with pneumonia. No significant effusion. Head CT 04/11/19 13:26 IMPRESSION: 1. MILD CHRONIC CHANGES OF ATROPHY AND MICROVASCULAR ISCHEMIA. NO EVIDENCE OF ACUTE INTRACRANIAL PROCESS. 2. MUCOSAL THICKENING AND FROTHY MATERIAL WITHIN THE BILATERAL MAXILLARY AND SPHENOID SINUSES COMPATIBLE WITH ACUTE SINUS DISEASE. EVIDENCE OF ACUTE STROKE: NO. Assessment and Plan - Diagnosis (1) Dyspnea Qualifiers: Dyspnea type: shortness of breath Qualified Code(s): R06.02 - Shortness of breath; R06.00 - Dyspnea, unspecified; R06.01 - Orthopnea Is this a current diagnosis for this admission?: Yes (2) Pneumonia Qualifiers: Pneumonia type: due to unspecified organism Laterality: right Lung location: lower lobe of lung Qualified Code(s): J18.9 - Pneumonia, unspecified organism Is this a current diagnosis for this admission?: Yes (3) COPD exacerbation Is this a current diagnosis for this admission?: Yes (4) Tobacco abuse Is this a current diagnosis for this admission?: Yes - Plan Summary Summary: 04/11/2019 Patient will be admitted for pulmonary toiletry, switch to IV steroids,, try different antibiotics by the IV route Patient did not have a CT scan of his chest when he was here on his last visit and I have ordered a CT of the chest for further information Patient is medically stable to be moved to the floor from the ER - Time Time Spent with patient: 35 or more minutes
--- NOTE | 2019-04-11 18:27 | EKG REPORT ---
SEVERITY:- ABNORMAL ECG - SINUS RHYTHM MULTIPLE ATRIAL PREMATURE COMPLEXES BORDERLINE PROLONGED QT INTERVAL : Confirmed by: Ree Guthrie 11-Apr-2019 18:27:17
[2019-04-11 19:29] LABS: CREATINE KINASE MB 1.6 ng/mL (<4.55)
[2019-04-11 19:37] LABS: TROPONIN I 0.265 ng/mL
[2019-04-11] MEDS: FAMOTIDINE 20 MG TABLET PO SCH (21:36)
[2019-04-11] MEDS: METHYLPREDNISOLONE INJ 40 MG/1 ML SDV IV SCH (21:36)
[2019-04-11] MEDS ORDERED: AZTREONAM 1 GM in DEXTROSE 5%-WATER 50 ML IV SCH (22:00)
[2019-04-12 01:21] LABS: CREATINE KINASE MB 1.53 ng/mL (<4.55)
[2019-04-12 01:26] LABS: TROPONIN I 0.125 ng/mL
[2019-04-12] MEDS: GENTAMICIN SULFATE 160 MG in DEXTROSE 5%-WATER 100 ML IV SCH ×2 (05:40→18:11)
[2019-04-12] MEDS: METHYLPREDNISOLONE INJ 40 MG/1 ML SDV IV SCH ×3 (05:40→22:06)
[2019-04-12] MEDS ORDERED: CEFEPIME 2 GM/D5W RTU 2 GM/50 ML RTUPB IV ONE (06:24)
[2019-04-12] MEDS: CEFEPIME 2 GM/D5W RTU 2 GM/50 ML RTUPB IV SCH ×2 (06:44→17:09)
[2019-04-12 07:24] LABS: HEMATOCRIT 42.8 % (37.9-51.0); HEMOGLOBIN 14.5 g/dL (13.5-17.0); MEAN CORPUSCULAR HEMOGLOBIN 28.8 pg (27.0-33.4); MEAN CORPUSCULAR HGB CONC 33.9 g/dL (32.0-36.0); MEAN CORPUSCULAR VOLUME 85 fl (80-97); PLATELET COUNT 173 10^3/uL (150-450); RED BLOOD COUNT 5.03 10^6/uL (4.35-5.55); RED CELL DISTRIBUTION WIDTH 14.1 % (11.5-14.0); WHITE BLOOD COUNT 16.3 10^3/uL (4.0-10.5)
[2019-04-12 07:46] LABS: ANION GAP 11 (5-19); BLOOD UREA NITROGEN 21 mg/dL (7-20); CALCIUM 8.7 mg/dL (8.4-10.2); CARBON DIOXIDE 26 mmol/L (22-30); CHLORIDE 101 mmol/L (98-107); GLUCOSE 144 mg/dL (75-110); POTASSIUM 4.3 mmol/L (3.6-5.0)
[2019-04-12 08:13] LABS: ABSOLUTE MONOCYTES # (MANUAL) 0.5 10^3/uL (0.1-1.4); BASOPHILS % (MANUAL) 0 % (0-2); EOSINOPHILS % (MANUAL) 0 % (0-6); LYMPHOCYTES % (MANUAL) 6 % (13-45); MONOCYTES % (MANUAL) 3 % (3-13); SEGMENTED NEUTROPHILS % (MAN) 91 % (42-78); TOTAL CELLS COUNTED 100
[2019-04-12 08:14] LABS: ANISOCYTOSIS SLIGHT; PLATELET COMMENT ADEQUATE
[2019-04-12] MEDS: IPRATROPIUM/ALBUTEROL 0.5-2.5 MG/3 ML AMPUL NEB SCH ×4 (08:22→20:50)
[2019-04-12] MEDS: ENOXAPARIN SODIUM INJ 40 MG/0.4 ML DISP.SYRIN SUBCUT SCH (10:02)
[2019-04-12] MEDS: FAMOTIDINE 20 MG TABLET PO SCH ×2 (10:02→22:06)
--- NOTE | 2019-04-12 10:54 | PDOC PROGRESS REPORT ---
Subjective Progress Note for:: 04/12/19 Reason For Visit: PNEUMONIA,COPD EXACERBATION, SHORTNESS OF BREATH, 04/12/2019 End-stage COPD, current pneumonia, COPD exacerbation, failure as an outpatient Physical Exam Vital Signs: Temp Pulse Resp BP Pulse Ox 97.6 F 93 20 99/50 L 97 04/12/19 08:00 04/12/19 08:22 04/12/19 08:22 04/12/19 08:00 04/12/19 08:22 Intake & Output 04/11/19 04/12/19 04/13/19 06:59 06:59 06:59 Intake Total 868 50 Output Total 1335 Balance -467 50 Weight 70 kg General appearance: PRESENT: mild distress, other - Patient states he feels about like he did yesterday in the ER, still short of breath Respiratory exam: PRESENT: decreased breath sounds, wheezes Cardiovascular exam: PRESENT: RRR. ABSENT: diastolic murmur, rubs, systolic murmur Neurological exam: PRESENT: alert, awake, oriented to person, oriented to place, oriented to time, oriented to situation, CN II-XII grossly intact. ABSENT: motor sensory deficit Psychiatric exam: PRESENT: appropriate affect, normal mood. ABSENT: homicidal ideation, suicidal ideation Results Laboratory Results: 04/12/19 06:35 04/12/19 06:35 04/11/19 04/11/19 04/11/19 12:25 12:25 14:50 WBC 17.6 H RBC 5.35 Hgb 15.5 Hct 46.1 MCV 86 MCH 28.9 MCHC 33.6 RDW 14.1 H Plt Count 181 Seg Neutrophils % Not Reportable Carbonic Acid 1.01 L HCO3/H2CO3 Ratio 23:1 ABG pH 7.47 H ABG pCO2 33.5 L ABG pO2 57.8 L ABG HCO3 23.7 ABG O2 Saturation 91.9 L ABG Base Excess 0.7 FiO2 30% Sodium 132.7 L Potassium 4.0 Chloride 94 L Carbon Dioxide 29 Anion Gap 10 BUN 17 Creatinine 0.85 Est GFR ( Amer) > 60 Glucose 75 Calcium 8.2 L Magnesium 2.6 H Total Bilirubin 1.3 AST 40 Alkaline Phosphatase 73 Total Protein 6.2 L Albumin 3.7 Urine Color Urine Appearance Urine pH Ur Specific [place] Urine Protein Urine Glucose (UA) Urine Ketones Urine Blood Urine RBC (Auto) 04/11/19 04/12/19 04/12/19 15:08 06:35 06:35 WBC 16.3 H RBC 5.03 Hgb 14.5 Hct 42.8 MCV 85 MCH 28.8 MCHC 33.9 RDW 14.1 H Plt Count 173 Seg Neutrophils % Not Reportable Carbonic Acid HCO3/H2CO3 Ratio ABG pH ABG pCO2 ABG pO2 ABG HCO3 ABG O2 Saturation ABG Base Excess FiO2 Sodium 137.9 Potassium 4.3 Chloride 101 Carbon Dioxide 26 Anion Gap 11 BUN 21 H Creatinine 0.65 Est GFR ( Amer) > 60 Glucose 144 H Calcium 8.7 Magnesium Total Bilirubin AST Alkaline Phosphatase Total Protein Albumin Urine Color YELLOW Urine Appearance CLEAR Urine pH 7.0 Ur Specific [place] 1.009 Urine Protein NEGATIVE Urine Glucose (UA) NEGATIVE Urine Ketones TRACE H Urine Blood NEGATIVE Urine RBC (Auto) 1 04/11/19 04/11/19 04/12/19 12:25 18:35 00:35 CK-MB (CK-2) 1.60 1.53 Troponin I 0.727 0.265 0.125 Impressions: Chest X-Ray 04/11/19 13:17 IMPRESSION: New right basilar airspace disease most compatible with pneumonia. No significant effusion. Head CT 04/11/19 13:26 IMPRESSION: 1. MILD CHRONIC CHANGES OF ATROPHY AND MICROVASCULAR ISCHEMIA. NO EVIDENCE OF ACUTE INTRACRANIAL PROCESS. 2. MUCOSAL THICKENING AND FROTHY MATERIAL WITHIN THE BILATERAL MAXILLARY AND SPHENOID SINUSES COMPATIBLE WITH ACUTE SINUS DISEASE. EVIDENCE OF ACUTE STROKE: NO. Assessment and Plan - Diagnosis (1) Dyspnea Qualifiers: Dyspnea type: shortness of breath Qualified Code(s): R06.02 - Shortness of breath; R06.00 - Dyspnea, unspecified; R06.01 - Orthopnea Is this a current diagnosis for this admission?: Yes (2) Pneumonia Qualifiers: Pneumonia type: due to unspecified organism Laterality: right Lung location: lower lobe of lung Qualified Code(s): J18.9 - Pneumonia, unspecified organism Is this a current diagnosis for this admission?: Yes (3) COPD exacerbation Is this a current diagnosis for this admission?: Yes (4) Tobacco abuse Is this a current diagnosis for this admission?: Yes (5) End stage COPD Is this a current diagnosis for this admission?: Yes - Plan Summary Summary: 04/11/2019 Patient will be admitted for pulmonary toiletry, switch to IV steroids,, try different antibiotics by the IV route Patient did not have a CT scan of his chest when he was here on his last visit and I have ordered a CT of the chest for further information Patient is medically stable to be moved to the floor from the ER 04/12/2019 Receiving nebulizer treatments [id number] every 4 hours while awake Patient is on IV antibiotics, gentamicin every 12 hours, cefepime every 12 hours Solu-Medrol 40 mg every [address] scan of the chest from this morning is pending O2 sats 94 to 97% on 2 L nasal cannula temperature 97.6 heart rate anywhere from 65-87 Blood pressures averaging about 103/53 Patient appears stable at this time, continue the above for several days - Time Time Spent with patient: 25-34 minutes
--- NOTE | 2019-04-12 11:37 | RADIOLOGY REPORT (SQ) ---
EXAM DESCRIPTION: CT CHEST WITHOUT COMPLETED DATE/TIME: 04/12/2019 9:40 am REASON FOR STUDY: recurrent pneumonia, COPD COMPARISON: CT angio chest 03/11/2012, 08/05/2017 TECHNIQUE: CT scan performed of the chest without intravenous contrast. Images reviewed with lung, soft tissue and bone windows. Reconstructed coronal and sagittal MPR images reviewed. All images st ored on PACS. All CT scanners at this facility use dose modulation, iterative reconstruction, and/or weight based d osing when appropriate to reduce radiation dose to as low as reasonably achievable (ALARA). [facility]: Dose Right [facility]: CareDose [facility]: Dose Right [facility]: Teradose 4D [facility]: Smart [employer] RADIATION DOSE: CT Rad equipment meets quality standard of care and radiation dose reduction techniq ues were employed. CTDIvol: 6.4 mGy. DLP: 287 mGy-cm. mGy. LIMITATIONS: No technical limitations. FINDINGS: LUNGS AND PLEURA: In the periphery of the right upper lobe, right middle lobe, and right l ower lobe, multiple areas of bronchiolitis are present with "tree in bud" appearance. Minimal patchy tree-in-bud appearance left posterior costophrenic sulcus from bronchiolitis. No dense lobar consolidation worrisome for pneumonia. Lungs are hyperinflated and hyperlucent from o bstructive disease. No pleural effusion. No pneumothorax. No gross worrisome pulmonary nodules. HILAR AND MEDIASTINAL STRUCTURES: No identified masses or abnormal nodes. No obvious aneurysm. HEART AND VASCULAR STRUCTURES: No aneurysm. No pericardial effusion. Moderate aortic valve calcific ation and coronary artery calcification UPPER ABDOMEN: Small hiatal hernia. Subcentimeter cysts in the right lobe liver subdiaphragmatic jean face. 3 cm cyst left upper pole kidney THYROID AND OTHER SOFT TISSUES: No masses. No adenopathy. BONES: No significant finding. HARDWARE: None in the chest. OTHER: No other significant findings. IMPRESSION: Bronchiolitis in the periphery of the lungs right greater than left. TECHNICAL DOCUMENTATION: JOB ID: [id number] Quality ID # [id number]: Final reports with documentation of one or more dose reduction techniques (e.g., Au tomated exposure control, adjustment of the mA and/or kV according to patient size, use of iterative reconstruction technique) 2010 [employer]- All Rights Reserved Reading location - IP/workstation name: [email or web address]
[2019-04-13] MEDS: METHYLPREDNISOLONE INJ 40 MG/1 ML SDV IV SCH ×3 (05:14→21:17)
[2019-04-13] MEDS: CEFEPIME 2 GM/D5W RTU 2 GM/50 ML RTUPB IV SCH ×2 (05:15→18:17)
[2019-04-13 06:25] LABS: GENTAMICIN-TROUGH 1.4 ug/mL (<2.0)
[2019-04-13] MEDS: GENTAMICIN SULFATE 160 MG in DEXTROSE 5%-WATER 100 ML IV SCH ×2 (06:36→20:01)
[2019-04-13] MEDS: IPRATROPIUM/ALBUTEROL 0.5-2.5 MG/3 ML AMPUL NEB SCH ×4 (08:00→20:05)
[2019-04-13] MEDS: FAMOTIDINE 20 MG TABLET PO SCH ×2 (09:47→21:17)
[2019-04-13] MEDS: ENOXAPARIN SODIUM INJ 40 MG/0.4 ML DISP.SYRIN SUBCUT SCH (09:48)
--- NOTE | 2019-04-13 11:24 | PDOC PROGRESS REPORT ---
Subjective Progress Note for:: 04/13/19 Reason For Visit: PNEUMONIA,COPD EXACERBATION, SHORTNESS OF BREATH, 04/13/2019 Patient resting comfortably,,, patient's oxygen flow rate is usually around 2, with saturations running anywhere from 93% to 100% Physical Exam Vital Signs: Temp Pulse Resp BP Pulse Ox 97.8 F 83 16 112/75 97 04/13/19 08:08 04/13/19 08:08 04/13/19 08:08 04/13/19 08:08 04/13/19 08:08 Intake & Output 04/12/19 04/13/19 04/14/19 06:59 06:59 06:59 Intake Total 868 844 104 Output Total 1335 540 Balance -467 304 104 Weight 70 kg 71.5 kg General appearance: PRESENT: no acute distress, other - Patient sleeping Respiratory exam: PRESENT: wheezes Cardiovascular exam: PRESENT: RRR, other - Heart rate in the 70s. ABSENT: diastolic murmur, rubs, systolic murmur Neurological exam: PRESENT: alert, awake, oriented to person, oriented to place, oriented to time, oriented to situation, CN II-XII grossly intact. ABSENT: motor sensory deficit Psychiatric exam: PRESENT: appropriate affect, normal mood. ABSENT: homicidal ideation, suicidal ideation Results Laboratory Results: 04/12/19 06:35 04/12/19 06:35 04/11/19 15:08 Sputum Gram Stain - Final 04/11/19 04/11/19 04/12/19 12:25 18:35 00:35 CK-MB (CK-2) 1.60 1.53 Troponin I 0.727 0.265 0.125 Impressions: Chest X-Ray 04/11/19 13:17 IMPRESSION: New right basilar airspace disease most compatible with pneumonia. No significant effusion. Head CT 04/11/19 13:26 IMPRESSION: 1. MILD CHRONIC CHANGES OF ATROPHY AND MICROVASCULAR ISCHEMIA. NO EVIDENCE OF ACUTE INTRACRANIAL PROCESS. 2. MUCOSAL THICKENING AND FROTHY MATERIAL WITHIN THE BILATERAL MAXILLARY AND SPHENOID SINUSES COMPATIBLE WITH ACUTE SINUS DISEASE. EVIDENCE OF ACUTE STROKE: NO. Chest CT 04/12/19 08:00 IMPRESSION: Bronchiolitis in the periphery of the lungs right greater than left. Assessment and Plan - Diagnosis (1) Dyspnea Qualifiers: Dyspnea type: shortness of breath Qualified Code(s): R06.02 - Shortness of breath; R06.00 - Dyspnea, unspecified; R06.01 - Orthopnea Is this a current diagnosis for this admission?: Yes (2) Pneumonia Qualifiers: Pneumonia type: due to unspecified organism Laterality: right Lung location: lower lobe of lung Qualified Code(s): J18.9 - Pneumonia, unspecified organism Is this a current diagnosis for this admission?: Yes (3) COPD exacerbation Is this a current diagnosis for this admission?: Yes (4) Tobacco abuse Is this a current diagnosis for this admission?: Yes (5) End stage COPD Is this a current diagnosis for this admission?: Yes - Plan Summary Summary: 04/11/2019 Patient will be admitted for pulmonary toiletry, switch to IV steroids,, try different antibiotics by the IV route Patient did not have a CT scan of his chest when he was here on his last visit and I have ordered a CT of the chest for further information Patient is medically stable to be moved to the floor from the ER 04/12/2019 Receiving nebulizer treatments [id number] every 4 hours while awake Patient is on IV antibiotics, gentamicin every 12 hours, cefepime every 12 hours Solu-Medrol 40 mg every [address] scan of the chest from this morning is pending O2 sats 94 to 97% on 2 L nasal cannula temperature 97.6 heart rate anywhere from 65-87 Blood pressures averaging about 103/53 Patient appears stable at this time, continue the above for several days 04/13/2019 CT scan of the chest from yesterday shows no active infiltrate however patient does have bronchiolitis possibly pneumonitis Will repeat labs in the morning Continue to biotics and IV steroids. Patient appears to be improving on the abo ve regimen - Time Time Spent with patient: 25-34 minutes
[2019-04-14] MEDS: METHYLPREDNISOLONE INJ 40 MG/1 ML SDV IV SCH ×3 (05:14→21:16)
[2019-04-14] MEDS: CEFEPIME 2 GM/D5W RTU 2 GM/50 ML RTUPB IV SCH ×2 (05:14→17:57)
[2019-04-14 05:36] LABS: HEMATOCRIT 38.2 % (37.9-51.0); HEMOGLOBIN 12.8 g/dL (13.5-17.0); MEAN CORPUSCULAR HEMOGLOBIN 28.5 pg (27.0-33.4); MEAN CORPUSCULAR HGB CONC 33.4 g/dL (32.0-36.0); MEAN CORPUSCULAR VOLUME 85 fl (80-97); PLATELET COUNT 154 10^3/uL (150-450); RED BLOOD COUNT 4.48 10^6/uL (4.35-5.55); RED CELL DISTRIBUTION WIDTH 14.2 % (11.5-14.0); WHITE BLOOD COUNT 15.7 10^3/uL (4.0-10.5)
[2019-04-14 05:57] LABS: ANION GAP 6 (5-19); BLOOD UREA NITROGEN 28 mg/dL (7-20); CALCIUM 8.5 mg/dL (8.4-10.2); CARBON DIOXIDE 28 mmol/L (22-30); CHLORIDE 103 mmol/L (98-107); GLUCOSE 115 mg/dL (75-110); POTASSIUM 4.7 mmol/L (3.6-5.0)
[2019-04-14] MEDS: GENTAMICIN SULFATE 160 MG in DEXTROSE 5%-WATER 100 ML IV SCH ×2 (06:21→19:18)
[2019-04-14 06:23] LABS: ABSOLUTE LYMPHOCYTES# (MANUAL) 0.5 10^3/uL (0.5-4.7); ABSOLUTE MONOCYTES # (MANUAL) 0.3 10^3/uL (0.1-1.4); BASOPHILS % (MANUAL) 0 % (0-2); EOSINOPHILS % (MANUAL) 0 % (0-6); LYMPHOCYTES % (MANUAL) 3 % (13-45); MONOCYTES % (MANUAL) 2 % (3-13); PLATELET COMMENT ADEQUATE; RBC MORPHOLOGY COMMENT NORMO-CYTIC/CHROMIC; SEGMENTED NEUTROPHILS % (MAN) 95 % (42-78); TOTAL CELLS COUNTED 100
[2019-04-14] MEDS: IPRATROPIUM/ALBUTEROL 0.5-2.5 MG/3 ML AMPUL NEB SCH ×4 (08:17→20:27)
[2019-04-14 08:54] LABS: GENTAMICIN-PEAK 9.5 ug/mL (5.0-10.0)
[2019-04-14] MEDS: FAMOTIDINE 20 MG TABLET PO SCH ×2 (09:14→21:15)
[2019-04-14] MEDS: ENOXAPARIN SODIUM INJ 40 MG/0.4 ML DISP.SYRIN SUBCUT SCH (09:14)
--- NOTE | 2019-04-14 10:06 | PDOC PROGRESS REPORT ---
Subjective Progress Note for:: 04/14/19 Reason For Visit: PNEUMONIA,COPD EXACERBATION, SHORTNESS OF BREATH, She states that his breathing is about the same as when admitted but clearly he is talking in longer sentences and appears to be using less accessory muscles Physical Exam Vital Signs: Temp Pulse Resp BP Pulse Ox 97.6 F 69 18 128/69 H 97 04/14/19 03:12 04/14/19 08:19 04/14/19 08:19 04/14/19 03:12 04/14/19 08:19 Intake & Output 04/13/19 04/14/19 04/15/19 06:59 06:59 06:59 Intake Total 844 1148 104 Output Total 540 1525 Balance 304 -377 104 Weight 71.5 kg 71.2 kg General appearance: PRESENT: mild distress Respiratory exam: PRESENT: decreased breath sounds, wheezes - Expiratory scattered Cardiovascular exam: PRESENT: RRR. ABSENT: diastolic murmur, rubs, systolic murmur Neurological exam: PRESENT: alert, awake, oriented to person, oriented to place, oriented to time, oriented to situation, CN II-XII grossly intact. ABSENT: motor sensory deficit Psychiatric exam: PRESENT: other - Patient voices no complaints Results Laboratory Results: 04/14/19 04:57 04/14/19 04:57 04/14/19 04/14/19 04:57 04:57 WBC 15.7 H RBC 4.48 Hgb 12.8 L Hct 38.2 MCV 85 MCH 28.5 MCHC 33.4 RDW 14.2 H Plt Count 154 Seg Neutrophils % Not Reportable Sodium 136.5 L Potassium 4.7 Chloride 103 Carbon Dioxide 28 Anion Gap 6 BUN 28 H Creatinine 0.67 Est GFR ( Amer) > 60 Glucose 115 H Calcium 8.5 04/11/19 15:08 Sputum Gram Stain - Final 04/11/19 14:56 Blood Blood Culture - Final Staphylococcus Simulans 04/11/19 04/11/19 04/12/19 12:25 18:35 00:35 CK-MB (CK-2) 1.60 1.53 Troponin I 0.727 0.265 0.125 NT-Pro-B Natriuret Pep 04/14/19 04:57 CK-MB (CK-2) Troponin I NT-Pro-B Natriuret Pep 241 H Impressions: Chest X-Ray 04/11/19 13:17 IMPRESSION: New right basilar airspace disease most compatible with pneumonia. No significant effusion. Head CT 04/11/19 13:26 IMPRESSION: 1. MILD CHRONIC CHANGES OF ATROPHY AND MICROVASCULAR ISCHEMIA. NO EVIDENCE OF ACUTE INTRACRANIAL PROCESS. 2. MUCOSAL THICKENING AND FROTHY MATERIAL WITHIN THE BILATERAL MAXILLARY AND SPHENOID SINUSES COMPATIBLE WITH ACUTE SINUS DISEASE. EVIDENCE OF ACUTE STROKE: NO. Chest CT 04/12/19 08:00 IMPRESSION: Bronchiolitis in the periphery of the lungs right greater than left. Assessment and Plan - Diagnosis (1) Dyspnea Qualifiers: Dyspnea type: shortness of breath Qualified Code(s): R06.02 - Shortness of breath; R06.00 - Dyspnea, unspecified; R06.01 - Orthopnea Is this a current diagnosis for this admission?: Yes (2) Pneumonia Qualifiers: Pneumonia type: due to unspecified organism Laterality: right Lung location: lower lobe of lung Qualified Code(s): J18.9 - Pneumonia, unspecified organism Is this a current diagnosis for this admission?: Yes (3) COPD exacerbation Is this a current diagnosis for this admission?: Yes (4) Tobacco abuse Is this a current diagnosis for this admission?: Yes (5) End stage COPD Is this a current diagnosis for this admission?: Yes - Plan Summary Summary: 04/11/2019 Patient will be admitted for pulmonary toiletry, switch to IV steroids,, try different antibiotics by the IV route Patient did not have a CT scan of his chest when he was here on his last visit and I have ordered a CT of the chest for further information Patient is medically stable to be moved to the floor from the ER 04/12/2019 Receiving nebulizer treatments [id number] every 4 hours while awake Patient is on IV antibiotics, gentamicin every 12 hours, cefepime every 12 hours Solu-Medrol 40 mg every [address] scan of the chest from this morning is pending O2 sats 94 to 97% on 2 L nasal cannula temperature 97.6 heart rate anywhere from 65-87 Blood pressures averaging about 103/53 Patient appears stable at this time, continue the above for several days 04/13/2019 CT scan of the chest from yesterday shows no active infiltrate however patient does have bronchiolitis possibly pneumonitis Will repeat labs in the morning Continue to biotics and IV steroids. Patient appears to be improving on the above regimen 04/14/2019 Blood cultures positive for staph epidermidis White count is coming down gradually now 15,700 BNP is normal at 241 Oxygen saturations are good, 97 to 98% he is on 3 L of but I cut this down to 2 years. I think his baseline saturations are probably about 93% Day 4 of IV antibiotics Continue same course - Time Time Spent with patient: 25-34 minutes
[2019-04-14] MEDS ORDERED: OXYCODONE-ACETAMINOPHEN 5-325 MG TABLET PO PRN (11:32)
[2019-04-14] MEDS ORDERED: ALBUTEROL SULFATE HFA (90 MCG/PUFF) 8 GM MDI (1 MDI/ER DISP) IH PRN (11:32)
[2019-04-14] MEDS: UMECLIDINIUM BROMIDE 62.5 MCG/DOSE IH SCH (12:19)
[2019-04-14] MEDS: GUAIFENESIN 600 MG TABLET.SA PO SCH ×2 (12:19→17:57)
[2019-04-14] MEDS: FLUTICASONE NASAL SPRAY 50 MCG/SPRY 120 SPRAY/16 GM NASL SCH (12:20)
[2019-04-14] MEDS ORDERED: VARENICLINE TARTRATE 0.5 MG TABLET PO SCH (18:00)
[2019-04-14] MEDS ORDERED: (PENDING PHARMACY ID) (Guaifenesin [Mucinex] 600 MG) PO SCH (18:00)
[2019-04-14] MEDS: QUETIAPINE FUMARATE 25 MG TABLET PO SCH (21:15)
[2019-04-14] MEDS: MONTELUKAST SODIUM 10 MG TABLET PO SCH (21:15)
[2019-04-14] MEDS: PREGABALIN 50 MG CAPSULE PO PRN (21:21)
[2019-04-15] MEDS: CEFEPIME 2 GM/D5W RTU 2 GM/50 ML RTUPB IV SCH ×2 (05:30→19:01)
[2019-04-15] MEDS: GENTAMICIN SULFATE 160 MG in DEXTROSE 5%-WATER 100 ML IV SCH ×2 (05:31→17:48)
[2019-04-15] MEDS: METHYLPREDNISOLONE INJ 40 MG/1 ML SDV IV SCH ×3 (06:23→21:29)
[2019-04-15] MEDS: IPRATROPIUM/ALBUTEROL 0.5-2.5 MG/3 ML AMPUL NEB SCH ×4 (07:48→19:44)
[2019-04-15] MEDS: DOCUSATE SODIUM 100 MG CAPSULE PO SCH (09:36)
[2019-04-15] MEDS: AMLODIPINE BESYLATE 10 MG TABLET PO SCH (09:36)
[2019-04-15] MEDS: FAMOTIDINE 20 MG TABLET PO SCH ×2 (09:36→21:30)
[2019-04-15] MEDS: ENOXAPARIN SODIUM INJ 40 MG/0.4 ML DISP.SYRIN SUBCUT SCH (09:36)
[2019-04-15] MEDS: GUAIFENESIN 600 MG TABLET.SA PO SCH ×2 (09:36→17:48)
[2019-04-15] MEDS: LISINOPRIL 10 MG TABLET PO SCH (09:36)
[2019-04-15] MEDS: FLUTICASONE NASAL SPRAY 50 MCG/SPRY 120 SPRAY/16 GM NASL SCH (09:38)
[2019-04-15] MEDS: UMECLIDINIUM BROMIDE 62.5 MCG/DOSE IH SCH (09:38)
[2019-04-15] MEDS: MELOXICAM 7.5 MG TABLET PO SCH (09:38)
[2019-04-15] MEDS ORDERED: LORAZEPAM 1 MG TABLET PO PRN (10:44)
--- NOTE | 2019-04-15 10:51 | PDOC PROGRESS REPORT ---
Subjective Progress Note for:: 04/15/19 Reason For Visit: PNEUMONIA,COPD EXACERBATION, SHORTNESS OF BREATH, 04/15/2019 Patient was admitted with a COPD exacerbation, and failure as an outpatient therapy Physical Exam Vital Signs: Temp Pulse Resp BP Pulse Ox 97.4 F 83 18 126/52 H 97 04/15/19 08:31 04/15/19 08:31 04/15/19 08:31 04/15/19 08:31 04/15/19 08:31 Intake & Output 04/14/19 04/15/19 04/16/19 06:59 06:59 06:59 Intake Total 1148 1601 104 Output Total 1525 595 Balance -377 1006 104 Weight 71.2 kg 71 kg General appearance: PRESENT: mild distress, other - Patient seems to be in less respiratory distress today Respiratory exam: PRESENT: wheezes Cardiovascular exam: PRESENT: RRR. ABSENT: diastolic murmur, rubs, systolic murmur Neurological exam: PRESENT: alert, awake, oriented to person, oriented to place, oriented to time, oriented to situation, CN II-XII grossly intact. ABSENT: motor sensory deficit Psychiatric exam: PRESENT: appropriate affect, normal mood. ABSENT: homicidal ideation, suicidal ideation Results Laboratory Results: 04/14/19 04:57 04/14/19 04:57 04/11/19 15:08 Sputum Gram Stain - Final 04/11/19 15:08 Sputum Sputum Culture - Final Stenotrophomonas Maltophilia C.albicans/C.dubliniensis Normal Azul 04/11/19 14:56 Blood Blood Culture - Final Staphylococcus Simulans 04/11/19 04/11/19 04/12/19 12:25 18:35 00:35 CK-MB (CK-2) 1.60 1.53 Troponin I 0.727 0.265 0.125 NT-Pro-B Natriuret Pep 04/14/19 04:57 CK-MB (CK-2) Troponin I NT-Pro-B Natriuret Pep 241 H Impressions: Chest X-Ray 04/11/19 13:17 IMPRESSION: New right basilar airspace disease most compatible with pneumonia. No significant effusion. Head CT 04/11/19 13:26 IMPRESSION: 1. MILD CHRONIC CHANGES OF ATROPHY AND MICROVASCULAR ISCHEMIA. NO EVIDENCE OF ACUTE INTRACRANIAL PROCESS. 2. MUCOSAL THICKENING AND FROTHY MATERIAL WITHIN THE BILATERAL MAXILLARY AND SPHENOID SINUSES COMPATIBLE WITH ACUTE SINUS DISEASE. EVIDENCE OF ACUTE STROKE: NO. Chest CT 04/12/19 08:00 IMPRESSION: Bronchiolitis in the periphery of the lungs right greater than left. Assessment and Plan - Diagnosis (1) Dyspnea Qualifiers: Dyspnea type: shortness of breath Qualified Code(s): R06.02 - Shortness of breath; R06.00 - Dyspnea, unspecified; R06.01 - Orthopnea Is this a current diagnosis for this admission?: Yes (2) Pneumonia Qualifiers: Pneumonia type: due to unspecified organism Laterality: right Lung location: lower lobe of lung Qualified Code(s): J18.9 - Pneumonia, unspecified organism Is this a current diagnosis for this admission?: Yes (3) COPD exacerbation Is this a current diagnosis for this admission?: Yes (4) Tobacco abuse Is this a current diagnosis for this admission?: Yes (5) End stage COPD Is this a current diagnosis for this admission?: Yes - Plan Summary Summary: 04/11/2019 Patient will be admitted for pulmonary toiletry, switch to IV steroids,, try different antibiotics by the IV route Patient did not have a CT scan of his chest when he was here on his last visit and I have ordered a CT of the chest for further information Patient is medically stable to be moved to the floor from the ER 04/12/2019 Receiving nebulizer treatments [id number] every 4 hours while awake Patient is on IV antibiotics, gentamicin every 12 hours, cefepime every 12 hours Solu-Medrol 40 mg every [address] scan of the chest from this morning is pending O2 sats 94 to 97% on 2 L nasal cannula temperature 97.6 heart rate anywhere from 65-87 Blood pressures averaging about 103/53 Patient appears stable at this time, continue the above for several days 04/13/2019 CT scan of the chest from yesterday shows no active infiltrate however patient does have bronchiolitis possibly pneumonitis Will repeat labs in the morning Continue to biotics and IV steroids. Patient appears to be improving on the above regimen 04/14/2019 Blood cultures positive for staph epidermidis White count is coming down gradually now 15,700 BNP is normal at 241 Oxygen saturations are good, 97 to 98% he is on 3 L of but I cut this down to 2 liters. I think his baseline saturations are probably about 93% Day 4 of IV antibiotics Continue same course 04/15/2019 Patient's vital signs are extremely stable he is afebrile his blood pressure is 126/52, his pulse is running in the 60s or 70s O2 sats about 97% on 2 L nasal cannula, this is what he uses at home Patient is growing up in an usual bug from his sputum however it is sensitive to most antibiotics, typically the 2 that he is on now gentamicin and cefepime Patient is improving on his current treatment regimen I did add Ativan 0.5 mg every 6 hours as needed for shortness of breath/anxiety . Discharge is still probably 2 or 3 days away. - Time Time Spent with patient: 25-34 minutes
[2019-04-15] MEDS: FLUTICASONE/VILANTEROL 200-25 MCG/DOSE IH SCH (14:09)
[2019-04-15] MEDS: NYSTATIN/DEXAMETH/DIPHEN SUSP 120 ML PO PRN (16:40)
[2019-04-15] MEDS ORDERED: NYSTATIN/DEXAMETH/DIPHEN SUSP 120 ML PO PRN (19:33)
[2019-04-15] MEDS: QUETIAPINE FUMARATE 25 MG TABLET PO SCH (21:29)
[2019-04-15] MEDS: MONTELUKAST SODIUM 10 MG TABLET PO SCH (21:29)
[2019-04-15] MEDS: PREGABALIN 50 MG CAPSULE PO PRN (21:30)
[2019-04-16] MEDS: METHYLPREDNISOLONE INJ 40 MG/1 ML SDV IV SCH ×3 (05:35→21:12)
[2019-04-16] MEDS: CEFEPIME 2 GM/D5W RTU 2 GM/50 ML RTUPB IV SCH ×2 (06:28→18:14)
[2019-04-16] MEDS: GENTAMICIN SULFATE 160 MG in DEXTROSE 5%-WATER 100 ML IV SCH ×2 (07:38→17:03)
[2019-04-16] MEDS: IPRATROPIUM/ALBUTEROL 0.5-2.5 MG/3 ML AMPUL NEB SCH ×4 (08:26→19:59)
[2019-04-16] MEDS: LISINOPRIL 10 MG TABLET PO SCH (09:33)
[2019-04-16] MEDS: DOCUSATE SODIUM 100 MG CAPSULE PO SCH (09:33)
[2019-04-16] MEDS: FAMOTIDINE 20 MG TABLET PO SCH ×2 (09:33→21:11)
[2019-04-16] MEDS: GUAIFENESIN 600 MG TABLET.SA PO SCH ×2 (09:33→17:00)
[2019-04-16] MEDS: MELOXICAM 7.5 MG TABLET PO SCH (09:34)
[2019-04-16] MEDS: ENOXAPARIN SODIUM INJ 40 MG/0.4 ML DISP.SYRIN SUBCUT SCH (09:34)
[2019-04-16] MEDS: UMECLIDINIUM BROMIDE 62.5 MCG/DOSE IH SCH (09:34)
[2019-04-16] MEDS: FLUTICASONE NASAL SPRAY 50 MCG/SPRY 120 SPRAY/16 GM NASL SCH (09:34)
[2019-04-16] MEDS: AMLODIPINE BESYLATE 10 MG TABLET PO SCH (09:34)
[2019-04-16] MEDS: FLUTICASONE/VILANTEROL 200-25 MCG/DOSE IH SCH (09:34)
[2019-04-16] MEDS: NYSTATIN/DEXAMETH/DIPHEN SUSP 120 ML PO PRN (09:35)
--- NOTE | 2019-04-16 10:19 | PDOC PROGRESS REPORT ---
Subjective Progress Note for:: 04/16/19 Reason For Visit: PNEUMONIA,COPD EXACERBATION, SHORTNESS OF BREATH, 04/16/2019 COPD exacerbation with positive sputum culture. Getting better with antibiotics and pulmonary toiletry Physical Exam Vital Signs: Temp Pulse Resp BP Pulse Ox 97.3 F 79 18 138/72 H 97 04/16/19 08:08 04/16/19 08:26 04/16/19 08:26 04/16/19 08:08 04/16/19 08:26 Intake & Output 04/15/19 04/16/19 04/17/19 06:59 06:59 06:59 Intake Total 1601 2342 154 Output Total 595 2475 Balance 1006 -133 154 Weight 71 kg 71 kg General appearance: PRESENT: no acute distress, other - Sitting up in bed. Patient asked if he could walk down the whitten today Respiratory exam: PRESENT: rhonchi - Scattered. Patient is moving more air, wheezes Cardiovascular exam: PRESENT: RRR. ABSENT: diastolic murmur, rubs, systolic murmur Neurological exam: PRESENT: alert, awake, oriented to person, oriented to place, oriented to time, oriented to situation, CN II-XII grossly intact. ABSENT: motor sensory deficit Psychiatric exam: PRESENT: anxious - Due to his COPD, appropriate affect, normal mood. ABSENT: homicidal ideation, suicidal ideation Results Laboratory Results: 04/14/19 04:57 04/14/19 04:57 04/11/19 04/11/19 04/12/19 12:25 18:35 00:35 CK-MB (CK-2) 1.60 1.53 Troponin I 0.727 0.265 0.125 NT-Pro-B Natriuret Pep 04/14/19 04:57 CK-MB (CK-2) Troponin I NT-Pro-B Natriuret Pep 241 H Impressions: Chest X-Ray 04/11/19 13:17 IMPRESSION: New right basilar airspace disease most compatible with pneumonia. No significant effusion. Head CT 04/11/19 13:26 IMPRESSION: 1. MILD CHRONIC CHANGES OF ATROPHY AND MICROVASCULAR ISCHEMIA. NO EVIDENCE OF ACUTE INTRACRANIAL PROCESS. 2. MUCOSAL THICKENING AND FROTHY MATERIAL WITHIN THE BILATERAL MAXILLARY AND SPHENOID SINUSES COMPATIBLE WITH ACUTE SINUS DISEASE. EVIDENCE OF ACUTE STROKE: NO. Chest CT 04/12/19 08:00 IMPRESSION: Bronchiolitis in the periphery of the lungs right greater than left. Assessment and Plan - Diagnosis (1) Dyspnea Qualifiers: Dyspnea type: shortness of breath Qualified Code(s): R06.02 - Shortness of breath; R06.00 - Dyspnea, unspecified; R06.01 - Orthopnea Is this a current diagnosis for this admission?: Yes (2) Pneumonia Qualifiers: Pneumonia type: due to unspecified organism Laterality: right Lung location: lower lobe of lung Qualified Code(s): J18.9 - Pneumonia, unspecified organism Is this a current diagnosis for this admission?: Yes (3) COPD exacerbation Is this a current diagnosis for this admission?: Yes (4) Tobacco abuse Is this a current diagnosis for this admission?: Yes (5) End stage COPD Is this a current diagnosis for this admission?: Yes - Plan Summary Summary: 04/11/2019 Patient will be admitted for pulmonary toiletry, switch to IV steroids,, try different antibiotics by the IV route Patient did not have a CT scan of his chest when he was here on his last visit and I have ordered a CT of the chest for further information Patient is medically stable to be moved to the floor from the ER 04/12/2019 Receiving nebulizer treatments [id number] every 4 hours while awake Patient is on IV antibiotics, gentamicin every 12 hours, cefepime every 12 hours Solu-Medrol 40 mg every [address] scan of the chest from this morning is pending O2 sats 94 to 97% on 2 L nasal cannula temperature 97.6 heart rate anywhere from 65-87 Blood pressures averaging about 103/53 Patient appears stable at this time, continue the above for several days 04/13/2019 CT scan of the chest from yesterday shows no active infiltrate however patient does have bronchiolitis possibly pneumonitis Will repeat labs in the morning Continue to biotics and IV steroids. Patient appears to be improving on the above regimen 04/14/2019 Blood cultures positive for staph epidermidis White count is coming down gradually now 15,700 BNP is normal at 241 Oxygen saturations are good, 97 to 98% he is on 3 L of but I cut this down to 2 liters. I think his baseline saturations are probably about 93% Day 4 of IV antibiotics Continue same course 04/15/2019 Patient's vital signs are extremely stable he is afebrile his blood pressure is 126/52, his pulse is running in the 60s or 70s O2 sats about 97% on 2 L nasal cannula, this is what he uses at home Patient is growing up in an usual bug from his sputum however it is sensitive to most antibiotics, typically the 2 that he is on now gentamicin and cefepime Patient is improving on his current treatment regimen I did add Ativan 0.5 mg every 6 hours as needed for shortness of breath/anxiety . Discharge is still probably 2 or 3 days away. 04/16/2019 Patient is maintaining his saturations on only 1 or 2 L of oxygen Have made his Ativan 0.5 mg scheduled every 8 hours because he was not asking for it, we will see how he does Labs appear stable, however we will recheck them tomorrow morning Hopefully advance his activities tomorrow little bit as far as ambulation - Time Time Spent with patient: 25-34 minutes
[2019-04-16] MEDS: LORAZEPAM 1 MG TABLET PO SCH ×2 (13:48→21:12)
[2019-04-16] MEDS ORDERED: CEFEPIME 2 GM/D5W RTU 2 GM/50 ML RTUPB IV ONE (17:38)
[2019-04-16] MEDS: QUETIAPINE FUMARATE 25 MG TABLET PO SCH (21:11)
[2019-04-16] MEDS: MONTELUKAST SODIUM 10 MG TABLET PO SCH (21:11)
[2019-04-16] MEDS: GUAIFENESIN SYRP 200 MG/10 ML UDC PO PRN (21:12)
[2019-04-16] MEDS: PREGABALIN 50 MG CAPSULE PO PRN (21:12)
[2019-04-17] MEDS: LORAZEPAM 1 MG TABLET PO SCH ×3 (06:38→21:51)
[2019-04-17] MEDS: GENTAMICIN SULFATE 160 MG in DEXTROSE 5%-WATER 100 ML IV SCH ×2 (06:38→18:32)
[2019-04-17] MEDS: METHYLPREDNISOLONE INJ 40 MG/1 ML SDV IV SCH ×3 (06:38→21:50)
[2019-04-17] MEDS ORDERED: CEFEPIME 2 GM/D5W RTU 2 GM/50 ML RTUPB IV ONE (06:43)
[2019-04-17] MEDS: CEFEPIME 2 GM/D5W RTU 2 GM/50 ML RTUPB IV SCH ×2 (06:47→17:20)
[2019-04-17 07:17] LABS: HEMATOCRIT 39.6 % (37.9-51.0); HEMOGLOBIN 13.2 g/dL (13.5-17.0); MEAN CORPUSCULAR HEMOGLOBIN 28.5 pg (27.0-33.4); MEAN CORPUSCULAR HGB CONC 33.3 g/dL (32.0-36.0); MEAN CORPUSCULAR VOLUME 86 fl (80-97); PLATELET COUNT 179 10^3/uL (150-450); RED BLOOD COUNT 4.63 10^6/uL (4.35-5.55); RED CELL DISTRIBUTION WIDTH 13.5 % (11.5-14.0); WHITE BLOOD COUNT 12.8 10^3/uL (4.0-10.5)
[2019-04-17 07:33] LABS: BLOOD UREA NITROGEN 29 mg/dL (7-20); CALCIUM 8.6 mg/dL (8.4-10.2); CARBON DIOXIDE 29 mmol/L (22-30); CHLORIDE 102 mmol/L (98-107); GLUCOSE 94 mg/dL (75-110); POTASSIUM 4.6 mmol/L (3.6-5.0)
[2019-04-17 07:41] LABS: ANION GAP 4 (5-19)
[2019-04-17 08:02] LABS: ABSOLUTE LYMPHOCYTES# (MANUAL) 0.9 10^3/uL (0.5-4.7); ABSOLUTE MONOCYTES # (MANUAL) 0.5 10^3/uL (0.1-1.4); BASOPHILS % (MANUAL) 0 % (0-2); EOSINOPHILS % (MANUAL) 0 % (0-6); LYMPHOCYTES % (MANUAL) 7 % (13-45); MONOCYTES % (MANUAL) 4 % (3-13); SEGMENTED NEUTROPHILS % (MAN) 89 % (42-78); TOTAL CELLS COUNTED 100
[2019-04-17 08:04] LABS: OVALOCYTES SLIGHT; POIKILOCYTOSIS SLIGHT
[2019-04-17 08:05] LABS: PLATELET COMMENT ADEQUATE
[2019-04-17] MEDS: IPRATROPIUM/ALBUTEROL 0.5-2.5 MG/3 ML AMPUL NEB SCH ×4 (08:33→21:32)
--- NOTE | 2019-04-17 08:55 | PDOC PROGRESS REPORT ---
Subjective Progress Note for:: 04/17/19 Reason For Visit: PNEUMONIA,COPD EXACERBATION, SHORTNESS OF BREATH, 04/17/2019 Patient was admitted for COPD exacerbation and probable pneumonia. Patient is slowly improving Physical Exam Vital Signs: Temp Pulse Resp BP Pulse Ox 97.7 F 66 18 139/79 H 99 04/17/19 07:52 04/17/19 07:52 04/17/19 07:52 04/17/19 07:52 04/17/19 07:52 Intake & Output 04/16/19 04/17/19 04/18/19 06:59 06:59 06:59 Intake Total 2342 2557 154 Output Total 2475 1580 Balance -133 977 154 Weight 71 kg 71.3 kg General appearance: PRESENT: mild distress, other - As long as patient is nonambulatory he is at his baseline concerning shortness of breath Respiratory exam: PRESENT: rhonchi - Very faint and scattered Cardiovascular exam: PRESENT: RRR. ABSENT: diastolic murmur, rubs, systolic murmur Neurological exam: PRESENT: alert, awake, oriented to person, oriented to place, oriented to time, oriented to situation, CN II-XII grossly intact. ABSENT: motor sensory deficit Psychiatric exam: PRESENT: appropriate affect, normal mood. ABSENT: homicidal ideation, suicidal ideation Results Laboratory Results: 04/17/19 06:49 04/17/19 06:49 04/17/19 04/17/19 06:49 06:49 WBC 12.8 H RBC 4.63 Hgb 13.2 L Hct 39.6 MCV 86 MCH 28.5 MCHC 33.3 RDW 13.5 Plt Count 179 Seg Neutrophils % Not Reportable Sodium 134.9 L Potassium 4.6 Chloride 102 Carbon Dioxide 29 Anion Gap 4 L BUN 29 H Creatinine 0.62 Est GFR ( Amer) > 60 Glucose 94 Calcium 8.6 04/11/19 12:25 Blood Blood Culture - Final NO GROWTH IN 5 DAYS 04/11/19 04/11/19 04/12/19 12:25 18:35 00:35 CK-MB (CK-2) 1.60 1.53 Troponin I 0.727 0.265 0.125 NT-Pro-B Natriuret Pep 04/14/19 04:57 CK-MB (CK-2) Troponin I NT-Pro-B Natriuret Pep 241 H Impressions: Chest X-Ray 04/11/19 13:17 IMPRESSION: New right basilar airspace disease most compatible with pneumonia. No significant effusion. Head CT 04/11/19 13:26 IMPRESSION: 1. MILD CHRONIC CHANGES OF ATROPHY AND MICROVASCULAR ISCHEMIA. NO EVIDENCE OF ACUTE INTRACRANIAL PROCESS. 2. MUCOSAL THICKENING AND FROTHY MATERIAL WITHIN THE BILATERAL MAXILLARY AND SPHENOID SINUSES COMPATIBLE WITH ACUTE SINUS DISEASE. EVIDENCE OF ACUTE STROKE: NO. Chest CT 04/12/19 08:00 IMPRESSION: Bronchiolitis in the periphery of the lungs right greater than left. Assessment and Plan - Diagnosis (1) Dyspnea Qualifiers: Dyspnea type: shortness of breath Qualified Code(s): R06.02 - Shortness of breath; R06.00 - Dyspnea, unspecified; R06.01 - Orthopnea Is this a current diagnosis for this admission?: Yes (2) Pneumonia Qualifiers: Pneumonia type: due to unspecified organism Laterality: right Lung location: lower lobe of lung Qualified Code(s): J18.9 - Pneumonia, unspecified organism Is this a current diagnosis for this admission?: Yes (3) COPD exacerbation Is this a current diagnosis for this admission?: Yes (4) Tobacco abuse Is this a current diagnosis for this admission?: Yes (5) End stage COPD Is this a current diagnosis for this admission?: Yes - Plan Summary Summary: 04/11/2019 Patient will be admitted for pulmonary toiletry, switch to IV steroids,, try different antibiotics by the IV route Patient did not have a CT scan of his chest when he was here on his last visit and I have ordered a CT of the chest for further information Patient is medically stable to be moved to the floor from the ER 04/12/2019 Receiving nebulizer treatments [id number] every 4 hours while awake Patient is on IV antibiotics, gentamicin every 12 hours, cefepime every 12 hours Solu-Medrol 40 mg every [address] scan of the chest from this morning is pending O2 sats 94 to 97% on 2 L nasal cannula temperature 97.6 heart rate anywhere from 65-87 Blood pressures averaging about 103/53 Patient appears stable at this time, continue the above for several days 04/13/2019 CT scan of the chest from yesterday shows no active infiltrate however patient does have bronchiolitis possibly pneumonitis Will repeat labs in the morning Continue to biotics and IV steroids. Patient appears to be improving on the above regimen 04/14/2019 Blood cultures positive for staph epidermidis White count is coming down gradually now 15,700 BNP is normal at 241 Oxygen saturations are good, 97 to 98% he is on 3 L of but I cut this down to 2 liters. I think his baseline saturations are probably about 93% Day 4 of IV antibiotics Continue same course 04/15/2019 Patient's vital signs are extremely stable he is afebrile his blood pressure is 126/52, his pulse is running in the 60s or 70s O2 sats about 97% on 2 L nasal cannula, this is what he uses at home Patient is growing up in an usual bug from his sputum however it is sensitive to most antibiotics, typically the 2 that he is on now gentamicin and cefepime Patient is improving on his current treatment regimen I did add Ativan 0.5 mg every 6 hours as needed for shortness of breath/anxiety . Discharge is still probably 2 or 3 days away. 04/16/2019 Patient is maintaining his saturations on only 1 or 2 L of oxygen Have made his Ativan 0.5 mg scheduled every 8 hours because he was not asking for it, we will see how he does Labs appear stable, however we will recheck them tomorrow morning. I think patient's white count is still slightly elevated due to his steroids. Hopefully advance his activities tomorrow little bit as far as ambulation 04/17/2019 Patient uses oxygen at home. Saturation this morning is 99% on 1 L nasal cannula so he is definitely improving, he continues to remain afebrile, Count is down to 12,800 even on steroids Renal functions appear normal ,electrolytes are normal Patient will be seen by physical therapy today to assist with ambulation. Patient has shortness of breath with exertion. Yesterday I made patient's Ativan on a scheduled dose and he feels much better at that regimen. Think patient would benefit from being on Ativan every 8 hours even when he is discharged Day 7 of IV gentamicin and cefepime well as Solu-Medrol Sputum grew out greater than 100,000 colonies of Stenotrophomonas M. One blood culture grew out Staph. Simulans The staph may be a contaminant other however may be a pathogen in this particular patient. Clinically he is significantly improved so I am going to continue the same treatment until he is discharged. It will probably be mid to end of the week before he is ready to be discharged home. Patient is okay with this. 1 is COPD exacerbation #2 probable pneumonia #3 is end-stage COPD #4 his anxiety 5 tobacco abuse - Time Time Spent with patient: 35 or more minutes
[2019-04-17] MEDS: UMECLIDINIUM BROMIDE 62.5 MCG/DOSE IH SCH (09:56)
[2019-04-17] MEDS: FLUTICASONE/VILANTEROL 200-25 MCG/DOSE IH SCH (09:56)
[2019-04-17] MEDS: ENOXAPARIN SODIUM INJ 40 MG/0.4 ML DISP.SYRIN SUBCUT SCH (09:57)
[2019-04-17] MEDS: DOCUSATE SODIUM 100 MG CAPSULE PO SCH (09:57)
[2019-04-17] MEDS: MELOXICAM 7.5 MG TABLET PO SCH (09:57)
[2019-04-17] MEDS: GUAIFENESIN 600 MG TABLET.SA PO SCH ×2 (09:57→17:20)
[2019-04-17] MEDS: LISINOPRIL 10 MG TABLET PO SCH (09:57)
[2019-04-17] MEDS: FLUTICASONE NASAL SPRAY 50 MCG/SPRY 120 SPRAY/16 GM NASL SCH (09:57)
[2019-04-17] MEDS: AMLODIPINE BESYLATE 10 MG TABLET PO SCH (09:57)
[2019-04-17] MEDS: FAMOTIDINE 20 MG TABLET PO SCH ×2 (09:57→21:50)
[2019-04-17] MEDS: ALBUTEROL SULFATE HFA (90 MCG/PUFF) 200 PUFF/8.5 GM MDI IH PRN (20:19)
[2019-04-17] MEDS: GUAIFENESIN SYRP 200 MG/10 ML UDC PO PRN (20:20)
[2019-04-17] MEDS: NYSTATIN/DEXAMETH/DIPHEN SUSP 120 ML PO PRN (20:21)
[2019-04-17] MEDS: QUETIAPINE FUMARATE 25 MG TABLET PO SCH (21:50)
[2019-04-17] MEDS: MONTELUKAST SODIUM 10 MG TABLET PO SCH (21:50)
[2019-04-18] MEDS: METHYLPREDNISOLONE INJ 40 MG/1 ML SDV IV SCH ×3 (06:02→21:49)
[2019-04-18] MEDS: LORAZEPAM 1 MG TABLET PO SCH ×3 (06:02→21:50)
[2019-04-18] MEDS: CEFEPIME 2 GM/D5W RTU 2 GM/50 ML RTUPB IV SCH (06:03)
[2019-04-18] MEDS: GENTAMICIN SULFATE 160 MG in DEXTROSE 5%-WATER 100 ML IV SCH (06:03)
[2019-04-18 06:38] LABS: GENTAMICIN-TROUGH 1.2 ug/mL (<2.0)
[2019-04-18] MEDS: IPRATROPIUM/ALBUTEROL 0.5-2.5 MG/3 ML AMPUL NEB SCH ×4 (08:20→19:49)
[2019-04-18] MEDS: LISINOPRIL 10 MG TABLET PO SCH (09:01)
[2019-04-18] MEDS: DOCUSATE SODIUM 100 MG CAPSULE PO SCH (09:01)
[2019-04-18] MEDS: AMLODIPINE BESYLATE 10 MG TABLET PO SCH (09:01)
[2019-04-18] MEDS: FAMOTIDINE 20 MG TABLET PO SCH ×2 (09:02→21:50)
[2019-04-18] MEDS: FLUTICASONE/VILANTEROL 200-25 MCG/DOSE IH SCH (09:02)
[2019-04-18] MEDS: ENOXAPARIN SODIUM INJ 40 MG/0.4 ML DISP.SYRIN SUBCUT SCH (09:02)
[2019-04-18] MEDS: MELOXICAM 7.5 MG TABLET PO SCH (09:02)
[2019-04-18] MEDS: UMECLIDINIUM BROMIDE 62.5 MCG/DOSE IH SCH (09:02)
[2019-04-18] MEDS: FLUTICASONE NASAL SPRAY 50 MCG/SPRY 120 SPRAY/16 GM NASL SCH (09:02)
[2019-04-18] MEDS: GUAIFENESIN 600 MG TABLET.SA PO SCH ×2 (09:02→17:21)
--- NOTE | 2019-04-18 11:31 | Progress Note ---
Provider Note Provider Note: [facility] Telephone Advice Consultation Chart reviewed. Patient is a 68-year-old man with COPD on home oxygen who was recently in the hospital for COPD exacerbation and acute bronchitis. He was discharged home, but returned on 04/11 with worsening shortness of breath. He s ustained a fall at home. In the ED, he was found with leukocytosis and hypoxic requiring NC at 2 lpm. He had a CXR that demonstrated right lung opacities. CT scan of head showed acute sinusitis. A CT scan of the chest demonstrated bronchiolitis right>left. He was started on vancomycin and cefepime for hospital acquired pneumonia. He was then transitioned to cefepime and gentamicin. He has clinically improved after 7 days of antibiotic therapy even though respiratory cultures grew Stenotrophomonas maltophilia. ID consulted for recommendations. PMH: COPD PSH: Laminectomy Medications: Albuterol Sulfate [Ventolin 0.083% Neb 2.5 mg/3 mL Ampul] 3 ml NEB Q6HP PRN 03/30/19 Albuterol Sulfate [Ventolin Hfa 8 gm Mdi (1 Mdi/ER Disp)] 2 puff IH Q6HP PRN 03/30/19 Amlodipine Besylate [Norvasc 10 mg Tablet] 10 mg PO DAILY 03/30/19 Budesonide/Formoterol Fumarate [Symbicort HFA 160-4.5 mcg Inhaler 6 gm] 2 puff IH Q12 03/30/19 Fluticasone Propionate [Flonase Nasal [place] 50 Mcg/[place] 16 gm] 2 sprays NASL DAILY 03/30/19 Furosemide [Lasix 40 mg Tablet] 40 mg PO DAILY 03/30/19 Lisinopril [Prinivil 10 mg Tablet] 10 mg PO DAILY 03/30/19 Meloxicam [Mobic] 7.5 mg PO DAILY 03/30/19 Montelukast Sodium [Singulair 10 mg Tablet] 10 mg PO QHS 03/30/19 Oxycodone HCl/Acetaminophen [Percocet 10-325 mg Tablet] 1 tab PO Q6HP PRN 03/30/19 Pregabalin [Lyrica 50 mg Capsule] 50 mg PO HSP PRN 03/30/19 Quetiapine Fumarate [Seroquel 25 mg Tablet] 25 mg PO QHS 03/30/19 Umeclidinium [place] [Incruse 62.5 Mcg Ellipta 7 Dose/Dpi] 1 puff IH DAILY 03/30/19 Varenicline Tartrate [Chantix 0.5 mg Tablet] 0.56 mg PO BID 03/30/19 Allergies: No Known Allergies Allergy (Verified 04/11/19 15:20) Vital Signs: Temp Pulse Resp BP Pulse Ox 97.4 F 80 15 127/68 H 93 04/18/19 07:40 04/18/19 08:20 04/18/19 08:20 04/18/19 07:40 04/18/19 08:20 Laboratories: 04/17/19 06:49 04/17/19 06:49 MCV 86 fl (80-97) 04/17/19 06:49 MCH 28.5 pg (27.0-33.4) 04/17/19 06:49 MCHC 33.3 g/dL (32.0-36.0) 04/17/19 06:49 RDW 13.5 % (11.5-14.0) 04/17/19 06:49 Seg Neutrophils % Not Reportable 04/17/19 06:49 Carbonic Acid 1.01 mmol/L (1.05-1.35) L 04/11/19 14:50 HCO3/H2CO3 Ratio 23:1 04/11/19 14:50 ABG pH 7.47 (7.35-7.45) H 04/11/19 14:50 ABG pCO2 33.5 mmHg (35-45) L 04/11/19 14:50 ABG pO2 57.8 mmHg (80-100) L 04/11/19 14:50 ABG HCO3 23.7 mmol/L (20-24) 04/11/19 14:50 ABG O2 Saturation 91.9 % (94-98) L 04/11/19 14:50 ABG Base Excess 0.7 mmol/L 04/11/19 14:50 FiO2 30% 04/11/19 14:50 Chloride 102 mmol/L (98-107) 04/17/19 06:49 Carbon Dioxide 29 mmol/L (22-30) 04/17/19 06:49 Anion Gap 4 (5-19) L 04/17/19 06:49 Est GFR ( Amer) > 60 (>60) 04/17/19 06:49 Glucose 94 mg/dL (75-110) 04/17/19 06:49 Calcium 8.6 mg/dL (8.4-10.2) 04/17/19 06:49 Magnesium 2.6 mg/dL (1.6-2.3) H 04/11/19 12:25 Total Bilirubin 1.3 mg/dL (0.2-1.3) 04/11/19 12:25 AST 40 U/L (17-59) 04/11/19 12:25 Alkaline Phosphatase 73 U/L (38-126) 04/11/19 12:25 Total Protein 6.2 g/dL (6.3-8.2) L 04/11/19 12:25 Albumin 3.7 g/dL (3.5-5.0) 04/11/19 12:25 Urine Color YELLOW 04/11/19 15:08 Urine Appearance CLEAR 04/11/19 15:08 Urine pH 7.0 (5.0-9.0) 04/11/19 15:08 Ur Specific [place] 1.009 04/11/19 15:08 Urine Protein NEGATIVE mg/dL (NEGATIVE) 04/11/19 15:08 Urine Glucose (UA) NEGATIVE mg/dL (NEGATIVE) 04/11/19 15:08 Urine Ketones TRACE mg/dL (NEGATIVE) H 04/11/19 15:08 Urine Blood NEGATIVE (NEGATIVE) 04/11/19 15:08 Urine RBC (Auto) 1 /HPF 04/11/19 15:08 04/11/19 04/11/19 04/12/19 12:25 18:35 00:35 CK-MB (CK-2) 1.60 1.53 Troponin I 0.727 0.265 0.125 NT-Pro-B Natriuret Pep 04/14/19 04:57 CK-MB (CK-2) Troponin I NT-Pro-B Natriuret Pep 241 H Microbiology: Blood culture 04/11 Staphylococcus simulans Respiratory Culture 04/11 Stenotrophonomas, Lakisha albicans Radiology: Chest X-Ray 04/11/19 13:17 IMPRESSION: New right basilar airspace disease most compatible with pneumonia. No significant effusion. Head CT 04/11/19 13:26 IMPRESSION: 1. MILD CHRONIC CHANGES OF ATROPHY AND MICROVASCULAR ISCHEMIA. NO EVIDENCE OF ACUTE INTRACRANIAL PROCESS. 2. MUCOSAL THICKENING AND FROTHY MATERIAL WITHIN THE BILATERAL MAXILLARY AND SPHENOID SINUSES COMPATIBLE WITH ACUTE SINUS DISEASE. EVIDENCE OF ACUTE STROKE: NO. Chest CT 04/12/19 08:00 IMPRESSION: Bronchiolitis in the periphery of the lungs right greater than left. Assessment and Recommendations: Patient evaluated for hospital acquired pneumonia. He had significant leukocytosis and right lung opacity confirmed as bronchiolitis by CT scan. Blood cultures with Staphylococcus simulans which is a CoNS that likely represents skin contamination. Respiratory culture with Stenotrophomonas can represent colonization as he is improving with cefepime and gentamicin that don't have much activity against this organism. It is known to cause HAP, but also to be a colonizer of the airways. CT findings look more consistent with an atypical process, but patient is responding to current therapy. When ready to be discharged, can transition to levofloxacin 750 mg po daily for 7 additional days. Please call if questions. Rylie Quintana MD [facility] [phone]
[2019-04-18] MEDS: LEVOFLOXACIN 750 MG TABLET PO SCH (13:14)
[2019-04-18] MEDS: NYSTATIN/DEXAMETH/DIPHEN SUSP 120 ML PO PRN (15:51)
--- NOTE | 2019-04-18 19:25 | PDOC PROGRESS REPORT ---
Subjective Progress Note for:: 04/18/19 Subjective:: She was seen on afternoon rounds. Is found resting in bed comfortably on supplemental oxygen by nasal cannula 1 L/min. He was noted to have continued tachypnea and increased work of breathing. He does report that he is significantly improved from the time of his admission. He does note that he only spent about 4 days at home prior to being readmitted after his prior discharge for COPD exacerbation. He denies fever, chills, chest pain, palpitations, orthopnea, cough, abdominal pain, nausea vomiting or diarrhea. He has no new questions or concerns. No concerns per nursing. Reason For Visit: PNEUMONIA,COPD EXACERBATION, SHORTNESS OF BREATH, Physical Exam Vital Signs: Temp Pulse Resp BP Pulse Ox 97.3 F 86 16 120/58 L 89 L 04/18/19 15:04 04/18/19 16:03 04/18/19 16:03 04/18/19 15:04 04/18/19 16:03 Intake & Output 04/17/19 04/18/19 04/19/19 06:59 06:59 06:59 Intake Total 2557 1378 1344 Output Total 1580 3000 1900 Balance 977 -1622 -556 Weight 71.3 kg 70 kg 70 kg General appearance: PRESENT: no acute distress, cooperative, thin, well- developed, well-nourished Head exam: PRESENT: atraumatic, normocephalic Eye exam: PRESENT: conjunctiva pink, EOMI, PERRLA. ABSENT: scleral icterus Mouth exam: PRESENT: moist, tongue midline Respiratory exam: PRESENT: rhonchi, symmetrical, unlabored, other - Supplemental oxygen via nasal cannula. ABSENT: rales, wheezes Cardiovascular exam: PRESENT: RRR. ABSENT: diastolic murmur, rubs, systolic murmur Pulses: PRESENT: normal dorsalis pedis pul Vascular exam: PRESENT: normal capillary refill GI/Abdominal exam: PRESENT: normal bowel sounds, soft. ABSENT: distended, guarding, mass, organolmegaly, rebound, tenderness Rectal exam: PRESENT: deferred Extremities exam: PRESENT: full ROM. ABSENT: calf tenderness, clubbing, pedal edema Musculoskeletal exam: PRESENT: ambulatory Neurological exam: PRESENT: alert, awake, oriented to person, oriented to place, oriented to time, oriented to situation, CN II-XII grossly intact. ABSENT: motor sensory deficit Psychiatric exam: PRESENT: appropriate affect, normal mood. ABSENT: homicidal ideation, suicidal ideation Skin exam: PRESENT: dry, intact, warm. ABSENT: cyanosis, rash Results Laboratory Results: 04/17/19 06:49 04/17/19 06:49 04/11/19 04/11/19 04/12/19 12:25 18:35 00:35 CK-MB (CK-2) 1.60 1.53 Troponin I 0.727 0.265 0.125 NT-Pro-B Natriuret Pep 04/14/19 04:57 CK-MB (CK-2) Troponin I NT-Pro-B Natriuret Pep 241 H Impressions: Chest X-Ray 04/11/19 13:17 IMPRESSION: New right basilar airspace disease most compatible with pneumonia. No significant effusion. Head CT 04/11/19 13:26 IMPRESSION: 1. MILD CHRONIC CHANGES OF ATROPHY AND MICROVASCULAR ISCHEMIA. NO EVIDENCE OF ACUTE INTRACRANIAL PROCESS. 2. MUCOSAL THICKENING AND FROTHY MATERIAL WITHIN THE BILATERAL MAXILLARY AND SPHENOID SINUSES COMPATIBLE WITH ACUTE SINUS DISEASE. EVIDENCE OF ACUTE STROKE: NO. Chest CT 04/12/19 08:00 IMPRESSION: Bronchiolitis in the periphery of the lungs right greater than left. Assessment and Plan - Diagnosis (1) Pneumonia Qualifiers: Pneumonia type: due to unspecified organism Laterality: right Lung location: lower lobe of lung Qualified Code(s): J18.9 - Pneumonia, unspecified organism Is this a current diagnosis for this admission?: Yes Plan: The patient is a readmitted after treatment for COPD exacerbation. Blood cultures are negative at 5 days (other than Staphylococcus stimulants determined to be a contaminant). Sputum culture has resulted; per infectious disease notes, likely colonization and does not represent active infection at this time. Due to healthcare associated pneumonia related to prior admission, patient was empirically placed on IV gentamicin and cefepime. Infectious disease note was reviewed; per their recommendations can transition to p.o. Levaquin. We will continue supplemental oxygen as needed to maintain saturations. Continue as needed nebulizer treatments. Continue twice daily Mucinex. Encourage pulmonary toilet and ambulation. (2) COPD exacerbation Is this a current diagnosis for this admission?: Yes Plan: In addition to the above, the patient's home dose Breo and Incruse were continued. Continue home dose Flonase. Patient was provided IV Solu-Medrol; have decreased from 40 to 20 mg IV every 8 today. Continue home dose Singulair. Recommend pulmonary rehabilitation upon discharge. (3) Tobacco abuse Is this a current diagnosis for this admission?: Yes Plan: Smoking cessation strongly encouraged. Nicotine replacement therapies are offered. (4) Dyspnea Qualifiers: Dyspnea type: shortness of breath Qualified Code(s): R06.02 - Shortness of breath; R06.00 - Dyspnea, unspecified; R06.01 - Orthopnea Is this a current diagnosis for this admission?: Yes Plan: Improving. Secondary to #1 and 2. Evaluation management as above. (5) HTN (hypertension) Qualifiers: Hypertension type: essential hypertension Is this a current diagnosis for this admission?: Yes Plan: Continue home dose amlodipine and lisinopril Currently holding furosemide. Weight stable. Cardiac diet. - Time Time Spent with patient: 25-34 minutes Medications reviewed and adjusted accordingly: Yes Anticipated discharge: Home with Homehealth Within: within 72 hours
[2019-04-18] MEDS: QUETIAPINE FUMARATE 25 MG TABLET PO SCH (21:50)
[2019-04-18] MEDS: MONTELUKAST SODIUM 10 MG TABLET PO SCH (21:50)
[2019-04-19 05:04] LABS: HEMATOCRIT 40.4 % (37.9-51.0); HEMOGLOBIN 13.5 g/dL (13.5-17.0); MEAN CORPUSCULAR HEMOGLOBIN 28.5 pg (27.0-33.4); MEAN CORPUSCULAR HGB CONC 33.4 g/dL (32.0-36.0); MEAN CORPUSCULAR VOLUME 86 fl (80-97); PLATELET COUNT 202 10^3/uL (150-450); RED BLOOD COUNT 4.72 10^6/uL (4.35-5.55); RED CELL DISTRIBUTION WIDTH 13.6 % (11.5-14.0)
[2019-04-19 05:31] LABS: BLOOD UREA NITROGEN 31 mg/dL (7-20); CALCIUM 8.7 mg/dL (8.4-10.2); CHLORIDE 102 mmol/L (98-107); GLUCOSE 103 mg/dL (75-110); POTASSIUM 4.8 mmol/L (3.6-5.0)
[2019-04-19] MEDS: LORAZEPAM 1 MG TABLET PO SCH ×3 (05:32→21:23)
[2019-04-19] MEDS: METHYLPREDNISOLONE INJ 40 MG/1 ML SDV IV SCH ×3 (05:32→21:23)
[2019-04-19 05:37] LABS: CARBON DIOXIDE 29 mmol/L (22-30)
[2019-04-19 05:40] LABS: ANION GAP 4 (5-19)
[2019-04-19] MEDS: IPRATROPIUM/ALBUTEROL 0.5-2.5 MG/3 ML AMPUL NEB SCH ×4 (08:45→19:48)
[2019-04-19] MEDS: DOCUSATE SODIUM 100 MG CAPSULE PO SCH (09:31)
[2019-04-19] MEDS: MELOXICAM 7.5 MG TABLET PO SCH (09:31)
[2019-04-19] MEDS: LEVOFLOXACIN 750 MG TABLET PO SCH (09:32)
[2019-04-19] MEDS: AMLODIPINE BESYLATE 10 MG TABLET PO SCH (09:32)
[2019-04-19] MEDS: FAMOTIDINE 20 MG TABLET PO SCH ×2 (09:32→21:23)
[2019-04-19] MEDS: LISINOPRIL 10 MG TABLET PO SCH (09:32)
[2019-04-19] MEDS: ENOXAPARIN SODIUM INJ 40 MG/0.4 ML DISP.SYRIN SUBCUT SCH (09:32)
[2019-04-19] MEDS: GUAIFENESIN 600 MG TABLET.SA PO SCH ×2 (09:32→17:35)
[2019-04-19] MEDS: FLUTICASONE NASAL SPRAY 50 MCG/SPRY 120 SPRAY/16 GM NASL SCH (09:33)
[2019-04-19] MEDS: FLUTICASONE/VILANTEROL 200-25 MCG/DOSE IH SCH (09:34)
[2019-04-19] MEDS: NYSTATIN/DEXAMETH/DIPHEN SUSP 120 ML PO PRN ×2 (09:35→13:37)
[2019-04-19] MEDS: UMECLIDINIUM BROMIDE 62.5 MCG/DOSE IH SCH (09:35)
[2019-04-19] MEDS: ALBUTEROL SULFATE HFA (90 MCG/PUFF) 200 PUFF/8.5 GM MDI IH PRN (13:37)
--- NOTE | 2019-04-19 18:03 | PDOC PROGRESS REPORT ---
Subjective Progress Note for:: 04/19/19 Subjective:: Patient was seen on afternoon rounds. Is found resting in bed comfortably on supplemental oxygen by nasal cannula 2 L/min. He does report that he is significantly improved from the time of his admission. He does note that he only spent about 4 days at home prior to being readmitted after his prior discharge for COPD exacerbation. Tachypnea and work of breathing are significantly improved; he is hopeful to go home today. However, he does continue to have wheezing throughout all lung pool and although qualified for home to does not meet insurance coverage requirements. He denies fever, chills, chest pain, palpitations, orthopnea, cough, abdominal pain, nausea vomiting or diarrhea. He has no new questions or concerns. No concerns per nursing. Reason For Visit: PNEUMONIA,COPD EXACERBATION, SHORTNESS OF BREATH, Physical Exam Vital Signs: Temp Pulse Resp BP Pulse Ox 97.5 F 87 22 H 107/57 L 94 04/19/19 12:09 04/19/19 16:11 04/19/19 16:11 04/19/19 12:09 04/19/19 16:11 Intake & Output 04/18/19 04/19/19 04/20/19 06:59 06:59 06:59 Intake Total 1378 1344 480 Output Total 3000 2500 2250 Balance -8589 -3484 -2160 Weight 70 kg 76.5 kg General appearance: PRESENT: no acute distress, cooperative, well-developed, well-nourished Head exam: PRESENT: atraumatic, normocephalic Eye exam: PRESENT: conjunctiva pink, EOMI, PERRLA. ABSENT: scleral icterus Ear exam: PRESENT: normal external ear exam Mouth exam: PRESENT: moist, tongue midline Teeth exam: PRESENT: poor dentation Respiratory exam: PRESENT: prolonged expiratory phas, symmetrical, unlabored, wheezes - Throughout, other - Continues to be dependent on supplemental oxygen via nasal cannula. ABSENT: rales, rhonchi Cardiovascular exam: PRESENT: RRR. ABSENT: diastolic murmur, rubs, systolic murmur Pulses: PRESENT: normal dorsalis pedis pul Vascular exam: PRESENT: normal capillary refill GI/Abdominal exam: PRESENT: normal bowel sounds, soft. ABSENT: distended, guarding, mass, organolmegaly, rebound, tenderness Rectal exam: PRESENT: deferred Extremities exam: PRESENT: full ROM. ABSENT: calf tenderness, clubbing, pedal edema Musculoskeletal exam: PRESENT: ambulatory Neurological exam: PRESENT: alert, awake, oriented to person, oriented to place, oriented to time, oriented to situation, CN II-XII grossly intact. ABSENT: motor sensory deficit Psychiatric exam: PRESENT: appropriate affect, normal mood. ABSENT: homicidal ideation, suicidal ideation Skin exam: PRESENT: dry, intact, warm. ABSENT: cyanosis, rash Results Laboratory Results: 04/19/19 04:54 04/19/19 04:54 04/19/19 04/19/19 04:54 04:54 WBC 13.0 H RBC 4.72 Hgb 13.5 Hct 40.4 MCV 86 MCH 28.5 MCHC 33.4 RDW 13.6 Plt Count 202 Sodium 135.2 L Potassium 4.8 Chloride 102 Carbon Dioxide 29 Anion Gap 4 L BUN 31 H Creatinine 0.66 Est GFR ( Amer) > 60 Glucose 103 Calcium 8.7 04/11/19 04/11/19 04/12/19 12:25 18:35 00:35 CK-MB (CK-2) 1.60 1.53 Troponin I 0.727 0.265 0.125 NT-Pro-B Natriuret Pep 04/14/19 04:57 CK-MB (CK-2) Troponin I NT-Pro-B Natriuret Pep 241 H Impressions: Chest X-Ray 04/11/19 13:17 IMPRESSION: New right basilar airspace disease most compatible with pneumonia. No significant effusion. Head CT 04/11/19 13:26 IMPRESSION: 1. MILD CHRONIC CHANGES OF ATROPHY AND MICROVASCULAR ISCHEMIA. NO EVIDENCE OF ACUTE INTRACRANIAL PROCESS. 2. MUCOSAL THICKENING AND FROTHY MATERIAL WITHIN THE BILATERAL MAXILLARY AND SPHENOID SINUSES COMPATIBLE WITH ACUTE SINUS DISEASE. EVIDENCE OF ACUTE STROKE: NO. Chest CT 04/12/19 08:00 IMPRESSION: Bronchiolitis in the periphery of the lungs right greater than left. Assessment and Plan - Diagnosis (1) Pneumonia Qualifiers: Pneumonia type: due to unspecified organism Laterality: right Lung location: lower lobe of lung Qualified Code(s): J18.9 - Pneumonia, unspecified organism Is this a current diagnosis for this admission?: Yes Plan: The patient is a readmitted after treatment for COPD exacerbation. Blood cultures are negative at 5 days (other than Staphylococcus stimulants determined to be a contaminant). Sputum culture has resulted; per infectious disease notes, likely colonization and does not represent active infection at this time. Due to healthcare associated pneumonia related to prior admission, patient was empirically placed on IV gentamicin and cefepime. Infectious disease note was reviewed; per their recommendations can transition to p.o. Levaquin. We will continue supplemental oxygen as needed to maintain saturations. Continue as needed nebulizer treatments. Continue twice daily Mucinex. Encourage pulmonary toilet and ambulation. (2) COPD exacerbation Is this a current diagnosis for this admission?: Yes Plan: In addition to the above, the patient's home dose Breo and Incruse were continued. Continue as needed nebulizer treatments. Continue home dose Flonase. Patient was provided IV Solu-Medrol; continue 20 mg every 8 hours. Continue home dose Singulair. Recommend pulmonary rehabilitation upon discharge. Follow-up with Dr. Porter as outpatient. (3) Tobacco abuse Is this a current diagnosis for this admission?: Yes Plan: Smoking cessation strongly encouraged. Nicotine replacement therapies are offered. (4) Dyspnea Qualifiers: Dyspnea type: shortness of breath Qualified Code(s): R06.02 - Shortness of breath; R06.00 - Dyspnea, unspecified; R06.01 - Orthopnea Is this a current diagnosis for this admission?: Yes Plan: Improving. Secondary to #1 and 2. Evaluation management as above. (5) HTN (hypertension) Qualifiers: Hypertension type: essential hypertension Is this a current diagnosis for this admission?: Yes Plan: Continue home dose amlodipine and lisinopril Currently holding furosemide. Weight stable. Cardiac diet. - Time Time Spent with patient: 25-34 minutes Medications reviewed and adjusted accordingly: Yes Anticipated discharge: Home - With outpatient physical therapy and pulmonary rehabilitation Within: within 24 hours - Once no longer O2 dependent
[2019-04-19] MEDS: MONTELUKAST SODIUM 10 MG TABLET PO SCH (21:23)
[2019-04-19] MEDS: QUETIAPINE FUMARATE 25 MG TABLET PO SCH (21:23)
[2019-04-20] MEDS: LORAZEPAM 1 MG TABLET PO SCH (05:09)
[2019-04-20] MEDS: METHYLPREDNISOLONE INJ 40 MG/1 ML SDV IV SCH (05:09)
[2019-04-20] MEDS: IPRATROPIUM/ALBUTEROL 0.5-2.5 MG/3 ML AMPUL NEB SCH ×2 (08:00→11:50)
[2019-04-20 08:14] VITALS: BP 127/64
[2019-04-20] MEDS: LEVOFLOXACIN 750 MG TABLET PO SCH (10:55)
[2019-04-20] MEDS: AMLODIPINE BESYLATE 10 MG TABLET PO SCH (10:55)
[2019-04-20] MEDS: GUAIFENESIN 600 MG TABLET.SA PO SCH (10:55)
[2019-04-20] MEDS: FAMOTIDINE 20 MG TABLET PO SCH (10:55)
[2019-04-20] MEDS: MELOXICAM 7.5 MG TABLET PO SCH (10:56)
[2019-04-20] MEDS: LISINOPRIL 10 MG TABLET PO SCH (10:56)
[2019-04-20] MEDS: FLUTICASONE/VILANTEROL 200-25 MCG/DOSE IH SCH (10:56)
[2019-04-20] MEDS: UMECLIDINIUM BROMIDE 62.5 MCG/DOSE IH SCH (10:57)
[2019-04-20] MEDS: FLUTICASONE NASAL SPRAY 50 MCG/SPRY 120 SPRAY/16 GM NASL SCH (10:57)
[2019-04-20] MEDS: DOCUSATE SODIUM 100 MG CAPSULE PO SCH (10:58)
[2019-04-20] MEDS: NYSTATIN/DEXAMETH/DIPHEN SUSP 120 ML PO PRN (10:58)
[2019-04-20] MEDS: ENOXAPARIN SODIUM INJ 40 MG/0.4 ML DISP.SYRIN SUBCUT SCH (11:00)
--- NOTE | 2019-04-23 18:30 | PDOC DISCHARGE SUMMARY ---
Impression - Admit/DC Date/PCP Admission Date/Primary Care Provider: 04/11/19 14:55 MATTHEW VANESSA MD Discharge Date: 04/20/19 - Discharge Diagnosis (1) Pneumonia Is this a current diagnosis for this admission?: Yes (2) COPD exacerbation Is this a current diagnosis for this admission?: Yes (3) Tobacco abuse Is this a current diagnosis for this admission?: Yes (4) Dyspnea Is this a current diagnosis for this admission?: Yes (5) HTN (hypertension) Is this a current diagnosis for this admission?: Yes - Additional Information Resuscitation Status: Full Code Discharge Diet: Cardiac Discharge Activity: Activity As Tolerated, Balance Activity w/Rest, Energy Conservation, Slowly Increase Activity Referrals: MATTHEW VANESSA MD [Primary Care Provider] - 04/26/19 2:00 pm BOB PORTER MD [ACTIVE STAFF] - 06/02/19 10:15 am (Dr. Porter's office is closed 2wks for the holiday. Office will call if a sooner appointment opens.) Prescriptions: Prednisone [Deltasone 20 mg Tablet] 60 mg PO DAILY #12 tablet Ipratropium/Albuterol Sulfate [Duoneb 3 ml Ampul] 3 ml NEB RTQ8HP PRN #90 via l.neb PRN Reason: shortness of breath/wheezing Levofloxacin [Levaquin 750 mg Tablet] 750 mg PO DAILY #30 tablet Nebulizer [Nebulizer Machine] 1 each MC ASDIR PRN #1 kit PRN Reason: Home Medications: Albuterol Sulfate [Ventolin 0.083% Neb 2.5 mg/3 mL Ampul] 3 ml NEB Q6HP PRN 03/30/19 Albuterol Sulfate [Ventolin Hfa 8 gm Mdi (1 Mdi/ER Disp)] 2 puff IH Q6HP PRN 03/30/19 Amlodipine Besylate [Norvasc 10 mg Tablet] 10 mg PO DAILY 03/30/19 Budesonide/Formoterol Fumarate [Symbicort HFA 160-4.5 mcg Inhaler 6 gm] 2 puff IH Q12 03/30/19 Fluticasone Propionate [Flonase Nasal [place] 50 Mcg/[place] 16 gm] 2 sprays NASL DAILY 03/30/19 Furosemide [Lasix 40 mg Tablet] 40 mg PO DAILY 03/30/19 Lisinopril [Prinivil 10 mg Tablet] 10 mg PO DAILY 03/30/19 Meloxicam [Mobic] 7.5 mg PO DAILY 03/30/19 Montelukast Sodium [Singulair 10 mg Tablet] 10 mg PO QHS 03/30/19 Oxycodone HCl/Acetaminophen [Percocet 10-325 mg Tablet] 1 tab PO Q6HP PRN 03/30/19 Pregabalin [Lyrica 50 mg Capsule] 50 mg PO HSP PRN 03/30/19 Quetiapine Fumarate [Seroquel 25 mg Tablet] 25 mg PO QHS 03/30/19 Umeclidinium Fossil [Incruse 62.5 Mcg Ellipta 7 Dose/Dpi] 1 puff IH DAILY 03/30/19 Varenicline Tartrate [Chantix 0.5 mg Tablet] 0.56 mg PO BID 03/30/19 Acetaminophen [Tylenol 325 mg Tablet] 650 mg PO Q4HP PRN tablet 04/04/19 Docusate Sodium [Colace 100 mg Capsule] 100 mg PO DAILY capsule 04/04/19 Guaifenesin [Mucinex] 600 mg PO BID #28 tablet.sa 04/04/19 Levofloxacin [Levaquin 750 mg Tablet] 750 mg PO DAILY #3 tab 04/04/19 Oxycodone HCl/Acetaminophen [Percocet 5-325 mg Tablet] 1 tab PO Q4HP PRN tablet 04/04/19 Acetaminophen [Tylenol 325 mg Tablet] 650 mg PO Q4HP PRN tablet 04/19/19 Guaifenesin [Robitussin Syrup 200 mg/10 ml Ud Cup] 200 mg PO Q4HP PRN udc 04/19/19 Ipratropium/Albuterol Sulfate [Duoneb 3 ml Ampul] 3 ml NEB RTQ8HP PRN #90 vial.neb 04/19/19 Levofloxacin [Levaquin 750 mg Tablet] 750 mg PO DAILY #30 tablet 04/19/19 Nebulizer [Nebulizer Machine] 1 each ASDIR PRN #1 kit 04/19/19 Prednisone [Deltasone 20 mg Tablet] 60 mg PO DAILY #12 tablet 04/19/19 History of Present Illiness History of Present Illness: Per H&P by John Mehta PA-C: MEKA ATWOOD JR is a 68 year old male was just discharged home from the hospital 1 week ago for COPD exacerbation, pneumonia. He was actually discharged home on p.o. antibiotics and took those medications as well as p.o. steroids. She states he felt good for about 2 or 3 days and then yesterday started feeling short of breath again point where he was unable to get around the house without having to sit down and use his nebulizer machine all the time. He is also had a cough nonproductive for the last several days Chest x-ray in the ER shows a possible new infiltrate the right lower lobe. Recent is going to be admitted for IV antibiotics and pulmonary toiletry. Patient may need a CT of the chest Hospital Course Hospital Course: The patient was admitted to [facility] on continuous cardiac telemetry. The patient had been recently admitted to the hospital and placed on IV antibiotics for community-acquired pneumonia and COPD exacerbation, this admission, and his antibiotics were escalated for coverage of healthcare associated pneumonia. Therefore, he was placed on IV gentamicin and cefepime. Infectious disease was consulted; they recommended transition to p.o. Levaquin. The patient is discharged home with a prescription to complete the full course of therapy. He was further supported with supplemental oxygen, scheduled and as needed nebulizer treatments, IV Solu-Medrol, Mucinex, and aggressive pulmonary toilet. The patient's respiratory status gradually improved, however, he remained oxygen dependent even while at rest. Fortunately, arrangements have been made for the patient to be able to be discharged home with supplemental oxygen. Hopefully expect the patient to continue requiring oxygen for treatment of his chronic respiratory failure related to COPD even after complete resolution of his pneumonia. He has been instructed to follow-up with his primary care provider within the 30-day to repeat the oxygen qualification testing. His chronic medical conditions remained stable. Patient is discharged home in stable condition with home health services. Arrangements will be made for him to transition to pulmonary rehabilitation once appropriate. He is instructed to follow-up with his primary care provider within 1 week. He is advised to follow-up with Dr. Porter as scheduled. He is instructed to take his medications as prescribed. He is encouraged to return the emergency department as needed for concerning symptoms. Physical Exam Vital Signs: Temp Pulse Resp BP Pulse Ox 97.5 F 88 12 127/64 H 90 L 04/20/19 11:12 04/20/19 11:51 04/20/19 11:51 04/20/19 11:12 04/20/19 11:51 General appearance: PRESENT: no acute distress, cooperative, well-developed, well-nourished Head exam: PRESENT: atraumatic, normocephalic Eye exam: PRESENT: conjunctiva pink, EOMI, PERRLA. ABSENT: scleral icterus Ear exam: PRESENT: normal external ear exam Mouth exam: PRESENT: moist, tongue midline Teeth exam: PRESENT: poor dentation Neck exam: ABSENT: carotid bruit, JVD, lymphadenopathy, thyromegaly Respiratory exam: PRESENT: clear to auscultation uriel, decreased breath sounds - bibasilar, prolonged expiratory phas, symmetrical, unlabored, other - supplemental oxygen via NC. ABSENT: rales, rhonchi, wheezes Cardiovascular exam: PRESENT: RRR. ABSENT: diastolic murmur, rubs, systolic murmur Pulses: PRESENT: normal dorsalis pedis pul Vascular exam: PRESENT: normal capillary refill GI/Abdominal exam: PRESENT: normal bowel sounds, soft. ABSENT: distended, guarding, mass, organolmegaly, rebound, tenderness Rectal exam: PRESENT: deferred Extremities exam: PRESENT: full ROM. ABSENT: calf tenderness, clubbing, pedal edema Musculoskeletal exam: PRESENT: ambulatory Neurological exam: PRESENT: alert, awake, oriented to person, oriented to place, oriented to time, oriented to situation, CN II-XII grossly intact. ABSENT: motor sensory deficit Psychiatric exam: PRESENT: appropriate affect, normal mood. ABSENT: homicidal ideation, suicidal ideation Skin exam: PRESENT: dry, intact, warm. ABSENT: cyanosis, rash Results Laboratory Results: WBC 13.0 10^3/uL (4.0-10.5) H 04/19/19 04:54 RBC 4.72 10^6/uL (4.35-5.55) 04/19/19 04:54 Hgb 13.5 g/dL (13.5-17.0) 04/19/19 04:54 Hct 40.4 % (37.9-51.0) 04/19/19 04:54 MCV 86 fl (80-97) 04/19/19 04:54 MCH 28.5 pg (27.0-33.4) 04/19/19 04:54 MCHC 33.4 g/dL (32.0-36.0) 04/19/19 04:54 RDW 13.6 % (11.5-14.0) 04/19/19 04:54 Plt Count 202 10^3/uL (150-450) 04/19/19 04:54 Lymph % (Auto) Not Reportable 04/17/19 06:49 [place] % (Auto) Not Reportable 04/17/19 06:49 Eos % (Auto) Not Reportable 04/17/19 06:49 Baso % (Auto) Not Reportable 04/17/19 06:49 Absolute Neuts (auto) Not Reportable 04/17/19 06:49 Absolute Lymphs (auto) Not Reportable 04/17/19 06:49 Absolute Monos (auto) Not Reportable 04/17/19 06:49 Absolute Eos (auto) Not Reportable 04/17/19 06:49 Absolute Basos (auto) Not Reportable 04/17/19 06:49 Total Counted 100 04/17/19 06:49 Seg Neutrophils % Not Reportable 04/17/19 06:49 Seg Neuts % (Manual) 89 % (42-78) H 04/17/19 06:49 Band Neutrophils % 1 % (3-5) L 04/11/19 12:25 Lymphocytes % (Manual) 7 % (13-45) L 04/17/19 06:49 Atypical Lymphs % 2 % (0) 04/11/19 12:25 Monocytes % (Manual) 4 % (3-13) 04/17/19 06:49 Eosinophils % (Manual) 0 % (0-6) 04/17/19 06:49 Basophils % (Manual) 0 % (0-2) 04/17/19 06:49 Abs Neuts (Manual) 11.4 10^3/uL (1.7-8.2) H 04/17/19 06:49 Abs Lymphs (Manual) 0.9 10^3/uL (0.5-4.7) 04/17/19 06:49 Abs Monocytes (Manual) 0.5 10^3/uL (0.1-1.4) 04/17/19 06:49 Absolute Eos (Manual) 0.0 10^3/uL (0.0-0.6) 04/17/19 06:49 Abs Basophils (Manual) 0.0 10^3/uL (0.0-0.2) 04/17/19 06:49 Platelet Comment ADEQUATE 04/17/19 06:49 Poikilocytosis SLIGHT 04/17/19 06:49 Anisocytosis SLIGHT 04/12/19 06:35 Ovalocytes SLIGHT 04/17/19 06:49 RBC Morph Comment NORMO-CYTIC/CHROMIC 04/14/19 04:57 Carbonic Acid 1.01 mmol/L (1.05-1.35) L 04/11/19 14:50 HCO3/H2CO3 Ratio 23:1 04/11/19 14:50 ABG pH 7.47 (7.35-7.45) H 04/11/19 14:50 ABG pCO2 33.5 mmHg (35-45) L 04/11/19 14:50 ABG pO2 57.8 mmHg (80-100) L 04/11/19 14:50 ABG HCO3 23.7 mmol/L (20-24) 04/11/19 14:50 ABG Total CO2 24.8 mmol/L (23-27) 04/11/19 14:50 ABG O2 Saturation 91.9 % (94-98) L 04/11/19 14:50 ABG Base Excess 0.7 mmol/L 04/11/19 14:50 FiO2 30% 04/11/19 14:50 Sodium 135.2 mmol/L (137-145) L 04/19/19 04:54 Potassium 4.8 mmol/L (3.6-5.0) 04/19/19 04:54 Chloride 102 mmol/L (98-107) 04/19/19 04:54 Carbon Dioxide 29 mmol/L (22-30) 04/19/19 04:54 Anion Gap 4 (5-19) L 04/19/19 04:54 BUN 31 mg/dL (7-20) H 04/19/19 04:54 Creatinine 0.66 mg/dL (0.52-1.25) 04/19/19 04:54 Est GFR ( Amer) > 60 (>60) 04/19/19 04:54 Est GFR (MDRD) Non-Af > 60 (>60) 04/19/19 04:54 Glucose 103 mg/dL (75-110) 04/19/19 04:54 Lactic Acid (Sepsis) 1.1 mmol/L (0.7-2.1) 04/11/19 14:56 Calcium 8.7 mg/dL (8.4-10.2) 04/19/19 04:54 Magnesium 2.6 mg/dL (1.6-2.3) H 04/11/19 12:25 Total Bilirubin 1.3 mg/dL (0.2-1.3) 04/11/19 12:25 Direct Bilirubin 0.1 mg/dL (0.0-0.4) 04/11/19 12:25 Neonat Total Bilirubin Not Reportable 04/11/19 12:25 Neonat Direct Bilirubin Not Reportable 04/11/19 12:25 Neonat Indirect Bili Not Reportable 04/11/19 12:25 AST 40 U/L (17-59) 04/11/19 12:25 ALT 37 U/L (<50) 04/11/19 12:25 Alkaline Phosphatase 73 U/L (38-126) 04/11/19 12:25 CK-MB (CK-2) 1.53 ng/mL (<4.55) 04/12/19 00:35 Troponin I 0.125 ng/mL 04/12/19 00:35 NT-Pro-B Natriuret Pep 241 pg/mL (<125) H 04/14/19 04:57 Total Protein 6.2 g/dL (6.3-8.2) L 04/11/19 12:25 Albumin 3.7 g/dL (3.5-5.0) 04/11/19 12:25 Urine Color YELLOW 04/11/19 15:08 Urine Appearance CLEAR 04/11/19 15:08 Urine pH 7.0 (5.0-9.0) 04/11/19 15:08 Ur Specific [place] 1.009 04/11/19 15:08 Urine Protein NEGATIVE mg/dL (NEGATIVE) 04/11/19 15:08 Urine Glucose (UA) NEGATIVE mg/dL (NEGATIVE) 04/11/19 15:08 Urine Ketones TRACE mg/dL (NEGATIVE) H 04/11/19 15:08 Urine Blood NEGATIVE (NEGATIVE) 04/11/19 15:08 Urine Nitrite (Reflex) NEGATIVE (NEGATIVE) 04/11/19 15:08 Urine Bilirubin NEGATIVE (NEGATIVE) 04/11/19 15:08 Urine Urobilinogen NEGATIVE mg/dL (<2.0) 04/11/19 15:08 Leukocyte Esterase Rfl NEGATIVE (NEGATIVE) 04/11/19 15:08 Urine RBC (Auto) 1 /HPF 04/11/19 15:08 Urine WBC (Reflex) 1 /HPF 04/11/19 15:08 Urine Mucus (Auto) RARE /LPF 04/11/19 15:08 Urine Ascorbic Acid NEGATIVE (NEGATIVE) 04/11/19 15:08 Dose Start Time 06:21 04/14/19 08:00 Dose Stop Time 07:47 04/14/19 08:00 Time Trough Drawn 0540 04/18/19 05:40 Time Peak Drawn 08:00 04/14/19 08:00 Gentamicin Peak 9.5 ug/mL (5.0-10.0) 04/14/19 08:00 Gentamicin Trough 1.2 ug/mL (<2.0) 04/18/19 05:40 04/11/19 04/11/19 04/12/19 12:25 18:35 00:35 CK-MB (CK-2) 1.60 1.53 Troponin I 0.727 0.265 0.125 NT-Pro-B Natriuret Pep 04/14/19 04:57 CK-MB (CK-2) Troponin I NT-Pro-B Natriuret Pep 241 H Impressions: Chest X-Ray 04/11/19 13:17 IMPRESSION: New right basilar airspace disease most compatible with pneumonia. No significant effusion. Head CT 04/11/19 13:26 IMPRESSION: 1. MILD CHRONIC CHANGES OF ATROPHY AND MICROVASCULAR ISCHEMIA. NO EVIDENCE OF ACUTE INTRACRANIAL PROCESS. 2. MUCOSAL THICKENING AND FROTHY MATERIAL WITHIN THE BILATERAL MAXILLARY AND SPHENOID SINUSES COMPATIBLE WITH ACUTE SINUS DISEASE. EVIDENCE OF ACUTE STROKE: NO. Chest CT 04/12/19 08:00 IMPRESSION: Bronchiolitis in the periphery of the lungs right greater than left. Plan Plan of Treatment: Patient is discharged to home with home health nursing services. He is advised to follow up with his primary care provider within 1 week. He is encouraged to begin participating in pulmonary rehabilitation as soon as possible. Follow up with pulmonolgoy, Dr. Porter, as scheduled. Wear supplemental oxygen at 2 L/min continuously. Avoid all known respiratory triggers (tobacco smoke, dust, pollen, pet dander). Take medications as prescribed. Return to the emergency department as needed for concerning symptoms. Time Spent: Greater than 30 Minutes Stroke Is this a Stroke Patient?: No Acute Heart Failure - Is this a Heart Failure Patient?: No
== END 2019-04-20 12:06 | disposition home or self-care (01) | DRG 190 ==
LOC: ER 12:59 → EH 14:55 → 3W 16:24
PROVIDERS: ADMIT Hospitalist; ATTEND Hospitalist
PROC: 5A09557 Assistance with Respiratory Ventilation, Greater than 96 Consecutive Hours, Continuous Positive Airway Pressure (ICD-10-PCS; principal; 2019-04-11)
DX: J44.1 Chronic obstructive pulmonary disease with (acute) exacerbation (principal); J18.9 Pneumonia, unspecified organism; J44.0 Chronic obstructive pulmonary disease with (acute) lower respiratory infection; I10 Essential (primary) hypertension; F17.210 Nicotine dependence, cigarettes, uncomplicated; F41.9 Anxiety disorder, unspecified; Y95 Nosocomial condition; Y92.009 Unspecified place in unspecified non-institutional (private) residence as the place of occurrence of the external cause; W19.XXXA Unspecified fall, initial encounter; Z79.899 Other long term (current) drug therapy; Z79.891 Long term (current) use of opiate analgesic; Z99.81 Dependence on supplemental oxygen
CPT/HCPCS: 36415; 70450; 71045; 71250; 80048; 80053; 80170; 81001; 82553; 82803; 83605; 83735; 83880; 84484; 85025; 85027; 87040; 87070; 87077; 87186; 87205; 93005; 93010; 94640; 94660; 94667; 94799; 99285; J0692; J1580; J1650; J2920; J3370; J3490; J7060; J7620